=== PATIENT | female | born 1960 | race Caucasian/White ===

== ENCOUNTER 2021-08-18 10:00 | Outpatient (RCR) | payer MEDICARE, MEDICAID, SELFPAY ==
--- NOTE | 2021-06-23 14:48 | HO.TMSDAILY2 ---
TMS Daily Progress Note Daily TMS Progress Note Date of Service: 06/23/21 Week #: 1 Treatment #(10-09): 1 PHQ-9 Pre-Treatment (10-06): 23 PHQ-9 Most Recent (10-06): 23 Reviewed: TMS Mapping/Re-mapping completed Verification: I have reviewed the TMS Maintenance Worker House Trailer Note and agree with the contents. The patient remains a candidate to continue TMS treatment per protocol.
--- NOTE | 2021-06-27 17:50 | P.PNPS_ITS ---
TMS Daily Progress Note Daily TMS Progress Note Date of Service: 06/27/21 Week #: 1 Treatment #(10-09): 2 PHQ-9 Pre-Treatment (10-06): 23 PHQ-9 Most Recent (10-06): 23 Reviewed: TMS Tech Note Reviewed Verification: I have reviewed the TMS Warp Spooler Note and agree with the contents. The patient remains a candidate to continue TMS treatment per pro tocol.
--- NOTE | 2021-06-28 21:28 | P.PNPS_ITS ---
TMS Daily Progress Note Daily TMS Progress Note Date of Service: 06/28/21 Week #: 1 Treatment #(10-09): 3 PHQ-9 Pre-Treatment (10-06): 23 PHQ-9 Most Recent (10-06): 23 Reviewed: TMS Tech Note Reviewed Verification: I have reviewed the TMS Neonatal Pediatric Nurse Note and agree with the contents. The patient remains a candidate to continue TMS treatment per pro tocol. Pt seen post tms sverely depressed hopeless helpless denies active si call placed to pts therapist to coordinate care. Pt willing to engage in tx discussed option of toritofjoshua reviewed dx possible tx
--- NOTE | 2021-06-29 10:46 | P.PNPS_ITS ---
TMS Daily Progress Note Daily TMS Progress Note Date of Service: 06/29/21 Week #: 1 Treatment #(10-09): 4 PHQ-9 Pre-Treatment (10-06): 23 PHQ-9 Most Recent (10-06): 23 Reviewed: TMS Tech Note Reviewed Verification: I have reviewed the TMS Electronic Train Control Technician Note and agree with the contents. The patient remains a candidate to continue TMS treatment per pr otocol. Added right protocol to left-sided treatment for hopeful increase efficacy Patient severely depressed monitor safety patient denies any active SI
--- NOTE | 2021-07-04 22:02 | HO.TMSDAILY2 ---
TMS Daily Progress Note Daily TMS Progress Note Date of Service: 06/30/21 Week #: 1 Treatment #(10-09): 5 PHQ-9 Pre-Treatment (10-06): 23 PHQ-9 Most Recent (10-06): 23 Reviewed: TMS Tech Note Reviewed Verification: I have reviewed the TMS Clinical Resource Nurse Note and agree with the contents. The patient remains a candidate to continue TMS treatment per protocol. Assessment and Plan (1) Depression, major, severe recurrence: Status: Acute tms treatment monitor response
--- NOTE | 2021-07-04 22:09 | P.PNPS_ITS ---
TMS Daily Progress Note Daily TMS Progress Note Date of Service: 07/04/21 Week #: 2 Treatment #(10-09): 7 PHQ-9 Pre-Treatment (10-06): 23 PHQ-9 Most Recent (10-06): 23 Reviewed: TMS Tech Note Reviewed Verification: I have reviewed the TMS Agricultural Equipment Sales Manager Note and agree with the contents. The patient remains a candidate to continue TMS treatment per pr otocol. Assessment and Plan (1) Depression, major, severe recurrence: Status: Acute tms treatment monitor response
--- NOTE | 2021-07-05 22:11 | HO.TMSDAILY2 ---
TMS Daily Progress Note Daily TMS Progress Note Date of Service: 07/05/21 Week #: 2 Treatment #(10-09): 8 PHQ-9 Pre-Treatment (10-06): 23 PHQ-9 Most Recent (10-06): 23 Reviewed: TMS Tech Note Reviewed Verification: I have reviewed the TMS Heat And Frost Insulator Note and agree with the contents. The patient remains a candidate to continue TMS treatment per protocol. Assessment and Plan (1) Depression, major, severe recurrence: Status: Acute tms treatment monitor response
--- NOTE | 2021-07-06 21:04 | P.PNPS_ITS ---
TMS Daily Progress Note Daily TMS Progress Note Date of Service: 07/06/21 Week #: 2 Treatment #(10-09): 9 PHQ-9 Pre-Treatment (10-06): 23 PHQ-9 Most Recent (10-06): 23 Reviewed: TMS Tech Note Reviewed Verification: I have reviewed the TMS Surveillance Supervisor Note and agree with the contents. The patient remains a candidate to continue TMS treatment per pr otocol.
--- NOTE | 2021-07-07 21:05 | HO.TMSDAILY2 ---
TMS Daily Progress Note Daily TMS Progress Note Date of Service: 07/07/21 Week #: 2 Treatment #(10-09): 10 PHQ-9 Pre-Treatment (10-06): 23 PHQ-9 Most Recent (10-06): 23 Reviewed: TMS Tech Note Reviewed Verification: I have reviewed the TMS Serging Machine Operator Automatic Note and agree with the contents. The patient remains a candidate to continue TMS treatment per protocol.
--- NOTE | 2021-07-08 18:50 | HO.TMSDAILY2 ---
TMS Daily Progress Note Daily TMS Progress Note Date of Service: 07/08/21 Week #: 3 Treatment #(10-09): 11 PHQ-9 Pre-Treatment (10-06): 23 PHQ-9 Most Recent (10-06): 23 Reviewed: TMS Tech Note Reviewed Verification: I have reviewed the TMS Maintenance Of Way Superintendent Note and agree with the contents. The patient remains a candidate to continue TMS treatment per protocol. Assessment and Plan (1) Depression, major, severe recurrence: Status: Acute continue tx plan note abilify 2 mg started
--- NOTE | 2021-07-11 21:08 | HO.TMSDAILY2 ---
TMS Daily Progress Note Daily TMS Progress Note Date of Service: 07/11/21 Week #: 3 Treatment #(10-09): 12 PHQ-9 Pre-Treatment (10-06): 23 PHQ-9 Most Recent (10-06): 23 Reviewed: TMS Tech Note Reviewed Verification: I have reviewed the TMS Registered Radiologic Technologist Note and agree with the contents. The patient remains a candidate to continue TMS treatment per protocol. Assessment and Plan (1) Depression, major, severe recurrence: Status: Acute continue tx plan note abilify 2 mg started
--- NOTE | 2021-07-11 21:11 | HO.TMSDAILY2 ---
TMS Daily Progress Note Daily TMS Progress Note Date of Service: 07/11/21 Week #: 3 Treatment #(10-09): 12 PHQ-9 Pre-Treatment (10-06): 23 PHQ-9 Most Recent (10-06): 23 Reviewed: TMS Tech Note Reviewed Verification: I have reviewed the TMS Meteorological Aide Note and agree with the contents. The patient remains a candidate to continue TMS treatment per protocol. Assessment and Plan (1) Depression, major, severe recurrence: Status: Acute continue tx plan monitor depression
--- NOTE | 2021-07-12 21:33 | HO.TMSDAILY2 ---
TMS Daily Progress Note Daily TMS Progress Note Date of Service: 07/12/21 Week #: 3 Treatment #(10-09): 13 PHQ-9 Pre-Treatment (10-06): 23 PHQ-9 Most Recent (10-06): 23 Reviewed: TMS Tech Note Reviewed Verification: I have reviewed the TMS Cranberry Bog Supervisor Note and agree with the contents. The patient remains a candidate to continue TMS treatment per protocol. Assessment and Plan (1) Depression, major, severe recurrence: Status: Acute continue tx plan monitor depression
--- NOTE | 2021-07-13 21:44 | HO.TMSDAILY2 ---
TMS Daily Progress Note Daily TMS Progress Note Date of Service: 07/13/21 Week #: 3 Treatment #(10-09): 14 PHQ-9 Pre-Treatment (10-06): 23 PHQ-9 Most Recent (10-06): 23 Reviewed: TMS Tech Note Reviewed Verification: I have reviewed the TMS Golf Course Equipment Operator Note and agree with the contents. The patient remains a candidate to continue TMS treatment per protocol. Assessment and Plan (1) Depression, major, severe recurrence: Status: Acute continue tx plan monitor depression
--- NOTE | 2021-07-14 22:08 | HO.TMSDAILY2 ---
TMS Daily Progress Note Daily TMS Progress Note Date of Service: 07/14/21 Week #: 3 Treatment #(10-09): 15 PHQ-9 Pre-Treatment (10-06): 23 PHQ-9 Most Recent (10-06): 23 Reviewed: TMS Tech Note Reviewed Verification: I have reviewed the TMS Grove Worker Note and agree with the contents. The patient remains a candidate to continue TMS treatment per protocol. Assessment and Plan (1) Depression, major, severe recurrence: Status: Acute continue tx plan monitor depression abilify 2 mg had been added
--- NOTE | 2021-07-18 16:45 | HO.TMSDAILY2 ---
TMS Daily Progress Note Daily TMS Progress Note Date of Service: 07/18/21 Week #: 4 Treatment #(10-09): 16 PHQ-9 Pre-Treatment (10-06): 23 PHQ-9 Most Recent (10-06): 23 Reviewed: TMS Tech Note Reviewed Verification: I have reviewed the TMS Lead Process Engineer Note and agree with the contents. The patient remains a candidate to continue TMS treatment per protocol. Assessment and Plan (1) Depression, major, severe recurrence: Status: Acute continue tx plan monitor depression abilify 2 mg had been added
--- NOTE | 2021-07-19 20:03 | P.PNPS_ITS ---
TMS Daily Progress Note Daily TMS Progress Note Date of Service: 07/19/21 Week #: 4 Treatment #(10-09): 17 PHQ-9 Pre-Treatment (10-06): 23 PHQ-9 Most Recent (10-06): 23 Reviewed: TMS Tech Note Reviewed Verification: I have reviewed the TMS Sow Farm Technician Note and agree with the contents. The patient remains a candidate to continue TMS treatment per p ree.
--- NOTE | 2021-07-20 21:37 | HO.TMSDAILY2 ---
TMS Daily Progress Note Daily TMS Progress Note Date of Service: 07/20/21 Week #: 3 Treatment #(10-09): 19 PHQ-9 Pre-Treatment (10-06): 23 PHQ-9 Most Recent (10-06): 23 Reviewed: TMS Tech Note Reviewed Verification: I have reviewed the TMS Purchasing Clerk Note and agree with the contents. The patient remains a candidate to continue TMS treatment per protocol. Assessment and Plan (1) Depression, major, severe recurrence: Status: Acute continue tx plan monitor depression monitor for si
--- NOTE | 2021-07-21 23:09 | P.PNPS_ITS ---
TMS Daily Progress Note Daily TMS Progress Note Date of Service: 07/22/21 Week #: 4 Treatment #(10-09): 19 PHQ-9 Pre-Treatment (10-06): 23 PHQ-9 Most Recent (10-06): 23 Reviewed: TMS Tech Note Reviewed Verification: I have reviewed the TMS Aviation Medicine Specialist Note and agree with the contents. The patient remains a candidate to continue TMS treatment per p ree. Assessment and Plan (1) Depression, major, severe recurrence: Status: Acute continue tx plan monitor depression monitor for si
--- NOTE | 2021-07-22 21:37 | P.PNPS_ITS ---
TMS Daily Progress Note Daily TMS Progress Note Date of Service: 07/22/21 Week #: 4 Treatment #(10-09): 20 PHQ-9 Pre-Treatment (10-06): 23 PHQ-9 Most Recent (10-06): 23 Reviewed: TMS Tech Note Reviewed Verification: I have reviewed the TMS Refrigeration Service Inspector Note and agree with the contents. The patient remains a candidate to continue TMS treatment per p ree. Assessment and Plan (1) Depression, major, severe recurrence: Status: Acute continue tx plan monitor depression
--- NOTE | 2021-07-25 22:02 | P.PNPS_ITS ---
TMS Daily Progress Note Daily TMS Progress Note Date of Service: 07/25/21 Week #: 5 Treatment #(10-09): 21 PHQ-9 Pre-Treatment (10-06): 23 PHQ-9 Most Recent (10-06): 23 Reviewed: TMS Tech Note Reviewed Verification: I have reviewed the TMS Property Portfolio Officer Note and agree with the contents. The patient remains a candidate to continue TMS treatment per p ree.
--- NOTE | 2021-07-26 21:56 | HO.TMSDAILY2 ---
TMS Daily Progress Note Daily TMS Progress Note Date of Service: 07/26/21 Week #: 5 Treatment #(10-09): 22 PHQ-9 Pre-Treatment (10-06): 23 PHQ-9 Most Recent (10-06): 23 Reviewed: TMS Tech Note Reviewed Verification: I have reviewed the TMS Department Of Mathematics Chair Note and agree with the contents. The patient remains a candidate to continue TMS treatment per protocol. Assessment and Plan (1) Depression, major, severe recurrence: Status: Acute continue tx plan monitor depression pt seen mood improved much less agitation no longer active si feels wellbutrin 150 abilify 2 mg tms helpful some fatigue post tx medication reviewed no c/o side effecyts continue tms no current need to remap
--- NOTE | 2021-07-27 23:02 | HO.TMSDAILY2 ---
TMS Daily Progress Note Daily TMS Progress Note Date of Service: 07/28/21 Week #: 4 Treatment #(10-09): 23 PHQ-9 Pre-Treatment (10-06): 23 PHQ-9 Most Recent (10-06): 23 Reviewed: TMS Tech Note Reviewed Verification: I have reviewed the TMS Title Curative Specialist Note and agree with the contents. The patient remains a candidate to continue TMS treatment per protocol. Assessment and Plan (1) Depression, major, severe recurrence: Status: Acute continue tx plan monitor depression
--- NOTE | 2021-07-28 22:53 | P.PNPS_ITS ---
TMS Daily Progress Note Daily TMS Progress Note Date of Service: 07/28/21 Week #: 5 Treatment #(10-09): 24 PHQ-9 Pre-Treatment (10-06): 23 PHQ-9 Most Recent (10-06): 23 Reviewed: TMS Tech Note Reviewed Verification: I have reviewed the TMS Lens Molding Equipment Operator Note and agree with the contents. The patient remains a candidate to continue TMS treatment per p ree.
--- NOTE | 2021-07-29 17:21 | HO.TMSDAILY2 ---
TMS Daily Progress Note Daily TMS Progress Note Date of Service: 07/29/21 Week #: 5 Treatment #(10-09): 25 PHQ-9 Pre-Treatment (10-06): 23 PHQ-9 Most Recent (10-06): 23 Reviewed: TMS Tech Note Reviewed Verification: I have reviewed the TMS Slitting And Shipping Supervisor Note and agree with the contents. The patient remains a candidate to continue TMS treatment per protocol.
--- NOTE | 2021-08-01 23:32 | HO.TMSDAILY2 ---
TMS Daily Progress Note Daily TMS Progress Note Date of Service: 08/01/21 Week #: 6 Treatment #(10-09): 26 PHQ-9 Pre-Treatment (10-06): 23 PHQ-9 Most Recent (10-06): 23 Reviewed: TMS Tech Note Reviewed Verification: I have reviewed the TMS Candy Department Manager Note and agree with the contents. The patient remains a candidate to continue TMS treatment per protocol. Assessment and Plan (1) Depression, major, severe recurrence: Status: Acute continue tx plan monitor depression
--- NOTE | 2021-08-02 22:05 | P.PNPS_ITS ---
TMS Daily Progress Note Daily TMS Progress Note Date of Service: 08/02/21 Week #: 6 Treatment #(10-09): 27 PHQ-9 Pre-Treatment (10-06): 23 PHQ-9 Most Recent (10-06): 23 Reviewed: TMS Tech Note Reviewed Verification: I have reviewed the TMS Boring Machine Operator Note and agree with the contents. The patient remains a candidate to continue TMS treatment per p ree. Assessment and Plan (1) Depression, major, severe recurrence: Status: Acute continue tx plan monitor depression improved
--- NOTE | 2021-08-03 16:26 | P.PNPS_ITS ---
TMS Daily Progress Note Daily TMS Progress Note Date of Service: 08/03/21 Week #: 6 Treatment #(10-09): 28 PHQ-9 Pre-Treatment (10-06): 23 PHQ-9 Most Recent (10-06): 23 Reviewed: TMS Tech Note Reviewed Verification: I have reviewed the TMS Pre Parole Counseling Aide Note and agree with the contents. The patient remains a candidate to continue TMS treatment per p ree.
--- NOTE | 2021-08-08 23:06 | HO.TMSDAILY2 ---
TMS Daily Progress Note Daily TMS Progress Note Date of Service: 08/08/21 Week #: 6 Treatment #(10-09): 29 PHQ-9 Pre-Treatment (10-06): 23 PHQ-9 Most Recent (10-06): 23 Reviewed: TMS Tech Note Reviewed Verification: I have reviewed the TMS Refractory Technician Note and agree with the contents. The patient remains a candidate to continue TMS treatment per protocol.
--- NOTE | 2021-08-09 23:19 | HO.TMSDAILY2 ---
TMS Daily Progress Note Daily TMS Progress Note Date of Service: 08/10/21 Week #: 6 Treatment #(10-09): 30 PHQ-9 Pre-Treatment (10-06): 23 PHQ-9 Most Recent (10-06): 23 Reviewed: TMS Tech Note Reviewed Verification: I have reviewed the TMS Liturgical Music Director Note and agree with the contents. The patient remains a candidate to continue TMS treatment per protocol.
--- NOTE | 2021-08-10 22:10 | P.PNPS_ITS ---
TMS Daily Progress Note Daily TMS Progress Note Date of Service: 08/10/21 Week #: 7 Treatment #(10-09): 31 PHQ-9 Pre-Treatment (10-06): 23 PHQ-9 Most Recent (10-06): 23 Reviewed: TMS Tech Note Reviewed Verification: I have reviewed the TMS Rotary Drier Operator Note and agree with the contents. The patient remains a candidate to continue TMS treatment per p ree.
--- NOTE | 2021-08-11 23:31 | HO.TMSDAILY2 ---
TMS Daily Progress Note Daily TMS Progress Note Date of Service: 08/11/21 Week #: 7 Treatment #(10-09): 32 PHQ-9 Pre-Treatment (10-06): 23 PHQ-9 Most Recent (10-06): 23 Reviewed: TMS Tech Note Reviewed Verification: I have reviewed the TMS Senior Advocate Note and agree with the contents. The patient remains a candidate to continue TMS treatment per protocol.
--- NOTE | 2021-08-15 23:39 | HO.TMSDAILY2 ---
TMS Daily Progress Note Daily TMS Progress Note Date of Service: 08/15/21 Week #: 7 Treatment #(10-09): 33 PHQ-9 Pre-Treatment (10-06): 23 PHQ-9 Most Recent (10-06): 23 Reviewed: TMS Tech Note Reviewed Verification: I have reviewed the TMS Branch Lending Officer Note and agree with the contents. The patient remains a candidate to continue TMS treatment per protocol.
--- NOTE | 2021-08-17 23:43 | HO.TMSDAILY2 ---
TMS Daily Progress Note Daily TMS Progress Note Date of Service: 08/17/21 Week #: 8 Treatment #(10-09): 35 PHQ-9 Pre-Treatment (10-06): 23 PHQ-9 Most Recent (10-06): 23 Reviewed: TMS Tech Note Reviewed Verification: I have reviewed the TMS Optometry Assistant Note and agree with the contents. The patient remains a candidate to continue TMS treatment per protocol.
--- NOTE | 2021-08-18 15:54 | P.PNPS_ITS ---
TMS Daily Progress Note Daily TMS Progress Note Date of Service: 08/18/21 Week #: 8 Treatment #(10-09): 36 PHQ-9 Pre-Treatment (10-06): 23 PHQ-9 Most Recent (10-06): 23 Reviewed: TMS Tech Note Reviewed Verification: I have reviewed the TMS Backing In Machine Tender Note and agree with the contents. The patient remains a candidate to continue TMS treatment per p ree. Assessment and Plan (1) Depression, major, severe recurrence: Status: Acute pt with good response to tms
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
== END 2021-08-18 16:02 | disposition home or self-care (01) ==
LOC: HO.PTMS 10:00
PROVIDERS: Visit Provider Psychiatry & Neurology Psychiatry
DX: F33.2 Major depressive disorder, recurrent severe without psychotic features (principal)
CPT/HCPCS: 90867; 90868; 99212

== ENCOUNTER 2021-11-09 10:21 | Outpatient (REF) | payer OTHER, MEDICARE, SELFPAY ==
[2021-11-09 16:47] LABS: H Pylori Breath Test Negative (Negative)
== END 2021-11-09 10:22 | disposition home or self-care (01) ==
LOC: HO.LNP 10:21
PROVIDERS: Visit Provider Physician Assistant Surgical
DX: E66.01 Morbid (severe) obesity due to excess calories (principal)
CPT/HCPCS: 83013; 99202; 99211

== ENCOUNTER → 2021-11-15 14:44 | Outpatient (BNVA) | payer OTHER, SELFPAY | PROVIDERS: PCP Internal Medicine; Visit Provider Counselor Mental Health | DX: F33.2 Major depressive disorder, recurrent severe without psychotic features (principal) | CPT/HCPCS: 90791 ==

== ENCOUNTER 2021-11-16 08:20 | Outpatient (REF) | payer OTHER, SELFPAY ==
[2021-11-16 09:31] LABS: C Reactive Protein 2.39 mg/dL (< or = 0.50); Cholesterol 235 mg/dL; HDL Cholesterol 48 mg/dL; Iron 62 mcg/dL (30-160); LDL Cholesterol Calculated 162 mg/dl; Percent Iron Saturation 19 % (15-50); Total Iron Binding Capacity 318 mcg/dL (228-428); Triglycerides 127 mg/dL; Unsaturated Iron Binding 256 ug/dL
[2021-11-16 09:53] LABS: Ferritin 59 ng/mL (10-250); TSH reflex Free T4 1.36 uIU/mL (0.32-4.0); Vitamin D 25-OH Total 33.8 ng/mL (>30)
[2021-11-16 10:03] LABS: Folate > 20.0 ng/mL (> or = 4.0); Vitamin B12 693 pg/mL (200-900)
[2021-11-18 13:46] LABS: Calcium (PTHI) 9.5 mg/dL (8.6-10.4); PTHI 107 pg/mL (14-64)
[2021-11-19 17:11] LABS: Zinc 73 mcg/dL (60-130)
[2021-11-21 12:41] LABS: Vitamin B1 28 nmol/L (8-30)
[2021-11-22 16:20] LABS: Vitamin A 43 mcg/dL (38-98)
== END 2021-11-16 08:21 | disposition home or self-care (01) ==
LOC: HO.LAB 08:20
PROVIDERS: PCP Internal Medicine; Visit Provider Physician Assistant Surgical
DX: E66.01 Morbid (severe) obesity due to excess calories (principal)
CPT/HCPCS: 36415; 80061; 82306; 82607; 82728; 82746; 83540; 83970; 84425; 84443; 84590; 84630; 86140

== ENCOUNTER → 2021-12-02 09:33 | Outpatient (BNVA) | payer OTHER, SELFPAY | PROVIDERS: PCP Internal Medicine; Visit Provider Physician Assistant Surgical | DX: E66.9 Obesity, unspecified (principal); Z68.39 Body mass index [BMI] 39.0-39.9, adult | CPT/HCPCS: 99212 ==

== ENCOUNTER → 2021-12-16 08:11 | Outpatient (BNVA) | payer OTHER, SELFPAY | PROVIDERS: PCP Internal Medicine; Visit Provider Dietitian, Registered | DX: E66.9 Obesity, unspecified (principal); Z71.3 Dietary counseling and surveillance | CPT/HCPCS: 97802 ==

== ENCOUNTER 2021-12-20 08:46 | Outpatient (REF) | payer OTHER, SELFPAY ==
--- NOTE | ~2021-12-20 | FL_ITS ---
EXAMINATION: XR FLUOROSCOPY UPPER GI WITH AIR CLINICAL INFORMATION: Obesity. History of Erick fundoplication. COMPARISON: None. TECHNIQUE: Upper GI was performed using thin and thick barium and effervescent granules. FINDINGS: Esophageal motility is normal. There are surgical clips at the GE junction compatible with the patient's history of Erick fundoplication. There is question of redundancy of the wrapped stomach at the GE junction versus a small paraesophageal hernia. No gastroesophageal reflux is seen. The stomach and duodenum are otherwise normal. No fold thickening, mass, ulcer, or stricture is seen. FLUOROSCOPY TIME: 1.2 minutes DOSE AREA PRODUCT: 6.5 Gy-cm2. 34 saved fluoroscopic images. FL/FL upper GI w air IMPRESSION: Question redundancy of the stomach at the surgical site post Erick fundoplication versus a small paraesophageal hernia. No gastroesophageal reflux.
--- NOTE | ~2021-12-20 | XR_ITS ---
EXAMINATION: XR CHEST CLINICAL INFORMATION: Obesity COMPARISON: None TECHNIQUE: 2 views of the chest were obtained. FINDINGS: The cardiac and mediastinal contours are normal. The lungs are clear. There is no pleural effusion or pneumothorax. There are degenerative changes of the spine. There are surgical clips under the left hemidiaphragm. XR/XR chest 2V IMPRESSION: No evidence for acute disease in the chest.
--- NOTE | ~2021-12-20 | US_ITS ---
EXAMINATION: US COMPLETE ABDOMEN WITH LIVER ELASTOGRAPHY CLINICAL INFORMATION: Morbid/severe obesity. COMPARISON: None. TECHNIQUE: Real-time imaging of the abdominal viscera. Noninvasive ultrasound liver fibrosis assessment is performed using Jeanne ElastPQ point quantification shear wave elastography (2D-SWE) with a C5-2 MHz transducer. Multiple elastography samples are obtained. FINDINGS: PANCREAS: Normal. The visualized pancreatic head and body are normal in appearance. The remainder of the pancreas is obscured from visualization by the overlying bowel gas. ABDOMINAL AORTA: The proximal, middle, and distal aortic segments are normal in caliber. INFERIOR VENA CAVA: Visualized portions are normal. LIVER: There is anechoic cyst in the left hepatic lobe measuring 1.3 x 1.1 x 1.5 cm. The liver demonstrates normal size, contour and increased echogenicity. No focal lesion or intrahepatic biliary duct dilatation. The right lobe measures 14.9 cm in length. The left lobe measures 9.5 cm in length. Portal flow is hepatopedal. Shear wave liver elastography median stiffness is 1.69 m/s (reference: normal median stiffness is 1.3 m/s or less). IQR/median stiffness to assess sampling precision is 0.21 (reference: good quality data set is IQR/median stiffness of 0.15 or less). GALLBLADDER: Normal. The gallbladder is physiologically distended without evidence of stones, sludge, polyps, wall thickening or pericholecystic fluid. COMMON BILE DUCT: Normal in caliber measuring 0.3 cm in diameter. RIGHT KIDNEY: Normal. No hydronephrosis. No renal calculi or focal parenchymal lesions. The kidney measures 10.2 cm in maximum dimension. LEFT KIDNEY: Normal. No hydronephrosis. No renal calculi or focal parenchymal lesions. The kidney measures 9.9 cm in maximum dimension. SPLEEN: Normal. The spleen measures 11.7 cm in maximum dimension. There are several small echogenic lesions seen, largest measuring 0.9 x 1.1 x 1.1 cm, likely small hemangiomas. FREE FLUID: None. US/US abdomen comp w elastography IMPRESSION: 1. Left hepatic lobe cyst. Mild hepatic steatosis. 2. Multiple small echogenic splenic lesions, likely hemangiomas measuring 1.1 cm. Correlate clinically if deemed necessary. 3. Liver elastography: Median liver stiffness 1.69 m/s. The findings are suggestive of cACLD ruled out. REFERENCE: Society of Radiologists in Ultrasound Liver Stiffness Thresholds (2020): LIVER STIFFNESS THRESHOLDS: *Liver Stiffness equal or less than 1.3 m/s: High probability of being normal. *Liver Stiffness less than 1.7 m/s: In the absence of other known clinical signs, rules out compensated advanced chronic liver disease. *Liver Stiffness 1.7-2.1 m/s: Suggestive of compensated advanced chronic liver disease but need further test for confirmation. *Liver Stiffness over 2.1 m/s: Rules in compensated advanced chronic liver disease. *Liver Stiffness over 2.4 m/s: Suggestive of clinically significant portal hypertension. QUALITY OF DATA SET: *IQR/Median value equal or less than 0.15 implies a quality data set. *IQR/Median value over 0.15 implies a poor quality data set. SIGNIFICANT CHANGE FROM PRIOR EXAM: Significant change if liver stiffness measurement is 10% or greater from prior exam. OTHER CONSIDERATIONS: The stage of liver fibrosis may be overestimated in the setting of acute hepatitis, liver inflammation, elevated liver function tests, hepatic vascular congestion, obstructive cholestasis, non-fasting state, and infiltrative diseases such as amyloidosis and lymphoma. In some patients with NAFLD, the liver stiffness thresholds for compensated advanced chronic liver disease may be lower. In causes other than viral hepatitis and NAFLD, liver stiffness thresholds are not well established.
== END 2021-12-20 08:47 | disposition home or self-care (01) ==
LOC: HO.US 08:46
PROVIDERS: PCP Internal Medicine; Visit Provider Physician Assistant Surgical
DX: E66.01 Morbid (severe) obesity due to excess calories (principal)
CPT/HCPCS: 71046; 74246; 76705; 76981

== ENCOUNTER → 2021-12-30 09:38 | Outpatient (BNVA) | payer OTHER, SELFPAY | PROVIDERS: PCP Internal Medicine; Visit Provider Physician Assistant Surgical | DX: E66.9 Obesity, unspecified (principal); Z68.37 Body mass index [BMI] 37.0-37.9, adult | CPT/HCPCS: 99212 ==

== ENCOUNTER → 2022-01-06 08:13 | Outpatient (BNVA) | payer OTHER, SELFPAY | PROVIDERS: PCP Internal Medicine; Visit Provider Surgery | DX: Z13.89 Encounter for screening for other disorder (principal) | CPT/HCPCS: Q3014 ==

== ENCOUNTER → 2022-01-11 08:17 | Outpatient (BNVA) | payer OTHER, SELFPAY | PROVIDERS: PCP Internal Medicine; Referring Provider Physician Assistant Surgical; Visit Provider Dietitian, Registered | DX: E66.01 Morbid (severe) obesity due to excess calories (principal); Z71.3 Dietary counseling and surveillance | CPT/HCPCS: 97803 ==

== ENCOUNTER → 2022-01-12 09:48 | Outpatient (REF) | payer OTHER, SELFPAY ==
--- NOTE | 2022-01-12 09:55 | ECG_ITS ---
Test Reason : OBESITY Blood Pressure : / mmHG Vent. Rate : 070 BPM Atrial Rate : 070 BPM P-R Int : 144 ms QRS Dur : 086 ms QT Int : 378 ms P-R-T Axes : 052 013 069 degrees QTc Int : 408 ms Normal sinus rhythm Possible Left atrial enlargement Borderline ECG When compared with ECG of 21-JAN-2019 06:56, No significant change was found Referred By: Cedrick Aguiar Electronically Signed By:ROBERTA WELSH MD
== END ==
LOC: HO.CARD 09:48
PROVIDERS: PCP Internal Medicine; Visit Provider Physician Assistant Surgical
DX: E66.01 Morbid (severe) obesity due to excess calories (principal)
CPT/HCPCS: 93005

== ENCOUNTER → 2022-01-26 08:15 | Outpatient (BNVA) | payer OTHER, SELFPAY | PROVIDERS: PCP Internal Medicine; Referring Provider Surgery; Visit Provider Dietitian, Registered | DX: E66.9 Obesity, unspecified (principal) | CPT/HCPCS: 97803 ==

== ENCOUNTER → 2022-02-14 14:45 | Outpatient (BNVA) | payer OTHER, SELFPAY | PROVIDERS: PCP Internal Medicine; Visit Provider Internal Medicine Endocrinology, Diabetes & Metabolism | DX: E21.3 Hyperparathyroidism, unspecified (principal); M81.0 Age-related osteoporosis without current pathological fracture | CPT/HCPCS: 99202 ==

== ENCOUNTER 2022-02-17 13:42 | Outpatient (REF) | payer OTHER, SELFPAY ==
[2022-02-17 14:48] LABS: Vitamin D 25-OH Total 38.2 ng/mL (>30)
[2022-02-20 15:52] LABS: Calcium (PTHI) 9.7 mg/dL (8.6-10.4); PTHI 66 pg/mL (16-77)
== END 2022-02-17 13:43 | disposition home or self-care (01) ==
LOC: HO.LAB 13:42
PROVIDERS: Visit Provider Internal Medicine Endocrinology, Diabetes & Metabolism
DX: E21.3 Hyperparathyroidism, unspecified (principal)
CPT/HCPCS: 36415; 82306; 83970

== ENCOUNTER 2022-02-20 11:34 | Outpatient (REF) | payer OTHER, SELFPAY ==
[2022-02-20 12:17] LABS: Total Volume 24 Hour Urine 2500 mL
[2022-02-20 12:42] LABS: Creatinine, 24Hr Urine 1.3 G/Day (1.0-2.0); Creatinine, mg/dL 51.26
[2022-02-21 17:22] LABS: Calcium, 24 Hr Urine 135 mg/24 h; Calcium/Creatinine Ratio 104 mg/g creat (30-275)
== END 2022-02-20 11:35 | disposition home or self-care (01) ==
LOC: HO.LNP 11:34
PROVIDERS: Visit Provider Internal Medicine Endocrinology, Diabetes & Metabolism
DX: E21.3 Hyperparathyroidism, unspecified (principal)
CPT/HCPCS: 82340; 82570

== ENCOUNTER 2022-02-23 08:18 | Outpatient (REF) | payer OTHER, SELFPAY ==
--- NOTE | ~2022-02-23 | CT_ITS ---
EXAMINATION: CT ABDOMEN AND PELVIS WITHOUT CONTRAST CLINICAL INFORMATION: Obesity COMPARISON: Upper GI December 2011 and ultrasound December 2011 TECHNIQUE: Multidetector volumetric imaging was performed from the superior aspect of the liver through the pubic symphysis. Sagittal and coronal reformatted images were obtained on the technologist's workstation. This CT examination was performed using dose optimization techniques as appropriate, variously including the following: *Automated exposure control *Adjustment of mA and/or kV according to patient size (this includes techniques or standardized protocols for targeted exams where dose is matched to indication/reason for exam; i.e. extremities or head) *Use of iterative reconstruction technique DLP: 713 mGy-cm FINDINGS: LIVER, GALLBLADDER, AND BILIARY TREE: There is a 1.5 cm cyst in the left lobe of the liver. No other focal liver lesion. Normal gallbladder. No biliary duct dilatation. PANCREAS: Unremarkable. SPLEEN: Unremarkable. ADRENAL GLANDS: Unremarkable. KIDNEYS AND URETERS: The kidneys are normal in size, shape, and attenuation. No hydronephrosis, hydroureter, or calculi seen. No perinephric stranding. BLADDER: Unremarkable. GASTROINTESTINAL TRACT: The small and large bowel are unremarkable. The appendix is is not seen and may have been removed. There are surgical clips at the GE junction. There is a small esophageal hernia. ABDOMINAL WALL: No significant hernia is appreciated. LYMPH NODES: Normal. VASCULAR: Unremarkable. PELVIC VISCERA: Unremarkable. OSSEOUS STRUCTURES: There is curvature of the lower lumbar spine to the right degenerative change. CT/CT abdomen pelvis wo con IMPRESSION: Liver cysts. Postsurgical changes at the GE junction. Small esophageal hernia. Fleischner guidelines were followed.
--- NOTE | ~2022-02-23 | CT_ITS ---
EXAMINATION: CT CHEST WITHOUT CONTRAST CLINICAL INFORMATION: Obesity. COMPARISON: Chest x-ray December 2011 TECHNIQUE: Multidetector volumetric CT imaging of the chest was done. Axial MIP volume rendering provided. Sagittal and coronal reformatted images were obtained. This CT examination was performed using dose optimization techniques as appropriate, variously including the following: *Automated exposure control *Adjustment of mA and/or kV according to patient size (this includes techniques or standardized protocols for targeted exams where dose is matched to indication/reason for exam; i.e. extremities or head) *Use of iterative reconstruction technique DLP: 163 mGy-cm FINDINGS: FIRE PATROL: There is slight elevation or eventration of the right anterior hemidiaphragm. LUNGS: The lungs are clear with no evidence of inflammation or nodules. MEDIASTINUM: The right lobe of the thyroid gland is prominent. There is question of a right thyroid nodule measuring approximately 1 cm. The heart is upper normal in size. Very minimal coronary artery calcification. No pericardial effusion. Normal caliber thoracic aorta. Small mediastinal lymph nodes. No enlarged hilar or mediastinal lymph nodes. There are surgical clips at the GE junction. There is question of a small esophageal hernia. PLEURA: There is no pleural effusion. No pleural mass or thickening. AXILLA: No lymphadenopathy. UPPER ABDOMEN: Unremarkable. OSSEOUS STRUCTURES: Degenerative changes of the spine. Question mild T12 vertebral body compression fracture versus a Schmorl's node. Schmorl's node of the superior endplate of the T11 vertebral body. CT/CT chest wo con IMPRESSION: Slight elevation or eventration of the anterior right hemidiaphragm. Postsurgical changes at the GE junction, question small esophageal hernia. Mild T12 vertebral body compression fractures versus Schmorl's nodes. Fleischner guidelines were followed.
[2022-02-23] MEDS: Barium Sulfate Oral (Mocha) 450 ML ORAL.SUSP 900 ML PO (10:35)
== END 2022-02-23 08:19 | disposition home or self-care (01) ==
LOC: HO.CT 08:18
PROVIDERS: Visit Provider Physician Assistant Surgical
DX: Z01.818 Encounter for other preprocedural examination (principal); E66.01 Morbid (severe) obesity due to excess calories
CPT/HCPCS: 71250; 74176

== ENCOUNTER → 2022-02-27 08:10 | Outpatient (BNVA) | payer OTHER, SELFPAY | PROVIDERS: PCP Internal Medicine; Visit Provider Surgery | DX: Z01.818 Encounter for other preprocedural examination (principal); E66.9 Obesity, unspecified; Z68.36 Body mass index [BMI] 36.0-36.9, adult; K44.9 Diaphragmatic hernia without obstruction or gangrene; K21.9 Gastro-esophageal reflux disease without esophagitis; R11.0 Nausea | CPT/HCPCS: Q3014 ==

== ENCOUNTER → 2022-03-08 08:27 | Outpatient (REF) | payer OTHER, SELFPAY ==
--- NOTE | 2022-03-08 08:37 | CA_ITS ---
Transthoracic Echocardiogram Patient (Last, First, Middle): Dina De Santiago, Gender: Female Date of : 1960 Age: 61 Procedure Date: 03/08/2022 Procedure Type: Transthoracic Echocardiogram Location: OP Height: 165.1 cm Weight: 93.9 kg BSA: 2.01 m2 Heart Rate: 64 bpm BP: 138 / 76 mmHg Sales Order Clerk: TREY Referring MD: Romario Cardenas MD [employer] Driver: Raghav Meza MD Symptoms: I51.7 - Cardiomegaly Study Quality: Adequate ECG Rhythm: Sinus Conclusions: - The left ventricular systolic function is normal. The calculated ejection fraction is 60% by biplane method. - No obvious valvular pathology seen on this study. Findings Left Ventricle Normal left ventricular cavity size. There is normal left ventricular wall thickness. The left ventricular systolic function is normal. The calculated ejection fraction is 60% by biplane method. There is no evidence of regional wall motion abnormalities. Diastolic function is normal for age. LV peak GLS -21.1%. Right Ventricle Normal right ventricular cavity size and systolic function. Atria Both atria are normal in size. There is a mobile atrial septum noted. There is no evidence of interatrial shunt by color Doppler. Aortic Valve There is a normal trileaflet aortic valve. There is no aortic valve stenosis. There is no aortic valve regurgitation. Mitral Valve The mitral valve appears normal. There is no mitral valve regurgitation. There is no mitral valve stenosis. Pulmonic Valve The pulmonic valve is likely normal. Tricuspid Valve Normal tricuspid valve structure. There is mild tricuspid valve regurgitation. The pulmonary artery systolic pressure is normal. Great Vessels The asc aorta and aortic arch are normal in size. Venous The inferior vena cava is normal in size and collapses greater than 50% with inspiration. Pericardium/Pleural There is no evidence of pericardial effusion. Prior Study Comparison No prior study available for comparison. Recommendations, Care & Conclusions No obvious valvular pathology seen on this study. Measurements 2D Linear Measurements IVSd: 0.82 0.6-0.9/0.6-1.0 cm LVIDd: 4.83 3.9-5.3/4.2-5.9 cm LVIDd Index: 2.40 2.4-3.2/2.2-3.1 cm/m2 LVIDs: 3.07 2.0-3.6 cm LVPWd: 0.64 0.7-1.1 cm LA Diam: 3.90 2.7-3.8/3.0-4.0 cm LAIDs Index: 1.94 1.5-2.3 cm/m2 LV Mass: 142.12 67-162/88-224 g LV Mass Index: 70.71 43-95/49-115 g/m2 LVOT Diam: 1.80 3.0+(-)1.3 cm 2D Systolic Function EF 4C: 57.70 >55% EF 2C: 61.10 >55% EF BiP: 60.20 >55% Mitral Valve MV Pk E: 0.48 MV PK A: 0.67 MV Decel Time: 219.00 E/A: 0.70 E'Lateral: 6.42 E'Medial: 5.77 E/E' Med: 8.40 E/E' Lat: 7.50 PHT: 64.00 MVA PHT: 3.44 Decel [place]: 2.21 Aortic Valve AoV Pk Favio: 1.40 AoV Mn Favio: 0.98 AoV VTI: 0.29 AoV Pk Grad: 8.00 Aov Mn Grad: 4.00 KIRSTEN Cont.VTI: 1.97 LVOT LVOT Pk Favio: 1.08 LVOT Mn Favio: 0.76 LVOT VTI: 0.22 LVOT Pk Grad: 5.00 LVOT Mn Grad: 3.00 LVOT Diam: 1.80 LVOT Area: 2.54 Diastolic Function MV Pk E: 0.48 MV Pk A: 0.67 E/A: 0.70 E'Medial: 5.77 E/E' Med: 8.40 E' Laterial: 6.42 E/E' Lat: 7.50 Right Ventricle TAPSE (mm): 28.70 TVS' Favio: 18.50 Tricuspid Valve TR Pk Favio: 2.35 TR Pk Grad: 22.00 RA Press: 3.00 RVSP: 25.00 Great Vessels Aorta Sinus of Valsalva: 2.80 2.0-3.5 cm Ao Asc: 3.10 2.1-3.4 cm Ao Arch: 2.50 Ao Desc: 2.00 Updated in Other Vendor System with Status of Final Raghav Meza MD electronically signed on 03/10/2022 11:15:36 AM with status of Final
== END ==
LOC: HO.CARD 08:27
PROVIDERS: PCP Internal Medicine; Visit Provider Surgery
DX: I51.7 Cardiomegaly (principal); E66.9 Obesity, unspecified; K44.9 Diaphragmatic hernia without obstruction or gangrene; Z68.36 Body mass index [BMI] 36.0-36.9, adult
CPT/HCPCS: 93306; 93356

== ENCOUNTER 2022-03-14 06:12 | Inpatient (IN) | payer OTHER, SELFPAY ==
[2022-03-03 10:48] VITALS: BMI 35.8
[2022-03-08 09:29] LABS: MANUAL DIFF FLAG NO
[2022-03-08 10:30] LABS: Basophils Percent Auto 0.4 % (0-2); Eosinophils Absolute Auto 0.1 X10*3/uL (0.0-0.4); Eosinophils Percent Auto 1.3 % (0-4); Hematocrit 42.8 % (37.0-47.0); Hemoglobin 14.3 g/dl (12.0-16.0); Imm Gran Abs Auto 0.03 X10*3/uL (0.00-0.03); Imm Gran Pct Auto 0.4 % (0.0-0.4); Lymphocytes Absolute Auto 1.1 X10*3/uL (1.2-4.9); Lymphocytes Percent Auto 13.3 % (20-40); Mean Corpuscular HGB Conc 33.4 g/dl (31.0-35.0); Mean Corpuscular Hemoglobin 29.4 pg (27.0-33.0); Mean Corpuscular Volume 88.1 fL (80.0-98.0); Mean Platelet Volume 10.5 fL (9.4-12.3); Monocytes Absolute Auto 0.5 X10*3/uL (0.1-1.2); Monocytes Percent Auto 5.6 % (2-11); Neutrophils Absolute Auto 6.6 x10*3/uL (2.0-8.3); Platelet Count 182 X10*3/uL (160-400); Red Blood Count 4.86 X10*6/uL (4.20-5.50); Red Cell Distribution Width 14.1 % (11.0-16.0); White Blood Count 8.3 X10*3/uL (4.8-10.8)
[2022-03-08 10:34] LABS: INTERNATIONAL NORM RATIO 1.1 (0.9-1.1); Prothrombin Time 12.4 SEC (10.0-13.1)
[2022-03-08 10:37] LABS: Partial Thromboplastin Time 47.9 SEC (24.1-38.0)
[2022-03-08 10:42] LABS: Estimated Average Glucose 97 mg/dL
[2022-03-08 11:51] LABS: Alanine Aminotransferase 26 U/L (0-31); Albumin Level 4.3 g/dL (3.5-5.0); Alkaline Phosphatase 66 U/L (39-117); Anion Gap 14 (12-20); Aspartate Amino Transferase 22 U/L (5-31); Bilirubin Total 0.6 mg/dL (0.0-1.0); Blood Urea Nitrogen 23 mg/dL (9-16); Calcium 9.1 mg/dL (8.4-10.2); Carbon Dioxide 26 mmol/L (22-29); Chloride 106 mmol/L (96-108); Cholesterol 197 mg/dL; Estimated Glomerular Filt Rate 60; Glucose Random 79 mg/dL (60-115); HDL Cholesterol 44 mg/dL; LDL Cholesterol Calculated 135 mg/dl; Potassium 4.1 mmol/L (3.3-5.1); Sodium 142 mmol/L (135-145); Total Protein 6.5 g/dL (6.5-8.0); Triglycerides 92 mg/dL
[2022-03-08 12:23] LABS: TSH reflex Free T4 1.14 uIU/mL (0.32-4.0)
[2022-03-08 12:56] LABS: Insulin 7 uU/mL (2-29)
--- NOTE | 2022-03-10 08:25 | HO.ANESPROP2 ---
Documented by User: Genny Brown NP 03/10/22 11:49 HPI - Anesthesia Eval Consult details Narrative: 61yo F for Gastrectomy Sleeve,EGD,possible diaphragmatic hernia,possible ventral hernia,possible open PMFSH Active Problems Active Problems: All Active Problems (Updated 03/03/22 @ 10:55 by Марина Booth RN) Depression, major, severe recurrence (Acute) Morbid obesity (Acute) Hyperparathyroidism (Acute) Obesity (BMI 30-39.9) (Acute) Sleep apnea with use of continuous positive airway pressure (CPAP) (Acute) Osteoporosis (Acute) Migraines (Acute) Left atrial enlargement (Acute) Obesity (Acute) BMI 36.0-36.9,adult (Acute) Diaphragmatic hernia (Acute) Past Medical History Medical History Anxiety and depression Arthritis GERD (gastroesophageal reflux disease) Hiatal hernia History of kidney stones Hx of endometriosis Hx of low back pain Hx of migraines Migraines SHALONDA on CPAP Osteoporosis Slow to wake up after anesthesia Family History Family History Mother Depression Anxiety Asthma Osteoporosis Father Osteoporosis Brother Osteoporosis Asthma Depression Sister Depression Anxiety Obesity Heart disease Sister IBS (irritable bowel syndrome) Anxiety Depression Surgical History Surgical History History of colon resection History of Erick fundoplication History of wisdom tooth extraction, class I edentulism Hx of appendectomy Hx of arthroplasty Hx of arthroscopic knee surgery Hx of bladder endoscopy Hx of colonoscopy Hx of knee surgery Hx of lithotripsy Hx of tonsillectomy Social History Social History Are you a primary nurse behavioral health care to a significant other at home: No Do you presently have visiting nurse or other home services: No Alcohol intake: never Patient Tobacco Use Status: Never used Tobacco Use of substances other than those prescribed or required for medical reasons: No Have you been hit, kicked, punched, or otherwise hurt by someone within the past year? If so, by whom?: No Are you DNR?: No Advance Directives: No Advance Directives Information Provided: Yes Advance Directives on File: No Recently lost weight without trying: No Nutrition Risks: No Nutritional Risk Meds Allergies Allergy/AdvReac Type Severity Reaction Status Date / Time metoclopramide [From REGLAN] Allergy Severe PANIC Verified 03/03/22 11:00 ATTACKS, agitation Penicillins [PENICILLINS] Allergy Severe SOB, Verified 03/03/22 11:00 couldn't breathe sulfamethoxazole Allergy Intermediate HIVES Verified 03/03/22 11:00 [From BACTRIM] trimethoprim [From BACTRIM] Allergy Intermediate HIVES Verified 03/03/22 11:00 surgical skin glue Allergy Severe Hives Uncoded 03/03/22 11:00 Home Medications Medication Instructions Recorded Confirmed Last Taken Type alendronate 70 mg tablet 70 mg PO QWEEK 11/09/21 03/03/22 Unknown History bupropion HCl 150 mg 24 hr tablet, 150 mg PO DAILY 11/09/21 03/03/22 Unknown History extended release cholecalciferol (vitamin D3) 25 25 mcg PO DAILY 11/09/21 02/27/22 Unknown History mcg (1,000 unit) capsule escitalopram oxalate 20 mg tablet 20 mg PO BEDTIME 11/09/21 03/03/22 Unknown History lorazepam 1 mg tablet 1 mg PO BEDTIME PRN Anxiety 11/09/21 03/03/22 Unknown History multivitamin 1 tab PO DAILY 11/09/21 02/27/22 Unknown History naratriptan 2.5 mg tablet 2.5 mg PO DAILY PRN Headache 11/09/21 03/03/22 Unknown History omega 0-pfx-hiq-fish oil 1,200 mg cap PO 11/09/21 02/27/22 Unknown History (144 mg-216 mg) capsule (Fish Oil) simethicone 125 mg capsule (Gas-X 125 mg PO BID-QID PRN 11/09/21 02/27/22 Unknown History Extra Strength) Exam Exam Date and Time: March 10, 2022 0825 Height,Weight and Vital Signs: Height 5 ft 4.5 in Weight 96.162 kg Pertinent Lab Results Pertinent Lab Results: Laboratory Tests 03/08/22 03/08/22 03/08/22 09:15 09:28 09:28 WBC 8.3 RBC 4.86 Hgb 14.3 Hct 42.8 MCV 88.1 MCH 29.4 MCHC 33.4 RDW 14.1 Plt Count 182 MPV 10.5 Immature Gran % (Auto) 0.4 Neut % (Auto) 79.0 H Lymph % (Auto) 13.3 L [place] % (Auto) 5.6 Eos % (Auto) 1.3 Baso % (Auto) 0.4 Lymph # (Auto) 1.1 L [place] # (Auto) 0.5 Eos # (Auto) 0.1 Baso # (Auto) 0.0 Abs Immat Gran (auto) 0.03 Absolute Neuts (auto) 6.6 Absolute Nucleated RBC 0.000 Nucleated RBC % (auto) 0.0 PT 12.4 INR 1.1 APTT 47.9 H Sodium Potassium Chloride Carbon Dioxide Anion Gap BUN Creatinine Estim Creat Clear Calc Estimated GFR Random Glucose Estimat Average Glucose Hemoglobin A1c % Insulin Level Calcium Total Bilirubin AST ALT Alkaline Phosphatase C-Reactive Protein Total Protein Albumin Triglycerides Cholesterol LDL Cholesterol, Calc HDL Cholesterol TSH Blood Type A Positive Antibody Screen NEGATIVE 03/08/22 03/08/22 09:28 09:28 WBC RBC Hgb Hct MCV MCH MCHC RDW Plt Count MPV Immature Gran % (Auto) Neut % (Auto) Lymph % (Auto) Traverse % (Auto) Eos % (Auto) Baso % (Auto) Lymph # (Auto) [place] # (Auto) Eos # (Auto) Baso # (Auto) Abs Immat Gran (auto) Absolute Neuts (auto) Absolute Nucleated RBC Nucleated RBC % (auto) PT INR APTT Sodium 142 Potassium 4.1 Chloride 106 Carbon Dioxide 26 Anion Gap 14 BUN 23 H Creatinine 0.95 Estim Creat Clear Calc 69.0 Estimated GFR 60 Random Glucose 79 Estimat Average Glucose 97 Hemoglobin A1c % 5.0 Insulin Level 7 Calcium 9.1 Total Bilirubin 0.6 AST 22 ALT 26 Alkaline Phosphatase 66 C-Reactive Protein 3.60 H Total Protein 6.5 Albumin 4.3 Triglycerides 92 Cholesterol 197 LDL Cholesterol, Calc 135 HDL Cholesterol 44 TSH 1.14 Blood Type Antibody Screen Narrative Narrative: EKG 01/2022 Vent. Rate : 070 BPM ? ? Atrial Rate : 070 BPM ?? P-R Int : 144 ms? QRS Dur : 086 ms ? ? QT Int : 378 ms ? ? ? P-R-T Axes : 052 013 069 degrees ?? QTc Int : 408 ms ? Normal sinus rhythm Possible Left atrial enlargement Borderline ECG When compared with ECG of 21-JAN-2019 06:56, No significant change was found ECHO 02/2022 Conclusions: - The left ventricular systolic function is normal.? The ? calculated ejection fraction is 60% by biplane method. ? - No obvious valvular pathology seen on this study.? Assessment and Plan Assessment Anesthesia Assessment: Chart Reviewed Documented by User: Ingrid Benito MD 03/14/22 07:38 PMFSH Past Medical History Medical History Anxiety and depression Arthritis GERD (gastroesophageal reflux disease) Hiatal hernia History of kidney stones Hx of endometriosis Hx of low back pain Hx of migraines Migraines SHALONDA on CPAP Osteoporosis Slow to wake up after anesthesia Family History Family History Mother Depression Anxiety Asthma Osteoporosis Father Osteoporosis Brother Osteoporosis Asthma Depression Sister Depression Anxiety Obesity Heart disease Sister IBS (irritable bowel syndrome) Anxiety Depression Family history of problems with anesthesia: No Surgical History Surgical History History of colon resection History of Erick fundoplication History of wisdom tooth extraction, class I edentulism Hx of appendectomy Hx of arthroplasty Hx of arthroscopic knee surgery Hx of bladder endoscopy Hx of colonoscopy Hx of knee surgery Hx of lithotripsy Hx of tonsillectomy History of Problems with Anesthesia: Yes (Slow awakening) Social History Social History Are you a primary nurse behavioral health care to a significant other at home: No Do you presently have visiting nurse or other home services: No Alcohol intake: never Patient Tobacco Use Status: Never used Tobacco Use of substances other than those prescribed or required for medical reasons: No Have you been hit, kicked, punched, or otherwise hurt by someone within the past year? If so, by whom?: No Are you DNR?: No Advance Directives: No Advance Directives Information Provided: Yes Advance Directives on File: No Recently lost weight without trying: No Nutrition Risks: No Nutritional Risk Meds Allergies Allergy/AdvReac Type Severity Reaction Status Date / Time metoclopramide [From REGLAN] Allergy Severe PANIC Verified 03/03/22 11:00 ATTACKS, agitation Penicillins [PENICILLINS] Allergy Severe SOB, Verified 03/03/22 11:00 couldn't breathe sulfamethoxazole Allergy Intermediate HIVES Verified 03/03/22 11:00 [From BACTRIM] trimethoprim [From BACTRIM] Allergy Intermediate HIVES Verified 03/03/22 11:00 surgical skin glue Allergy Severe Hives Uncoded 03/03/22 11:00 Home Medications Medication Instructions Recorded Confirmed Last Taken Type alendronate 70 mg tablet 70 mg PO QWEEK 11/09/21 03/03/22 Unknown History bupropion HCl 150 mg 24 hr tablet, 150 mg PO DAILY 11/09/21 03/03/22 Unknown History extended release cholecalciferol (vitamin D3) 25 25 mcg PO DAILY 11/09/21 02/27/22 Unknown History mcg (1,000 unit) capsule escitalopram oxalate 20 mg tablet 20 mg PO BEDTIME 11/09/21 03/03/22 Unknown History lorazepam 1 mg tablet 1 mg PO BEDTIME PRN Anxiety 11/09/21 03/03/22 Unknown History multivitamin 1 tab PO DAILY 11/09/21 02/27/22 Unknown History naratriptan 2.5 mg tablet 2.5 mg PO DAILY PRN Headache 11/09/21 03/03/22 Unknown History omega 6-gxp-whi-fish oil 1,200 mg cap PO 11/09/21 02/27/22 Unknown History (144 mg-216 mg) capsule (Fish Oil) simethicone 125 mg capsule (Gas-X 125 mg PO BID-QID PRN 11/09/21 02/27/22 Unknown History Extra Strength) Exam Height,Weight and Vital Signs: Height 5 ft 4.5 in Weight 96.162 kg Vital Signs Temp Pulse Resp BP Pulse Ox O2 Del Method 03/14/22 06:31 97.7 F 65 18 123/68 95 Room Air Pertinent Lab Results Pertinent Lab Results: Laboratory Tests 03/08/22 03/08/22 03/08/22 09:15 09:28 09:28 WBC 8.3 RBC 4.86 Hgb 14.3 Hct 42.8 MCV 88.1 MCH 29.4 MCHC 33.4 RDW 14.1 Plt Count 182 MPV 10.5 Immature Gran % (Auto) 0.4 Neut % (Auto) 79.0 H Lymph % (Auto) 13.3 L [place] % (Auto) 5.6 Eos % (Auto) 1.3 Baso % (Auto) 0.4 Lymph # (Auto) 1.1 L [place] # (Auto) 0.5 Eos # (Auto) 0.1 Baso # (Auto) 0.0 Abs Immat Gran (auto) 0.03 Absolute Neuts (auto) 6.6 Absolute Nucleated RBC 0.000 Nucleated RBC % (auto) 0.0 PT 12.4 INR 1.1 APTT 47.9 H Sodium Potassium Chloride Carbon Dioxide Anion Gap BUN Creatinine Estim Creat Clear Calc Estimated GFR Random Glucose Estimat Average Glucose Hemoglobin A1c % Insulin Level Calcium Total Bilirubin AST ALT Alkaline Phosphatase C-Reactive Protein Total Protein Albumin Triglycerides Cholesterol LDL Cholesterol, Calc HDL Cholesterol TSH Blood Type A Positive Antibody Screen NEGATIVE 03/08/22 03/08/22 09:28 09:28 WBC RBC Hgb Hct MCV MCH MCHC RDW Plt Count MPV Immature Gran % (Auto) Neut % (Auto) Lymph % (Auto) [place] % (Auto) Eos % (Auto) Baso % (Auto) Lymph # (Auto) [place] # (Auto) Eos # (Auto) Baso # (Auto) Abs Immat Gran (auto) Absolute Neuts (auto) Absolute Nucleated RBC Nucleated RBC % (auto) PT INR APTT Sodium 142 Potassium 4.1 Chloride 106 Carbon Dioxide 26 Anion Gap 14 BUN 23 H Creatinine 0.95 Estim Creat Clear Calc 69.0 Estimated GFR 60 Random Glucose 79 Estimat Average Glucose 97 Hemoglobin A1c % 5.0 Insulin Level 7 Calcium 9.1 Total Bilirubin 0.6 AST 22 ALT 26 Alkaline Phosphatase 66 C-Reactive Protein 3.60 H Total Protein 6.5 Albumin 4.3 Triglycerides 92 Cholesterol 197 LDL Cholesterol, Calc 135 HDL Cholesterol 44 TSH 1.14 Blood Type Antibody Screen Laboratory Results - last 24 hr 03/14/22 06:10 COVID-19 (JESSIKA) Negative COVID-19 Clin Com See Note Airway Mallampati Class: II TM Dist: >3cm Neck ROM: Full Loose/Missing/Broken Teeth: No Heart: RRR Lungs: Diminished. Clear Assessment and Plan Assessment Anesthesia Assessment: Anesthesia Plan Discussed Final Anesthetic Review Family History of Problems with Anesthesia: No History of Problems with Anesthesia: Yes (Slow awakening) NPO: Yes ASA Class: III Final Preanesthetic Review: No Changes in Pt Med Stat, Meds/Allgs Chart Reviewed, Consent Obtained/Reviewed and Anes Risks/Benef Reviewed Patient Risk: Intermediate Procedure Risk: Intermediate Assessment/Block/Sedation in SS: Assess/Block/Sedation-SS Anesthetic Plan Anesthetic Plan: GA Disposition: Standard PACU and Inp. Admit - Standard Bed
--- NOTE | 2022-03-11 22:16 | MHC.SHP ---
Pre-Procedural Eval Section A Date of Service: 03/11/22 The patient is an INPATIENT: Yes The History & Physical has been completed within 30 days and I have reviewed it.: Yes Section B Chief Complaint: obesity Relevant Social History: None Present Medications: None Medical History: No relevant PMH History of Previous Operations: Relevant previous surgery/procedure and date(s) (Erick fundoplication) Allergies: Allergies Allergy/AdvReac Type Severity Reaction Status Date / Time metoclopramide [From REGLAN] Allergy Severe PANIC Verified 03/03/22 11:00 ATTACKS, agitation Penicillins [PENICILLINS] Allergy Severe SOB, Verified 03/03/22 11:00 couldn't breathe sulfamethoxazole Allergy Intermediate HIVES Verified 03/03/22 11:00 [From BACTRIM] trimethoprim [From BACTRIM] Allergy Intermediate HIVES Verified 03/03/22 11:00 surgical skin glue Allergy Severe Hives Uncoded 03/03/22 11:00 Review of Systems Sugical H&P ROS: Negative: Constitution, Cardiovascular, Respiratory, Neurological, Psychiatric, Hem-Onc, Allergic/Immunologic, Gastrointestinal, Genitourinary, Musculoskeletal, Integumentary, Endocrine and Eyes/Ears/Nose/Throat Exam Surgical H&P Exam: Normal: HEENT, Normal: Heart, Normal: Lungs, Normal: Extremities, Normal: Abdomen, Normal: Skin and Normal: Neurological Plan Diagnosis/Plan: Unchanged I have reviewed the history and physical and performed a pertinent physical examination on my patient. No changes have occurred unless specified.
[2022-03-14] VITALS (14 sets, daily range): BP systolic 122–134; BP diastolic 57–73; PULSE 65–101; RESP 13–18; TEMP 36.3–37.2; O2SAT 95–99
[2022-03-14 06:38] LABS: COVID-19 Test Negative (Negative); IDNOW Serial# 55D5AD1C
[2022-03-14] MEDS: Lactated Ringers 1,000 ML 999 ML IV (06:52)
[2022-03-14] MEDS: Lactated Ringers 1,000 ML 100 ML IVCONT ×3 (06:52→19:49)
--- NOTE | 2022-03-14 07:43 | P.BOP_ITS ---
Brief Operative Note Date of Service: 03/14/22 Pre-op diagnosis: Severe obesity with comorbidities (see below) Post-op diagnosis: same Procedure: Procedure: INITIAL PATIENT BMI ON PRESENTATION AT OUR OFFICE: 41.1 kg/m2 LAST BMI BEFORE SURGERY: 35.8 kg/m2 COMORBIDITIES: Recurrent diaphragmatic hernia, hypertension, liver steatosis, depression, anxiety, osteoporosis, migraines, nephrolithiasis The patient participated in an intensive weekly lifestyle? intervention and exercise program during which the patient? has lost between the initial office visit and the last preoperative visit 32.4lbs, or 13.5% of initial actual body weight. The patient met the BMI-criteria for bariatric surgery based on the BMI on initial presentation. The patient should not be penalized for achieving such weight loss because? it is not sustainable long-term without surgical intervention and it was achieved in preparation for bariatric surgery? under my direction and based on my published research ([email or web address]).[email or web address] and [email or web address])? that a 10% preoperative weight loss improves long-term weight loss after surgery and reduces perioperative complications.? Insurance carriers such as [facility] have endorsed my recommendations? and have included in their policies criteria to include a 10% preoperative weight loss requirement. PROCEDURE: Esophago-gastroscopy, laparoscopic repair of recurrent incarcerated diaphragmatic hernia, extensive laparoscopic lysis of adhesions and Erick fundoplication takedown, laparoscopic sleeve gastrectomy and laparoscopic gastropexy INDICATIONS: This is a 61 year-old female who was electively scheduled for laparoscopic, possibly open sleeve gastrectomy. The patient had a previous Erick fundoplication with diaphragmatic hernia repair with pledgets. Preoperative UGI suggests that it has failed as the patient had GERD and a recurrent diaphragmatic hernia. The risks and complications of the procedure were discussed with the patient in advance, particularly the possibility of ; pulmonary embolism; staple line leak; bleeding; GERD; cardiac, pulmonary, or renal complications; as well as long-term problems such as insufficient weight loss, vitamin deficiency, strictures, or ulcers. The patient understood all the risks, and was in agreement to proceed with surgery. DESCRIPTION OF PROCEDURE: After informed consent was obtained from the patient, the patient was given preoperative antibiotics, and was transferred to the operating room. After successful induction of general anesthesia, a Solis catheter and pneumatic com pressive devices were placed on both lower extremities. An upper endoscopy was performed next. The oropharynx and esophagus appeared to be within normal limits. There was a diaphragmatic hernia present of moderate size consistent with the findings of the preoperative upper GI. The stomach was entered. Then after all fluid and air were suctioned and the stomach was fully decompressed, the scope was withdrawn and secured in the mid esophagus. The patient was then prepped and draped in the usual sterile manner, and abdominal access was established at the right upper quadrant with the Alok mohamud hnique. A 12 mm blunt port was inserted, and the abdomen was insufflated with CO2 to a pressure of 15 mmHg. Under direct visualization, additional ports were placed, specifically two 5 mm Versi-step ports to the left upper quadrant, and a 5 mm Versi-Step port to the right upper quadrant. 1% lidocaine plan was used to infiltrate all port sites as well as all fascia defects. There were adhesions in the abdomen from previous Erick fundoplication and umbilical hernia repair involving the omentum and the anterior abdominal wall. Those were lysed completely with the ultrasonic device (Thunderbeat, Olympus). Following that, the patient was placed in a steep reverse Trendelenburg position. An additional 5 mm port was placed to the right flank for the Mediflex retractor that was used to retract the left lobe of the liver. There were extensive adhesions between the caudate lobe as well as the undersurface of the left lobe of the liver with the stomach. Those were lysed and the liver retractor was re-positioned. The right winston was visualized and initially I worked outside the winston the liver from the winston and the stomach towards the hiatus. Once this was done, I now had a good exposure to the hiatus. Then I dissected medically to the right winston. Two posterior sutures were noted with pledgets. The very posterior one was preserved. The second most superior suture and pledget was divided. I was able to get into a good plane between the right winston and the outside of the gastric wrap (fundoplication). I mobilized with the Thunderbeat the right winston from the wrap all the way superior to the anterior surface of the esophagus. I also dissected posterior to the esophagus around the wrap and the confluence to the left winston was identified and well dissected. Then I identified the gastro-gastric sutures that kept the wrap together. Those were divided freeing the tip of the gastric fundus that was wrapped arround the stomach to create the fundoplication. There was no Erick fundoplication. It rather resembled an anterior fundoplication. Then I worked in a plane between the esophagus and the inside surface of the wrapped stomach. I was able slowly to mobilize the wrapped stomach from the esophagus almost circumferentially. No injuries were occured during this extensive dissection that took over 90 minutes to complete. The gastro-esophageal fat pad was opened with the ultrasonic device (Thunderbeat, Olympus) and the anterior esophagus and hiatus were exposed. The angle of His was opened with the ultrasonic device the fundus of the stomach from any diaphragmatic and splenic attachments. I then opened the gastrocolic ligament between the transverse colon and the greater curvature of the stomach with the ultrasonic device to enter the lesser sac and facilitate the ligation of the short gastric vessels. I started at a mid-point along the greater curvature and using the Thunderbeat, all short gastric vessels were divided all the way to the angle of His until the left winston was completely dissected at its entirety. I then divided the gastro-colic ligament distally to a distance of about 3-4 cm proximal to the esophagus. Then I dissected the left winston from the esophagus and the remaining attachments to the wrapped stomach. Eventually the wrapped stomach was completely undone and was placed back at its original position. ? ? There were also extensive congenital adhesions between the pancreas and posterior gastric wall. Those were lysed completely with the ultrasonic device. There was an obvious significant-sized hiatal hernia remaining after the dissection of the wrap was completed. I continued dissecting along the hiatus toward the left winston and the angle of His. I then continued by dissecting even further into the posterior retro-esophageal space all the way to the angle of His. I continued to mobilize the esophagus into the mediastinum circumferentially. Both vagal nerves were seen and preserved. At that point, I was able to have at least 3 to 5 cm of esophagus into the abdomen.? After I completely mobilized the esophagus from both the left and right winston and I had a good mobilization of the esophagus circumferentially, I closed the hernia defect with three interrupted #0 Surgidac sutures using the Endo Stitch device, all of which were placed posterior to the esophagus. As mentioned previously an additional, very posterior suture with pledget placed at the original operation was kept.? The stomach was then divided transversely with one Endo TERE-45 purple, one TERE- 45 orange and four TERE-60 articulating orange loads using the AEON stapler and loads. Every effort was made that the gastric sleeve had a tubular shape and an even caliber throughout. Once the sleeve resection was completed, the staple line of the gastric sleeve was reinforced with Hemoclips. The resected stomach was retrieved without difficulty from the Alok port. A gastropexy was then performed in order to prevent postoperative GERD and part ial gastric volvulus. Several interrupted 2.0 Surgidac sutures were placed between the sleeve's staple line and the previously divided greater omentum and gastro-colic ligament using the Endo-Stitch device. ?An upper endoscopy was performed. There was no narrowing at the GE junction. The scope was easily advanced all the way to the pylorus which was clearly visualized. There was no narrowing anywhere and the sleeve's caliber was even throughout. The sleeve's staple line was inspected and there was no evidence of ischemia, bleeding or dehiscence. At that point the gastroscope was withdrawn from the patient?s mouth while we were decompressing the bowel and the stomach from any remaining air. I looked into the lesser sac to see how the sleeve was situating and it was situating well. There was no bleeding from the staple line, spleen, or short gastric vessels. The Mediflex retractor was removed, and the undersurface of the liver was inspected and there was no bleeding. The patient was placed in supine position. I closed the fascial defect of the 12 mm port site with a figure of eight #1 Polysorb suture. Then 40ml Rupivacaine plain with 10 mg of Dexamethasone were used to infiltrate the fascial closure as well as all skin incisions. A total of 7ml of Zynrelef was placed in the Alok wound. At this point, the abdomen was deflated, all ports were removed under direct vision, and no bleeding was noted from any of the port sites. The skin incisions were irrigated with saline and were closed with 4-0 absorbable monofilament sutures. Steri-Strips and OpSites were used to cover all incisions. The patient was extubated and was transferred in stable condition to the recovery room for further care. I was present and performed all lucero parts of the procedure. 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 There were no residents to assist with this case. Prashanth Cardenas MD, PhD, FACS Surgeon: Romario Cardenas MD Anesthesia: GETA, local and other (TAP block) Was an Associate Professor Of Criminal Justice used for this Procedure?: No Associate Professor Of Criminal Justice: Astrid Dolan Estimated blood loss (mL): 10 IV fluids (mL): 3,000 Urine output (mL): 60 Pathology: other (Stomach) Condition: stable Disposition: PACU
[2022-03-14] MEDS: levoFLOXacin/D5W 500 MG/100 ML PIGGYBACK 100 MG IV (07:53)
--- NOTE | 2022-03-14 11:16 | PM.PNGS ---
Subjective Subjective Date of Service: 03/15/22 Interval history: Feels well. Mild incisional pain. She is tolerating phase 1 bariatric diet Physical Exam Vital Signs: Vital Signs: Last Vital Signs Temp 97.7 F 03/14/22 06:31 Pulse 65 03/14/22 06:31 Resp 18 03/14/22 06:31 BP 123/68 03/14/22 06:31 Pulse Ox 95 03/14/22 06:31 O2 Del Method 03/14/22 06:31 BMI result Body Mass Index 35.8 GI: Inspection: Yes normal to inspection, Yes incision (clean, dry and intact) and Yes obesity Extrem: Right lower extremity: normal to inspection (no calf tenderness) Left lower extremity: normal to inspection (no calf tenderness) Objective Data Active Medications Bupropion HCl (Bupropion Hcl Xl 150 Mg Tab.Er.24h) 150 mg PO DAILY [facility] Escitalopram Oxalate (Escitalopram Oxalate 20 Mg Tablet) 20 mg PO BEDTIME [facility] Fentanyl (Fentanyl Citrate/Pf 100 Mcg/2 Ml Vial) 25 mcg IVPUSH Q5M PRN; Protocol PRN Reason: Pain, Moderate (Pain Scale 4-6 Hydromorphone HCl (Hydromorphone Hcl 0.5 Mg/0.5 Ml Syringe) 0.25 mg IVPUSH Q5M PRN; Protocol PRN Reason: Pain, Severe (Pain Scale 7-10) Lactated Ringer's (Lr) 1,000 mls @ 100 mls/hr IVCONT .Q10H [facility] Last Admin: 03/14/22 06:52 Dose: 100 mls/hr Documented By: ANNETTE Promethazine HCl 6.25 mg/ (Sodium Chloride) 50.25 mls @ 201 mls/hr IV ONCE PRN PRN Reason: Nausea and Vomiting Lorazepam (Lorazepam 1 Mg Tablet) 1 mg PO BEDTIME PRN PRN Reason: Anxiety Non-Formulary Medication (Naratriptan) 2.5 mg PO DAILY PRN PRN Reason: Headache Ondansetron HCl (Ondansetron Hcl 4 Mg/2 Ml Vial) 4 mg IVPUSH ONCE PRN PRN Reason: Nausea and Vomiting Labs CBC & Chem 7: 03/15/22 05:54 03/15/22 05:54 Labs: Laboratory Results - last 24 hr 03/14/22 06:10 COVID-19 (JESSIKA) Negative COVID-19 Clin Com See Note Procedures Date of Service Date of Service: 03/15/22 Progress Note: A&P Assessment and plan (1) Obesity: Status: Acute Assessment and Plan: s/p laparoscopic Erick take-down, sleeve gastrectomy, lysis of adhesions, diaphragmatic hernia repair and gastropexy Doing well Will check am labs and if OK the patient will be discharged home (2) BMI 35.0-35.9,adult: Status: Acute (3) Status post repair of paraesophageal diaphragmatic hernia: Status: Acute (4) S/P laparoscopic sleeve gastrectomy: Status: Acute (5) Diaphragmatic hernia: Status: Acute (6) Sleep apnea with use of continuous positive airway pressure (CPAP): Status: Acute (7) Osteoporosis: Status: Acute (8) Depression, major, severe recurrence: Status: Acute (9) Hypertension: Status: Acute (10) Arthritis: Status: Acute (11) Hx of migraines: Status: Acute (12) Steatosis, liver: Status: Acute Time Spent With Patient Time: Total time spent is greater than 50% in coordination of care (as documented) at patient's floor/unit and/or counseling patient: Quality Stroke Does the patient have a stroke diagnosis?: No VTE Prior VTE?: No VTE Risk Level:: Surgical - moderate VTE Device Contraindication: N/A - Device Ordered VTE Drug Contraindication: Treatment Not Indicated
--- NOTE | 2022-03-14 11:17 | P.DS_ITS ---
DS: Providers Provider Date of Service: 03/15/22 Date of admission: 03/14/22 06:12 Primary care physician: Elizabeth Mensah MD DS: Summary Hospital Course Hospital Course: ADMITTING DIAGNOSIS: morbid obesity, SHALONDA, hiatal hernia, anxiety/depression,migraines DISCHARGE DIAGNOSIS: same, s/p laparoscopic sleeve gastrectomy and repair diaphragmatic hernia, take down of previuos Erick fundoplication PAST SURGICAL HISTORY: Erick fundolpication, orthopedic bladder surgeries PROCEDURE: upper endoscopy, laparoscopic sleeve gastrectomy and repair of diaphragmatic hernia hernia DISCHARGE SUMMARY: History of Present Illness: The patient is a 61 year-old woman with a BMI of 41.1 kg/m2 and associated co- morbidities as described above. The patient had extensive work-up,lost 26.8 lbs preoperatively and was electively scheduled for laparoscopic, possible open sleeve gastrectomy and gastropexy. Risks and complications of the surgery were discussed with the patient in advance, particularly the possibility of , pulmonary embolism, anastomotic leak, bleeding, bowel injury, GERD, cardiac, renal or pulmonary complications. The patient understood all the risks and was in agreement with the surgical plan. Hospital Course: The patient underwent an uneventful laparoscopic sleeve gastrectomy with gastropexy and repair of diaphragmatic hernia on the day of admission. Postoperatively, the patient was transferred to the surgical floor. The patient received IV Acetaminophen and IV dilaudid for pain control. Patient was started on bariatric phase 1 diet POD #0. On postoperative day one, the patient was feeling well without nausea, vomiting, fevers, or tachycardia. The patient had some mild incisional pain and the abdomen was soft. On the morning of postoperative day one, the patient was continued on 1 ounce of water or ice every half hour. During the day, the patient did fairly well, having some incisional pain, but able to ambulate adequately and to tolerate liquids well. Since the patient is doing well, we decided that the patient was ready to be discharged. The patient was given instructions to follow-up with me next week and to call my office for any fever over 101, persistent abdominal pain, nausea, vomiting, GERD, symptoms of DVT such as calf tenderness, or leg swelling, or pulmonary embolism such as chest pain or shortness of breath. The patient was also instructed to drink 40-60 ounces of liquids per day using the 1-ounce cups. The patient had been given prescriptions for Tylenol for pain, Zofran prn for nausea, and pantoprazole and carafate previously. The patient was encouraged to ambulate and use the incentive spirometer. The patient was allowed to shower, but no baths, and encouraged to stay active at home. All of these instructions were given to the patient personally. All questions were answered and the patient understood all instructions, the instructions were also given to the patient in print. Time Spent with Patient Time attestation: Total time spent providing and/or coordinating discharge services: Discharge coordination time: Less than 30 minutes Quality: Safe Use of Opioids Does Pt have an Active Cancer Diagnosis on the Problem List?: No Quality: Stroke Does the patient have a stroke diagnosis?: No Physical Exam Vital Signs: Vital Signs: Last Vital Signs Temp 97.7 F 03/14/22 06:31 Pulse 65 03/14/22 06:31 Resp 18 03/14/22 06:31 BP 123/68 03/14/22 06:31 Pulse Ox 95 03/14/22 06:31 O2 Del Method 03/14/22 06:31 BMI result Body Mass Index 35.8 DS: Data Data Completed and Pending Pending studies at discharge: Pending at discharge 03/14/22 10:17 Surgical [PTH] Routine Labs on day of discharge: Laboratory Results - last 24 hr 03/14/22 06:10 COVID-19 (JESSIKA) Negative COVID-19 Clin Com See Note Discharge Plan Discharge Anticipated Discharge Date/Time: 03/15/22 10:12 Patient Disposition: Home, Self-Care Discharge Diagnosis: s/p sleeve gastrectomy and hiatal hernia repair Referrals: Elizabeth Mensah MD [Primary Care Provider] - 1 Week Discharge Medications: Continued lorazepam 1 mg tablet 1 mg PO BEDTIME PRN (Reason: Anxiety) bupropion HCl 150 mg tablet extended release 24 hr 150 mg PO DAILY escitalopram oxalate 20 mg tablet 20 mg PO BEDTIME naratriptan 2.5 mg tablet 2.5 mg PO DAILY PRN (Reason: Headache) ondansetron HCl 4 mg tablet 4 mg PO Q12H Qty: 20 0RF Discontinued ibuprofen 200 mg Tablet 200 mg PO DAILY PRN (Reason: pain) Radha-Sully Plus Sinus 20-325 mg Tablet, Effervescent 1 ea PO DAILY cholecalciferol (vitamin D3) 25 mcg (1,000 unit) capsule 25 mcg PO DAILY omega 9-xba-msp-fish oil [Fish Oil] 1,200 (144-216) mg capsule 1 cap PO DAILY multivitamin Tablet 1 tab PO DAILY simethicone [Gas-X Extra Strength] 125 mg capsule 125 mg PO BID-QID PRN (Reason: gas) polyethylene glycol 3350 [Miralax] 17 gram powder in packet 17 g PO DAILY Qty: 14 0RF Rx Instructions: Mix each packet with 8oz of water and do 7 packets on 03/12/22 and another 7 packets on Discharge Orders: Discharge Order (Routine); Ordered 03/15/22 Ordered By: Romario Cardenas Activity on Discharge: No heavy lifting Stand Alone Forms: Patient Portal Discharge page Care Plan Goals: weight loss Health Concerns: obesity Plan of Treatment: No tub baths, sex or returning to work until discussed at first post op appointment. No exercise, alcohol, tobacco or illegal drug use. Continue to use incentive spirometer hourly while awake. Walk in home for 5- 10 minutes every 2 hours during the first week. Continue phase 1 diet today and start phase 2 diet tomorrow morning. Follow all instructions in the bariatric handbook and call with any questions. 1. Please call your doctor or come back to the emergency room should any new symptoms arise. 2. You will receive a courtesy call from [facility] 24-48 hours after discharge. 3. Activity: abstain from alcohol, practice limited stair climbing, no bending, no driving, no exercise, no illicit substances, no lifting, no sex, no tub bath, no work. 4. Diet: continue as discussed with Dr. Cardenas. 5. Dressing Change/Wound Care: Do not change or remove surgical dressings unless they are wet or soiled. 6. Call your doctor if: - Your temperature exceeds 101.5 F - You experience excessive pain or swelling - You have an unexpected reaction to medication - You have excessive bleeding - You experience continued vomiting/nausea - Your incision begins to separate - Your incision shows signs of infection such as increased redness, swelling, excessive pain, heat, or drainage (light blood or clear fluid is normal) 7. General instructions: No lifting greater than 5 lbs for the next 4 weeks[address] driving within 24 hours of taking narcotic pain medications. If you do not move your bowels in the next 2 days, please take milk of magnesia over the counter. Please follow the post op diet and do not advance your diet until you are seen in the office in about 2 weeks. Please walk around your home every hour or two to prevent blood clots from forming in your legs. You do not need to wake from sleeping to walk. Please sleep in a bed or couch to prevent kinking at the hips and knees. Please take your incentive spirometer (your lung sanding machine tender automatic) home with you and use it for the next few days to prevent pneumonias. You may shower, no hot tubs, baths or swimming pools. Please call the office with any questions or concerns such as increasing abdominal pain, fever, chills, shortness of breath, chest pain, leg pain or swelling, or redness or drainage from your incisions. Do not hesitate to contact the office with any questions at . The patient's medical history has been reviewed and they are considered low risk for post op DVT and therefore DVT prophylaxis is not considered necessary. Travel after surgery was reviewed. The patient has not disclosed any travel plans during the first 30 days after surgery and they have been advised that within the first 30 days after surgery any bus, plane, train or car travel over 2 hours in duration is contraindicated due to the possibility of developing blood clots from immobility. Any travel, needs to include periods of ambulation of 10 minutes in duration every 2 hours. The patient was instructed to discuss any plans for travel during this period with their bariatric surgeon. Assessment: stable, s\post op sleeve gastrectomy and hiatal hernia repair
[2022-03-14] MEDS: Famotidine/PF 20 MG/2 ML VIAL IVPUSH ×2 (11:33→19:50)
[2022-03-14 11:56] LABS: Hematocrit 44.3 % (37.0-47.0); Hemoglobin 14.4 g/dl (12.0-16.0)
[2022-03-14 12:16] LABS: Anion Gap 14 (12-20); Blood Urea Nitrogen 13 mg/dL (9-16); Calcium 8.5 mg/dL (8.4-10.2); Carbon Dioxide 24 mmol/L (22-29); Chloride 106 mmol/L (96-108); Creatinine Clr Calc Pharmacy 77.2; Estimated Glomerular Filt Rate > 60; Glucose Random 114 mg/dL (60-115); Potassium 4.1 mmol/L (3.3-5.1); Sodium 140 mmol/L (135-145)
[2022-03-14] MEDS: ondansetron HCL 4 MG/2 ML VIAL IVPUSH (15:52)
--- NOTE | 2022-03-14 18:17 | PHA.MEDREC ---
Pharmacy Consult ? Medication Reconciliation Pharmacy has completed the medication reconciliation. Spoke to patient. She says she has discontinue alendronate as she does not like to take the pill with a lot of water, shes looking to talk to her PCP about injectables. Claim history shows pantoprazole, zofran, and sucralfate but patient did not recognize these meds and claimed she does not take them. Naratriptan she said she takes very very rarely I chose to leave in the home medications as it is something that is only as needed. Added OTC items, Ibuprofen and sarika seltzer.
[2022-03-14] MEDS: Escitalopram Oxalate 20 MG TABLET PO (19:49)
[2022-03-14] MEDS: LORazepam 1 MG TABLET PO (20:05)
--- NOTE | 2022-03-14 20:31 | PC.RT ---
Placed pt on Own CPAP 8-20Auto CPAP
[2022-03-15] VITALS: BP 116/64; PULSE 62; RESP 19; TEMP 36.3; O2SAT 95
[2022-03-15] MEDS: ondansetron HCL 4 MG/2 ML VIAL IVPUSH ×2 (00:16→07:10)
[2022-03-15] MEDS: 0.9 % Sodium Chloride Flush 3 ML SYRINGE IVFLUSH (00:16)
[2022-03-15 03:33] VITALS: BP 105/58; PULSE 53; RESP 18; TEMP 36.9; O2SAT 93
[2022-03-15] MEDS: Lactated Ringers 1,000 ML 100 ML IVCONT (05:09)
[2022-03-15 06:35] LABS: MANUAL DIFF FLAG NO
[2022-03-15 06:50] LABS: Basophils Percent Auto 0.1 % (0-2); Hematocrit 37.6 % (37.0-47.0); Hemoglobin 12.2 g/dl (12.0-16.0); Imm Gran Abs Auto 0.04 X10*3/uL (0.00-0.03); Imm Gran Pct Auto 0.4 % (0.0-0.4); Lymphocytes Absolute Auto 0.8 X10*3/uL (1.2-4.9); Lymphocytes Percent Auto 7.1 % (20-40); Mean Corpuscular HGB Conc 32.4 g/dl (31.0-35.0); Mean Corpuscular Volume 89.3 fL (80.0-98.0); Monocytes Absolute Auto 0.5 X10*3/uL (0.1-1.2); Monocytes Percent Auto 4.8 % (2-11); Neutrophils Absolute Auto 9.2 x10*3/uL (2.0-8.3); Neutrophils Percent Auto 87.6 % (45-73); Platelet Count 169 X10*3/uL (160-400); Red Blood Count 4.21 X10*6/uL (4.20-5.50); Red Cell Distribution Width 13.9 % (11.0-16.0); White Blood Count 10.5 X10*3/uL (4.8-10.8)
[2022-03-15 07:09] LABS: Anion Gap 13 (12-20); Blood Urea Nitrogen 12 mg/dL (9-16); Calcium 8.1 mg/dL (8.4-10.2); Carbon Dioxide 24 mmol/L (22-29); Chloride 107 mmol/L (96-108); Creatinine Clr Calc Pharmacy 85.2; Estimated Glomerular Filt Rate > 60; Glucose Random 98 mg/dL (60-115); Potassium 4.6 mmol/L (3.3-5.1); Sodium 139 mmol/L (135-145)
[2022-03-15] MEDS: buPROPion HCl XL 150 MG TAB.ER.24H PO (07:10)
[2022-03-15] MEDS: Famotidine/PF 20 MG/2 ML VIAL IVPUSH (07:10)
[2022-03-15 07:35] VITALS: BP 109/58; PULSE 50; RESP 17; TEMP 37.4; O2SAT 95
--- NOTE | 2022-03-15 08:39 | MHC.CM.PN ---
IMM 03/15/22, EMR REVIEWED, CM MET W/PT WHO REPORTS SHE LIVES W/A ROOMMATE, IS INDEP W/CARE, USES A CPAP ONLY DME, NO HOME SERVICES, PCP VERIFIED BAUDILIO NGUYEN, NIK X4, PT DENIES HAVING HCP, PT PROVIDED W/EDUCATION AND CURRENTLY DECLINES. D/C PLAN: HOME TODAY AT APPROX 10AM, BROTHER IN LAW FOR TRANSPORT
--- NOTE | 2022-03-15 11:17 | HO.POSTANES ---
Post Anesthesia Evaluation Post Anesthesia Evaluation Vital Signs: Vital Signs Temp Pulse Resp BP Pulse Ox O2 Del Method 03/15/22 07:35 99.3 F 50 17 109/58 L 95 Room Air 03/15/22 07:33 Room Air 03/15/22 03:33 98.4 F 53 18 105/58 L 93 Room Air 03/15/22 00:00 97.3 F 62 19 116/64 95 BiPAP Anesthesia: General Endotracheal-GETA Mental Status: Awake Pain Control: Satisfactory Nausea/Vomiting: None Hydration: Adequate Anesthesia-Related Issues: No Anes. Related Issues
== END 2022-03-15 11:29 | disposition home or self-care (01) | DRG 620 ==
LOC: HO.SSSA 11:16 → HO.S3 15:12
PROVIDERS: Physician Assistant; Admitting Provider Surgery; PCP Internal Medicine; Visit Provider Surgery
PROC: 0DB64Z3 Excision of Stomach, Percutaneous Endoscopic Approach, Vertical (ICD-10-PCS; CPT 43845; principal; 2022-03-14 07:30)
DX: E66.01 Morbid (severe) obesity due to excess calories (principal); K44.0 Diaphragmatic hernia with obstruction, without gangrene; F41.9 Anxiety disorder, unspecified; F32.A Depression, unspecified; Z20.822 Contact with and (suspected) exposure to COVID-19; I10 Essential (primary) hypertension; K76.0 Fatty (change of) liver, not elsewhere classified; K66.0 Peritoneal adhesions (postprocedural) (postinfection); M81.0 Age-related osteoporosis without current pathological fracture; G43.909 Migraine, unspecified, not intractable, without status migrainosus; G47.33 Obstructive sleep apnea (adult) (pediatric); Z68.35 Body mass index [BMI] 35.0-35.9, adult; Z87.442 Personal history of urinary calculi; Z88.0 Allergy status to penicillin; Z88.2 Allergy status to sulfonamides; Z88.8 Allergy status to other drugs, medicaments and biological substances; Z79.899 Other long term (current) drug therapy
CPT/HCPCS: 36415; 80048; 80053; 80061; 83036; 83525; 84443; 85014; 85018; 85025; 85610; 85730; 86140; 86850; 86900; 86901; 87635; 88307; 88342; A4649; C9088; J0131; J1100; J1170; J1956; J2250; J2370; J2405; J2795; J3010

== ENCOUNTER → 2022-05-03 13:10 | Outpatient (BNVA) | payer OTHER, SELFPAY | PROVIDERS: PCP Internal Medicine; Referring Provider Surgery; Visit Provider Dietitian, Registered | DX: E66.9 Obesity, unspecified (principal); Z68.31 Body mass index [BMI] 31.0-31.9, adult; Z98.84 Bariatric surgery status; Z71.3 Dietary counseling and surveillance | CPT/HCPCS: 97803 ==

== ENCOUNTER → 2022-05-16 14:46 | Outpatient (BNVA) | payer OTHER, SELFPAY | PROVIDERS: PCP Internal Medicine; Visit Provider Internal Medicine Endocrinology, Diabetes & Metabolism | DX: E21.0 Primary hyperparathyroidism (principal); Z79.899 Other long term (current) drug therapy | CPT/HCPCS: 99212 ==

== ENCOUNTER → 2022-05-19 16:14 | Outpatient (BNVA) | payer OTHER, SELFPAY | PROVIDERS: PCP Internal Medicine; Referring Provider Physician Assistant Surgical; Visit Provider Dietitian, Registered | DX: E66.9 Obesity, unspecified (principal); Z68.30 Body mass index [BMI] 30.0-30.9, adult; Z98.84 Bariatric surgery status; Z71.3 Dietary counseling and surveillance | CPT/HCPCS: 97803 ==

== ENCOUNTER → 2022-06-01 15:54 | Outpatient (BNVA) | payer OTHER, SELFPAY | PROVIDERS: PCP Internal Medicine; Referring Provider Physician Assistant Surgical; Visit Provider Dietitian, Registered | DX: E66.9 Obesity, unspecified (principal); Z68.30 Body mass index [BMI] 30.0-30.9, adult; Z98.84 Bariatric surgery status; Z71.3 Dietary counseling and surveillance | CPT/HCPCS: 97803 ==

== ENCOUNTER → 2022-06-14 15:03 | Outpatient (BNVA) | payer OTHER, SELFPAY | PROVIDERS: PCP Internal Medicine; Visit Provider Dietitian, Registered | DX: E66.9 Obesity, unspecified (principal); Z68.29 Body mass index [BMI] 29.0-29.9, adult | CPT/HCPCS: 97803 ==

== ENCOUNTER → 2022-07-13 14:49 | Outpatient (BNVA) | payer OTHER, SELFPAY | PROVIDERS: PCP Internal Medicine; Visit Provider Dietitian, Registered | DX: E66.9 Obesity, unspecified (principal); Z68.29 Body mass index [BMI] 29.0-29.9, adult | CPT/HCPCS: 97803 ==

== ENCOUNTER → 2022-07-19 13:49 | Outpatient (BNVA) | payer OTHER, SELFPAY | PROVIDERS: PCP Internal Medicine; Visit Provider Psychiatry & Neurology Psychiatry | DX: F33.9 Major depressive disorder, recurrent, unspecified (principal); F41.1 Generalized anxiety disorder; G47.30 Sleep apnea, unspecified | CPT/HCPCS: 99212 ==

== ENCOUNTER → 2022-07-28 13:35 | Outpatient (BNVA) | payer OTHER, SELFPAY | PROVIDERS: PCP Internal Medicine; Visit Provider Physician Assistant Surgical | DX: E66.3 Overweight (principal); Z98.84 Bariatric surgery status; Z98.890 Other specified postprocedural states; Z87.19 Personal history of other diseases of the digestive system; Z68.28 Body mass index [BMI] 28.0-28.9, adult | CPT/HCPCS: 99212 ==

== ENCOUNTER → 2022-08-15 15:01 | Outpatient (BNVA) | payer OTHER, SELFPAY | PROVIDERS: PCP Internal Medicine; Visit Provider Dietitian, Registered | DX: E66.3 Overweight (principal); Z71.3 Dietary counseling and surveillance | CPT/HCPCS: 97803 ==

== ENCOUNTER 2022-09-18 09:17 | Outpatient (REF) | payer OTHER, SELFPAY ==
[2022-09-18 09:49] LABS: MANUAL DIFF FLAG NO
[2022-09-18 10:08] LABS: Basophils Percent Auto 0.4 % (0-2); Eosinophils Absolute Auto 0.2 X10*3/uL (0.0-0.4); Eosinophils Percent Auto 2.6 % (0-4); Hemoglobin 14.1 g/dl (12.0-16.0); Imm Gran Abs Auto 0.02 X10*3/uL (0.00-0.03); Imm Gran Pct Auto 0.3 % (0.0-0.4); Lymphocytes Absolute Auto 1.6 X10*3/uL (1.2-4.9); Lymphocytes Percent Auto 23.1 % (20-40); Mean Corpuscular HGB Conc 32.8 g/dl (31.0-35.0); Mean Corpuscular Volume 91.5 fL (80.0-98.0); Mean Platelet Volume 10.6 fL (9.4-12.3); Monocytes Absolute Auto 0.4 X10*3/uL (0.1-1.2); Monocytes Percent Auto 5.3 % (2-11); Neutrophils Absolute Auto 4.7 x10*3/uL (2.0-8.3); Neutrophils Percent Auto 68.3 % (45-73); Platelet Count 167 X10*3/uL (160-400); Red Cell Distribution Width 12.8 % (11.0-16.0); White Blood Count 6.8 X10*3/uL (4.8-10.8)
[2022-09-18 11:24] LABS: Estimated Average Glucose 97 mg/dL
[2022-09-18 11:39] LABS: Ferritin 115 ng/mL (10-250); Insulin 4 uU/mL (2-29); TSH reflex Free T4 0.94 uIU/mL (0.32-4.0); Vitamin D 25-OH Total 50.7 ng/mL (>30)
[2022-09-18 11:40] LABS: Alanine Aminotransferase 12 U/L (0-31); Albumin Level 4.2 g/dL (3.5-5.0); Alkaline Phosphatase 56 U/L (39-117); Anion Gap 11 (12-20); Aspartate Amino Transferase 16 U/L (5-31); Bilirubin Total 0.6 mg/dL (0.0-1.0); Blood Urea Nitrogen 21 mg/dL (9-16); C Reactive Protein 0.68 mg/dL (< or = 0.50); Calcium 9.2 mg/dL (8.4-10.2); Carbon Dioxide 27 mmol/L (22-29); Chloride 106 mmol/L (96-108); Cholesterol 232 mg/dL; Estimated Glomerular Filt Rate > 60; Glucose Random 83 mg/dL (60-115); HDL Cholesterol 48 mg/dL; Iron 104 mcg/dL (30-160); LDL Cholesterol Calculated 166 mg/dl; Percent Iron Saturation 46 % (15-50); Potassium 4.1 mmol/L (3.3-5.1); Sodium 140 mmol/L (135-145); Total Iron Binding Capacity 226 mcg/dL (228-428); Total Protein 6.1 g/dL (6.5-8.0); Triglycerides 92 mg/dL; Unsaturated Iron Binding 122 ug/dL
[2022-09-18 12:23] LABS: Folate 16.2 ng/mL (> or = 4.0); Vitamin B12 539 pg/mL (200-900)
[2022-09-19 12:58] LABS: Calcium (PTHI) 9.1 mg/dL (8.6-10.4); PTHI 85 pg/mL (16-77)
[2022-09-22 17:47] LABS: Zinc 77 mcg/dL (60-130)
[2022-09-23 13:09] LABS: Vitamin B1 19 nmol/L (8-30)
[2022-09-24 16:42] LABS: Vitamin A 41 mcg/dL (38-98)
== END 2022-09-18 09:18 | disposition home or self-care (01) ==
LOC: HO.LAB 09:17
PROVIDERS: Internal Medicine Endocrinology, Diabetes & Metabolism; Visit Provider Physician Assistant Surgical
DX: Z98.84 Bariatric surgery status (principal)
CPT/HCPCS: 36415; 80053; 80061; 82306; 82607; 82728; 82746; 83036; 83525; 83540; 83970; 84425; 84443; 84590; 84630; 85025; 86140

== ENCOUNTER → 2022-10-09 14:19 | Outpatient (BNVA) | payer OTHER, SELFPAY | PROVIDERS: PCP Internal Medicine; Visit Provider Physician Assistant Surgical | DX: E66.3 Overweight (principal); Z98.84 Bariatric surgery status; Z68.27 Body mass index [BMI] 27.0-27.9, adult | CPT/HCPCS: 99212 ==

== ENCOUNTER → 2022-10-31 12:32 | Outpatient (BNVA) | payer OTHER, SELFPAY | PROVIDERS: PCP Internal Medicine; Visit Provider Psychiatry & Neurology Psychiatry | DX: F33.9 Major depressive disorder, recurrent, unspecified (principal); F41.1 Generalized anxiety disorder; G47.30 Sleep apnea, unspecified; Z90.3 Acquired absence of stomach [part of]; Z99.89 Dependence on other enabling machines and devices | CPT/HCPCS: 90833; 99212 ==

== ENCOUNTER → 2022-11-20 09:22 | Outpatient (BNVA) | payer OTHER, SELFPAY | PROVIDERS: PCP Internal Medicine; Visit Provider Dietitian, Registered | DX: E66.3 Overweight (principal); Z68.27 Body mass index [BMI] 27.0-27.9, adult | CPT/HCPCS: 97803 ==

== ENCOUNTER → 2022-11-24 14:32 | Outpatient (BNVA) | payer OTHER, SELFPAY | PROVIDERS: PCP Internal Medicine; Visit Provider Psychiatry & Neurology Psychiatry | DX: F33.9 Major depressive disorder, recurrent, unspecified (principal); F41.1 Generalized anxiety disorder; F43.11 Post-traumatic stress disorder, acute | CPT/HCPCS: 90833; 99212 ==

== ENCOUNTER → 2023-01-08 12:05 | Outpatient (BNVA) | payer OTHER, SELFPAY | PROVIDERS: PCP Internal Medicine; Visit Provider Psychiatry & Neurology Psychiatry ==

== ENCOUNTER 2023-01-10 08:45 | Outpatient (RCR) | payer OTHER, SELFPAY ==
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
--- NOTE | 2022-12-26 13:40 | PC.ADMIT ---
Dina is a 62 year old female who self referred to [facility] d/t increased depression, anxiety and anger sxs. Patient reports stressors include her sister who is having medical issues and reports of decreasing support system. Patient also reports having gastric bypass surgery and struggling with changes associated with that. In addition, patient reports she is struggling with bouts of vertigo and is in the process of looking into rehab at [place] however has held off d/t some insurance issues that she is waiting to get worked out. Patient is alert and oriented x4. Calm and cooperative. Presented with depressed mood and anxious affect. Denied SI at present however stated, Just Sunday night, as a reaction to a phone call with Serena. It popped in my head. Denied plan or intent to kill herself. Medications reconciled with patient and patient's pharmacy. Patient reports taking medications as prescribed.
[2022-12-26 13:42] VITALS: BP 100/62; PULSE 68; TEMP 37.3; BMI 28.8
--- NOTE | 2023-01-03 12:07 | P.PNPSP_ITS ---
Subjective Subjective Date of Service: 01/03/23 Reason For Visit: MDD,anxiety Medical Problems Affecting Mental Status: No Interim History: Dysphoric, anxious mood and affect. No irritability noted. Has appointment with outpatient psychiatrist on Sunday. Satisfied with current medications, does not feel need to have any medication changes at this time. No SI, feels safe. [place] triggered by behavior of a patient in program that was discharged yesterday. Brought up memories of experiences with her sister, found it difficult having patient in groups. Reports that the patient was splitting other patients, pitting people against 1 another, found this extremely difficult. Would like to process this. Medication Compliance: Yes Side effects from medications: No Attending Groups: Yes Review of Systems Acute medical concerns: No Medical Review of Systems: unchanged Review of Systems Review of Systems Yes all other systems are reviewed and are negative Constitutional: Reports no additional constitutional complaints Mental Status Exam Mental Status Exam Narrative: NAD. No abnormal movements. Normal ambulation. No cogwheeling or rigidity noted. Patient Appearance: Appropriate Patient Orientation: Person, Place, Time and Situation Level of Consciousness: Awake and Appropriate Patient Behavior: Appropriate, Cooperative and Good Eye Contact Mood Description: Depressed and Anxious Affect Description: Depressed and Anxious Patient Cognition Impaired: No Ability to Follow Directions: Excellent Speech Pattern: Clear Memory Description: Intact Hallucinations: None Delusions: Not Present Thought Process: Intact Thought Content: positive for Intact Depressive Symptoms: Increased Anxiety, Difficulty Sleeping, Loss of Int. in Activity, Isolating-Friends/Family, Increased Fatigue and Loss of Energy Judgement: Fair Diagnostics Vital Signs (24Hr): BMI result Body Mass Index 28.8 Assessment & Plan Assessment & Plan (1) Major depressive disorder, recurrent severe without psychotic features: Status: Acute Code(s): F33.2 - Major depressive disorder, recurrent severe without psychotic features Assessment and Plan: Continues with some depression and anxiety symptoms, beginning to improve. No mood lability, irritable behavior noted during encounter. No SI, safety concerns. Did have some concerns about a patient that was disruptive during groups, patient was discharged yesterday. Found this extremely triggering, as related to her own experiences with a sibling. Overall finding program helpful otherwise. No concerns regarding current medications. Patient has appointment with outpatient psychiatrist on Sunday. (2) Generalized anxiety disorder: Status: Acute Code(s): F41.1 - Generalized anxiety disorder Plan 1. Continue with current [facility] plan of care. 2. Continue with medications as currently prescribed by outpatient psychiatrist. 3. Follow-up as per protocol. Patient educated on: diagnosis, medication risk/benefits and therapeutic stra tegies Informed Consent: understands Reason for contiued partial hosp. stay Substantial Risk for: inability to function and rapid decompensation Certification I certify that partial hospital treatment is medically necessary due to the symptoms and problems resulting from the patient's mental illness and the failure to treat the patient at the partial hospital level of care would likely result in the patient requiring inpatient psychiatric care which could not be prevented at a less intensive level of care. Total time managing care of this patient today _20___ minutes. Discharge Plan Discharge Attending provider: Phani Balderas Medications: No Action escitalopram oxalate 10 mg tablet 10 mg PO DAILY 30 Days Qty: 30 2RF quetiapine [Seroquel] 25 mg tablet See Rx Instructions PO BID PRN (Reason: agitation) Qty: 60 1RF Rx Instructions: orally 2 times a day PRN; 1/2-1 up to 2 x sday as needed Prolia 60 mg/mL syringe subcut bupropion HCl 150 mg tablet extended release 24 hr 150 mg PO DAILY Qty: 90 0RF lorazepam 1 mg tablet 1 mg PO BEDTIME PRN (Reason: Anxiety) Qty: 30 2RF naratriptan 2.5 mg tablet 2.5 mg PO DAILY PRN (Reason: Headache)
--- NOTE | 2023-01-03 17:01 | HO.PHP ---
Dina met with [facility] staff member during group 4 to discuss her feelings regarding another client leaving the program. Dina talked about how that clients behaviors reminded her of how her sisters behaviors are. Dina voiced that she will never understand those behaviors but noted that she observed what helps when talking with individuals who present in that manner. Dina also noted that other group members were conversing about this individual and it had upset her and she made a comment to them. Dina felt unheard since the conversation continued. Dina talked about the dynamic of the group and feeling as though she cannot say what she would like because the younger generation has a difficult time hearing constructive criticism and she does not want to feel attacked if she does. Dina processed her feelings around feeling unheard by group members, yesterday in group 4. Dina talked about the social supports and how the group continued to encourage the senior center after she just informed them that she dislikes the environment. [facility] staff helped Dina to problem solve around ways she can engage in social interactions with people that don't require going to the senior center. [facility] staff provided suggestions around her hobbies such as theater or a book club. Dina declined those suggestions and talked about her upbringing. [facility] provided support and allowed a place for Dina to process those thoughts and feelings.
--- NOTE | 2023-01-08 12:13 | HO.PHPPROGNO ---
Subjective Subjective Date of Service: 01/08/23 Reason For Visit: MDD,anxiety, vertigo Medical Problems Affecting Mental Status: No Interim History: pt has been in php dealing with sister who has pulm fibrosis not compliant with medical tx has been dealing with vertigo cannot watch tv pt has felt that php has been helpful wellbutrin 150 xl escitalopram 10 mg lucio 1 mg has not been taking seroquel had appt with [facility] nurse will be allowed accupuncture has had to cut contact off with her sister who has had self destructive behavoir Medication Compliance: Yes Side effects from medications: No Attending Groups: Yes Review of Systems Acute medical concerns: Yes ongoing vertigo Medical Review of Systems: unchanged Mental Status Exam Mental Status Exam Narrative: NAD. No abnormal movements. Normal ambulation. No cogwheeling or rigidity noted. Patient Appearance: Appropriate Patient Orientation: Person, Place, Time and Situation Level of Consciousness: Awake and Appropriate Patient Behavior: Appropriate, Cooperative and Good Eye Contact Mood Description: Constricted, Anxious and Apprehensive Affect Description: Constricted, Depressed, Anxious, Labile and Apprehensive Patient Cognition Impaired: No Ability to Follow Directions: Excellent Speech Pattern: Clear Memory Description: Intact Hallucinations: None Delusions: Not Present Thought Process: Intact and Rumination Thought Content: positive for Intact, negative for Suicidal Ideation or negative for Homicidal Ideation Depressive Symptoms: Increased Anxiety, Difficulty Sleeping, Loss of Int. in Activity, Isolating-Friends/Family and Loss of Energy Judgement: Fair Diagnostics Vital Signs (24Hr): BMI result Body Mass Index 28.8 Assessment & Plan Assessment & Plan (1) Major depression, recurrent, chronic: Status: Acute Code(s): F33.9 - Major depressive disorder, recurrent, unspecified (2) Generalized anxiety disorder: Status: Acute Code(s): F41.1 - Generalized anxiety disorder (3) Vertigo: Status: Acute Code(s): R42 - Dizziness and giddiness Plan has tried meclicine was not helpful for vertigo dealing with her sister who has a long history of borderline personality disorder PTSD and has threatened suicide intermittently over the years and has not been compliant with treatment for pulmonary fibrosis and it has been too triggering to have contact with her sister and [id number] at this point. Patient has been experience very significant vertigo and much more anxiety and reactivity and irritability. We discussed lowering Wellbutrin to 100 SR discontinuing the 150 XL and adding a 5 mg escitalopram for total of 15 mg to see escitalopram does targeting reactivity and irritability patient denies active self-harm will follow-up with this appeals writer in 4 weeks Patient educated on: diagnosis, medication risk/benefits and medical condition Informed Consent: understands Reason for contiued partial hosp. stay Substantial Risk for: rapid decompensation and med/psych decompensation Certification I certify that partial hospital treatment is medically necessary due to the symptoms and problems resulting from the patient's mental illness and the failure to treat the patient at the partial hospital level of care would likely result in the patient requiring inpatient psychiatric care which could not be prevented at a less intensive level of care. Discussed the role how her gastric sleeve may be impacting her sense of safety in the world perhaps also interacting with her ability to tolerate some of her medication she is going to be getting tilt table training for her vertigo Total time managing care of this patient today50 ____ minutes. Discharge Plan Discharge Attending provider: Phani Balderas Medications: No Action escitalopram oxalate 10 mg tablet 10 mg PO DAILY 30 Days Qty: 30 2RF quetiapine [Seroquel] 25 mg tablet See Rx Instructions PO BID PRN (Reason: agitation) Qty: 60 1RF Rx Instructions: orally 2 times a day PRN; 1/2-1 up to 2 x sday as needed bupropion HCl [Wellbutrin SR] 100 mg tablet sustained-release 12 hr 100 mg PO DAILY Qty: 30 1RF escitalopram oxalate 5 mg tablet 5 mg PO DAILY Qty: 30 2RF Prolia 60 mg/mL syringe subcut lorazepam 1 mg tablet 1 mg PO BEDTIME PRN (Reason: Anxiety) Qty: 30 2RF naratriptan 2.5 mg tablet 2.5 mg PO DAILY PRN (Reason: Headache)
--- NOTE | 2023-01-09 12:25 | P.PNPSP_ITS ---
Subjective Subjective Date of Service: 01/09/23 Reason For Visit: MDD,anxiety, vertigo Medical Problems Affecting Mental Status: No Interim History: Overall less depressed. No safety concerns. Had med changes yesterday, has not started them yet, plans to go to pharmacy today after program. Struggles with in her year/this to be learner issues, roommate concerns. Feels program has been helpful, has helped her be able to detach from her relationship with sister, although it has been painful. After program completion plans to actively work to build structure and purpose in her day. Medication Compliance: Yes Side effects from medications: No Attending Groups: Yes Review of Systems Acute medical concerns: No Medical Review of Systems: unchanged Review of Systems Review of Systems Yes all other systems are reviewed and are negative Constitutional: Reports no additional constitutional complaints Mental Status Exam Mental Status Exam Narrative: NAD. Patient Appearance: Well Grooomed and Appropriate Patient Orientation: Person, Place, Time and Situation Level of Consciousness: Awake and Appropriate Patient Behavior: Appropriate, Cooperative and Good Eye Contact Mood Description: Appropriate and Anxious (less) Affect Description: Depressed (imroving) and Anxious (improving) Patient Cognition Impaired: No Ability to Follow Directions: Excellent Speech Pattern: Clear Memory Description: Intact Hallucinations: None Delusions: Not Present Thought Process: Intact Thought Content: positive for Intact, negative for Suicidal Ideation or negative for Homicidal Ideation Depressive Symptoms: Increased Anxiety, Isolating-Friends/Family and Loss of Energy Judgement: Good Diagnostics Vital Signs (24Hr): BMI result Body Mass Index 28.8 Assessment & Plan Assessment & Plan (1) Major depression, recurrent, chronic: Status: Acute Code(s): F33.9 - Major depressive disorder, recurrent, unspecified Assessment and Plan: Patient's last day in partial is scheduled for tomorrow. Less depressed, less anxious. Overall feels ready for discharge. No SI, feels safe. Had medication changes yesterday by her psychiatrist, will start taking them after picking them up from pharmacy later today. Has found partial helpful, has been working on detachment from her sister, who has an unhealthy relationship pattern with her. She still expresses concern over her sister's health issues, but is trying to let go, not allow the relationship to affect her own mental well being. (2) Generalized anxiety disorder: Status: Acute Code(s): F41.1 - Generalized anxiety disorder Plan 1. Patient appears stable for discharge from [facility] tomorrow as planned. 2. Reviewed and signed discharge paperwork with this card writer hand. 3. Patient to follow-up with outpatient providers going forward. Patient educated on: diagnosis, medication risk/benefits and therapeutic strategies Informed Consent: understands Reason for contiued partial hosp. stay Substantial Risk for: stable for discharge Certification I certify that partial hospital treatment is medically necessary due to the symptoms and problems resulting from the patient's mental illness and the failure to treat the patient at the partial hospital level of care would likely result in the patient requiring inpatient psychiatric care which could not be prevented at a less intensive level of care. Total time managing care of this patient today ___15_ minutes. Discharge Plan Discharge Attending provider: Phani Balderas Medications: No Action escitalopram oxalate 10 mg tablet 10 mg PO DAILY 30 Days Qty: 30 2RF quetiapine [Seroquel] 25 mg tablet See Rx Instructions PO BID PRN (Reason: agitation) Qty: 60 1RF Rx Instructions: orally 2 times a day PRN; 1/2-1 up to 2 x sday as needed bupropion HCl [Wellbutrin SR] 100 mg tablet sustained-release 12 hr 100 mg PO DAILY Qty: 30 1RF escitalopram oxalate 5 mg tablet 5 mg PO DAILY Qty: 30 2RF Prolia 60 mg/mL syringe subcut lorazepam 1 mg tablet 1 mg PO BEDTIME PRN (Reason: Anxiety) Qty: 30 2RF naratriptan 2.5 mg tablet 2.5 mg PO DAILY PRN (Reason: Headache) Stand Alone Forms: Patient Portal Discharge page Patient Education: Depression (DC)
== END 2023-01-10 23:59 | disposition home or self-care (01) ==
LOC: HO.PHPA 08:45
PROVIDERS: Visit Provider Psychiatry & Neurology Psychiatry
DX: F33.2 Major depressive disorder, recurrent severe without psychotic features (principal); F41.1 Generalized anxiety disorder; R42 Dizziness and giddiness; Z79.899 Other long term (current) drug therapy
CPT/HCPCS: 90791; 90853

== ENCOUNTER 2023-01-29 10:46 | Outpatient (REF) | payer OTHER, SELFPAY ==
[2023-01-29 12:34] LABS: MANUAL DIFF FLAG NO
[2023-01-29 13:08] LABS: Basophils Percent Auto 0.4 % (0-2); Eosinophils Absolute Auto 0.2 X10*3/uL (0.0-0.4); Eosinophils Percent Auto 2.4 % (0-4); Hematocrit 41.8 % (37.0-47.0); Hemoglobin 13.9 g/dl (12.0-16.0); Imm Gran Abs Auto 0.01 X10*3/uL (0.00-0.03); Imm Gran Pct Auto 0.1 % (0.0-0.4); Lymphocytes Absolute Auto 2.1 X10*3/uL (1.2-4.9); Lymphocytes Percent Auto 26.3 % (20-40); Mean Corpuscular HGB Conc 33.3 g/dl (31.0-35.0); Mean Corpuscular Hemoglobin 30.2 pg (27.0-33.0); Mean Corpuscular Volume 90.9 fL (80.0-98.0); Mean Platelet Volume 10.5 fL (9.4-12.3); Monocytes Absolute Auto 0.3 X10*3/uL (0.1-1.2); Monocytes Percent Auto 4.3 % (2-11); Neutrophils Absolute Auto 5.2 x10*3/uL (2.0-8.3); Neutrophils Percent Auto 66.5 % (45-73); Platelet Count 181 X10*3/uL (160-400); Red Cell Distribution Width 13.1 % (11.0-16.0); White Blood Count 7.9 X10*3/uL (4.8-10.8)
[2023-01-29 13:49] LABS: Alanine Aminotransferase 17 U/L (0-31); Albumin Level 4.2 g/dL (3.5-5.0); Alkaline Phosphatase 50 U/L (39-117); Anion Gap 12 (12-20); Aspartate Amino Transferase 15 U/L (5-31); Bilirubin Total 0.5 mg/dL (0.0-1.0); Blood Urea Nitrogen 25 mg/dL (9-16); Calcium 9.3 mg/dL (8.4-10.2); Carbon Dioxide 28 mmol/L (22-29); Chloride 106 mmol/L (96-108); Estimated Glomerular Filt Rate > 60; Glucose Random 81 mg/dL (60-115); Potassium 4.8 mmol/L (3.3-5.1); Sodium 141 mmol/L (135-145); Total Protein 6.2 g/dL (6.5-8.0)
[2023-01-29 14:20] LABS: Folate 9.8 ng/mL (> or = 4.0); Vitamin B12 557 pg/mL (200-900); Vitamin D 25-OH Total 43.4 ng/mL (>30)
[2023-01-30 11:59] LABS: Adenovirus F 40/41 Not Detected (Not Detect.); Astrovirus Not Detected (Not Detect.); Campylobacter Not Detected (Not Detect.); Cryptosporidium Not Detected (Not Detect.); Cyclospora cayetanensis Not Detected (Not Detect.); E. coli EAEC Not Detected (Not Detect.); E. coli EPEC Not Detected (Not Detect.); E. coli ETEC Not Detected (Not Detect.); E. coli STEC Not Detected (Not Detect.); Entamoeba histolytica Not Detected (Not Detect.); Giardia lamblia Not Detected (Not Detect.); Norovirus GI/GII Not Detected (Not Detect.); Plesiomonas shigelloides Not Detected (Not Detect.); Rotavirus A Not Detected (Not Detect.); Salmonella Not Detected (Not Detect.); Sapovirus Not Detected (Not Detect.); Shigella sp./EIEC Not Detected (Not Detect.); Vibrio Not Detected (Not Detect.); Vibrio Cholerae Not Detected (Not Detect.); Yersinia enterocolitica Not Detected (Not Detect.)
[2023-01-30 13:47] LABS: CDiff Gene PCR NEGATIVE (Negative)
[2023-01-30 18:54] LABS: Calcium (PTHI) 8.2 mg/dL (8.6-10.4); PTHI 78 pg/mL (16-77)
[2023-02-02 13:33] LABS: Vitamin B1 43 nmol/L (8-30)
[2023-02-02 14:14] LABS: Zinc 70 mcg/dL (60-130)
[2023-02-03 19:03] LABS: Vitamin A 53 mcg/dL (38-98)
== END 2023-01-29 10:47 | disposition home or self-care (01) ==
LOC: HO.LAB 10:46
PROVIDERS: PCP Internal Medicine; Visit Provider Physician Assistant Surgical
DX: R19.7 Diarrhea, unspecified (principal); E66.3 Overweight; Z98.84 Bariatric surgery status
CPT/HCPCS: 36415; 80053; 82306; 82607; 82746; 83970; 84425; 84590; 84630; 85025; 87493; 87507; 99212

== ENCOUNTER → 2023-01-30 10:49 | Outpatient (BNVA) | payer OTHER, SELFPAY | PROVIDERS: PCP Internal Medicine; Visit Provider Psychiatry & Neurology Psychiatry | DX: F33.9 Major depressive disorder, recurrent, unspecified (principal); F41.1 Generalized anxiety disorder; G47.30 Sleep apnea, unspecified; Z98.84 Bariatric surgery status | CPT/HCPCS: 90833; 99212 ==

== ENCOUNTER → 2023-02-21 10:49 | Outpatient (BNVA) | payer OTHER, SELFPAY | PROVIDERS: PCP Internal Medicine; Visit Provider Psychiatry & Neurology Psychiatry | DX: F33.9 Major depressive disorder, recurrent, unspecified (principal); F41.1 Generalized anxiety disorder; G47.30 Sleep apnea, unspecified | CPT/HCPCS: 99212 ==

== ENCOUNTER → 2023-02-26 09:40 | Outpatient (BNVA) | payer OTHER, SELFPAY | PROVIDERS: PCP Internal Medicine; Visit Provider Dietitian, Registered | DX: E66.3 Overweight (principal) | CPT/HCPCS: 97803 ==

== ENCOUNTER 2023-03-28 10:30 | Outpatient (AMB) | payer OTHER, SELFPAY ==
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
== END 2023-03-28 11:17 | disposition home or self-care (01) ==
LOC: HO.HOP 10:30
PROVIDERS: PCP Internal Medicine; Visit Provider Psychiatry & Neurology Psychiatry
DX: G47.30 Sleep apnea, unspecified (principal); F33.9 Major depressive disorder, recurrent, unspecified; F43.12 Post-traumatic stress disorder, chronic
CPT/HCPCS: 90833; 99213

== ENCOUNTER → 2023-03-28 10:30 | Outpatient (BNVA) | payer OTHER, SELFPAY | PROVIDERS: PCP Internal Medicine; Visit Provider Psychiatry & Neurology Psychiatry | DX: G47.30 Sleep apnea, unspecified (principal); F33.9 Major depressive disorder, recurrent, unspecified; F43.12 Post-traumatic stress disorder, chronic | CPT/HCPCS: 90833; 99212 ==

== ENCOUNTER 2023-04-11 09:38 | Outpatient (AMB) | payer OTHER, SELFPAY ==
--- NOTE | 2023-04-11 09:56 | A.OFFVIS_ITS ---
Intake Vital Signs 04/11/23 09:59 Height 5 ft 4 in Weight 170 lb BMI 29.2 BP 109/55 L Blood Pressure Location Lt brachial Position Sitting Pulse 77 Intake Visit Reasons: Diarrhea Intake Note: Patient new consult for diarrhea. Patient cc: several diarrhea with BM accident, abdominal cramping and a lot of noises from her stomach, and denies any other GI issues. Tannery Worker Required: No Accompanied by: Self / Same As Patient Allergies metoclopramide [From REGLAN] Allergy (Severe, Verified 04/11/23 09:51) PANIC ATTACKS, agitation Penicillins [PENICILLINS] Allergy (Severe, Verified 04/11/23 09:51) SOB, couldn't breathe sulfamethoxazole [From BACTRIM] Allergy (Intermediate, Verified 04/11/23 09:51) HIVES trimethoprim [From BACTRIM] Allergy (Intermediate, Verified 04/11/23 09:51) HIVES surgical skin glue Allergy (Severe, Uncoded 10/09/22 14:27) Hives Medication List - Last Reconciled 04/11/23 by Zoë Cerrato PA-C bisacodyl (Dulcolax (bisacodyl)) 20 mg (4 x 5 mg) PO ONCE 1 day bupropion HCl 150 mg PO QAM denosumab (Prolia) mg subcut escitalopram oxalate 10 mg PO DAILY 30 days escitalopram oxalate 5 mg PO DAILY loperamide (Imodium A-D) 2 mg PO Q6H PRN lorazepam 1 mg PO BEDTIME PRN naratriptan 2.5 mg PO DAILY PRN polyethylene glycol 3350 (Miralax) 238 grams PO ONCE PRN 1 day HPI HPI Comments History of Present Illness Details A 62-year-old female referred s/p gastric sleeve with diarrhea-follow back with bariatric surgery however is confused with her plan- She reports that she had always had morbid constipated pattern, and then she had alternating pattern. She knows it sugars alcohol sucrose worsens her symptoms she has discontinued- She reports diarrhea going on for about 2 months- up to 5 bowel movements a da y. Stool is non bloody, not green, no distinctive odor. Occasional cramping, no N/V, no fevers, no sick contacts with similar issue. She is not currently taking Miralax which she intermittently does take for constipation. Does not want to take Imodium, but is taking QOD reluctanltly- she does have good response- has 1 stool- She is very stressed out due to having to travel due to family member illness and Colonoscopy 2016- somewhere in [place]- she had an issue- that resulted in bowel resection- then had norovirus. Hx [id number]. Fialo- Erick- 2017- had c.diff recurrent- was not happy about this, She says when she had EGD - Dr. Ching-09/2021- she had not in fact had a Erick- she has not had any further reflux She has made multiple dietary changes- d/c shakes- she feels they were culprit- She follows with bariatrics- [facility] Medical History (Updated 04/11/23 @ 10:51 by Zoë Cerrato PA-C) Anxiety and depression Arthritis BMI 35.0-35.9,adult BMI 36.0-36.9,adult Chronic post-traumatic stress disorder (PTSD) Depression, major, severe recurrence Essential tremor Generalized anxiety disorder GERD (gastroesophageal reflux disease) Hiatal hernia History of kidney stones Hx of endometriosis Hx of low back pain Hx of migraines Hyperparathyroid bone disease Hyperparathyroidism Left atrial enlargement Migraines Obesity SHALONDA on CPAP Osteoporosis Pre-diabetes Slow to wake up after anesthesia Vertigo Surgical History History of colon resection History of Erick fundoplication History of wisdom tooth extraction, class I edentulism Hx of appendectomy Hx of arthroplasty Hx of arthroscopic knee surgery Hx of bladder endoscopy Hx of colonoscopy Hx of knee surgery Hx of lithotripsy Hx of tonsillectomy S/P laparoscopic sleeve gastrectomy Status post repair of paraesophageal diaphragmatic hernia Family History Mother Depression Anxiety Asthma Osteoporosis Father Osteoporosis Brother Osteoporosis Asthma Depression Sister Depression Anxiety Obesity Heart disease Sister IBS (irritable bowel syndrome) Anxiety Depression Social History Household Members: Other Household Members Other:: Roommate Are you a primary infant childcare provider to a significant other at home: No Do you presently have visiting nurse or other home services: No Alcohol intake: never Patient Tobacco Use Status: Never used Tobacco service: No Current occupational status: disabled Review of Systems Const All systems reviewed & are unremarkable except as noted in HPI and below Card Denies chest pain and Denies dyspnea Resp Denies dyspnea GI Denies abdominal pain, Denies hematochezia, Denies heartburn, Reports diarrhea, Reports loose stools, Denies nausea and Denies vomiting Psych Reports anxiety Physical Exam Vital Signs: Last Vital Signs Pulse 77 04/11/23 09:59 BP 109/55 L 04/11/23 09:59 BMI result Body Mass Index 29.2 Const General: healthy appearing, comfortable and anxious Orientation/consciousness: patient oriented x3 Limitations: no limitations Resp Effort & Inspection: normal respiratory effort and able to speak in complete sentences Auscultation: clear to auscultation bilaterally, no rales, no rhonchi and no wheezes Cardio Rate: regular rate Rhythm: regular rhythm Heart sounds: S1 normal heart sound present and S2 normal heart sound present GI Palpation (GI): Soft to palpation and nontender Auscultation: normal bowel sounds Neuro General: patient oriented x3 Extrem General: Yes full ROM Psych Speech and movement: Pressured speech present Affect: Anxious affect present Attitude: cooperative Results Reviewed Results Reviewed: Stool GI panel negative C diff negative No anemia Reviewed bariatric no from January Assessment & Plan Assessment & Plan (1) Diarrhea: Comment: very anxious- May have functional component Needs further eval Schedule diagnostic colonoscopy-r/o infectious or chronic disease Labs Code(s): R19.7 - Diarrhea, unspecified Plan: Continue imodium QOD labs She will continue to follow up with bariatric Plan MUÑIZ- colonoscopy- MG prep Orders: Orders Colonoscopy - GI Use Only Today R19.7 - Diarrhea, unspecified Erythrocyte Sedimentation Rate Today R19.7 - Diarrhea, unspecified Transglutaminase IgA Today R19.7 - Diarrhea, unspecified Endomysial IgA rflx Titer Today R19.7 - Diarrhea, unspecified C Reactive Protein Today R19.7 - Diarrhea, unspecified Medications: New bisacodyl (Dulcolax (bisacodyl)) Take 4 tablets by mouth at 12:00pm the day before your procedure. 20 mg (4 x 5 mg) PO ONCE 1 day 4 tabs 0RF colonoscopy prep Z12.11 - Encounter for screening for malignant neoplasm of colon polyethylene glycol 3350 (Miralax) Take as directed by mouth the day before your procedure. 238 grams PO ONCE 1 day PRN 238 grams 0RF laxative effect Patient Instructions: Pleasant, anxious 62-year-old female s/p gastric sleeve presents with chronic diarrhea Will schedule Colonoscopy- MG prep- Continue imodium- labs Call with concerns Coding Level of Care Code New Pt Level 4 (57663) Diagnoses Diarrhea R19.7 Time Spent (min) 35
[2023-04-11 09:59] VITALS: BP 109/55; PULSE 77; BMI 29.2
== END 2023-04-11 10:40 | disposition home or self-care (01) ==
PROVIDERS: PCP Internal Medicine; Visit Provider Physician Assistant
DX: R19.7 Diarrhea, unspecified (principal)
CPT/HCPCS: 99204

== ENCOUNTER → 2023-04-11 09:38 | Outpatient (BNVA) | payer OTHER, SELFPAY | PROVIDERS: PCP Internal Medicine; Visit Provider Physician Assistant | DX: R19.7 Diarrhea, unspecified (principal); Z90.3 Acquired absence of stomach [part of] | CPT/HCPCS: 99202 ==

== ENCOUNTER 2023-05-16 10:17 | Outpatient (AMB) | payer OTHER, SELFPAY ==
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
== END 2023-05-16 11:21 | disposition home or self-care (01) ==
LOC: HO.HOP 10:17
PROVIDERS: PCP Internal Medicine; Visit Provider Psychiatry & Neurology Psychiatry
DX: F33.2 Major depressive disorder, recurrent severe without psychotic features (principal); F43.12 Post-traumatic stress disorder, chronic; G47.30 Sleep apnea, unspecified; F41.1 Generalized anxiety disorder
CPT/HCPCS: 90833; 99213

== ENCOUNTER → 2023-05-16 10:17 | Outpatient (BNVA) | payer OTHER, SELFPAY | PROVIDERS: PCP Internal Medicine; Visit Provider Psychiatry & Neurology Psychiatry | DX: F33.2 Major depressive disorder, recurrent severe without psychotic features (principal); F43.12 Post-traumatic stress disorder, chronic; G47.30 Sleep apnea, unspecified; F41.1 Generalized anxiety disorder | CPT/HCPCS: 90833; 99212 ==

== ENCOUNTER → 2023-05-29 09:39 | Outpatient (BNVA) | payer OTHER, SELFPAY | PROVIDERS: PCP Internal Medicine; Visit Provider Dietitian, Registered | DX: E66.9 Obesity, unspecified (principal) | CPT/HCPCS: 97803 ==

== ENCOUNTER → 2023-06-21 14:06 | Outpatient (BNV) | payer OTHER, SELFPAY | PROVIDERS: PCP Internal Medicine; Visit Provider Psychiatry & Neurology Psychiatry | DX: F41.1 Generalized anxiety disorder (principal); F33.9 Major depressive disorder, recurrent, unspecified; F33.2 Major depressive disorder, recurrent severe without psychotic features | CPT/HCPCS: 90867; 90868 ==

== ENCOUNTER 2023-07-30 09:39 | Outpatient (AMB) | payer OTHER, SELFPAY ==
--- NOTE | 2023-07-30 09:43 | MHC.OFFVIS ---
Intake Vital Signs 07/30/23 09:54 Height 5 ft 3 in Weight 180 lb 6 oz BMI 31.9 BP 120/80 Blood Pressure Location Lt brachial Position Sitting Pulse 77 Pulse Source Pulse Oximeter Pulse Oximetry (%) 98 Oxygen Delivery Method Room Air Intake Visit Reasons: I-SERVICE TECH/WELDER: Dizziness & giddiness / Es. tremor - Conf Intake Note: SERVICE TECH/WELDER for Dizziness and tremors Storage Battery Inspector And Tester Required: No Allergies metoclopramide [From REGLAN] Allergy (Severe, Verified 07/30/23 09:44) PANIC ATTACKS, agitation Penicillins [PENICILLINS] Allergy (Severe, Verified 07/30/23 09:44) SOB, couldn't breathe sulfamethoxazole [From BACTRIM] Allergy (Intermediate, Verified 07/30/23 09:44) HIVES trimethoprim [From BACTRIM] Allergy (Intermediate, Verified 07/30/23 09:44) HIVES surgical skin glue Allergy (Severe, Uncoded 07/30/23 09:44) Hives HPI HPI Comments History of Present Illness Details 63 y/o female patient with hx of bilateral essential tremor presents for evaluation of worsening tremor. Has hx of osteoporosis. Pt reports that her left hand tremor has worsened after start TMS for depression treatment. Her left hand tremor was intermittent before TMS, but now almost every day, constant, and more prominent. She is left handed, dropping a lot. She can't cut vegetables or use regular tooth brush. She uses electronic tooth brush. She is on TMS 36 treatment, every week day, now at 22 treatment. However, she reports less right hand tremor, it happens when she carrying or holding something. Pt's jaw tremor has been worsened with voice tremor, she can bite her cheeks, but denies difficulty swallowing. Pt usually does not drive, but she noticed her right foot tremor when she drive this summer. She also noticed that her right leg drag, not lift enough. Pt not sure she had a brain MRI done or not. Pt tried Topamax, it caused SI. Propranolol caused hypotension. [facility] Medical History (Updated 08/16/23 @ 07:58 by Donita Mayberry CNP) Chronic post-traumatic stress disorder (PTSD) Pre-diabetes Vertigo Essential tremor Generalized anxiety disorder Hyperparathyroid bone disease BMI 35.0-35.9,adult Slow to wake up after anesthesia Arthritis Hx of low back pain Hiatal hernia GERD (gastroesophageal reflux disease) Hx of migraines Anxiety and depression SHALONDA on CPAP BMI 36.0-36.9,adult Obesity Left atrial enlargement Migraines Osteoporosis Hyperparathyroidism History of kidney stones Hx of endometriosis Depression, major, severe recurrence Surgical History Status post repair of paraesophageal diaphragmatic hernia S/P laparoscopic sleeve gastrectomy Hx of lithotripsy Hx of arthroscopic knee surgery History of colon resection History of Erick fundoplication History of wisdom tooth extraction, class I edentulism Hx of bladder endoscopy Hx of colonoscopy Hx of arthroplasty Hx of knee surgery Hx of tonsillectomy Hx of appendectomy Family History (Updated 07/30/23 @ 09:52 by Leeanne Julio CMA) Mother Depression Anxiety Asthma Osteoporosis Father Osteoporosis Brother Osteoporosis Asthma Depression Sister Depression Anxiety Obesity Heart disease Sister IBS (irritable bowel syndrome) Anxiety Depression Social History (Updated 07/30/23 @ 09:53 by Leeanne Julio CMA) Household Members: Other Household Members Other:: Roommate Are you a primary health care / medical job titles to a significant other at home: No Do you presently have visiting nurse or other home services: No Alcohol intake: never Patient Tobacco Use Status: Never used Tobacco service: No Current occupational status: disabled Review of Systems Const All systems reviewed & are unremarkable except as noted in HPI and below ENT Reports Normal hearing present Neuro Reports Normal hearing present Physical Exam Vital Signs: Last Vital Signs Pulse 77 07/30/23 09:54 BP 120/80 07/30/23 09:54 Pulse Ox 98 07/30/23 09:54 Oxygen Delivery Method Room Air 07/30/23 09:54 BMI result Body Mass Index 31.9 Const General: cooperative Nutritional Appearance: obese Orientation/consciousness: patient oriented x3 Neck Neck: Yes full ROM and Yes supple Resp Effort & Inspection: normal respiratory effort and able to speak in complete sentences Neuro Other: left hand tremor, posturing, resting and action tremor. Right hand minimal posturing tremor. Jaw tremor, and tongue tremor. General: patient oriented x3 Cranial nerves: Yes Bilaterally intact EOM present, Yes Normal facial strength present, Yes Midline tongue present, Yes Symmetric palate elevation present, Yes Normal hearing present, Yes Ability to bilaterally rotate head present and Yes Ability to bilaterally elevate shoulders present Cognition (Neuro): normal cognition Motor exam (neuro): 5/5 motor strength present throughout and Pronator motor function not present Deep tendon reflexes (DTR's): Right brachioradialis reflex intensity grade: 2+ and Left brachioradialis reflex intensity grade: 1+ Coordination: [id number] test normal Psych Appearance: grossly normal Mental Status: mental status grossly normal Affect: Anxious affect present Attitude: cooperative Assessment & Plan Assessment & Plan (1) Essential tremor: Comment: Worsening after TMS Code(s): G25.0 - Essential tremor Plan Advised patient to try primidone 50 mg qHS for tremor. Continue TMS to manage anxiety and depression. Pt is not interested in OT at this time. Medications: New primidone 50 mg PO BEDTIME 30 tabs 0RF 30 days Coding Level of Care Code New Pt Level 3 (45557) Diagnoses Essential tremor G25.0
[2023-07-30 09:54] VITALS: BP 120/80; PULSE 77; O2SAT 98; BMI 31.9
== END 2023-07-30 10:51 | disposition home or self-care (01) ==
PROVIDERS: PCP Internal Medicine; Visit Provider Nurse Practitioner Family
DX: G25.0 Essential tremor (principal)
CPT/HCPCS: 99203

== ENCOUNTER → 2023-07-30 09:39 | Outpatient (BNVA) | payer OTHER, SELFPAY | PROVIDERS: PCP Internal Medicine; Visit Provider Nurse Practitioner Family | DX: R42 Dizziness and giddiness (principal); G25.0 Essential tremor; M81.0 Age-related osteoporosis without current pathological fracture | CPT/HCPCS: 99202 ==

== ENCOUNTER → 2023-08-08 10:27 | Outpatient (BNVA) | payer OTHER, SELFPAY | PROVIDERS: PCP Internal Medicine; Visit Provider Psychiatry & Neurology Psychiatry ==

== ENCOUNTER 2023-08-22 09:30 | Outpatient (RCR) | payer OTHER, SELFPAY ==
--- NOTE | 2023-06-21 22:12 | P.PNPS_ITS ---
TMS Daily Progress Note Daily TMS Progress Note Date of Service: 06/21/23 Week #: 1 Treatment #(10-09): 1 PHQ-9 Pre-Treatment (10-06): 18 PHQ-9 Most Recent (10-06): 18 Reviewed: TMS Tech Note Reviewed Verification: I have reviewed the TMS Sole Molding Machine Operator Note and agree with the contents. The patient remains a candidate to continue TMS treatment per protocol. Assessment and Plan (1) Chronic post-traumatic stress disorder (PTSD): Status: Chronic (2) Major depressive disorder, recurrent severe without psychotic features: Status: Acute Plan initial mapping completed mt 1.5 but tolerated Time Spent With Patient Time: Total time managing care of this patient today ____ minutes.
--- NOTE | 2023-06-22 23:54 | P.PNPS_ITS ---
TMS Daily Progress Note Daily TMS Progress Note Date of Service: 06/22/23 Week #: 1 Treatment #(10-09): 2 PHQ-9 Pre-Treatment (10-06): 18 PHQ-9 Most Recent (10-06): 18 Reviewed: TMS Tech Note Reviewed Verification: I have reviewed the TMS Nuclear Plant Operator Note and agree with the contents. The patient remains a candidate to continue TMS treatment per protocol. Assessment and Plan (1) Chronic post-traumatic stress disorder (PTSD): Status: Chronic (2) Major depressive disorder, recurrent severe without psychotic features: Status: Acute Plan Patient tolerated treatment 2. 85% of threshold Time Spent With Patient Time: Total time managing care of this patient today ____ minutes.
--- NOTE | 2023-06-25 21:43 | P.PNPS_ITS ---
TMS Daily Progress Note Daily TMS Progress Note Date of Service: 06/25/23 Week #: 1 Treatment #(10-09): 3 PHQ-9 Pre-Treatment (10-06): 18 PHQ-9 Most Recent (10-06): 18 Reviewed: TMS Tech Note Reviewed Verification: I have reviewed the TMS 3Rd Grade Reading Teacher Note and agree with the contents. The patient remains a candidate to continue TMS treatment per protocol. Assessment and Plan (1) Chronic post-traumatic stress disorder (PTSD): Status: Chronic (2) Major depressive disorder, recurrent severe without psychotic features: Status: Acute Plan pt with tremor during tx and ? after tx Time Spent With Patient Time: Total time managing care of this patient today ____ minutes.
--- NOTE | 2023-06-28 10:02 | HO.TMSDAILY2 ---
TMS Daily Progress Note Daily TMS Progress Note Date of Service: 06/28/23 Week #: 1 Treatment #(10-09): 4 PHQ-9 Pre-Treatment (10-06): 18 PHQ-9 Most Recent (10-06): 18 Reviewed: TMS Tech Note Reviewed Verification: I have reviewed the TMS Dairy Nutrition Consultant Note and agree with the contents. The patient remains a candidate to continue TMS treatment per protocol. Assessment and Plan (1) Chronic post-traumatic stress disorder (PTSD): Status: Chronic (2) Major depressive disorder, recurrent severe without psychotic features: Status: Acute Plan PT WITH L SIDED TREMOR DURING L SIDE TX BAR MOVED FOWARD WILL MONITOR LITERATURE REVIEWED DISCUSSED WITH PT Time Spent With Patient Time: Total time managing care of this patient today ____ minutes.
--- NOTE | 2023-06-28 10:23 | P.PNPS_ITS ---
TMS Daily Progress Note Daily TMS Progress Note Date of Service: 06/28/23 Week #: 1 Treatment #(10-09): 5 PHQ-9 Pre-Treatment (10-06): 18 PHQ-9 Most Recent (10-06): 18 Reviewed: TMS Tech Note Reviewed Verification: I have reviewed the TMS Product Development Actuary Note and agree with the contents. The patient remains a candidate to continue TMS treatment per protocol. Assessment and Plan (1) Chronic post-traumatic stress disorder (PTSD): Status: Chronic (2) Major depressive disorder, recurrent severe without psychotic features: Status: Acute Plan tx improved with changes Time Spent With Patient Time: Total time managing care of this patient today ____ minutes.
--- NOTE | 2023-07-09 16:33 | HO.TMSDAILY2 ---
TMS Daily Progress Note Daily TMS Progress Note Date of Service: 06/29/23 Week #: 2 Treatment #(10-09): 6 PHQ-9 Pre-Treatment (10-06): 18 PHQ-9 Most Recent (10-06): 18 Reviewed: TMS Tech Note Reviewed Verification: I have reviewed the TMS Interior Systems Carpenter Note and agree with the contents. The patient remains a candidate to continue TMS treatment per protocol. Assessment and Plan (1) Chronic post-traumatic stress disorder (PTSD): Status: Chronic (2) Major depressive disorder, recurrent severe without psychotic features: Status: Acute Plan NO TREMOR INC WITH TX Time Spent With Patient Time: Total time managing care of this patient today ____ minutes.
--- NOTE | 2023-07-09 20:19 | HO.TMSDAILY2 ---
TMS Daily Progress Note Daily TMS Progress Note Date of Service: 07/02/23 Week #: 2 Treatment #(10-09): 7 PHQ-9 Pre-Treatment (10-06): 18 PHQ-9 Most Recent (10-06): 18 Reviewed: TMS Tech Note Reviewed Verification: I have reviewed the TMS Patient Insurance Clerk Note and agree with the contents. The patient remains a candidate to continue TMS treatment per protocol. Assessment and Plan (1) Chronic post-traumatic stress disorder (PTSD): Status: Chronic (2) Major depressive disorder, recurrent severe without psychotic features: Status: Acute Plan cont plan of care Time Spent With Patient Time: Total time managing care of this patient today ____ minutes.
--- NOTE | 2023-07-09 20:30 | HO.TMSDAILY2 ---
TMS Daily Progress Note Daily TMS Progress Note Date of Service: 07/03/23 Week #: 2 Treatment #(10-09): 8 PHQ-9 Pre-Treatment (10-06): 18 PHQ-9 Most Recent (10-06): 18 Reviewed: TMS Tech Note Reviewed Verification: I have reviewed the TMS Pipe Smoking Machine Operator Note and agree with the contents. The patient remains a candidate to continue TMS treatment per protocol. Assessment and Plan (1) Chronic post-traumatic stress disorder (PTSD): Status: Chronic (2) Major depressive disorder, recurrent severe without psychotic features: Status: Acute Plan cont plan of care Time Spent With Patient Time: Total time managing care of this patient today ____ minutes.
--- NOTE | 2023-07-09 20:35 | P.PNPS_ITS ---
TMS Daily Progress Note Daily TMS Progress Note Date of Service: 07/04/23 Week #: 2 Treatment #(10-09): 9 PHQ-9 Pre-Treatment (10-06): 18 PHQ-9 Most Recent (10-06): 18 Reviewed: TMS Tech Note Reviewed Verification: I have reviewed the TMS Drivers License Examiner Note and agree with the contents. The patient remains a candidate to continue TMS treatment per protocol. Assessment and Plan (1) Chronic post-traumatic stress disorder (PTSD): Status: Chronic (2) Major depressive disorder, recurrent severe without psychotic features: Status: Acute Plan cont plan of care Time Spent With Patient Time: Total time managing care of this patient today ____ minutes.
--- NOTE | 2023-07-09 20:38 | P.PNPS_ITS ---
TMS Daily Progress Note Daily TMS Progress Note Date of Service: 07/06/23 Week #: 2 Treatment #(10-09): 10 PHQ-9 Pre-Treatment (10-06): 18 PHQ-9 Most Recent (10-06): 18 Reviewed: TMS Tech Note Reviewed Verification: I have reviewed the TMS Teacher Citizenship Note and agree with the contents. The patient remains a candidate to continue TMS treatment per protocol. Assessment and Plan (1) Chronic post-traumatic stress disorder (PTSD): Status: Chronic (2) Major depressive disorder, recurrent severe without psychotic features: Status: Acute Plan cont plan of care pt under medical stress Time Spent With Patient Time: Total time managing care of this patient today ____ minutes.
--- NOTE | 2023-07-09 21:11 | P.PNPS_ITS ---
TMS Daily Progress Note Daily TMS Progress Note Date of Service: 07/10/23 Week #: 3 Treatment #(10-09): 12 PHQ-9 Pre-Treatment (10-06): 18 PHQ-9 Most Recent (10-06): 18 Reviewed: TMS Tech Note Reviewed Verification: I have reviewed the TMS Wedding Planning Internship Note and agree with the contents. The patient remains a candidate to continue TMS treatment per protocol. Assessment and Plan (1) Major depressive disorder, recurrent severe without psychotic features: Status: Acute Time Spent With Patient Time: Total time managing care of this patient today ____ minutes.
--- NOTE | 2023-07-10 21:56 | P.PNPS_ITS ---
TMS Daily Progress Note Daily TMS Progress Note Date of Service: 07/10/23 Week #: 3 Treatment #(10-09): 13 PHQ-9 Pre-Treatment (10-06): 18 PHQ-9 Most Recent (10-06): 16 Reviewed: TMS Tech Note Reviewed Verification: I have reviewed the TMS Forest Ranger Technician Note and agree with the contents. The patient remains a candidate to continue TMS treatment per protocol. Assessment and Plan (1) Generalized anxiety disorder: Status: Acute (2) Major depression, recurrent, chronic: Status: Acute Plan continue plan of care no improvement to this point Time Spent With Patient Time: Total time managing care of this patient today ____ minutes.
--- NOTE | 2023-09-25 19:25 | HO.TMSDAILY2 ---
TMS Daily Progress Note Daily TMS Progress Note Date of Service: 08/20/23 Week #: 8 Treatment #(-30): 35 PHQ-9 Pre-Treatment (1-): 18 PHQ-9 Most Recent (10-06): 7 SHALOM-7 Pre-Treatment (0-21): 3 SHALOM-7 Most Recent (0-21): 3 Reviewed: TMS Tech Note Reviewed Verification: I have reviewed the TMS Dat Instructor Note and agree with the contents. The patient remains a candidate to continue TMS treatment per protocol.
--- NOTE | 2023-09-25 19:28 | P.PNPS_ITS ---
TMS Daily Progress Note Daily TMS Progress Note Date of Service: 08/22/23 Week #: 8 Treatment #(-30): 36 PHQ-9 Pre-Treatment (-): 18 PHQ-9 Most Recent (10-06): 7 SHALOM-7 Pre-Treatment (0-21): 3 SHALOM-7 Most Recent (0-21): 3 Reviewed: TMS Tech Note Reviewed Verification: I have reviewed the TMS Electronic Warfare Technical Note and agree with the contents. The patient remains a candidate to continue TMS treatment per protocol. Assessment and Plan (1) Major depression, recurrent, chronic: Status: Acute Plan final treatment, successful course
--- NOTE | 2023-09-25 19:40 | P.PNPS_ITS ---
TMS Daily Progress Note Daily TMS Progress Note Date of Service: 07/06/23 Week #: 2 Treatment #(-30): 10 PHQ-9 Pre-Treatment (-): 18 PHQ-9 Most Recent (10-06): 16 SHALOM-7 Pre-Treatment (0-): 3 SHALOM-7 Most Recent (0-21): 7 Reviewed: TMS Tech Note Reviewed Verification: I have reviewed the TMS Custom Motorcycle Painter Note and agree with the contents. The patient remains a candidate to continue TMS treatment per protocol.
--- NOTE | 2023-09-25 19:54 | HO.TMSDAILY2 ---
TMS Daily Progress Note Daily TMS Progress Note Date of Service: 07/09/23 Week #: 3 Treatment #(-): 12 PHQ-9 Pre-Treatment (-): 18 PHQ-9 Most Recent (10-06): 16 SHALOM-7 Pre-Treatment (0-21): 3 SHALOM-7 Most Recent (0-21): 10 Reviewed: TMS Tech Note Reviewed Verification: I have reviewed the TMS Diesel Pile Driver Operator Note and agree with the contents. The patient remains a candidate to continue TMS treatment per protocol.
--- NOTE | 2023-10-15 15:59 | P.PNPS_ITS ---
TMS Daily Progress Note Daily TMS Progress Note Date of Service: 07/11/23 Week #: 3 Treatment #(-30): 14 PHQ-9 Pre-Treatment (-): 18 PHQ-9 Most Recent (10-06): 16 SHALOM-7 Pre-Treatment (0-21): 3 SHALOM-7 Most Recent (0-21): 10 Reviewed: TMS Tech Note Reviewed Verification: I have reviewed the TMS Protection Agent Note and agree with the contents. The patient remains a candidate to continue TMS treatment per protocol.
--- NOTE | 2023-10-15 16:00 | HO.TMSDAILY2 ---
TMS Daily Progress Note Daily TMS Progress Note Date of Service: 07/18/23 Week #: 4 Treatment #(10-09): 18 PHQ-9 Pre-Treatment (-): 18 PHQ-9 Most Recent (10-06): 17 SHALOM-7 Pre-Treatment (0-21): 3 SHALOM-7 Most Recent (0-21): 10 Reviewed: TMS Tech Note Reviewed Verification: I have reviewed the TMS Historian Dramatic Arts Note and agree with the contents. The patient remains a candidate to continue TMS treatment per protocol. Assessment and Plan (1) Major depressive disorder, recurrent severe without psychotic features: Status: Acute Plan consider remap no change
--- NOTE | 2023-10-15 16:01 | P.PNPS_ITS ---
TMS Daily Progress Note Daily TMS Progress Note Date of Service: 07/19/23 Week #: 4 Treatment #(-30): 19 PHQ-9 Pre-Treatment (-): 18 PHQ-9 Most Recent (10-06): 16 SHALOM-7 Pre-Treatment (0-21): 3 SHALOM-7 Most Recent (0-21): 10 Reviewed: TMS Tech Note Reviewed Verification: I have reviewed the TMS Rental Salesperson Note and agree with the contents. The patient remains a candidate to continue TMS treatment per protocol. Assessment and Plan (1) Major depressive disorder, recurrent severe without psychotic features: Status: Acute Plan cont plan of care ? remap
--- NOTE | 2023-10-15 16:01 | P.PNPS_ITS ---
TMS Daily Progress Note Daily TMS Progress Note Date of Service: 07/20/23 Week #: 4 Treatment #(-30): 20 PHQ-9 Pre-Treatment (-): 18 PHQ-9 Most Recent (10-06): 16 SHALOM-7 Pre-Treatment (0-21): 3 SHALOM-7 Most Recent (0-21): 10 Reviewed: TMS Tech Note Reviewed Verification: I have reviewed the TMS Material Handler Loader Note and agree with the contents. The patient remains a candidate to continue TMS treatment per protocol. Assessment and Plan (1) Major depressive disorder, recurrent severe without psychotic features: Status: Acute Plan cont plan of care amitriptyline 10 mg added
--- NOTE | 2023-10-15 16:02 | P.PNPS_ITS ---
TMS Daily Progress Note Daily TMS Progress Note Date of Service: 07/23/23 Week #: 5 Treatment #(-30): 21 PHQ-9 Pre-Treatment (1-): 18 PHQ-9 Most Recent (10-06): 16 SHALOM-7 Pre-Treatment (0-21): 3 SHALOM-7 Most Recent (0-21): 10 Reviewed: TMS Tech Note Reviewed Verification: I have reviewed the TMS Sludge Filtration Operator Note and agree with the contents. The patient remains a candidate to continue TMS treatment per protocol. Assessment and Plan (1) Major depression, recurrent, chronic: Status: Acute Plan no c/oside effects cont plan of care
--- NOTE | 2023-10-16 22:34 | P.PNPS_ITS ---
TMS Daily Progress Note Daily TMS Progress Note Date of Service: 07/24/23 Week #: 5 Treatment #(-30): 22 PHQ-9 Pre-Treatment (-): 18 PHQ-9 Most Recent (10-06): 12 SHALOM-7 Pre-Treatment (0-21): 3 SHALOM-7 Most Recent (0-21): 10 Reviewed: TMS Tech Note Reviewed Verification: I have reviewed the TMS Associate Dean Of Students Note and agree with the contents. The patient remains a candidate to continue TMS treatment per protocol. Assessment and Plan (1) Major depressive disorder, recurrent severe without psychotic features: Status: Acute Plan improved mood
--- NOTE | 2023-10-16 22:36 | P.PNPS_ITS ---
TMS Daily Progress Note Daily TMS Progress Note Date of Service: 07/25/23 Week #: 5 Treatment #(-30): 23 PHQ-9 Pre-Treatment (1-): 18 PHQ-9 Most Recent (10-06): 12 SHALOM-7 Pre-Treatment (0-21): 3 SHALOM-7 Most Recent (0-21): 10 Reviewed: TMS Tech Note Reviewed Verification: I have reviewed the TMS Senior Agricultural Assistant Note and agree with the contents. The patient remains a candidate to continue TMS treatment per protocol. Assessment and Plan (1) Major depressive disorder, recurrent severe without psychotic features: Status: Acute Plan improved mood cont plan of care
--- NOTE | 2023-10-16 22:38 | HO.TMSDAILY2 ---
TMS Daily Progress Note Daily TMS Progress Note Date of Service: 07/26/23 Week #: 5 Treatment #(-30): 24 PHQ-9 Pre-Treatment (1-): 18 PHQ-9 Most Recent (10-06): 12 SAHLOM-7 Pre-Treatment (0-21): 3 SHALOM-7 Most Recent (0-21): 10 Reviewed: TMS Tech Note Reviewed Verification: I have reviewed the TMS Distance Learning Technician Note and agree with the contents. The patient remains a candidate to continue TMS treatment per protocol.
--- NOTE | 2023-10-16 22:39 | P.PNPS_ITS ---
TMS Daily Progress Note Daily TMS Progress Note Date of Service: 07/27/23 Week #: 5 Treatment #(-30): 25 PHQ-9 Pre-Treatment (1-): 18 PHQ-9 Most Recent (-): 12 SHALOM-7 Pre-Treatment (0-21): 3 SHALOM-7 Most Recent (0-21): 10 Reviewed: TMS Tech Note Reviewed Verification: I have reviewed the TMS Property Management Coordinator Note and agree with the contents. The patient remains a candidate to continue TMS treatment per protocol. Assessment and Plan (1) Major depression, recurrent, chronic: Status: Acute Plan doing well cont plan of care has intention tremor
--- NOTE | 2023-10-16 22:41 | P.PNPS_ITS ---
TMS Daily Progress Note Daily TMS Progress Note Date of Service: 07/30/23 Week #: 6 Treatment #(-30): 26 PHQ-9 Pre-Treatment (-): 18 PHQ-9 Most Recent (10-06): 12 SHALOM-7 Pre-Treatment (0-21): 3 SHALOM-7 Most Recent (0-21): 10 Reviewed: TMS Tech Note Reviewed Verification: I have reviewed the TMS Abstract Manager Note and agree with the contents. The patient remains a candidate to continue TMS treatment per protocol. Assessment and Plan (1) Major depression, recurrent, chronic: Status: Acute Plan some inc tremor mood generally better
--- NOTE | 2023-10-16 22:45 | P.PNPS_ITS ---
TMS Daily Progress Note Daily TMS Progress Note Date of Service: 07/31/23 Week #: 6 Treatment #(-30): 27 PHQ-9 Pre-Treatment (-): 18 PHQ-9 Most Recent (10-06): 12 SHALOM-7 Pre-Treatment (0-21): 3 SHALOM-7 Most Recent (0-21): 10 Reviewed: TMS Tech Note Reviewed Verification: I have reviewed the TMS Senior Software Qa Engineer Note and agree with the contents. The patient remains a candidate to continue TMS treatment per protocol. Assessment and Plan (1) Major depression, recurrent, chronic: Status: Acute Plan cont plan of care
--- NOTE | 2023-10-16 22:46 | P.PNPS_ITS ---
TMS Daily Progress Note Daily TMS Progress Note Date of Service: 08/06/23 Week #: 6 Treatment #(-30): 28 PHQ-9 Pre-Treatment (-): 18 PHQ-9 Most Recent (10-06): 12 SHALOM-7 Pre-Treatment (0-21): 3 SHALOM-7 Most Recent (0-21): 10 Reviewed: TMS Tech Note Reviewed Verification: I have reviewed the TMS Geography Department Chair Note and agree with the contents. The patient remains a candidate to continue TMS treatment per protocol.
--- NOTE | 2023-10-16 22:48 | P.PNPS_ITS ---
TMS Daily Progress Note Daily TMS Progress Note Date of Service: 08/07/23 Week #: 6 Treatment #(-30): 29 PHQ-9 Pre-Treatment (-): 18 PHQ-9 Most Recent (10-06): 12 SHALOM-7 Pre-Treatment (0-21): 3 SHALOM-7 Most Recent (0-21): 10 Reviewed: TMS Tech Note Reviewed Verification: I have reviewed the TMS Strategy Lead Note and agree with the contents. The patient remains a candidate to continue TMS treatment per protocol. Assessment and Plan (1) Major depression, recurrent, chronic: Status: Acute Plan cont plan of care
--- NOTE | 2023-10-16 22:50 | P.PNPS_ITS ---
TMS Daily Progress Note Daily TMS Progress Note Date of Service: 08/08/23 Week #: 6 Treatment #(-30): 30 PHQ-9 Pre-Treatment (-): 18 PHQ-9 Most Recent (10-06): 12 SHALOM-7 Pre-Treatment (0-21): 3 SHALOM-7 Most Recent (0-21): 10 Reviewed: TMS Tech Note Reviewed Verification: I have reviewed the TMS Personal Lines Account Executive Note and agree with the contents. The patient remains a candidate to continue TMS treatment per protocol. Assessment and Plan (1) Major depression, recurrent, chronic: Status: Acute Plan did not do well with primidone
--- NOTE | 2023-10-16 22:51 | P.PNPS_ITS ---
TMS Daily Progress Note Daily TMS Progress Note Date of Service: 08/09/23 Week #: 7 Treatment #(-): 31 PHQ-9 Pre-Treatment (-): 18 PHQ-9 Most Recent (10-06): 12 SHALOM-7 Pre-Treatment (0-21): 3 SHALOM-7 Most Recent (0-21): 10 Reviewed: TMS Tech Note Reviewed Verification: I have reviewed the TMS Icu Clerk Note and agree with the contents. The patient remains a candidate to continue TMS treatment per protocol. Assessment and Plan (1) Major depression, recurrent, chronic: Status: Acute Plan poor rx to primidone cont plan of care
--- NOTE | 2023-10-16 22:53 | HO.TMSDAILY2 ---
TMS Daily Progress Note Daily TMS Progress Note Date of Service: 08/13/23 Week #: 7 Treatment #(-30): 32 PHQ-9 Pre-Treatment (-): 18 PHQ-9 Most Recent (10-06): 10 SHALOM-7 Pre-Treatment (0-21): 3 SHALOM-7 Most Recent (0-21): 10 Reviewed: TMS Tech Note Reviewed Verification: I have reviewed the TMS Chemical Plant Manager Note and agree with the contents. The patient remains a candidate to continue TMS treatment per protocol. Assessment and Plan (1) Major depression, recurrent, chronic: Status: Acute Plan cont plan of care
--- NOTE | 2023-10-16 22:56 | HO.TMSDAILY2 ---
TMS Daily Progress Note Daily TMS Progress Note Date of Service: 08/15/23 Week #: 7 Treatment #(-30): 33 PHQ-9 Pre-Treatment (-): 18 PHQ-9 Most Recent (10-06): 10 SHALOM-7 Pre-Treatment (0-21): 3 SHALOM-7 Most Recent (0-21): 10 Reviewed: TMS Tech Note Reviewed Verification: I have reviewed the TMS Linux Developer Note and agree with the contents. The patient remains a candidate to continue TMS treatment per protocol.
--- NOTE | 2023-10-16 22:57 | HO.TMSDAILY2 ---
TMS Daily Progress Note Daily TMS Progress Note Date of Service: 08/17/23 Week #: 8 Treatment #(-30): 34 PHQ-9 Pre-Treatment (1-): 18 PHQ-9 Most Recent (10-06): 10 SHALOM-7 Pre-Treatment (0-21): 3 SHALOM-7 Most Recent (0-21): 10 Reviewed: TMS Tech Note Reviewed Verification: I have reviewed the TMS Patient Clerical Assistant Note and agree with the contents. The patient remains a candidate to continue TMS treatment per protocol. Assessment and Plan (1) Major depression, recurrent, chronic: Status: Acute Plan cont plan of care
--- NOTE | 2023-10-16 22:58 | P.PNPS_ITS ---
TMS Daily Progress Note Daily TMS Progress Note Date of Service: 08/20/23 Week #: 8 Treatment #(-): 35 PHQ-9 Pre-Treatment (-): 18 PHQ-9 Most Recent (10-06): 7 SHALOM-7 Pre-Treatment (0-21): 3 SHALOM-7 Most Recent (0-21): 10 Reviewed: TMS Tech Note Reviewed Verification: I have reviewed the TMS Mid Wife Note and agree with the contents. The patient remains a candidate to continue TMS treatment per protocol. Assessment and Plan (1) Major depression, recurrent, chronic: Status: Acute Plan cont plan of care mood improved
--- NOTE | 2023-10-16 23:00 | P.PNPS_ITS ---
TMS Daily Progress Note Daily TMS Progress Note Date of Service: 08/22/23 Week #: 8 Treatment #(-30): 36 PHQ-9 Pre-Treatment (1-): 18 PHQ-9 Most Recent (10-06): 7 SHALOM-7 Pre-Treatment (0-21): 3 SHALOM-7 Most Recent (0-21): 10 Reviewed: TMS Tech Note Reviewed Verification: I have reviewed the TMS Plant Operations Coordinator Note and agree with the contents. The patient remains a candidate to continue TMS treatment per protocol. Assessment and Plan (1) Major depression, recurrent, chronic: Status: Acute Plan cont plan of care mood improved tms completed good response
== END 2023-08-23 11:40 | disposition home or self-care (01) ==
LOC: HO.PTMS 09:30
PROVIDERS: PCP Internal Medicine; Visit Provider Psychiatry & Neurology Psychiatry
DX: F33.2 Major depressive disorder, recurrent severe without psychotic features (principal); F43.12 Post-traumatic stress disorder, chronic
CPT/HCPCS: 90867; 90868

== ENCOUNTER → 2023-08-22 09:30 | Outpatient (BNV) | payer OTHER, SELFPAY | PROVIDERS: PCP Internal Medicine; Visit Provider Psychiatry & Neurology Psychiatry | DX: F33.2 Major depressive disorder, recurrent severe without psychotic features (principal) | CPT/HCPCS: 90868 ==

== ENCOUNTER 2023-09-04 06:54 | Day surgery (SDC) | payer OTHER, SELFPAY ==
[2023-08-30 10:21] VITALS: BMI 31.0
[2023-09-04 07:10] VITALS: BMI 72.6
[2023-09-04 07:19] VITALS: BMI 32.9
[2023-09-04 07:20] VITALS: BP 133/83; PULSE 94; RESP 18; TEMP 36.8; O2SAT 98
[2023-09-04] MEDS: Lactated Ringers 1,000 ML 50 ML IVCONT (07:32)
--- NOTE | 2023-09-04 07:58 | MHC.SHP ---
Pre-Procedural Eval Section A Date of Service: 09/04/23 Section B Chief Complaint: Diarrhea, unspecified Relevant Family History (Specify if Yes): No Relevant Social History: None Present Medications: see Short Stay Collaborative assessment Medical History: Significant History (Anxiety and depression Arthritis GERD (gastroesophageal reflux disease) Hiatal hernia History of kidney stones Hx of endometriosis Hx of low back pain Hx of migraines Migraines SHALONDA on CPAP Osteoporosis Slow to wake up after anesthesia) History of Previous Operations: Relevant previous surgery/procedure and date(s) (History of colon resection History of Erick fundoplication History of wisdom tooth extraction, class I edentulism Hx of appendectomy Hx of arthroplasty Hx of arthroscopic knee surgery Hx of bladder endoscopy Hx of colonoscopy Hx of knee surgery Hx of lithotripsy Hx of tonsillectomy) Allergies: Allergies Allergy/AdvReac Type Severity Reaction Status Date / Time metoclopramide [From REGLAN] Allergy Severe PANIC Verified 08/30/23 10:18 ATTACKS, agitation Penicillins [PENICILLINS] Allergy Severe SOB, Verified 08/30/23 10:18 couldn't breathe sulfamethoxazole Allergy Intermediate HIVES Verified 08/30/23 10:18 [From BACTRIM] trimethoprim [From BACTRIM] Allergy Intermediate HIVES Verified 08/30/23 10:18 surgical skin glue Allergy Severe Hives Uncoded 08/30/23 10:18 Review of Systems Sugical H&P ROS: Negative: Constitution, Cardiovascular, Respiratory, Neurological, Psychiatric, Hem-Onc, Allergic/Immunologic, Gastrointestinal, Genitourinary, Musculoskeletal, Integumentary, Endocrine and Eyes/Ears/Nose/Throat Exam Surgical H&P Exam: Normal: HEENT, Normal: Heart, Normal: Lungs, Normal: Extremities, Normal: Abdomen, Normal: Skin and Normal: Neurological Plan Diagnosis/Plan: Unchanged I have reviewed the history and physical and performed a pertinent physical examination on my patient. No changes have occurred unless specified. \ Time Spent With Patient Time: Total time managing care of this patient today ____ minutes.
--- NOTE | 2023-09-04 08:20 | W.PM.OPN ---
Operative Note Operative Note Date of Service: 09/04/23 Narrative: Operative Information Procedure Description: Colonoscopy Indication: diarrhea Anesthesia: MAC COLONOSCOPY Instrument: Olympus variable stiffness pediatric scope 190L Colonoscopy Monitoring: Vital signs and clinical assessment, continuous EKG monitoring, Pulse oximetry, Carbon Dioxide monitoring and blood pressure monitoring were done throughout the procedure. Colon withdrawal time was 10 minutes. Procedure: The patient was placed in the left lateral decubitis position and pre-procedure medications were administered. After a digital rectal examination of the ano-rectum, the video colonoscope was inserted into the rectum and advanced through the colon to the cecum/TI. The colonoscope was slowly withdrawn in a retrograde panoramic fashion and the colon mucosa was carefully examined including a retroflexed view of the rectum. Findings and interventions are described below. Procedure Difficulty: moderate Findings: ileo colonic anastomosis noted, bx taken from dmitry terminal ileum Transverse Colon - 6-8 mm sessile polyp removed with cold snare random colon bx taken Descending Colon:normal Sigmoid Colon: normal Rectum: Retroflexion with small internal hemorrhoids, grade I Anorectum - normal Colon preparation: [place] Bowel Preparation Scale Right colon; n/a Transverse colon: 1-2 Left colon; 1-2 (0 = Unprepared colon segment with mucosa not seen due to solid stool that cannot be cleared. 1 = Portion of mucosa of the colon segment seen, but other areas of the colon segment not well seen due to staining, residual stool and/or opaque liquid. 2 = Minor amount of residual staining, small fragments of stool and/or opaque liquid, but mucosa of colon segment seen well. 3 = Entire mucosa of colon segment seen well with no residual staining, small fragments of stool or opaque liquid) Impression and Post Procedure Diagnosis: fair prep polyp internal hemorrhoid Plan: High fiber diet leaflet Avoid straining at stool, epsom salts and sitz bath, anusol supps or cream Repeat Colonoscopy in 2-3 years due to fair prep or earlier if clinically indicated--if ongoing diarrhea consider EGD--stool samples also resent today Above findings were reviewed with the patient and relevant handouts were provided if indicated.
[2023-09-04 08:28] VITALS: BP 107/62; PULSE 82; RESP 16; TEMP 36.1; O2SAT 98
--- NOTE | 2023-09-04 08:35 | HO.ANESPROP2 ---
HPI - Anesthesia Eval Consult details Narrative: 63-year-old female here for colonoscopy PMF Active Problems Active Problems: All Active Problems (Updated 08/30/23 @ 10:25 by Марина Booth RN) Diarrhea (Acute) Major depression, recurrent, chronic (Acute) Overweight (Acute) Major depressive disorder, recurrent severe without psychotic features (Acute) Rash (Acute) Steatosis, liver (Acute) Hypertension (Acute) Diaphragmatic hernia (Acute) Sleep apnea with use of continuous positive airway pressure (CPAP) (Acute) Obesity (BMI 30-39.9) (Acute) Morbid obesity (Acute) Essential tremor (Acute) Chronic post-traumatic stress disorder (PTSD) (Chronic) Vertigo (Acute) Generalized anxiety disorder (Acute) Hyperparathyroid bone disease (Acute) Status post repair of paraesophageal diaphragmatic hernia (Acute) S/P laparoscopic sleeve gastrectomy (Acute) Hx of migraines (Acute) Arthritis (Acute) Osteoporosis (Acute) Migraines (Acute) Past Medical History Medical History Tremor Chronic post-traumatic stress disorder (PTSD) Pre-diabetes Vertigo Essential tremor Generalized anxiety disorder Hyperparathyroid bone disease BMI 35.0-35.9,adult Slow to wake up after anesthesia Arthritis Hx of low back pain Hiatal hernia GERD (gastroesophageal reflux disease) Hx of migraines Anxiety and depression SHALONDA on CPAP BMI 36.0-36.9,adult Obesity Left atrial enlargement Migraines Osteoporosis Hyperparathyroidism History of kidney stones Hx of endometriosis Depression, major, severe recurrence Family History Family History Mother Depression Anxiety Asthma Osteoporosis Father Osteoporosis Brother Osteoporosis Asthma Depression Sister Depression Anxiety Obesity Heart disease Sister IBS (irritable bowel syndrome) Anxiety Depression Family history of problems with anesthesia: No Surgical History Surgical History Status post repair of paraesophageal diaphragmatic hernia S/P laparoscopic sleeve gastrectomy Hx of lithotripsy Hx of arthroscopic knee surgery History of colon resection History of Erick fundoplication History of wisdom tooth extraction, class I edentulism Hx of bladder endoscopy Hx of colonoscopy Hx of arthroplasty Hx of knee surgery Hx of tonsillectomy Hx of appendectomy History of Problems with Anesthesia: Yes Social History Social History Household Members: None Are you a primary progressive care manager to a significant other at home: No Do you presently have visiting nurse or other home services: No Alcohol intake: never Patient Tobacco Use Status: Never used Tobacco Use of substances other than those prescribed or required for medical reasons: No Have you been hit, kicked, punched, or otherwise hurt by someone within the past year? If so, by whom?: No Are you DNR?: No Advance Directives: No Advance Directives Information Provided: Yes Advance Directives on File: No Recently lost weight without trying: No service: No Current occupational status: disabled Meds Allergies Allergy/AdvReac Type Severity Reaction Status Date / Time metoclopramide [From REGLAN] Allergy Severe PANIC Verified 08/30/23 10:18 ATTACKS, agitation Penicillins [PENICILLINS] Allergy Severe SOB, Verified 08/30/23 10:18 couldn't breathe sulfamethoxazole Allergy Intermediate HIVES Verified 08/30/23 10:18 [From BACTRIM] trimethoprim [From BACTRIM] Allergy Intermediate HIVES Verified 08/30/23 10:18 surgical skin glue Allergy Severe Hives Uncoded 08/30/23 10:18 Active Medications: Current Medications Lactated Ringer's (Lr) 1,000 mls @ 50 mls/hr IVCONT .Q20H JOSE Last Admin: 09/04/23 07:32 Dose: 50 mls/hr Home Medications Medication Instructions Recorded Confirmed Last Taken Type denosumab 60 mg/mL subcutaneous mg subcut [id number] 07/19/22 05/16/23 Unknown History syringe (Prolia) naratriptan 2.5 mg tablet 2.5 mg PO DAILY PRN Headache 10/31/22 08/30/23 Unknown History loperamide 2 mg tablet (Imodium 2 mg PO Q6H PRN Diarrhea 04/11/23 08/30/23 Unknown History A-D) Exam Height,Weight and Vital Signs: Height 5 ft 3 in Weight 185 lb 12.8 oz Last Vital Signs Temp 97.0 F 09/04/23 08:28 Pulse 82 09/04/23 08:28 Resp 16 12/26/23 08:28 BP 107/62 09/04/23 08:28 Pulse Ox 98 09/04/23 08:28 O2 Del Method Room Air 09/04/23 08:28 Airway Mallampati Class: I TM Dist: >3cm Neck ROM: Full Loose/Missing/Broken Teeth: No Assessment and Plan Assessment Anesthesia Assessment: Anesthesia Plan Discussed and Chart Reviewed Final Anesthetic Review Family History of Problems with Anesthesia: No History of Problems with Anesthesia: Yes NPO: Yes ASA Class: III Final Preanesthetic Review: No Changes in Pt Med Stat, Meds/Allgs Chart Reviewed, Consent Obtained/Reviewed and Anes Risks/Benef Reviewed Patient Risk: Intermediate Procedure Risk: Low Anesthetic Plan Anesthetic Plan: MAC: Disposition: Standard PACU
[2023-09-04 08:43] VITALS: BP 127/70; PULSE 77; RESP 18; TEMP 36.1; O2SAT 100
[2023-09-04 09:51] LABS: CDiff Gene PCR NEGATIVE (Negative)
[2023-09-04 11:15] LABS: Adenovirus F 40/41 Not Detected (Not Detect.); Astrovirus Not Detected (Not Detect.); Campylobacter Not Detected (Not Detect.); Cryptosporidium Not Detected (Not Detect.); Cyclospora cayetanensis Not Detected (Not Detect.); E. coli EAEC Not Detected (Not Detect.); E. coli EPEC Not Detected (Not Detect.); E. coli ETEC Not Detected (Not Detect.); E. coli STEC Not Detected (Not Detect.); Entamoeba histolytica Not Detected (Not Detect.); Giardia lamblia Not Detected (Not Detect.); Norovirus GI/GII Not Detected (Not Detect.); Plesiomonas shigelloides Not Detected (Not Detect.); Rotavirus A Not Detected (Not Detect.); Salmonella Not Detected (Not Detect.); Sapovirus Not Detected (Not Detect.); Shigella sp./EIEC Not Detected (Not Detect.); Vibrio Not Detected (Not Detect.); Vibrio Cholerae Not Detected (Not Detect.); Yersinia enterocolitica Not Detected (Not Detect.)
[2023-09-07 23:34] LABS: Lactoferrin, Fecal, Quant. <6.25 mcg/mL (<7.25)
== END 2023-09-04 08:58 | disposition home or self-care (01) ==
PROVIDERS: PCP Internal Medicine; Visit Provider Internal Medicine Gastroenterology
PROC: 0DJD8ZZ Inspection of Lower Intestinal Tract, Via Natural or Artificial Opening Endoscopic (ICD-10-PCS; CPT 45378; principal; 2023-09-04 08:20)
DX: R19.7 Diarrhea, unspecified (principal); K63.5 Polyp of colon; K64.0 First degree hemorrhoids; Z98.0 Intestinal bypass and anastomosis status; Z90.49 Acquired absence of other specified parts of digestive tract; K21.9 Gastro-esophageal reflux disease without esophagitis; G47.33 Obstructive sleep apnea (adult) (pediatric); M81.0 Age-related osteoporosis without current pathological fracture; F41.8 Other specified anxiety disorders; Z79.899 Other long term (current) drug therapy; Z99.89 Dependence on other enabling machines and devices; Z98.890 Other specified postprocedural states; Z88.0 Allergy status to penicillin; Z88.2 Allergy status to sulfonamides; L23.1 Allergic contact dermatitis due to adhesives; Z98.84 Bariatric surgery status
CPT/HCPCS: 45385; 45380; 83631; 87493; 87507; 88305; J2704

== ENCOUNTER → 2023-09-04 06:54 | Outpatient (BNV) | payer OTHER, SELFPAY | PROVIDERS: PCP Internal Medicine; Visit Provider Internal Medicine Gastroenterology | DX: R19.7 Diarrhea, unspecified (principal); K63.5 Polyp of colon | CPT/HCPCS: 45380; 45385 ==

== ENCOUNTER 2023-09-18 08:57 | Outpatient (AMB) | payer OTHER, SELFPAY ==
[2023-09-18 09:03] VITALS: BP 112/55; PULSE 87; BMI 32.8
--- NOTE | 2023-09-18 09:03 | A.OFFVIS_ITS ---
Intake Vital Signs 09/18/23 09:03 Height 5 ft 3 in Weight 185 lb BMI 32.8 BP 112/55 L Blood Pressure Location Lt brachial Position Sitting Pulse 87 Intake Visit Reasons: S/p colon Intake Note: Patient follow up fro Colonoscopy results. Patient cc: some constipation and denies any other GI issues. Lead Data Entry Operator Required: No Accompanied by: Self / Same As Patient Allergies metoclopramide [From REGLAN] Allergy (Severe, Verified 09/18/23 09:02) PANIC ATTACKS, agitation Penicillins [PENICILLINS] Allergy (Severe, Verified 09/18/23 09:02) SOB, couldn't breathe sulfamethoxazole [From BACTRIM] Allergy (Intermediate, Verified 09/18/23 09:02) HIVES trimethoprim [From BACTRIM] Allergy (Intermediate, Verified 09/18/23 09:02) HIVES surgical skin glue Allergy (Severe, Uncoded 08/30/23 10:18) Hives Medication List - Last Reconciled 09/18/23 by Zoë Cerrato PA-C amitriptyline 10 - 20 mg (1 - 2 x 10 mg) PO BEDTIME bupropion HCl 150 mg PO QAM denosumab (Prolia) mg subcut [id number] escitalopram oxalate 10 mg PO DAILY 30 days loperamide (Imodium A-D) 2 mg PO Q6H PRN lorazepam 0.5 - 1 mg (0.5 - 1 x 1 mg) PO BEDTIME PRN naratriptan 2.5 mg PO DAILY PRN HPI HPI Comments History of Present Illness Details A 63 y/o female f/u after colonoscopy-for abdominal pain and diarrhea=she was taking imodium- none since July- She has cramping- seems to be difficult to relate to anything specific She had bariatric surgery 03/2022- she eats high protein- difficult getting in enough fiber Reviewed colonoscopy procedure report as well as pathology and recommendation Appetite is fairly good No nausea, vomiting, hematemesis, hematochezia fever chills PFSH Medical History (Updated 09/18/23 @ 10:40 by Zoë Cerrato PA-C) Tremor Chronic post-traumatic stress disorder (PTSD) Pre-diabetes Vertigo Essential tremor Generalized anxiety disorder Hyperparathyroid bone disease BMI 35.0-35.9,adult Slow to wake up after anesthesia Arthritis Hx of low back pain Hiatal hernia GERD (gastroesophageal reflux disease) Hx of migraines Anxiety and depression SHALONDA on CPAP BMI 36.0-36.9,adult Obesity Left atrial enlargement Migraines Osteoporosis Hyperparathyroidism History of kidney stones Hx of endometriosis Depression, major, severe recurrence Surgical History Status post repair of paraesophageal diaphragmatic hernia S/P laparoscopic sleeve gastrectomy Hx of lithotripsy Hx of arthroscopic knee surgery History of colon resection History of Erick fundoplication History of wisdom tooth extraction, class I edentulism Hx of bladder endoscopy Hx of colonoscopy Hx of arthroplasty Hx of knee surgery Hx of tonsillectomy Hx of appendectomy Family History Mother Depression Anxiety Asthma Osteoporosis Father Osteoporosis Brother Osteoporosis Asthma Depression Sister Depression Anxiety Obesity Heart disease Sister IBS (irritable bowel syndrome) Anxiety Depression Social History Household Members: None Are you a primary care manager cna to a significant other at home: No Do you presently have visiting nurse or other home services: No Alcohol intake: never Patient Tobacco Use Status: Never used Tobacco service: No Current occupational status: disabled Review of Systems Const All systems reviewed & are unremarkable except as noted in HPI and below Card Denies chest pain and Denies dyspnea Resp Denies dyspnea GI Denies hematochezia, Reports GI cramping, Denies heartburn, Denies nausea and Denies vomiting Psych Reports anxiety Physical Exam Vital Signs: Last Vital Signs Pulse 87 09/18/23 09:03 BP 112/55 L 09/18/23 09:03 BMI result Body Mass Index 32.8 Const General: cooperative, healthy appearing, comfortable and no acute distress Orientation/consciousness: patient oriented x3 Limitations: no limitations Eyes Sclerae: sclerae normal Resp Effort & Inspection: normal respiratory effort and able to speak in complete sentences Neuro General: patient oriented x3 Extrem General: Yes full ROM Psych Mental Status: mental status grossly normal Speech and movement: Normal speech and movement present and Clear speech present Affect: Anxious affect present Thought content: Normal thought content present Results Reviewed Results Reviewed: mpression and Post Procedure Diagnosis: fair prep polyp internal hemorrhoid Plan: High fiber diet leaflet Avoid straining at stool, epsom salts and sitz bath, anusol supps or cream Repeat Colonoscopy in 2-3 years due to fair prep or earlier if clinically indicated--if ongoing diarrhea consider EGD--stool samples also resent today cheryl: Dina De Santiago Age/Sex: 63/F Attending: Teri Santillan MD : 1960 Submitted by: Teri Santillan MD Copies to: BAUDILIO NGUYEN MD MR #: [id number] Status: [facility] [place] Collected: 09/04/23 Location: .[facility] Received: 09/04/23 Diagnosis A. Colon, transverse, polyp: Fragmented tissue consistent with hyperplastic polyp (see comment). B. Small bowel, biopsy: Small bowel mucosa with preserved villi and no specific change. C. Colon, random, biopsy: Colonic mucosa with lymphoid aggregates and focal minor crypt distortion, otherwise no specific change; no evidence of microscopic colitis. Comment: (A): A sessile serrated lesion cannot be excluded in any residual lesion and clinical follow-up is warranted. Clinical History Pre-Op Dx: Diarrhea, unspecified Post-Op Dx: Internal hemorrhoids, polyp Microscopic Description Microscopic sections reviewed. Material Received A. Transverse colon polyp B. Small bowel bx's C. Random colon bx's Gross Description Received in 3 parts. Part A: Received in formalin labeled ?transverse colon polyp? multiple pieces of morrison/yellow, hemorrhagic tissue received measuring 1.5 x 1.0 x 0.3 cm, in aggregate, all submitted in cassette labeled A. Part B: Received in formalin labeled ?small bowel biopsies (sic)? 1 piece morrison/pink tissue received measuring 0.3 cm, all submitted in cassette labeled B. Part C: Received in formalin labeled ?random colon biopsies? 6 pieces of morrison tissue measuring from 0.1- 0.3 cm, all submitted in cassette labeled C. FM Patient: Dina De Santiago Age/Sex: 63/F MR#: [id number] Page 1 of 2 Assessment & Plan Assessment & Plan (1) Generalized anxiety disorder: Comment: Very anxious Code(s): F41.1 - Generalized anxiety disorder (2) Abdominal cramping: Comment: Somewhat improves after BM however does not completely resolved Stool consistency improved Code(s): R10.9 - Unspecified abdominal pain Plan: Apriso Plan apriso QD Medications: New mesalamine ER (Apriso) 1.5 grams (4 x 0.375 gram) PO DAILY 30 days 120 caps 2RF Patient Instructions: Reviewed procedure report, pathology recommendation Agreeable to give trial of Apriso Encouraged to call with questions or concerns Will see her back 6 8 weeks for progress Coding Level of Care Code Est Pt Level 3 (51811) Diagnoses Generalized anxiety disorder F41.1 Abdominal cramping R10.9 Time Spent (min) 30
== END 2023-09-18 10:12 | disposition home or self-care (01) ==
PROVIDERS: PCP Internal Medicine; Visit Provider Physician Assistant
DX: F41.1 Generalized anxiety disorder (principal); R10.9 Unspecified abdominal pain
CPT/HCPCS: 99213

== ENCOUNTER → 2023-09-18 08:57 | Outpatient (BNVA) | payer OTHER, SELFPAY | PROVIDERS: PCP Internal Medicine; Visit Provider Physician Assistant | DX: F41.1 Generalized anxiety disorder (principal); R10.9 Unspecified abdominal pain | CPT/HCPCS: 99212 ==

== ENCOUNTER 2023-09-28 10:12 | Outpatient (AMB) | payer OTHER, SELFPAY ==
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
== END 2023-09-28 11:31 | disposition home or self-care (01) ==
LOC: HO.HOP 10:12
PROVIDERS: PCP Internal Medicine; Visit Provider Psychiatry & Neurology Psychiatry
DX: F33.2 Major depressive disorder, recurrent severe without psychotic features (principal); F41.1 Generalized anxiety disorder
CPT/HCPCS: 90833; 99213

== ENCOUNTER → 2023-09-28 10:12 | Outpatient (BNVA) | payer OTHER, SELFPAY | PROVIDERS: PCP Internal Medicine; Visit Provider Psychiatry & Neurology Psychiatry | DX: F33.2 Major depressive disorder, recurrent severe without psychotic features (principal); F41.1 Generalized anxiety disorder | CPT/HCPCS: 99212 ==

== ENCOUNTER 2023-10-30 12:57 | Outpatient (AMB) | payer OTHER, SELFPAY ==
--- NOTE | 2023-10-30 13:07 | MHC.OFFVIS ---
Intake Vital Signs 10/30/23 13:11 Height 5 ft 3 in Weight 183 lb BMI 32.4 BP 114/62 Blood Pressure Location Lt brachial Position Sitting Respiration 18 Pulse 101 H Intake Visit Reasons: 6 week follow up Intake Note: Patient follow up for Patient cc: diarrhea on and off and last week the abdominal cramp was so strong that she can not tolerate and between constipation and diarrhea,too and some problems swallowing capsules. Flat Lock Operator Required: No Accompanied by: Self / Same As Patient Allergies metoclopramide [From REGLAN] Allergy (Severe, Verified 10/30/23 13:07) PANIC ATTACKS, agitation Penicillins [PENICILLINS] Allergy (Severe, Verified 10/30/23 13:07) SOB, couldn't breathe sulfamethoxazole [From BACTRIM] Allergy (Intermediate, Verified 10/30/23 13:07) HIVES trimethoprim [From BACTRIM] Allergy (Intermediate, Verified 10/30/23 13:07) HIVES surgical skin glue Allergy (Severe, Uncoded 08/30/23 10:18) Hives Medication List - Last Reconciled 10/30/23 by Zoë Cerrato PA-C amitriptyline 10 - 20 mg (1 - 2 x 10 mg) PO BEDTIME bupropion HCl 150 mg PO QAM denosumab (Prolia) mg subcut [id number] escitalopram oxalate 10 mg PO DAILY 30 days loperamide (Imodium A-D) 2 mg PO Q6H PRN lorazepam 0.5 - 1 mg (0.5 - 1 x 1 mg) PO BEDTIME PRN mesalamine ER (Apriso) 1.5 grams (4 x 0.375 gram) PO DAILY 30 days naratriptan 2.5 mg PO DAILY PRN HPI HPI Comments History of Present Illness Details A 63 y/o female f/u after multiple GI complaints- diarrhea- Colonoscopy- mesalamine 4 tabs daily- began 09/21- only taking 2 tabs- due to water intake-take probiotics instead- Episode of dry heaves- last week-now resolved Appetite- not hungry until a few hours after awakening- she does drink 20-30 oz of h2o- she does not want to get dehydrated-that has been an issue since bariatric surgery in 2021-no fevers- Cramping - low abdominal- intermittent- BM daily Seeing PCP- soon- labs- Bariatrics in early November [facility] Medical History (Updated 10/30/23 @ 14:09 by Zoë Cerrato PA-C) Tremor Chronic post-traumatic stress disorder (PTSD) Pre-diabetes Vertigo Essential tremor Generalized anxiety disorder Hyperparathyroid bone disease BMI 35.0-35.9,adult Slow to wake up after anesthesia Arthritis Hx of low back pain Hiatal hernia GERD (gastroesophageal reflux disease) Hx of migraines Anxiety and depression SHALONDA on CPAP BMI 36.0-36.9,adult Obesity Left atrial enlargement Migraines Osteoporosis Hyperparathyroidism History of kidney stones Hx of endometriosis Depression, major, severe recurrence Surgical History Status post repair of paraesophageal diaphragmatic hernia S/P laparoscopic sleeve gastrectomy Hx of lithotripsy Hx of arthroscopic knee surgery History of colon resection History of Erick fundoplication History of wisdom tooth extraction, class I edentulism Hx of bladder endoscopy Hx of colonoscopy Hx of arthroplasty Hx of knee surgery Hx of tonsillectomy Hx of appendectomy Family History Mother Depression Anxiety Asthma Osteoporosis Father Osteoporosis Brother Osteoporosis Asthma Depression Sister Depression Anxiety Obesity Heart disease Sister IBS (irritable bowel syndrome) Anxiety Depression Social History Household Members: None Are you a primary healthcare associate to a significant other at home: No Do you presently have visiting nurse or other home services: No Alcohol intake: never Patient Tobacco Use Status: Never used Tobacco service: No Current occupational status: disabled Review of Systems Const All systems reviewed & are unremarkable except as noted in HPI and below GI Denies abdominal pain, Reports nausea and Reports vomiting (12 episode wretching) Physical Exam Vital Signs: Last Vital Signs Pulse 101 H 10/30/23 13:11 Resp 18 10/30/23 13:11 BP 114/62 10/30/23 13:11 BMI result Body Mass Index 32.4 Const General: cooperative, comfortable, no acute distress and anxious Orientation/consciousness: patient oriented x3 Limitations: no limitations Eyes Sclerae: sclerae normal Resp Effort & Inspection: normal respiratory effort and able to speak in complete sentences Auscultation: clear to auscultation bilaterally, no rales, no rhonchi and no wheezes Cardio Rate: regular rate (A KS 96) Rhythm: regular rhythm Heart sounds: S1 normal heart sound present and S2 normal heart sound present GI Palpation (GI): Soft to palpation, nontender and no guarding Auscultation: normal bowel sounds Skin General skin exam: erythema (face/ forehead) Neuro Other: tremors General: patient oriented x3 Extrem General: Yes full ROM Psych Speech and movement: Clear speech present Affect: Anxious affect present Thought process: Normal thought process present Thought content: Normal thought content present Insight: Good insight present (Psych) Results Reviewed Results Reviewed: mpression and Post Procedure Diagnosis: fair prep polyp internal hemorrhoid Plan: High fiber diet leaflet Avoid straining at stool, epsom salts and sitz bath, anusol supps or cream Repeat Colonoscopy in 2-3 years due to fair prep or earlier if clinically indicated--if ongoing diarrhea consider EGD--stool samples also resent today Assessment & Plan Assessment & Plan (1) Abdominal cramping: Comment: Somewhat improves after BM however does not completely resolved Stool consistency improved Code(s): R10.9 - Unspecified abdominal pain Plan: Review symptoms, mesalamine-indications Increase to full dose 4 tabs daily (2) Diarrhea: Comment: very anxious-as prescribed mesalamine taking half dose May have functional component Code(s): R19.7 - Diarrhea, unspecified Plan: Mesalamine 4 tabs daily Plan Increase mesalamine to full-dose Monitor symptoms Get CBC CMP Will follow-up with PCP as well as bariatrics as scheduled Orders: Orders Complete Blood Count Auto Diff Today K52.9 - Noninfective gastroenteritis and colitis, unspecified Comprehensive Met. Panel Today K58.9 - Irritable bowel syndrome without diarrhea Patient Instructions: Increase mesalamine to full-dose Get CBC CMP Will follow-up with PCP as well as bariatrics as scheduled Continue to monitor symptoms, encouraged to call with any questions or concerns Follow back to be seen a day Dr. Santillan available in office for consult Coding Level of Care Code Est Pt Level 4 (94052) Diagnoses Abdominal cramping R10.9 Diarrhea R19.7 Time Spent (min) 35
[2023-10-30 13:11] VITALS: BP 114/62; PULSE 101; RESP 18; BMI 32.4
== END 2023-10-30 13:43 | disposition home or self-care (01) ==
PROVIDERS: PCP Internal Medicine; Visit Provider Physician Assistant
DX: R10.9 Unspecified abdominal pain (principal); R19.7 Diarrhea, unspecified
CPT/HCPCS: 99214

== ENCOUNTER → 2023-10-30 12:57 | Outpatient (BNVA) | payer OTHER, SELFPAY | PROVIDERS: PCP Internal Medicine; Visit Provider Physician Assistant | DX: R10.9 Unspecified abdominal pain (principal); R19.7 Diarrhea, unspecified | CPT/HCPCS: 99212 ==

== ENCOUNTER 2023-11-27 11:01 | Outpatient (AMB) | payer OTHER, SELFPAY ==
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
== END 2023-11-27 11:56 | disposition home or self-care (01) ==
LOC: HO.HOP 11:01
PROVIDERS: PCP Internal Medicine; Visit Provider Psychiatry & Neurology Psychiatry
DX: F33.9 Major depressive disorder, recurrent, unspecified (principal); G47.30 Sleep apnea, unspecified; G25.0 Essential tremor
CPT/HCPCS: 90833; 99213

== ENCOUNTER → 2023-11-27 11:01 | Outpatient (BNVA) | payer OTHER, SELFPAY | PROVIDERS: PCP Internal Medicine; Visit Provider Psychiatry & Neurology Psychiatry | DX: F33.9 Major depressive disorder, recurrent, unspecified (principal); G47.30 Sleep apnea, unspecified; G25.0 Essential tremor | CPT/HCPCS: 99212 ==

== ENCOUNTER 2023-11-29 11:26 | Outpatient (AMB) | payer OTHER, SELFPAY ==
--- NOTE | 2023-11-29 11:15 | MHC.OFFVISWM ---
Intake Intake Visit Reasons: TV PO LSG 03/14/22 Allergies metoclopramide [From REGLAN] Allergy (Severe, Verified 10/30/23 13:07) PANIC ATTACKS, agitation Penicillins [PENICILLINS] Allergy (Severe, Verified 10/30/23 13:07) SOB, couldn't breathe sulfamethoxazole [From BACTRIM] Allergy (Intermediate, Verified 10/30/23 13:07) HIVES trimethoprim [From BACTRIM] Allergy (Intermediate, Verified 10/30/23 13:07) HIVES surgical skin glue Allergy (Severe, Uncoded 08/30/23 10:18) Hives Medication List - Last Reconciled 11/29/23 by KRISTI Handley amitriptyline 10 - 20 mg (1 - 2 x 10 mg) PO BEDTIME denosumab (Prolia) mg subcut [id number] escitalopram oxalate 10 mg PO DAILY 30 days loperamide (Imodium A-D) 2 mg PO Q6H PRN lorazepam 0.5 - 1 mg (0.5 - 1 x 1 mg) PO BEDTIME PRN mesalamine ER (Apriso) 1.5 grams (4 x 0.375 gram) PO DAILY 30 days naratriptan 2.5 mg PO DAILY PRN HPI HPI Comments History of Present Illness Details This?is a?63?yo female who is s/p LSG on?03/14/2022. Presents for 1 year 8 month post op visit. Pt has been following with GI, had a colonoscopy, a few weeks ago reports abdominal cramping and dry heaving 3-4 hours. Hadn't eaten much that day, took her meds which are large capsules, did have a donut and a glass of milk. Now continues to have diarrhea alternating with constipation. Present meal plan includes: Full [place] whey protein powder (100kcal, 18g protein per scoop) - feels tired of these Eats chicken, fish, salad drinks water and Fairlife milk avoids lactose PFSH Medical History Tremor Chronic post-traumatic stress disorder (PTSD) Pre-diabetes Vertigo Essential tremor Generalized anxiety disorder Hyperparathyroid bone disease BMI 35.0-35.9,adult Slow to wake up after anesthesia Arthritis Hx of low back pain Hiatal hernia GERD (gastroesophageal reflux disease) Hx of migraines Anxiety and depression SHALONDA on CPAP BMI 36.0-36.9,adult Obesity Left atrial enlargement Migraines Osteoporosis Hyperparathyroidism History of kidney stones Hx of endometriosis Depression, major, severe recurrence Surgical History Status post repair of paraesophageal diaphragmatic hernia S/P laparoscopic sleeve gastrectomy Hx of lithotripsy Hx of arthroscopic knee surgery History of colon resection History of Erick fundoplication History of wisdom tooth extraction, class I edentulism Hx of bladder endoscopy Hx of colonoscopy Hx of arthroplasty Hx of knee surgery Hx of tonsillectomy Hx of appendectomy Family History Mother Depression Anxiety Asthma Osteoporosis Father Osteoporosis Brother Osteoporosis Asthma Depression Sister Depression Anxiety Obesity Heart disease Sister IBS (irritable bowel syndrome) Anxiety Depression Social History Household Members: None Are you a primary out of school hours care worker to a significant other at home: No Do you presently have visiting nurse or other home services: No Alcohol intake: never Patient Tobacco Use Status: Never used Tobacco service: No Current occupational status: disabled Assessment & Plan Assessment & Plan (1) Obesity (BMI 30-39.9): Code(s): E66.9 - Obesity, unspecified (2) S/P laparoscopic sleeve gastrectomy: Comment: 03/14/2022 Code(s): Z98.84 - Bariatric surgery status Plan Pt plans to ask GI about testing for JASWINDER. Will continue to try to increase protein intake- pt recognizes she is low typically. Pt tries to avoid lactose, sucralose, sugar alcohols and wants protein isolate. Suggested Isopure unflavored as this seems to fit pt's preferences. RTC in March for annual. Can repeat labs at that time. Patient is obese and is not considered stable at this time. I spent a total of 30 minutes reviewing/updating records, examining the patient and counseling the patient on weight management as detailed above. Telehealth Telehealth Location of provider rendering services: practice address Location of patient: address on file Patient Identification confirmed using: Name, : Yes Telehealth method: voice only Patient verbally consented to treatment: Yes Patient verbally consented to billing insurance company: Yes Patient informed of any privacy concerns related to visit: Yes Minutes spent on Phone/Video with Pt.: 20 Coding Level of Care Code Tele Est Pt Level 4 (05194) Diagnoses Obesity (BMI 30-39.9) E66.9 S/P laparoscopic sleeve gastrectomy Z98.84
== END 2023-11-29 11:41 | disposition home or self-care (01) ==
LOC: HO.HBS 11:26
PROVIDERS: PCP Internal Medicine; Visit Provider Physician Assistant Surgical
DX: E66.9 Obesity, unspecified (principal); Z68.32 Body mass index [BMI] 32.0-32.9, adult; Z90.3 Acquired absence of stomach [part of]; Z98.84 Bariatric surgery status
CPT/HCPCS: 99442

== ENCOUNTER → 2023-11-29 11:26 | Outpatient (BNVA) | payer OTHER, SELFPAY | PROVIDERS: PCP Internal Medicine; Visit Provider Physician Assistant Surgical ==

== ENCOUNTER 2023-12-10 09:32 | Outpatient (REF) | payer OTHER, SELFPAY ==
[2023-12-10 11:55] LABS: C Reactive Protein 0.37 mg/dL (< or = 0.50); Phosphorus 3.7 mg/dL (2.7-4.5)
[2023-12-10 12:06] LABS: Parathyroid Hormone Intact 80.2 pg/mL (8.7-77.1)
[2023-12-10 12:21] LABS: Erythrocyte Sedimentation Rate 26 MM/HR (0-20)
[2023-12-11 20:02] LABS: Transglutaminase Ab IgG <1.0 U/mL; Transglutaminase IgA <1.0 U/mL
[2023-12-12 15:18] LABS: Calcium, Ionized 5.2 mg/dL (4.7-5.5)
[2023-12-13 15:13] LABS: Immunoglobulin G Subclass 1 305 mg/dL (382-929); Immunoglobulin G Subclass 2 111 mg/dL (241-700); Immunoglobulin G Subclass 3 27 mg/dL (22-178); Immunoglobulin G Subclass 4 6.7 mg/dL (4-86); Immunoglobulin G Total 414 mg/dL (600-1540)
[2023-12-20 17:44] LABS: Parathyroid Hormone Related Pr 9 pg/mL (11-20)
[2023-12-20 19:29] LABS: Immunoglobulin E <2 kU/L (<OR=114)
== END 2023-12-10 09:33 | disposition home or self-care (01) ==
LOC: HO.LAB 09:32
PROVIDERS: Internal Medicine Gastroenterology; PCP Internal Medicine; Visit Provider Physician Assistant
DX: R19.7 Diarrhea, unspecified (principal); R21 Rash and other nonspecific skin eruption; R10.33 Periumbilical pain; G89.29 Other chronic pain; Z91.018 Allergy to other foods
CPT/HCPCS: 36415; 82330; 82784; 82785; 83519; 83970; 84100; 85652; 86003; 86140; 86364; 99212

== ENCOUNTER 2023-12-10 09:32 | Outpatient (AMB) | payer OTHER, SELFPAY ==
--- NOTE | 2023-12-10 09:46 | MHC.OFFVIS ---
Intake Vital Signs 12/10/23 09:52 Height 5 ft 3 in Weight 185 lb BMI 32.8 BP 119/79 Blood Pressure Location Lt brachial Position Sitting Pulse 86 Intake Visit Reasons: 6 week follow up Intake Note: Patient follow up for abdominal cramping. Patient cc: between constipation and loose stool, Patient did not did the lab that was order last visit. 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: No Accompanied by: Self / Same As Patient Allergies metoclopramide [From REGLAN] Allergy (Severe, Verified 12/10/23 09:46) PANIC ATTACKS, agitation Penicillins [PENICILLINS] Allergy (Severe, Verified 12/10/23 09:46) SOB, couldn't breathe sulfamethoxazole [From BACTRIM] Allergy (Intermediate, Verified 12/10/23 09:46) HIVES trimethoprim [From BACTRIM] Allergy (Intermediate, Verified 12/10/23 09:46) HIVES surgical skin glue Allergy (Severe, Uncoded 08/30/23 10:18) Hives HPI HPI Comments History of Present Illness Details 63 y/o female up today- Last seen October summary-multiple GI complaints She was to daily she is taking dose-she follows her regimen you taking the mesalamine 4 tabs-as well taking imodium- She says she has alot of diarrhea- takes an imodium- then gets constipated for 2-3 days- she then starts with diarrhea again-abdominal cramping She says this all started after bariatric surgery in 03/2022- she saw them back and are not concerned- referred back to GI Appetite is fairly good She is very frustrated certainly understandable [facility] Medical History Tremor Chronic post-traumatic stress disorder (PTSD) Pre-diabetes Vertigo Essential tremor Generalized anxiety disorder Hyperparathyroid bone disease BMI 35.0-35.9,adult Slow to wake up after anesthesia Arthritis Hx of low back pain Hiatal hernia GERD (gastroesophageal reflux disease) Hx of migraines Anxiety and depression SHALONDA on CPAP BMI 36.0-36.9,adult Obesity Left atrial enlargement Migraines Osteoporosis Hyperparathyroidism History of kidney stones Hx of endometriosis Depression, major, severe recurrence Surgical History Status post repair of paraesophageal diaphragmatic hernia S/P laparoscopic sleeve gastrectomy Hx of lithotripsy Hx of arthroscopic knee surgery History of colon resection History of Erick fundoplication History of wisdom tooth extraction, class I edentulism Hx of bladder endoscopy Hx of colonoscopy Hx of arthroplasty Hx of knee surgery Hx of tonsillectomy Hx of appendectomy Family History Mother Depression Anxiety Asthma Osteoporosis Father Osteoporosis Brother Osteoporosis Asthma Depression Sister Depression Anxiety Obesity Heart disease Sister IBS (irritable bowel syndrome) Anxiety Depression Social History Household Members: None Are you a primary laboratory animal caretaker to a significant other at home: No Do you presently have visiting nurse or other home services: No Alcohol intake: never Patient Tobacco Use Status: Never used Tobacco service: No Current occupational status: disabled Physical Exam Vital Signs: Last Vital Signs Pulse 86 12/10/23 09:52 BP 119/79 12/10/23 09:52 BMI result Body Mass Index 32.8 Results Reviewed Results Reviewed: esults Reviewed: mpression and Post Procedure Diagnosis: fair prep polyp internal hemorrhoid Plan: High fiber diet leaflet Avoid straining at stool, epsom salts and sitz bath, anusol supps or cream Repeat Colonoscopy in 2-3 years due to fair prep or earlier if clinically indicated--if ongoing diarrhea consider EGD--stool samples also resent today Assessment & Plan Assessment & Plan (1) Diarrhea: Comment: very anxious-complex history, needs further eval-will involve MD for decision making Reviewed colonoscopy May need capsule May be malabsorption will test further Code(s): R19.7 - Diarrhea, unspecified Plan: No improvement with mesalamine, discussed with MD (2) Rash: Comment: Intermittent rash-rule out autoimmune Code(s): R21 - Rash and other nonspecific skin eruption Plan: Review and discuss with MD Into re-evaluate patient with MD Plan Consult with MD for further plan of care-step up Orders: Orders C Reactive Protein 12/10/23 R19.7 - Diarrhea, unspecified, R21 - Rash and other nonspecific skin eruption Lactoferrin, Fecal, Quant. 12/10/23 K51.50 - Left sided colitis without complications, R19.7 - Diarrhea, unspecified, R21 - Rash and other nonspecific skin eruption Calcium, Ionized 12/10/23 R19.7 - Diarrhea, unspecified, R21 - Rash and other nonspecific skin eruption Fecal Fat Qualitative 12/10/23 R19.7 - Diarrhea, unspecified, R21 - Rash and other nonspecific skin eruption Transglutaminase Ab IgG 12/10/23 G89.29 - Other chronic pain, R10.33 - Periumbilical pain, R19.7 - Diarrhea, unspecified, R21 - Rash and other nonspecific skin eruption Transglutaminase IgA 12/10/23 R19.7 - Diarrhea, unspecified, R21 - Rash and other nonspecific skin eruption Rast Allergen 12/10/23 R19.7 - Diarrhea, unspecified, R21 - Rash and other nonspecific skin eruption, Z91.018 - Allergy to other foods Immunoglobulin G Subclasses 12/10/23 R19.7 - Diarrhea, unspecified, R21 - Rash and other nonspecific skin eruption Immunoglobulin E 12/10/23 R19.7 - Diarrhea, unspecified, R21 - Rash and other nonspecific skin eruption Erythrocyte Sedimentation Rate 12/10/23 R19.7 - Diarrhea, unspecified, R21 - Rash and other nonspecific skin eruption Parathyroid Hormone Intact 12/10/23 R19.7 - Diarrhea, unspecified, R21 - Rash and other nonspecific skin eruption Parathyroid Hormone Related Pr 12/10/23 R19.7 - Diarrhea, unspecified, R21 - Rash and other nonspecific skin eruption Phosphorus 12/10/23 R19.7 - Diarrhea, unspecified, R21 - Rash and other nonspecific skin eruption Pancreatic Elastase-1 12/10/23 R19.7 - Diarrhea, unspecified, R21 - Rash and other nonspecific skin eruption Patient Instructions: Labs, CUE r/o-malabsorption Further labs to do After lengthy discussion with MD-plan of care dependent on above Follow back when Dr. Santillan available for consult Coding Level of Care Code Est Pt Level 4 (75988) Diagnoses Diarrhea R19.7 Rash R21 Time Spent (min) 45
[2023-12-10 09:52] VITALS: BP 119/79; PULSE 86; BMI 32.8
== END 2023-12-10 11:17 | disposition home or self-care (01) ==
PROVIDERS: PCP Internal Medicine; Visit Provider Physician Assistant
DX: R19.7 Diarrhea, unspecified (principal); R21 Rash and other nonspecific skin eruption
CPT/HCPCS: 99214

== ENCOUNTER 2023-12-21 08:00 | Outpatient (AMB) | payer OTHER, SELFPAY ==
--- NOTE | 2023-12-21 08:06 | MHC.OFFVIS ---
Intake Vital Signs 12/21/23 08:07 Height 5 ft 3 in Weight 185 lb BMI 32.8 BP 112/70 Blood Pressure Location Rt brachial Position Sitting Respiration 16 Pulse 80 Pulse Source Pulse Oximeter Pulse Oximetry (%) 96 Oxygen Delivery Method Room Air Intake Visit Reasons: Tremors Intake Note: Pt presents for 1 month follow up for tremors- more on the left hand than the right. She also reports a tremor of the lower jaw. Cheese Wrapper Required: No Allergies metoclopramide [From REGLAN] Allergy (Severe, Verified 12/21/23 08:06) PANIC ATTACKS, agitation Penicillins [PENICILLINS] Allergy (Severe, Verified 12/21/23 08:06) SOB, couldn't breathe sulfamethoxazole [From BACTRIM] Allergy (Intermediate, Verified 12/21/23 08:06) HIVES trimethoprim [From BACTRIM] Allergy (Intermediate, Verified 12/21/23 08:06) HIVES surgical skin glue Allergy (Severe, Uncoded 12/21/23 08:06) Hives HPI HPI Comments History of Present Illness Details 63 y/o left handed female patient with hx of bilateral essential tremor presents for follow up of tremors she has BPV and did vestibular theray which helped .s he still has mild episodes which she is able to manage. she started noticing tremors in isidra hand sin 2012 and has progressively worsened.she has voice tremors and also lower jaw tremors.The tremors are action an dposture on her right , her left hand tremors are worse. she was seen by Dr. Ming Mary in the past . she was tried on primidone- after 3 days she felt very dizzy sos stopped. she thinks it caused tinnitus and it still persists.she says she is upset that she was prescribed primidone over the lorazepam and also with h/o osteoporosis. she was tried on gabapentin in the pats but was very foggy. She could not take propranolol because of mood and hypotension. she drops things a lot, cannot cut vegetable. she is concerned because of her jaw tremors and her voice tremors. Pt reports that her left hand tremor has worsened after start TMS for depression treatment. she has completed her TMS treatment for now. Her mood imporved. Her left hand tremor was intermittent before TMS, but now almost every day, constant, and more prominent. She is left handed, dropping a lot. She can't cut vegetables or use regular tooth brush. She uses electronic tooth brush. However, she reports less right hand tremor, it happens when she carrying or holding something. Pt's jaw tremor has been worsened with voice tremor, she can bite her cheeks, but denies difficulty swallowing. Pt usually does not drive, but she noticed her right foot tremor when she drive this summer. [facility] Medical History Tremor Chronic post-traumatic stress disorder (PTSD) Pre-diabetes Vertigo Essential tremor Generalized anxiety disorder Hyperparathyroid bone disease BMI 35.0-35.9,adult Slow to wake up after anesthesia Arthritis Hx of low back pain Hiatal hernia GERD (gastroesophageal reflux disease) Hx of migraines Anxiety and depression SHALONDA on CPAP BMI 36.0-36.9,adult Obesity Left atrial enlargement Migraines Osteoporosis Hyperparathyroidism History of kidney stones Hx of endometriosis Depression, major, severe recurrence Surgical History Status post repair of paraesophageal diaphragmatic hernia S/P laparoscopic sleeve gastrectomy Hx of lithotripsy Hx of arthroscopic knee surgery History of colon resection History of Erick fundoplication History of wisdom tooth extraction, class I edentulism Hx of bladder endoscopy Hx of colonoscopy Hx of arthroplasty Hx of knee surgery Hx of tonsillectomy Hx of appendectomy Family History Mother Depression Anxiety Asthma Osteoporosis Father Osteoporosis Brother Osteoporosis Asthma Depression Sister Depression Anxiety Obesity Heart disease Sister IBS (irritable bowel syndrome) Anxiety Depression Social History Household Members: None Are you a primary pediatric acute care unit nurse to a significant other at home: No Do you presently have visiting nurse or other home services: No Alcohol intake: never Patient Tobacco Use Status: Never used Tobacco service: No Current occupational status: disabled Review of Systems ENT Reports Normal hearing present Neuro Reports Normal hearing present Physical Exam Vital Signs: Last Vital Signs Pulse 80 12/21/23 08:07 Resp 16 12/21/23 08:07 BP 112/70 12/21/23 08:07 Pulse Ox 96 12/21/23 08:07 Oxygen Delivery Method Room Air 12/21/23 08:07 BMI result Body Mass Index 32.8 Const General: cooperative Orientation/consciousness: patient oriented x3 Neck Neck: Yes full ROM Resp Effort & Inspection: normal respiratory effort and able to speak in complete sentences Neuro Other: Left hand tremor, posture, resting and action tremor. Right hand postural tremors. Jaw tremor, and tongue tremor. Voice tremors see [employer] spiral and handwriting sample scanned General: patient oriented x3 Cranial nerves: Yes Bilaterally intact EOM present, Yes Normal facial strength present, Yes Midline tongue present, Yes Symmetric palate elevation present, Yes Normal hearing present, Yes Ability to bilaterally rotate head present and Yes Ability to bilaterally elevate shoulders present Cognition (Neuro): normal cognition Motor exam (neuro): 5/5 motor strength present throughout and Pronator motor function not present Coordination: [id number] test normal Psych Appearance: grossly normal Mental Status: mental status grossly normal Affect: Anxious affect present Attitude: cooperative Assessment & Plan Assessment & Plan (1) Essential tremor: Comment: Worsening after TMS Code(s): G25.0 - Essential tremor Plan will trial patient on zonisamide 25mg qhs WIll initiate prior auth for [facility] OT for hand function Orders: Orders OT Evaluation and Treatment Today G25.0 - Essential tremor Medications: New zonisamide 25 mg PO DAILY 30 caps 6RF Coding Level of Care Code Est Pt Level 4 (45310) Diagnoses Essential tremor G25.0
[2023-12-21 08:07] VITALS: BP 112/70; PULSE 80; RESP 16; O2SAT 96; BMI 32.8
== END 2023-12-21 08:41 | disposition home or self-care (01) ==
PROVIDERS: PCP Internal Medicine; Visit Provider Psychiatry & Neurology Neurology
DX: G25.0 Essential tremor (principal)
CPT/HCPCS: 99214

== ENCOUNTER → 2023-12-21 08:00 | Outpatient (BNVA) | payer OTHER, SELFPAY | PROVIDERS: PCP Internal Medicine; Visit Provider Psychiatry & Neurology Neurology | DX: G25.0 Essential tremor (principal) | CPT/HCPCS: 99212 ==

== ENCOUNTER → 2023-12-25 08:11 | Outpatient (BNVA) | payer OTHER, SELFPAY | PROVIDERS: PCP Internal Medicine; Visit Provider Internal Medicine Gastroenterology ==

== ENCOUNTER 2024-01-18 14:59 | Outpatient (REF) | payer OTHER, SELFPAY ==
[2024-01-26 15:59] LABS: Lactoferrin, Fecal, Quant. <6.25 mcg/mL (<7.25)
[2024-01-28 18:22] LABS: Pancreatic Elastase-1 >500 mcg/g
[2024-01-29 06:33] LABS: Fecal Fat Qualitative ABNORMAL (NORMAL)
== END 2024-01-18 15:00 | disposition home or self-care (01) ==
LOC: HO.LNP 14:59
PROVIDERS: Visit Provider Internal Medicine Gastroenterology
DX: R19.7 Diarrhea, unspecified (principal); R21 Rash and other nonspecific skin eruption; K51.50 Left sided colitis without complications
CPT/HCPCS: 82656; 82705; 83631

== ENCOUNTER 2024-02-12 11:40 | Outpatient (AMB) | payer OTHER, SELFPAY ==
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
--- OUTSIDE RECORDS SUMMARY | 2024-02-15 09:47 | XMS_ITS | Continuity of Care Document ---
Author Organization [facility] Address Unknown Care Team Providers Care Social Sciences Chair Name Role Phone Elizabeth Mensah MD Primary Care Physician Encounter [facility] Date(s): 01/24/22 - 02/23/22 [facility] Attending Physician: Veronika Ingram Admitting Physician: Veronika Ingram Referring Physician: AdmtrVeronika Allergies, Adverse Reactions, Alerts Substance Reaction Severity Status penicillin Shortness of breath Active Bactrim Rash Active Reglan Panic attack Active Adhesive Bandage Active Other Environmental Allergy 1 Active 1dermabond - had rash for > 3 months last time it was used Immunizations Given and Recorded Vaccine Date Status Refusal Reason SARS-CoV-2 (COVID-19) mRNA BNT-162b2 vac 08/01/21 Recorded SARS-CoV-2 (COVID-19) mRNA BNT-162b2 vac 1 01/01/21 Recorded SARS-CoV-2 (COVID-19) mRNA BNT-162b2 vac 12/11/20 Recorded influenza virus vaccine, inactivated 07/07/21 Jerry rded influenza virus vaccine, inactivated 2 06/30/19 Gi man influenza virus vaccine, inactivated 07/26/10 Give n FluLaval (oldterm) 06/01/09 Given Influenza Virus Vaccine (oldterm) 3 10/27/08 Given tetanus-diphtheria toxoids (Td) 09/18/03 Given 1Result Comment: second dose 2Result Comment: [facility]#[id number] 3Admin Note: done here per pt Medications buPROPion 150 mg/24 hours (XL) oral tablet, extended release 1 tablet = 150 mg, By Mouth, Daily, # 30 tablet, 0 Refills, Maintenance, 10/28/21 21:12:00 EST, ER Tablet, Partial fill upon patient request if the prescription is for a schedule II opioid drug. Start Date: 10/28/21 Status: Ordered escitalopram 10 mg oral tablet 1 tablet = 10 mg, By Mouth, Daily at bedtime, # 90 tablet, 0 Refills, Maintenance, 10/28/21 21:12:00 EST, Tablet, Partial fill upon patient request if the prescription is for a schedule II opioid drug. Start Date: 10/28/21 Status: Ordered escitalopram 20 mg oral tablet 1 tablet = 20 mg, By Mouth, Daily, 0 Refills, Maintenance, 01/24/22 16:22:00 EDT, Partial fill uponpatient request if the prescription is for a schedule II opioid drug. Start Date: 01/24/22 Status: Ordered Fish Oil By Mouth, 0 Refills, Maintenance, 01/24/22 16:23:00 EDT, Partial fill upon patient request if the prescription is for a schedule II opioid drug. Start Date: 01/24/22 Status: Ordered Fosamax 70 mg oral tablet 1 tablet = 70 mg, By Mouth, Every week, # 4 tablet, 11 Refills, Maintenance, 01/24/22 16:56:00 EDT,Tablet, [facility]/pharmacy #[id number], Partial fill upon patient request if the prescription is for a scheduleII opioid drug., 161, cm, 01/24/22 16:17:00 EDT, He... Start Date: 01/24/22 Status: Ordered LORazepam 1 mg oral tablet 1 tablet = 1 mg, By Mouth, 2 times a day, PRN as needed for anxiety, 0 Refills, Maintenance, 10/28/21 21:12:00 EST, Tablet, Partial fill upon patient request if the prescription is for a schedule II opioid drug. Start Date: 10/28/21 Status: Ordered Multivitamin Daily, 0 Refills, Maintenance, 01/24/22 16:23:00 EDT, Partial fill upon patient request if the prescription is for a schedule II opioid drug. Start Date: 01/24/22 Status: Ordered naratriptan 2.5 mg oral tablet 1 tablet = 2.5 mg, By Mouth, Daily, 0 Refills, Maintenance, 01/24/22 16:23:00 EDT, Partial fill upon patient request if the prescription is for a schedule II opioid drug. Start Date: 01/24/22 Status: Ordered Vitamin D3 Vitamin D3, Refills 0, Maintenance, 01/24/22 16:23:00 EDT, Supply Start Date: 01/24/22 Status: Ordered Problem List Condition Effective Dates Status Health Status Inform ant Acne rosacea(Confirmed) Active Anxiety(Confirmed) Active Appendectomy(Confirmed) Active Common migraine(Confirmed) Active Depression(Confirmed) Active Essential tremor(Confirmed) Active FH: Osteoporosis mother(Confirmed) Active Myofascial muscle pain(Confirmed) Active H/O: obesity(Confirmed) Active Hypothyroid(Confirmed) Active Insomnia(Confirmed) Active Major depression(Confirmed) Active Meniscectomy of knee left(Confirmed) Active Cervicalgia(Confirmed) Active Nephrolithiasis oxalate stones(Confirmed) Active Obese class II(Confirmed) Active SHALONDA on CPAP(Confirmed) Active Osteopenia -1.3 (T score) -2 .0 (Z score)(Confirmed) 12/05/09 Active Osteoporosis(Confirmed) Active Pre-diabetes(Confirmed) Active Chronic sacroiliac pain(Confirmed) Active Snoring(Confirmed) 06/19/12 Active Social History Social History Type Response Smoking Status Never smoker entered on: 02/23/17 Sex
--- OUTSIDE RECORDS SUMMARY | 2024-02-15 09:47 | XMS_ITS | Continuity of Care Document ---
Author Organization [facility] Address [address] [place] [address]- Care Team Providers Care Upholstery Parts Sorter Name Role Phone Elizabeth Mensah MD Primary Care Physician Encounter [facility] Date(s): 09/19/23 - 10/19/23 [facility] [address] [place] [address]- Allergies, Adverse Reactions, Alerts Substance Reaction Severity Status penicillin Shortness of breath Active Bactrim Rash Active Reglan Panic attack Active Adhesive Bandage Active Other Environmental Allergy 1 Active 1dermabond - had rash for > 3 months last time it was used Immunizations Given and Recorded Vaccine Date Status Refusal Reason influenza virus vaccine, inactivated 05/31/22 Jerry rded influenza virus vaccine, inactivated 07/07/21 Jerry rded influenza virus vaccine, inactivated 07/05/20 Jerry rded influenza virus vaccine, inactivated 1 06/30/19 Gi man influenza virus vaccine, inactivated 07/26/10 Give n [id number] 12y+ bivalent booster vax 05/31/22 Recorded SARS-CoV-2 mRNA (kioiruh-bobr-asomb) vax 01/17/22 Recorded SARS-CoV-2 (COVID-19) mRNA BNT-162b2 vac 08/01/21 Recorded SARS-CoV-2 (COVID-19) mRNA BNT-162b2 vac 2 01/01/21 Recorded SARS-CoV-2 (COVID-19) mRNA BNT-162b2 vac 12/11/20 Recorded zoster vaccine, inactivated 09/09/19 Recorded zoster vaccine, inactivated 07/02/19 Recorded tetanus-diphtheria toxoids (Td) 10/09/13 Recorded tetanus-diphtheria toxoids (Td) 09/18/03 Given FluLaval (oldterm) 06/01/09 Given Influenza Virus Vaccine (oldterm) 3 10/27/08 Given 1Result Comment: [facility]#[id number] 2Result Comment: second dose 3Admin Note: done here per pt Medications [...] opioid drug. Start Date: 01/24/22 Status: Ordered LORazepam 1 [...] opioid drug. Start Date: 01/24/22 Status: Ordered naproxen 500 mg oral tablet 1 tablet = 500 mg, By Mouth, 2 times a day, with food;, # 14 tablet, 0 Refills, Maintenance, 06/15/23 11:07:00 EDT, Tablet, [facility]/pharmacy #[id number], Partial fill upon patient request if the prescription is for a schedule II opioid drug., 160.6, cm, ... Start Date: 06/15/23 Stop Date: 06/22/23 Status: Ordered naratriptan 2.5 mg oral tablet See Instructions, TAKE 1 TABLET BY MOUTH ONCE DIALY IF NEEDED FOR MIGRAINE. MAY REPEAT 1 DOSE IN 4 HOURS, # 9 tablet, 0 Refills, Maintenance, 01/10/23 16:59:00 EDT, [facility] STORE [id number], 161, cm, 12/12/2310:27:00 EDT, Height, 110.5, kg, 10/28/21 18:14:00... Start Date: 01/10/23 Status: Ordered Prolia 60 mg/mL subcutaneous solution 1 mL = 60 mg, Subcutaneous Injection, Every 6 months, # 1 mL, 1 Refills, Maintenance, 06/05/22 11:27:00 EDT, Solution, [facility], Partial fill upon patient request if the prescription is for a schedule II opioid drug., 161, cm, 01/24... Start Date: 06/05/22 Status: Ordered Prolia 60 mg/mL subcutaneous solution 1 mL = 60 mg, Subcutaneous Injection, Every 6 months, to be given in office, # 1 mL, 0 Refills, Maintenance, 04/03/22 13:44:00 EDT, Solution, Partial fill upon patient request if the prescription is for a schedule II opioid drug. Start Date: 04/03/22 Status: Ordered Vitamin D3 Vitamin D3, Refills 0, Maintenance, 01/24/22 16:23:00 EDT, Supply Start Date: 01/24/22 Status: Ordered Problem List Condition Confirmation Course Effective Dates Status H ealth Status Informant Acne rosacea Confirmed Active Anxiety Confirmed Active Appendectomy Confirmed Active Common migraine Confirmed Active Depression Confirmed Active Essential tremor Confirmed Active FH: Osteoporosis mother Confirmed Active Myofascial muscle pain Confirmed Active H/O: obesity Confirmed Active Hypothyroid Confirmed Active Insomnia Confirmed Active Major depression Confirmed Active Meniscectomy of knee left Confirmed Active Cervicalgia Confirmed Active Nephrolithiasis oxalate stones Confirmed Active Obese class I Confirmed Active SHALONDA on CPAP Confirmed Active Osteopenia -1.3 (T score) -2.0 (Z score) Confirmed 12/05/09 Active Osteoporosis Confirmed Active Pre-diabetes Confirmed Active Chronic sacroiliac pain Confirmed Active Snoring Confirmed 06/19/12 Active Social History Social History Type Response Smoking Status Never smoker entered on: 02/23/17 Sex Patient Care team information Care Team Personnel Name: Elizabeth Mensah MD Position: [facility] Physician - Primary Care Member Role: PCP Address: Address: [address] [place] [address] Adult [place] [address]- Name: Neelam Romero RN Position: [facility] SN RN Member Role: Primary Care Nurse Care Team Related Persons Name: MASOUD THAPA Address: [address] [address] Name: MASOUD PAYNE Address: [address] [address]
--- OUTSIDE RECORDS SUMMARY | 2024-02-15 09:47 | XMS_ITS | Continuity of Care Document ---
Author Organization [facility] Address [address] [place] [address]- Care Team Providers Care Utilities Ground Worker Name Role Phone Elizabeth Mensah MD Primary Care Physician [phone] Encounter [facility] Date(s): 11/07/21 - 04/10/[address] [address]- Discharge Disposition: A-D/C Home Attending Physician: Elizabeth Mensah MD Admitting Physician: Elizabeth Mensah MD Referring Physician: Elizabeth Mensah MD Allergies, Adverse Reactions, Alerts Substance Reaction Severity Status penicillin Shortness of breath Active Reglan Panic attack Active Adhesive Bandage Active Other Environmental Allergy 1 Active Bactrim Rash Active 1dermabond - had rash for > [...] Given 1Result Comment: second dose 2Result Comment: [facility]#[id number] 3Admin Note: done here per pt Medications [...] tablet, 11 Refills, Maintenance, 01/24/22 16:56:00 EDT,Tablet, [facility]/pharmacy #[id number], Partial fill upon patient [...] opioid drug. Start Date: 01/24/22 Status: Ordered Prolia 60 mg/mL subcutaneous solution [...]
--- OUTSIDE RECORDS SUMMARY | 2024-02-15 09:47 | XMS_ITS | Continuity of Care Document ---
Author Organization [facility] Address [address] [place] [address]- Care Team Providers Care Heel Molder Name Role Phone Elizabeth Mensah MD Primary Care Physician Encounter [facility] Date(s): 03/01/21 - 03/31/21 [facility] [address] [place] [address]- Allergies, Adverse Reactions, Alerts Substance Reaction Severity Status penicillin Shortness of breath Active Bactrim Rash Active Reglan Panic attack Active Other Environmental Allergy 1 Active 1dermabond - had rash for > 3 months last time it was used Immunizations Given and Recorded Vaccine Date Status Refusal Reason SARS-CoV-2 (COVID-19) mRNA BNT-162b2 vac 1 01/01/21 Recorded SARS-CoV-2 (COVID-19) mRNA BNT-162b2 vac 12/11/20 Recorded influenza virus vaccine, inactivated 2 06/30/19 Gi man influenza virus vaccine, inactivated 07/26/10 Give n FluLaval (oldterm) 06/01/09 Given Influenza Virus Vaccine (oldterm) 3 10/27/08 Given tetanus-diphtheria toxoids (Td) 09/18/03 Given 1Result Comment: second dose 2Result Comment: [facility]#[id number] 3Admin Note: done here per pt Medications buPROPion 300 mg/24 hours (XL) oral tablet, extended release 0.5 s0ienje, By Mouth, Daily, Maintenance, 11/03/19 18:54:00 EST, ER Tablet Start Date: 11/03/19 Status: Ordered doxepin 6 mg oral tablet 1 tablet = 6 mg, By Mouth, Daily at bedtime, take within 30 minutes of bedtime and not within 3 hours of a meal, # 30 tablet, 0 Refills, Maintenance, 11/19/20 14:18:00 EST, Tablet, Partial fill upon patient request if the prescription is for a schedul... Start Date: 11/19/20 Status: Ordered escitalopram 10 mg oral tablet TAKE 1 & 1/2 TABLETS BY MOUTH EVERY DAY Start Date: 04/20/20 Status: Ordered Fish Oil 1 capsule, By Mouth, Daily, 0 Refills, Maintenance, 02/13/19 9:42:39 EDT Start Date: 02/13/19 Status: Ordered Fosamax 70 mg oral tablet 1 tablet = 70 mg, By Mouth, Every week, # 4 tablet, 11 Refills, Maintenance, 03/16/21 17:48:00 EDT,Tablet, [facility]/pharmacy #[id number], Partial fill upon patient request if the prescription is for a scheduleII opioid drug., 164, cm, 03/15/21 16:32:00 EDT, He... Start Date: 03/16/21 Status: Ordered ketoconazole 2% topical shampoo 1 application, Topically, Once, Three times weekly, # 120 mL, 1 Refills, Soft Stop, 11/19/20 14:15:00 EST, Shampoo, [facility]pharmacy #[id number], Don't fill until pt calls for script., 1 application Topically Once,Instr:Three times weekly, 164, cm, 11/10/19 9:3... Start Date: 11/19/20 Status: Ordered LORazepam 1 mg oral tablet 1 tablet = 1 mg, By Mouth, Daily at bedtime Start Date: 11/03/19 Status: Ordered metroNIDAZOLE 1% topical gel 1 application, Topically, Daily, # 60 Gm, 0 Refills, Maintenance, 08/31/20 8:50:00 EST, Gel, [facility]pharmacy [facility][id number], Partial fill upon patient request if the prescription is for a schedule II opioid drug., 1 application Topically Daily,x14 days, 164, cm,... Start Date: 08/31/20 Stop Date: 09/14/20 Status: Ordered propranolol 10 mg oral tablet 10 mg, 1, tablet, By Mouth, 2 times a day, Refills 0, Maintenance, 02/13/19 9:42:33 EDT Start Date: 02/13/19 Status: Ordered Shingrix intramuscular injection = 0.5 mL, Intramuscular, Once, repeat dose in 2 to 6 months, # 2 each, 0 Refills, Soft Stop, 06/30/19 9:35:35 EDT, Powder, 0.5 mL Intramuscular Once,Instr:repeat dose in 2 to 6 months Start Date: 06/30/19 Status: Ordered Vitamin B Complex with C and Calcium oral tablet 3 tablet, By Mouth, Daily, 0 Refills, Maintenance, 02/13/19 9:43:13 EDT Start Date: 02/13/19 Status: Ordered Vitamin D3 2000 intl units oral tablet 1 tablet = 2,000 International_Units, By Mouth, Daily, 0 Refills, Maintenance, 02/20/17 8:23:16 Start Date: 02/20/17 Status: Ordered Problem List Condition Effective Dates Status Health Status Inform ant Acne rosacea(Confirmed) Active Anxiety(Confirmed) Active Appendectomy(Confirmed) Active Common migraine(Confirmed) Active Depression(Confirmed) Active Essential tremor(Confirmed) Active FH: Osteoporosis mother(Confirmed) Active Myofascial muscle pain(Confirmed) Active H/O: obesity(Confirmed) Active Hypothyroid(Confirmed) Active Major depression(Confirmed) Active Meniscectomy of knee left(Confirmed) Active Cervicalgia(Confirmed) Active Nephrolithiasis oxalate stones(Confirmed) Active Osteopenia -1.3 (T score) -2 .0 (Z score)(Confirmed) 12/05/09 Active Osteoporosis(Confirmed) Active Pre-diabetes(Confirmed) Active Chronic sacroiliac pain(Confirmed) Active Snoring(Confirmed) 06/19/12 Active Social History Social History Type Response Smoking Status Never smoker entered on: 02/23/17 Sex
--- OUTSIDE RECORDS SUMMARY | 2024-02-15 09:47 | XMS_ITS | Continuity of Care Document ---
Author Organization [facility] Address [address] [place] [address]- Care Team Providers Care Roll Over Loader Name Role Phone Elizabeth Mensah MD Primary Care Physician Encounter [facility] Date(s): 12/07/22 - 01/06/23 [facility] [address] [place] [address]- Allergies, Adverse Reactions, Alerts Substance Reaction Severity [...] influenza virus vaccine, inactivated 07/26/10 Give n [id number] 12y+ bivalent booster vax 05/31/22 Recorded SARS-CoV-2 mRNA (amiesew-ppkz-bplym) vax 01/17/22 Recorded SARS-CoV-2 (COVID-19) mRNA BNT-162b2 vac 08/01/21 Recorded SARS-CoV-2 (COVID-19) mRNA BNT-162b2 vac 2 01/01/21 Recorded SARS-CoV-2 (COVID-19) mRNA BNT-162b2 vac 12/11/20 Recorded zoster vaccine, inactivated 09/09/19 Recorded zoster vaccine, inactivated 07/02/19 Recorded tetanus-diphtheria toxoids (Td) 10/09/13 Recorded tetanus-diphtheria toxoids (Td) 09/18/03 Given FluLaval (oldterm) 06/01/09 Given Influenza Virus Vaccine (oldterm) 3 10/27/08 Given 1Result Comment: [facility]#[id number] 2Result Comment: second dose 3Admin Note: done [...] 1 Refills, Maintenance, 06/05/22 11:27:00 EDT, Solution, [facility], Partial fill upon patient [...] Confirmed Active Nephrolithiasis oxalate stones Confirmed Active SHALONDA on CPAP Confirmed Active Osteopenia -1.3 (T score) -2.0 (Z score) Confirmed 12/05/09 Active Osteoporosis Confirmed Active Pre-diabetes Confirmed Active Chronic sacroiliac pain Confirmed Active Snoring Confirmed 06/19/12 Active Social History Social History Type Response Smoking Status Never smoker entered on: 02/23/17 Sex Patient Care team information Care Team Personnel Name: Elizabeth Mensah MD Position: [facility] Primary Care Physician Member Role: PCP Address: Address: [address] [place] [address] Adult & [place] [address]- Name: Neelam Romero RN Position: [facility] RN Member Role: Primary Care Nurse Care Team Related Persons Name: MASOUD THAPA Address: [address] [address] Name: MASOUD PAYNE Address: home [address] [place] [address]
--- OUTSIDE RECORDS SUMMARY | 2024-02-15 09:47 | XMS_ITS | Continuity of Care Document ---
Author Organization [facility] Address [address] [place] [address]- Care Team Providers Care Audio/Video Technician Name Role Phone Elizabeth Mensah MD Primary Care Physician Encounter [facility] [place] Date(s): 10/28/21 - 11/27/21 [facility] [address] [place], [place] [address] Allergies, Adverse Reactions, Alerts Substance Reaction Severity [...] Given 1Result Comment: second dose 2Result Comment: [facility]#[id number] 3Admin Note: done here per pt Medications [...] opioid drug. Start Date: 10/28/21 Status: Ordered Fosamax 70 mg oral tablet 1 tablet = 70 mg, By Mouth, Every week, # 4 tablet, 11 Refills, Maintenance, 03/16/21 17:48:00 EDT,Tablet, [facility]/pharmacy #[id number], Partial fill upon patient request if the prescription is for a scheduleII opioid drug., 164, cm, 03/15/21 16:32:00 EDT, He... Start Date: 03/16/21 Status: Ordered LORazepam 1 mg oral tablet 1 tablet = 1 mg, By Mouth, 2 times a day, PRN as needed for anxiety, 0 Refills, Maintenance, 10/28/21 21:12:00 EST, Tablet, Partial fill upon patient request if the prescription is for a schedule II opioid drug. Start Date: 10/28/21 Status: Ordered Problem List Condition Effective Dates [...] Active Pre-diabetes(Confirmed) Active Chronic sacroiliac pain(Confirmed) Active Severe obesity(Confirmed) Active Snoring(Confirmed) 06/19/12 Active Social History Social History Type Response Smoking Status Never smoker entered on: 02/23/17 Sex
--- OUTSIDE RECORDS SUMMARY | 2024-02-15 09:47 | XMS_ITS | Continuity of Care Document ---
Author Organization [facility] Address [address] [place] [address]- Care Team Providers Care Can Sealer Name Role Phone Rodrick MOY, Rufina Primary Care Physician [phone] Encounter [facility] Date(s): 10/31/21 - 11/30/21 [facility] [address] [place], [place] [address] Allergies, Adverse Reactions, Alerts Substance Reaction Severity Status penicillin Shortness of breath Active Other Environmental Allergy 1 Active Adhesive Bandage Active Bactrim Rash Active Reglan Panic attack Active 1dermabond - had rash for > [...] Given 1Result Comment: second dose 2Result Comment: [facility]#[id number] 3Admin Note: done here per pt Medications [...]
--- OUTSIDE RECORDS SUMMARY | 2024-02-15 09:47 | XMS_ITS | Continuity of Care Document ---
Author Organization [facility] Address [address] [place] [address]- Care Team Providers Care Fruit Or Nut Farm Worker Name Role Phone Salinas Kauffman MD Primary Care Physician [place] [facility] [place] Date(s): 12/17/20 - 01/16/21 [facility] [address] [place] [address]- Allergies, Adverse Reactions, Alerts Substance Reaction Severity [...] Given 1Result Comment: second dose 2Result Comment: [facility]#[id number] 3Admin Note: done here per pt Medications buPROPion 300 mg/24 hours (XL) oral tablet, extended release 0.5 u0wmbfs, By Mouth, Daily, Maintenance, 11/03/19 18:54:00 EST, [...] 9:42:39 EDT Start Date: 02/13/19 Status: Ordered ketoconazole 2% topical shampoo 1 application, Topically, Once, Three times weekly, # 120 mL, 1 Refills, Soft Stop, 11/19/20 14:15:00 EST, Shampoo, [facility]/pharmacy #[id number], Don't fill until pt calls for script., 1 application Topically Once,Instr:Three times weekly, 164, cm, 11/10/19 9:3... Start Date: 11/19/20 Status: Ordered LORazepam 1 mg oral tablet 1 tablet = 1 mg, By Mouth, Daily at bedtime Start Date: 11/03/19 Status: Ordered metroNIDAZOLE 1% topical gel 1 application, Topically, Daily, # 60 Gm, 0 Refills, Maintenance, 08/31/20 8:50:00 EST, Gel, [facility]/pharmacy #[id number], Partial fill upon patient request [...] Health Status Inform ant Acne rosacea(Confirmed) Active Appendectomy(Confirmed) Active Common migraine(Confirmed) Active Depression(Confirmed) Active Essential tremor(Confirmed) Active FH: Osteoporosis mother(Confirmed) Active Myofascial muscle pain(Confirmed) Active H/O: obesity(Confirmed) Active Hypothyroid(Confirmed) Active Meniscectomy of knee left(Confirmed) Active Cervicalgia(Confirmed) Active Nephrolithiasis oxalate stones(Confirmed) Active Osteopenia -1.3 (T score) -2 .0 (Z score)(Confirmed) 12/05/09 Active Osteoporosis(Confirmed) Active Pre-diabetes(Confirmed) Active Chronic sacroiliac pain(Confirmed) Active Snoring(Confirmed) 06/19/12 Active Social History Social History Type Response Smoking Status Never smoker entered on: 02/23/17 Sex
--- OUTSIDE RECORDS SUMMARY | 2024-02-15 09:47 | XMS_ITS | Continuity of Care Document ---
Author Organization [facility] Address [address] [place] [address]- Care Team Providers Care Observer Gravity Prospecting Name Role Phone Elizabeth Mensah MD Primary Care Physician [phone] Encounter [facility] [place] Date(s): 03/17/22 - 04/16/22 [facility] [address] [place] [address]- [place] Allergies, Adverse Reactions, Alerts Substance Reaction Severity [...] Given 1Result Comment: second dose 2Result Comment: [facility]#[id number] 3Admin Note: done here per pt Medications [...] tablet, 11 Refills, Maintenance, 01/24/22 16:56:00 EDT,Tablet, [facility]/pharmacy #[id number], Partial fill upon patient request [...]
--- OUTSIDE RECORDS SUMMARY | 2024-02-15 09:47 | XMS_ITS | Continuity of Care Document ---
Author Organization [facility] Address [address] [place] [address]- Care Team Providers Care Rehabilitation Attendant Name Role Phone Elizabeth Mensah MD Primary Care Physician [place] [facility] [place](s[place] 03/15/21 - 04/14/21 [facility] [address] [place] [address]- Allergies, Adverse Reactions, Alerts Substance Reaction Severity [...] Given 1Result Comment: second dose 2Result Comment: [facility]#[id number] 3Admin Note: done here per pt Medications buPROPion 300 mg/24 hours (XL) oral tablet, extended release 0.5 [id number], By Mouth, Daily, Maintenance, 11/03/19 18:54:00 EST, [...]
--- OUTSIDE RECORDS SUMMARY | 2024-02-15 09:47 | XMS_ITS | Continuity of Care Document ---
Author Organization [facility] Address Unknown Care Team Providers Care Banquet Director Name Role Phone Elizabeth Mensah MD Primary Care Physician [phone] Encounter [facility] [place] Date(s): 10/25/21 - 11/01/21 [facility] Attending Physician: Dustin Mariee MD Referring Physician: Elizabeth Mensah MD Allergies, [...] Given 1Result Comment: second dose 2Result Comment: [facility]#[id number] 3Admin Note: done here per pt Medications [...] Active Severe obesity(Confirmed) Active Snoring(Confirmed) 06/19/12 Active Vital Signs Most recent to oldest [Reference Range]: 1 Height 164 cm (10/25/21 2:34 PM) Weight 109.6 kg (10/25/21 2:34 PM) Oxygen Saturation [94-100 %] 95 % (10/25/21 2:34 PM) Pulse Rate [55-90 bpm] 88 bpm (10/25/21 2:34 PM) Body Mass Index [18.5-24.99] 40.75 *>HHI* (10/25/21 2:34 PM) Blood Pressure [90-138/55-84 mm Hg] 138/ 80mm Hg (10/25/21 2:34 PM) Temperature [96.8-100.4 DegF] 97.7 DegF (10/25/21 2:34 PM) Mode of Delivery (Oxygen) Room air (10/25/21 2:34 PM) Blood pressure sites Arm, left (10/25/21 2:34 PM) Temperature Route Temporal (10/25/21 2:34 PM) Dry Weight 109.6 kg (10/25/21 2:34 PM) Social History Social History Type Response Smoking Status Never smoker entered on: 02/23/17 Sex
--- OUTSIDE RECORDS SUMMARY | 2024-02-15 09:47 | XMS_ITS | Continuity of Care Document ---
Author Organization [facility] Address [address] [place] [address]- Care Team Providers Care Juice Scaleman Name Role Phone Elizabeth Mensah MD Primary Care Physician Encounter [facility] [place] Date(s): 11/22/21 - 12/28/[address] [address] Attending Physician: Elizabeth Mensah MD Admitting Physician: Elizabeth Mensah MD Allergies, Adverse Reactions, [...] Given 1Result Comment: second dose 2Result Comment: [facility]#[id number] 3Admin Note: done here per pt Medications [...] tablet, 11 Refills, Maintenance, 03/16/21 17:48:00 EDT,Tablet, [facility]/pharmacy #[id number], Partial fill [...]
--- OUTSIDE RECORDS SUMMARY | 2024-02-15 09:47 | XMS_ITS | Continuity of Care Document ---
Author Organization [facility] Address [address] [place] [address]- Care Team Providers Care Intelligence Agent Name Role Phone Salinas Kauffman MD Primary Care Physician Encounter [facility] [place] Date(s): 12/09/20 - 01/08/21 [facility] [address] [place] [address] Attending Physician: Veronika Ingram Admitting Physician: AdmVeronika dee Referring Physician: Admtr, Ar8 Allergies, Adverse Reactions, Alerts Substance Reaction Severity Status penicillin Shortness of breath Active Bactrim Rash Active Reglan Panic attack Active Other Environmental Allergy 1 Active 1dermabond - had rash for > 3 months last time it was used Immunizations Given and Recorded Vaccine Date Status Refusal Reason influenza virus vaccine, inactivated 1 06/30/19 Gi man influenza virus vaccine, inactivated 07/26/10 Give n FluLaval (oldterm) 06/01/09 Given Influenza Virus Vaccine (oldterm) 2 10/27/08 Given tetanus-diphtheria toxoids (Td) 09/18/03 Given 1Result Comment: [facility]#[id number] 2Admin Note: done here per pt Medications buPROPion 300 mg/24 hours (XL) oral tablet, extended release 0.5 [id number], By Mouth, Daily, Maintenance, 11/03/19 18:54:00 EST, [...] Refills, Soft Stop, 11/19/20 14:15:00 EST, Shampoo, [facility]/pharmacy #[id number], Don't fill until pt calls for script., 1 application Topically Once,Instr:Three times weekly, 164, cm, 11/10/19 9:3... Start Date: 11/19/20 Status: Ordered LORazepam 1 mg oral tablet 1 tablet = 1 mg, By Mouth, Daily at bedtime Start Date: 11/03/19 Status: Ordered metroNIDAZOLE 1% topical gel 1 application, Topically, Daily, # 60 Gm, 0 Refills, Maintenance, 08/31/20 8:50:00 EST, Gel, [facility]/pharmacy #[id number], Partial fill upon patient request if [...]
--- OUTSIDE RECORDS SUMMARY | 2024-02-15 09:47 | XMS_ITS | Continuity of Care Document ---
Author Organization [facility] Address [address] [place] [address]- Care Team Providers Care Algebra Tutor Name Role Phone Elizabeth Mensah MD Primary Care Physician Encounter [facility] [place] Date(s): 01/04/22 - 02/03/[address] [address] Attending Physician: Veronika Ingram Admitting Physician: Admtr, Ar8 Referring Physician: Admtr, Ar8 Allergies, Adverse Reactions, Alerts Substance Reaction Severity Status penicillin Shortness of breath Active Reglan Panic attack Active Other Environmental Allergy 1 Active Bactrim Rash Active Adhesive Bandage Active 1dermabond - had rash for > [...] 2Result Comment: [facility]#[id number] 3Admin Note: done here per pt Medications [...] tablet, 11 Refills, Maintenance, 01/24/22 16:56:00 EDT,Tablet, [facility]/pharmacy #[id number], Partial fill upon patient request if [...] oxalate stones(Confirmed) Active Obese class II(Confirmed) Active Osteopenia -1.3 (T score) -2 .0 (Z score)(Confirmed) 12/05/09 Active Osteoporosis(Confirmed) Active Pre-diabetes(Confirmed) Active Chronic sacroiliac pain(Confirmed) Active Snoring(Confirmed) 06/19/12 Active Social History Social History Type Response Smoking Status Never smoker entered on: 02/23/17 Sex
--- OUTSIDE RECORDS SUMMARY | 2024-02-15 09:47 | XMS_ITS | Continuity of Care Document ---
Author Organization [facility] Address [address] [place] [address] [place] [address]- Care Team Providers Care Software Writer Name Role Phone Elizabeth Mensah MD Primary Care Physician [place] [facility] [place] 04/26/21 - 05/26/21 [facility] [address] [place] [address]- Allergies, Adverse Reactions, Alerts Substance Reaction Severity [...] Given 1Result Comment: second dose 2Result Comment: [facility]#[id number] 3Admin Note: done here per pt Medications buPROPion 300 mg/24 hours (XL) oral tablet, extended release 0.5 [id number], By Mouth, Daily, Maintenance, 11/03/19 18:54:00 EST, [...] tablet, 11 Refills, Maintenance, 03/16/21 17:48:00 EDT,Tablet, [facility]/pharmacy #1972, Partial [...]
--- OUTSIDE RECORDS SUMMARY | 2024-02-15 09:47 | XMS_ITS | Continuity of Care Document ---
Author Organization [facility] Address [address] [place] [address]- Care Team Providers Care Slide Fastener Chain Assembler Name Role Phone Elizabeth Mensah MD Primary Care Physician En[place] [facility] [place] Date(s): 05/23/23 - 06/22/23 [facility] [address] [place] [address]- Allergies, Adverse Reactions, Alerts Substance Reaction Severity [...] influenza virus vaccine, inactivated 07/26/10 Give n [id number] 12y+ bivalent booster vax 05/31/22 Recorded SARS-CoV-2 mRNA ([id number]) vax 01/17/22 Recorded SARS-CoV-2 (COVID-19) mRNA BNT-162b2 vac 08/01/21 Recorded SARS-CoV-2 (COVID-19) mRNA BNT-162b2 vac 2 01/01/21 Recorded SARS-CoV-2 (COVID-19) mRNA BNT-162b2 vac 12/11/20 Recorded zoster vaccine, inactivated 09/09/19 Recorded zoster vaccine, inactivated 07/02/19 Recorded tetanus-diphtheria toxoids (Td) 10/09/13 Recorded tetanus-diphtheria toxoids (Td) 09/18/03 Given FluLaval (oldterm) 06/01/09 Given Influenza Virus Vaccine (oldterm) 3 10/27/08 Given 1Result Comment: [facility]#[id number] 2Result Comment: second dose 3Admin Note: done [...] 0 Refills, Maintenance, 06/15/23 11:07:00 EDT, Tablet, [facility]/pharmacy #[id number], Partial fill upon patient request if the prescription is for a schedule II opioid drug., 160.6, cm, ... Start Date: 06/15/23 Stop Date: 06/22/23 Status: Ordered naratriptan 2.5 mg oral tablet See Instructions, TAKE 1 TABLET BY MOUTH ONCE DIALY IF NEEDED FOR MIGRAINE. MAY REPEAT 1 DOSE IN 4 HOURS, # 9 tablet, 0 Refills, Maintenance, 01/10/23 16:59:00 EDT, [id number], 161, cm, 12/12/2310:27:00 EDT, Height, 110.5, kg, 10/28/21 18:14:00... Start Date: 01/10/23 Status: Ordered Prolia 60 mg/mL subcutaneous solution 1 mL = 60 mg, Subcutaneous Injection, Every 6 months, # 1 mL, 1 Refills, Maintenance, 06/05/22 11:27:00 EDT, Solution, [facility], Partial fill upon patient request [...] Team Personnel Name: Elizabeth Mensah MD Position: [facility] Physician - Primary Care Member Role: PCP Address: Address: [address] [place] [address] Adult & [place] [address]- Name: Neelam Romero RN Position: [facility] SN RN Member Role: Primary Care Nurse Care Team Related Persons Name: MASOUD THAPA Address: [address] [address] Name: MASOUD PAYNE Address: [address] [address]
--- OUTSIDE RECORDS SUMMARY | 2024-02-15 09:47 | XMS_ITS | Continuity of Care Document ---
Author Organization [facility] Address [address] [place] [address]- Care Team Providers Care General Claims Agent Name Role Phone Elizabeth Mensah MD Primary Care Physician Encounter [facility] [place] Date(s): 02/09/21 - 03/11/21 [facility] [address] [place] [address]- Attending Physician: AdmVeronika dee Admitting Physician: AdmtrVeronika Referring Physician: Admtr, Ar8 Allergies, Adverse Reactions, [...] Given 1Result Comment: second dose 2Result Comment: [facility]#[id number] 3Admin Note: done here per pt Medications buPROPion 300 mg/24 hours (XL) oral tablet, extended release 0.5 [id number], By Mouth, Daily, Maintenance, 11/03/19 18:54:00 EST, [...] Refills, Soft Stop, 11/19/20 14:15:00 EST, Shampoo, [facility]/pharmacy #1972, Don't fill until pt calls for script., 1 application Topically Once,Instr:Three times weekly, 164, cm, 11/10/19 9:3... Start Date: 11/19/20 Status: Ordered LORazepam 1 mg oral tablet 1 tablet = 1 mg, By Mouth, Daily at bedtime Start Date: 11/03/19 Status: Ordered metroNIDAZOLE 1% topical gel 1 application, Topically, Daily, # 60 Gm, 0 Refills, Maintenance, 08/31/20 8:50:00 EST, Gel, [facility]/pharmacy #1972, Partial fill upon patient request [...]
--- OUTSIDE RECORDS SUMMARY | 2024-02-15 09:47 | XMS_ITS | Continuity of Care Document ---
Author Organization [facility] Address [address] [place] [address]- Care Team Providers Care Airline Hostess Name Role Phone Elizabeth Mensah MD Primary Care Physician [place] [facility] [place] 05/09[place]22 - 06/08/22 [facility] [address] [place] [address]- Allergies, Adverse Reactions, Alerts Substance Reaction Severity [...] Given 1Result Comment: second dose 2Result Comment: [facility]#[id number] 3Admin Note: done here per pt Medications [...] 1 Refills, Maintenance, 06/05/22 11:27:00 EDT, Solution, [facility], Partial fill upon patient request [...] Nephrolithiasis oxalate stones Confirmed Active Obese class II Confirmed Active SHALONDA on CPAP Confirmed Active Osteopenia -1.3 (T score) -2.0 (Z score) Confirmed 12/05/09 Active Osteoporosis Confirmed Active Pre-diabetes Confirmed Active Chronic sacroiliac pain Confirmed Active Snoring Confirmed 06/19/12 Active Social History Social History Type Response Smoking Status Never smoker entered on: 02/23/17 Sex Patient Care team information Personnel Name: Elizabeth Mensah MD Address: Address: [address] [place] [address] Adult & Pediatric Medicine [place], [place] [address]
--- OUTSIDE RECORDS SUMMARY | 2024-02-15 09:47 | XMS_ITS | Continuity of Care Document ---
Author Organization [facility] Address [address] [place] [address]- Care Team Providers Care Line Service Supervisor Name Role Phone Rodrick MOY, Rufina Primary Care Physician [phone] Encounter [facility] [place] Date(s): 11/16/21 - 12/16/21 [facility] [address] [place], [place] [address] Attending Physician: Admtr, Ar8 Allergies, Adverse Reactions, Alerts Substance Reaction Severity Status penicillin Shortness of breath Active Other Environmental Allergy 1 Active Bactrim Rash Active Reglan Panic attack Active Adhesive Bandage Active 1dermabond - had [...] Given 1Result Comment: second dose 2Result Comment: [facility]#[id number] 3Admin Note: done here per pt Medications [...]
--- OUTSIDE RECORDS SUMMARY | 2024-02-15 09:47 | XMS_ITS | Continuity of Care Document ---
Author Organization [facility] Address [address] [place] [address]- Care Team Providers Care Sheet Rocker Name Role Phone Salinas Kauffman MD Primary Care Physician [phone] Encounter [facility] [place] Date(s): 11/19/20 - 11/26/20 [facility] [address] [place], [place] [address] Encounter Diagnosis Acne rosacea(Discharge Diagnosis) - 11/19/20 Depression(Discharge Diagnosis) - 11/22/20 Hypothyroid(Discharge Diagnosis) - 11/22/20 Osteoporosis(Discharge Diagnosis) - 11/22/20 Pre-diabetes(Discharge Diagnosis) - 11/22/20 Snoring(Discharge Diagnosis) - 11/22/20 Attending Physician: Salinas Kauffman MD Allergies, Adverse Reactions, Alerts Substance Reaction Severity Status penicillin Shortness of breath Active Other Environmental Allergy 1 Active Reglan Panic attack Active Bactrim Rash Active 1dermabond - had rash for > 3 months last time it was used Immunizations Given and Recorded Vaccine Date Status Refusal Reason influenza virus vaccine, inactivated 1 06/30/19 Gi man influenza virus vaccine, inactivated 07/26/10 Give n FluLaval (oldterm) 06/01/09 Given Influenza Virus Vaccine (oldterm) 2 10/27/08 Given tetanus-diphtheria toxoids (Td) 09/18/03 Given 1Result Comment: [facility]#[id number] 2Admin Note: done here per pt Medications buPROPion 300 mg/24 hours (XL) oral tablet, extended release 0.5 [id number], By Mouth, Daily, Maintenance, 11/03/19 18:54:00 EST, [...] a schedul... Start Date: 11/19/20 Status: Ordered doxycycline hyclate 100 mg oral capsule 1 capsule = 100 mg, By Mouth, 2 times a day, for 30 days, # 60 capsule, 0 Refills, Acute 12/19/20 14:13:00 EDT, 11/19/20 14:13:00 EST, Capsule, [id number], Partial fill upon patient request if the prescription is for a schedule II opioid drug.... Start Date: 11/19/20 Stop Date: 12/19/20 Status: Ordered escitalopram 10 mg oral tablet [...] Chronic sacroiliac pain(Confirmed) Active Snoring(Confirmed) 06/19/12 Active Diagnosis Diagnosis Type Effective Dates Health Status Cl inical Service Informant Acne rosacea Discharge Diagnosis 11/19/20 Depression Discharge Diagnosis 11/22/20 Osteoporosis Discharge Diagnosis 11/22/20 Pre-diabetes Discharge Diagnosis 11/22/20 Snoring Discharge Diagnosis 11/22/20 Hypothyroid Discharge Diagnosis 11/22/20 Vital Signs Most recent to oldest [Reference Range]: 1 Height 164 cm (11/22/20 4:50 PM) Weight 103 kg (11/22/20 4:50 PM) Social History Social History Type Response Smoking Status Never smoker entered on: 02/23/17 Sex
--- OUTSIDE RECORDS SUMMARY | 2024-02-15 09:47 | XMS_ITS | Continuity of Care Document ---
Author Organization [facility] Address [address] [place] [address]- Care Team Providers Care Line Welder Name Role Phone Salinas Kauffman MD Primary Care Physician [place] [facility] [place]/10/19 - 11/17/19 [facility] [address] [place] [address]- [facility] Attending Physician: Salinas Kauffman MD Allergies, Adverse [...] tetanus-diphtheria toxoids (Td) 09/18/03 Given 1Result Comment: [facility]#[id number] 2Admin Note: done here per pt Medications buPROPion 300 mg/24 hours (XL) oral tablet, extended release 1 tablet = 300 mg, By Mouth, Daily, Maintenance, 11/03/19 18:54:00 EST, ER Tablet Start Date: 11/03/19 Status: Ordered escitalopram 10 mg oral tablet 1 tablet = 10 mg, By Mouth, Daily Start Date: 06/30/19 Status: Ordered Fish Oil 1 capsule, By Mouth, Daily, 0 Refills, Maintenance, 02/13/19 9:42:39 EDT Start Date: 02/13/19 Status: Ordered Gas-X = 80 mg, 3 times a day after meals and bedtime, 0 Refills, Maintenance, 12/05/18 9:23:59 EDT Start Date: 12/05/18 Status: Ordered ketoconazole 2% topical cream 1 application, Topically, 2 times a day, for 28 days, Apply two times daily, # 30 Gm, 0 Refills, Acute 12/08/19 10:10:00 EDT, 11/10/19 10:10:00 EST, [facility]/pharmacy #1972, 1 application Topically 2 times a day,x28 days,Instr:Apply two times daily, 164, c... Start Date: 11/10/19 Stop Date: 12/08/19 Status: Ordered LORazepam 1 mg oral tablet 1 tablet = 1 mg, By Mouth, Daily at bedtime Start Date: 11/03/19 Status: Ordered naratriptan 2.5 mg oral tablet 1 tablet = 2.5 mg, By Mouth, Daily, PRN for migraine headache, may repeat dose once in 4 hours, # 9tablet, 0 Refills, Acute 06/30/20 9:30:00 EDT, 06/30/19 9:30:28 EDT, Tablet Start Date: 06/30/19 Stop Date: 06/30/20 Status: Ordered naratriptan 2.5 mg oral tablet 1 tablet = 2.5 mg, By Mouth, Daily, PRN for migraine headache, may repeat dose once in 4 hours, # 9tablet, 0 Refills, Acute 11/09/20 9:59:00 EST, 06/30/20 9:30:00 EDT, Tablet, [facility]/pharmacy #1972, 164, cm, 11/10/19 9:36:00 EST, Height, 100.7, kg, 2... Start Date: 06/30/20 Stop Date: 11/09/20 Status: Ordered propranolol 10 mg oral tablet 10 mg, 1, tablet, By Mouth, 2 times a day, Refills 0, Maintenance, 02/13/19 9:42:33 EDT Start Date: 02/13/19 Status: Ordered QUEtiapine 25 mg oral tablet Take 1/2 to 1 tablet by mouth every braydon as needed Start Date: 11/03/19 Status: Ordered Shingrix intramuscular injection = 0.5 [...] Chronic sacroiliac pain(Confirmed) Active Snoring(Confirmed) 06/19/12 Active Vital Signs Most recent to oldest [Reference Range]: 1 Height 164 cm (11/10/19 9:36 AM) Weight 103 kg (11/10/19 9:36 AM) Oxygen Saturation [94-100 %] 98 % (11/10/19 9:36 AM) Pulse Rate [55-90 bpm] 88 bpm (11/10/19 9:36 AM) Body Mass Index [18.5-24.99] 38.3 *>HHI* (11/10/19 9:36 AM) Blood Pressure [90-138/55-84 mm Hg] 111/ 86mm Hg (11/10/19 9:36 AM) Social History Social History Type Response Smoking Status Never smoker entered on: 02/23/17 Sex
--- OUTSIDE RECORDS SUMMARY | 2024-02-15 09:48 | XMS_ITS | Continuity of Care Document ---
Author Organization [facility] Address [address] [place] [address]- Care Team Providers Care Heat Treater Helper Name Role Phone Salinas Kauffman MD Primary Care Physician Encounter [facility] [place] Date(s): 08/31/20 - 09/07/20 [facility] [address] [place], [place] [address] Encounter Diagnosis Seborrheic dermatitis(Discharge Diagnosis) - 08/31/20 Rosacea(Discharge Diagnosis) - 08/31/20 Attending Physician: Elizabeth Mensah MD Allergies, Adverse Reactions, [...] tetanus-diphtheria toxoids (Td) 09/18/03 Given 1Result Comment: [facility]#[id number] 2Admin Note: done here per pt Medications [...] Date: 12/05/18 Status: Ordered ketoconazole 2% topical shampoo 1 application, Topically, Once, Three times weekly, # 120 mL, 0 Refills, Soft Stop, 08/31/20 8:51:00 EST, Shampoo, [facility]/pharmacy #1972, Partial fill upon patient request if the prescription is for a schedule II opioid drug., 1 application Topically Onc... Start Date: 08/31/20 Status: Ordered LORazepam 1 mg oral tablet 1 tablet = 1 mg, By Mouth, Daily at bedtime Start Date: 11/03/19 Status: Ordered metroNIDAZOLE 1% topical gel 1 application, Topically, Daily, # 60 Gm, 0 Refills, Maintenance, 08/31/20 8:50:00 EST, Gel, [facility]/pharmacy #1972, Partial fill upon patient request if the prescription is for a schedule II opioid drug., 1 application Topically Daily,x14 days, 164, cm,... Start Date: 08/31/20 Stop Date: 09/14/20 Status: Ordered naratriptan 2.5 mg oral tablet 1 tablet = 2.5 mg, By Mouth, Daily, PRN for migraine headache, may repeat dose once in 4 hours, # 9tablet, 0 Refills, Acute 11/09/20 9:59:00 EST, 06/30/20 9:30:00 EDT, Tablet, [facility]/pharmacy #1972, 164, cm, 11/10/19 9:36:00 EST, Height, [...] Diagnosis Diagnosis Type Effective Dates Health Status Clinical Service Informant Seborrheic dermatitis Discharge Diagnosis 08/31/20 Rosacea Discharge Diagnosis 08/31/20 Social History Social History Type Response Smoking Status Never smoker entered on: 02/23/17 Sex
--- OUTSIDE RECORDS SUMMARY | 2024-02-15 09:48 | XMS_ITS | Continuity of Care Document ---
Author Organization [facility] Address [address] [place] [address]- Care Team Providers Care Helpdesk Administrator Name Role Phone Salinas Kauffman MD Primary Care Physician Encounter [facility] Date(s): 05/20/20 - 06/19/20 [facility] [address] [place] [address]- [facility] Attending Physician: Admtr, Veronika Allergies, Adverse Reactions, Alerts Substance Reaction Severity [...] tetanus-diphtheria toxoids (Td) 09/18/03 Given 1Result Comment: [facility]#[id number] 2Admin Note: done here per pt Medications [...] Refills, Maintenance, 12/05/18 9:23:59 EDT Start Date: 3/28/19 Status: Ordered LORazepam 1 mg oral tablet [...] 11/09/20 9:59:00 EST, 06/30/20 9:30:00 EDT, Tablet, [facility]/pharmacy #1972, 164, cm, 11/10/19 9:36:00 EST, Height, 100.7, kg, 10/12... Start Date: 06/30/20 Stop Date: 11/09/20 Status: [...]
--- OUTSIDE RECORDS SUMMARY | 2024-02-15 09:48 | XMS_ITS | Continuity of Care Document ---
Author Organization [facility] Address [address] [place] [address]- Care Team Providers Care Coater Hand Name Role Phone Elizabeth Mensah MD Primary Care Physician [phone] [place] [facility] [place] 12/13/22 - 01/12/23 [facility] [address] [place], [place] [address] Attending Physician: Admtr, Ar8 Allergies, Adverse Reactions, [...] influenza virus vaccine, inactivated 07/26/10 Give n [id number] 12y+ bivalent booster vax 05/31/22 Recorded SARS-CoV-2 mRNA (mzudugz-sedk-waqkz) vax 01/17/22 Recorded SARS-CoV-2 (COVID-19) mRNA BNT-162b2 vac 08/01/21 Recorded SARS-CoV-2 (COVID-19) mRNA BNT-162b2 vac 2 01/01/21 Recorded SARS-CoV-2 (COVID-19) mRNA BNT-162b2 vac 12/11/20 Recorded zoster vaccine, inactivated 09/09/19 Recorded zoster vaccine, inactivated 07/02/19 Recorded tetanus-diphtheria toxoids (Td) 10/09/13 Recorded tetanus-diphtheria toxoids (Td) 09/18/03 Given FluLaval (oldterm) 06/01/09 Given Influenza Virus Vaccine (oldterm) 3 10/27/08 Given 1Result Comment: [facility]#[id number] 2Result Comment: second dose 3Admin Note: done [...] Refills, Maintenance, 01/10/23 16:59:00 EDT, [facility], 161, cm, 12/12/2310:27:00 EDT, Height, 110.5, kg, 10/28/21 18:14:00... Start Date: 01/10/23 Status: Ordered Prolia 60 mg/mL subcutaneous solution 1 mL = 60 mg, Subcutaneous Injection, Every 6 months, # 1 mL, 1 Refills, Maintenance, 06/05/22 11:27:00 EDT, Solution, [facility], Partial fill upon patient request [...] Status Never smoker entered on: 02/23/17 Sex Cardiology * Taylor Almaguer: PERFORM Event Display: Cardiovascular Results Scanned Authored Date: [id number] Laboratory * Event Display: Non BH Lab Results Authored Date: CT Skeletal system Multisection for bone density * Event Display: Bone Density Authored Date: MG Breast Views * Event Display: MM Mammogram Authored Date: * Event Display: MM Mammogram Authored Date: Radiology * Grecia Kamara: PERFORM Event Display: Radiology Results Scanned Authored Date: * Colon , Lhea: PERFORM Event Display: Radiology Results Scanned Authored Date: [id number] * Almaguer Taylor Schultz: PERFORM Event Display: Radiology Results Scanned Authored Date: Note * Event Display: Discharge/Transfer Note Hospital Authored Date: Patient Care team information Care Team Personnel Name: Elizabeth Mensah MD Position: [facility] Primary Care Physician Member Role: PCP Address: Address: [address] [place] [address] Adult [place] [address]- Name: Neelam Romero RN Position: [facility] SN RN Member Role: Primary Care Nurse Care Team Related Persons Name: MASOUD THAPA Address: [address] [address] Name: MASOUD PAYNE Address: [address] [address]
--- OUTSIDE RECORDS SUMMARY | 2024-02-15 09:48 | XMS_ITS | Continuity of Care Document ---
Author Organization [facility] Address [address] [place] [address]- Care Team Providers Care Associate Name Role Phone Amanda Hansen MD, V Primary Care Physician [place] [facility] [place] - 01/23/[address] [address]- Encounter Diagnosis Patellofemoral disorders, right knee(Final) - Discharge Disposition: A-D/C Home Attending Physician: Juliette Hong Admitting Physician: Juliette Hong Referring Physician: Juliette Hong Allergies, Adverse Reactions, Alerts Substance Reaction Severity Status penicillin Shortness of breath Active Other Environmental Allergy 1 Active Bactrim Rash Active Reglan Panic attack Active Adhesive Bandage Active 1dermabond - had rash for > 3 months last time it was used Immunizations Given and Recorded Vaccine Date Status Refusal Reason tetanus/diphtheria/pertussis, acel(Tdap) 1 11/08/23 Given influenza virus vaccine, inactivated 06/26/23 Jerry rded influenza virus vaccine, inactivated 05/31/22 Jerry rded influenza virus vaccine, inactivated 07/07/21 Jerry rded influenza virus vaccine, inactivated 07/05/20 Jerry rded influenza virus vaccine, inactivated 2 06/30/19 Gi man influenza virus vaccine, inactivated 07/26/10 Give n SARS-CoV-2(COVID-19)mRNA-LNP vac([id number]) 06/26/23 Recorded [id number] 12y+ bivalent booster vax 05/31/22 Recorded SARS-CoV-2 mRNA (rbqkobb-hzdd-trnqg) vax 01/17/22 Recorded SARS-CoV-2 (COVID-19) mRNA BNT-162b2 vac 08/01/21 Recorded SARS-CoV-2 (COVID-19) mRNA BNT-162b2 vac 3 01/01/21 Recorded SARS-CoV-2 (COVID-19) mRNA BNT-162b2 vac 12/11/20 Recorded zoster vaccine, inactivated 09/09/19 Recorded zoster vaccine, inactivated 07/02/19 Recorded tetanus-diphtheria toxoids (Td) 10/09/13 Recorded tetanus-diphtheria toxoids (Td) 09/18/03 Given FluLaval (oldterm) 06/01/09 Given Influenza Virus Vaccine (oldterm) 4 10/27/08 Given 1Result Comment: [facility]: [id number] 2Result Comment: [facility]#[id number] 3Result Comment: second dose 4Admin Note: done here per pt Medications amitriptyline 10 mg oral tablet 60 each, 0 Refill(s), TAKE 1 TO 2 TABLETS BY MOUTH AT BEDTIME, Refills 0, 11/08/23 10:55:00 EST, Partial fill upon patient request if the prescription is for a schedule II opioid drug. Start Date: 11/08/23 Status: Ordered buPROPion 150 mg/24 hours (XL) oral tablet, [...] opioid drug. Start Date: 10/28/21 Status: Ordered LORazepam 1 mg oral tablet 1 tablet = 1 mg, By Mouth, 2 times a day, PRN as needed for anxiety, 0 Refills, Maintenance, 10/28/21 21:12:00 EST, Tablet, Partial fill upon patient request if the prescription is for a schedule II opioid drug. Start Date: 10/28/21 Status: Ordered mesalamine 0.375 g oral capsule, extended release 360 each, 0 Refill(s), TAKE 4 CAPSULES ORALLY DAILY FOR 30 DAYS, 0 Refills, 11/08/23 10:55:00 EST, Partial fill upon patient request if the prescription is for a schedule II opioid drug. Start Date: 11/08/23 Status: Ordered naproxen 500 mg oral tablet 1 tablet = 500 mg, By Mouth, 2 times a day, with food;, # 14 tablet, 0 Refills, Maintenance, 06/15/23 11:07:00 EDT, Tablet, [facility]/pharmacy #[id number], Partial fill upon patient request if the prescription is for a schedule II opioid drug., 160.6, cm, ... Start Date: 06/15/23 Stop Date: 06/22/23 Status: Ordered naratriptan 2.5 mg oral tablet See Instructions, TAKE 1 TABLET BY MOUTH ONCE DIALY IF NEEDED FOR MIGRAINE. MAY REPEAT 1 DOSE IN 4 HOURS, # 9 tablet, 3 Refills, Maintenance, 11/08/23 10:56:00 EST, [id number], 160.6, cm, 11/08/23 10:54:00 EST, Height Start Date: 11/08/23 Status: Ordered Prolia 60 mg/mL subcutaneous solution 1 mL = 60 mg, Subcutaneous Injection, Every 6 months, # 1 mL, 1 Refills, Maintenance, 06/05/22 11:27:00 EDT, Solution, [facility], Partial fill upon patient request if the prescription is for a schedule II opioid drug., 161, cm, 01/24... Start Date: 06/05/22 Status: Ordered Problem List Condition Confirmation Course Effective Dates Status H ealth Status Informant Common migraine Confirmed Active Essential tremor Confirmed Active Anxiety Confirmed Active History of bariatric surgery 1 Confirmed Active History of nephrolithiasis Confirmed Active Hypothyroid Confirmed Active Insomnia Confirmed Active Mixed hyperlipidemia Confirmed Active Obese class I Confirmed Active SHALONDA on CPAP Confirmed Active Osteoporosis Confirmed Active Medicare annual wellness visit, subsequent Confirmed Active Depression Confirmed Active Acne rosacea Confirmed Active Chronic sacroiliac pain Confirmed Active 1S/p sleeve gastrectomy in 2019. Social History Social History Type Response Smoking Status Never smoker entered on: 02/23/17 Sex Patient Care team information Care Team Personnel Name: Tyrone MOY, Amanda Shaw Position: [facility] Physician - Primary Care Member Role: PCP Address: Address: [address] [place] [address] Name: Heather SHETTY, Neelam Position: [facility] RN Member Role: Primary Care Nurse Care Team Related Persons Name: MASOUD THAPA Address: [address] [address] Name: MASOUD PAYNE Address: [address] [address]
--- OUTSIDE RECORDS SUMMARY | 2024-02-15 09:48 | XMS_ITS | Continuity of Care Document ---
Author Organization [facility] Address [address] [place] [address]- Care Team Providers Care Concrete Stone Finisher Name Role Phone Elizabeth Mensah MD Primary Care Physician En[place] [facility] [place] Date(s): 05/19/22 - 06/18/22 [facility] [address] [place] [address]- Allergies, Adverse Reactions, Alerts Substance Reaction Severity [...] second dose 2Result Comment: [facility]#[id number] 3Admin Note: done here per pt Medications [...] 1 Refills, Maintenance, 06/05/22 11:27:00 EDT, Solution, [facility], Partial fill upon patient [...] Personnel Name: Elizabeth Mensah MD Address: Address: [address] [place] [address] Adult & Pediatric Medicine [address]
--- OUTSIDE RECORDS SUMMARY | 2024-02-15 09:48 | XMS_ITS | Continuity of Care Document ---
Author Organization [facility] Address [address] [place] [address]- Care Team Providers Care Cargo And Ramp Services Manager Name Role Phone Elizabeth Mensah MD Primary Care Physician Encounter [facility] Date(s): 01/26/23 - 02/25/23 [facility] [address] [place] [address]- Allergies, Adverse Reactions, Alerts Substance Reaction Severity [...] influenza virus vaccine, inactivated 07/26/10 Give n [id number] 12y+ bivalent booster vax 05/31/22 Recorded SARS-CoV-2 mRNA (ipwmtrn-jdaa-gjfyh) vax 01/17/22 Recorded SARS-CoV-2 (COVID-19) mRNA BNT-162b2 vac 08/01/21 Recorded SARS-CoV-2 (COVID-19) mRNA BNT-162b2 vac 2 01/01/21 Recorded SARS-CoV-2 (COVID-19) mRNA BNT-162b2 vac 12/11/20 Recorded zoster vaccine, inactivated 09/09/19 Recorded zoster vaccine, inactivated 07/02/19 Recorded tetanus-diphtheria toxoids (Td) 10/09/13 Recorded tetanus-diphtheria toxoids (Td) 09/18/03 Given FluLaval (oldterm) 06/01/09 Given Influenza Virus Vaccine (oldterm) 3 10/27/08 Given 1Result Comment: [facility]#[id number] 2Result Comment: second dose 3Admin Note: done [...] tablet, 0 Refills, Maintenance, 01/10/23 16:59:00 EDT, [facility], 161, cm, 12/12/2310:27:00 EDT, Height, 110.5, kg, 10/28/21 18:14:00... Start Date: 01/10/23 Status: Ordered Prolia 60 mg/mL subcutaneous solution 1 mL = 60 mg, Subcutaneous Injection, Every 6 months, # 1 mL, 1 Refills, Maintenance, 06/05/22 11:27:00 EDT, Solution, [facility], Partial fill upon patient [...] Team Personnel Name: Elizabeth Mensah MD Position: [facility] Physician - Primary Care Member Role: PCP Address: Address: [address] [place] [address] Adult [place] [address]- [place] Name: Neelam Romero RN Position: [facility] SN RN Member Role: Primary Care Nurse Care Team Related Persons Name: MASOUD THAPA Address: [address] [place] [address] Name: MASOUD PAYNE Address: [address] [address]
--- OUTSIDE RECORDS SUMMARY | 2024-02-15 09:48 | XMS_ITS | Continuity of Care Document ---
Author Organization [facility] Address [address] [place] [address]- Care Team Providers Care Mash Filter Press Operator Name Role Phone Elizabeth Mensah MD Primary Care Physician [place] [facility] [place] 03/09/22 [facility] [address] [place] [address]- Attending Physician: Admleila, Veronika Admitting Physician: AdmtrVeronika Referring Physician: Admtr, Ar8 [...] Given 1Result Comment: second dose 2Result Comment: [facility]#[id number] 3Admin Note: done here per pt Medications [...] tablet, 11 Refills, Maintenance, 01/24/22 16:56:00 EDT,Tablet, [facility]/pharmacy #[id number], Partial fill upon patient request [...]
--- OUTSIDE RECORDS SUMMARY | 2024-02-15 09:48 | XMS_ITS | Continuity of Care Document ---
Author Organization [facility] Address [address] [place] [address]- Care Team Providers Care Foreign Broadcast Specialist Name Role Phone Elizabeth Mensah MD Primary Care Physician [phone] En[place] [facility] [place] 10/28/21 - 11/04/21 [facility] [address] [place] [address]- Encounter Diagnosis Substernal chest pain(Discharge Diagnosis) - 10/28/21 Attending Physician: Elizabeth Mensah MD Allergies, Adverse [...] 1Result Comment: second dose 2Result Comment: [facility]#[id number] 3Admin Note: done here per pt Medications [...] tablet, 11 Refills, Maintenance, 03/16/21 17:48:00 EDT,Tablet, [facility]/pharmacy #[id number], Partial fill upon patient request if [...] Active Severe obesity(Confirmed) Active Snoring(Confirmed) 06/19/12 Active Diagnosis Diagnosis Type Effective Dates Health Status Clinical Service Informant Substernal chest pain Discharge Diagnosis 10/28/21 Vital Signs Most recent to oldest [Reference Range]: 1 Height 164 cm (10/28/21 3:21 PM) Weight 110.4 kg (10/28/21 3:21 PM) Oxygen Saturation [94-100 %] 96 % (2/18/22 3:21 PM) Pulse Rate [55-90 bpm] 105 bpm *H* (10/28/21 3:21 PM) Body Mass Index [18.5-24.99] 41.05 *>HHI* (10/28/21 3:21 PM) Blood Pressure [90-138/55-84 mm Hg] 128/ 78mm Hg (10/28/21 3:21 PM) Temperature [96.8-100.4 DegF] 97.4 DegF (10/28/21 3:21 PM) Mode of Delivery (Oxygen) Room air (10/28/21 3:21 PM) Blood pressure sites Arm, left (10/28/21 3:21 PM) Temperature Route Temporal (10/28/21 3:21 PM) Social History Social History Type Response Smoking Status Never smoker entered on: 02/23/17 Sex
--- OUTSIDE RECORDS SUMMARY | 2024-02-15 09:48 | XMS_ITS | Continuity of Care Document ---
Author Organization [facility] Address [address] [place] [address]- Care Team Providers Care Buttonholer Name Role Phone Salinas Kauffman MD Primary Care Physician [phone] [facility] [place] Date(s): 04/16/20 - 04/23/20 [facility] [address] [place] [address]- [facility] Encounter Diagnosis Excessive sweating(Discharge Diagnosis) - 04/16/20 Attending Physician: Salinas Kauffman MD Allergies, Adverse [...] tetanus-diphtheria toxoids (Td) 09/18/03 Given 1Result Comment: [facility]#[id number] 2Admin Note: done here per pt Medications [...] 9:23:59 EDT Start Date: 12/05/18 Status: Ordered LORazepam 1 mg oral tablet [...] 11/09/20 9:59:00 EST, 06/30/20 9:30:00 EDT, Tablet, [facility], 164, cm, 11/10/19 9:36:00 EST, Height, [...] Dates Health Status Cl inical Service Informant Excessive sweating Discharge Diagnosis 04/16/20 Social History Social History Type Response Smoking Status Never smoker entered on: 02/23/17 Sex
--- OUTSIDE RECORDS SUMMARY | 2024-02-15 09:48 | XMS_ITS | Continuity of Care Document ---
Author Organization [facility] Address [address] [place] [address]- Care Team Providers Care Serologist Name Role Phone Elizabeth Mensah MD Primary Care Physician Encounter [facility] [place] Date(s): 12/11/22 - 01/12/23 [facility] [address] [place], [place] [address] Attending Physician: Katie IRRIGATIONIST DESIGNER, Neisha Allergies, Adverse Reactions, Alerts Substance Reaction Severity [...] influenza virus vaccine, inactivated 07/26/10 Give n [id number] 12y+ bivalent booster vax 05/31/22 Recorded SARS-CoV-2 mRNA (tpifpsn-itkw-eyydb) vax 01/17/22 Recorded SARS-CoV-2 (COVID-19) mRNA BNT-162b2 vac 08/01/21 Recorded SARS-CoV-2 (COVID-19) mRNA BNT-162b2 vac 2 01/01/21 Recorded SARS-CoV-2 (COVID-19) mRNA BNT-162b2 vac 12/11/20 Recorded zoster vaccine, inactivated 09/09/19 Recorded zoster vaccine, inactivated 07/02/19 Recorded tetanus-diphtheria toxoids (Td) 10/09/13 Recorded tetanus-diphtheria toxoids (Td) 09/18/03 Given FluLaval (oldterm) 06/01/09 Given Influenza Virus Vaccine (oldterm) 3 10/27/08 Given 1Result Comment: [facility]#[id number] 2Result Comment: second dose 3Admin Note: done [...] tablet, 0 Refills, Maintenance, 01/10/23 16:59:00 EDT, [facility], 161, cm, 12/12/2310:27:00 EDT, Height, 110.5, kg, 10/28/21 18:14:00... Start Date: 01/10/23 Status: Ordered Prolia 60 mg/mL subcutaneous solution 1 mL = 60 mg, Subcutaneous Injection, Every 6 months, # 1 mL, 1 Refills, Maintenance, 06/05/22 11:27:00 EDT, Solution, [facility], Partial fill upon patient [...] Team Personnel Name: Elizabeth Mensah MD Position: [facility] Primary Care Physician Member Role: PCP Address: Address: [address] [place] [address] Adult & Pediatric Medicine [address] Name: Neelam Romero RN Position: [facility] RN Member Role: Primary Care Nurse Care Team Related Persons Name: MASOUD THAPA Address: [address] [address] Name: MASOUD PAYNE Address: [address] [address]
--- OUTSIDE RECORDS SUMMARY | 2024-02-15 09:48 | XMS_ITS | Continuity of Care Document ---
Author Organization [facility] Address [address] [place] [address]- Care Team Providers Care Patternmaker Bench Name Role Phone Elizabeth Mensah MD Primary Care Physician [place] [facility] [place] 06/15/23 - 06/22/23 [facility] [address] [place] [address]- Encounter Diagnosis Osteoporosis(Discharge Diagnosis) - 06/15/23 Left foot pain(Discharge Diagnosis) - 06/15/23 Attending Physician: Darby Reynolds MD Allergies, Adverse Reactions, Alerts Substance Reaction [...] influenza virus vaccine, inactivated 07/26/10 Give n [id number] 12y+ bivalent booster vax 05/31/22 Recorded SARS-CoV-2 mRNA (jrrotkm-phau-dniha) vax 01/17/22 Recorded SARS-CoV-2 (COVID-19) mRNA BNT-162b2 vac 08/01/21 Recorded SARS-CoV-2 (COVID-19) mRNA BNT-162b2 vac 2 01/01/21 Recorded SARS-CoV-2 (COVID-19) mRNA BNT-162b2 vac 12/11/20 Recorded zoster vaccine, inactivated 09/09/19 Recorded zoster vaccine, inactivated 07/02/19 Recorded tetanus-diphtheria toxoids (Td) 1/30/14 Recorded tetanus-diphtheria toxoids (Td) 09/18/03 Given FluLaval (oldterm) 06/01/09 Given Influenza Virus Vaccine (oldterm) 3 10/27/08 Given 1Result Comment: [facility]#[id number] 2Result Comment: second dose 3Admin Note: done [...] 0 Refills, Maintenance, 06/15/23 11:07:00 EDT, Tablet, [facility]/pharmacy #[id number], Partial fill upon patient request if the prescription is for a schedule II opioid drug., 160.6, cm, ... Start Date: 06/15/23 Stop Date: 06/22/23 Status: Ordered naratriptan 2.5 mg oral tablet See Instructions, TAKE 1 TABLET BY MOUTH ONCE DIALY IF NEEDED FOR MIGRAINE. MAY REPEAT 1 DOSE IN 4 HOURS, # 9 tablet, 0 Refills, Maintenance, 01/10/23 16:59:00 EDT, [facility], 161, cm, 12/12/2310:27:00 EDT, Height, 110.5, kg, 10/28/21 18:14:00... Start Date: 01/10/23 Status: Ordered Prolia 60 mg/mL subcutaneous solution 1 mL = 60 mg, Subcutaneous Injection, Every 6 months, # 1 mL, 1 Refills, Maintenance, 06/05/22 11:27:00 EDT, Solution, [facility], Partial fill upon patient request [...] pain Confirmed Active Snoring Confirmed 06/19/12 Active Diagnosis Diagnosis Type Effective Dates Health Status inical Service Informant Osteoporosis Discharge Diagnosis 06/15/23 Left foot pain Discharge Diagnosis 06/15/23 Vital Signs Most recent to oldest [Reference Range]: 1 Height 160.6 cm (06/15/23 10:32 AM) Weight 80.1 kg (06/15/23 10:32 AM) Oxygen Saturation [94-100 %] 97 % (06/15/23 10:32 AM) Pulse Rate [55-90 bpm] 117 bpm *H* (06/15/23 10:32 AM) Body Mass Index [18.5-24.99 kg/m2] 31.06 kg/m2 *>HHI* (06/15/23 10:32 AM) Blood Pressure [90-138/55-84 mm Hg] 132/ 76mm Hg (06/15/23 10:32 AM) Blood pressure sites Arm, left (06/15/23 10:32 AM) Weight Obtained Via Standing scale (06/15/23 10:32 AM) Social History Social History Type Response Smoking Status Never smoker entered on: 02/23/17 Sex Note * Geeta Foss: PERFORM, SIGN, VERIFY Event Display: Patient Education/Instruction Authored Date: [id number] [facility] Adult [facility] Clinical Summary Name MARINO ALVAREZ Age 62 Years 1960 PCP Elizabeth Mensah MD PCP Visit Date 06/15/2023 10:15:00 Patient Instructions get xray foot if no fracture- start naproxen twice a day for 7 days Additional Instructions: Scheduled Appointments?? Future Appointments ?No Future Appointments Scheduled Follow-Up Instructions ?? Diagnosis Pain in left foot; Age-related osteoporosis without current pathological fracture Medications: Please continue your medications until treatment is completed or stopped by your provider. Discuss any questions related to medications with your provider. New Medications [facility]/pharmacy #[id number], [address], [place] [id number], [phone] Naproxen (naproxen 500 mg oral tablet) 1 tab(s) Oral twice a day for 7 Days. with food;. Refills: 0. Next Dose: Medications to Continue with No Changes These medications were not printed or sent to your pharmacy BuPROpion (buPROPion 150 mg/24 hours (XL) oral tablet, extended release) 1 tab(s) Oral Daily. Next Dose: denosumab (Prolia 60 mg/mL subcutaneous solution) 1 Milliliter Subcutaneous Injection Every 6 months. to be given in office. Next Dose: denosumab (Prolia 60 mg/mL subcutaneous solution) 1 Milliliter Subcutaneous Injection Every 6 months. Refills: 1. Next Dose: Escitalopram (escitalopram 10 mg oral tablet) 1 tab(s) Oral Daily at Bedtime. Next Dose: Escitalopram (escitalopram 20 mg oral tablet) 1 tab(s) Oral Daily. Next Dose: Lorazepam (LORazepam 1 mg oral tablet) 1 tab(s) Oral twice a day as needed as needed for anxiety. Next Dose: Miscellaneous Rx (Vitamin D3) Next Dose: Multivitamin Daily. Next Dose: Naratriptan (naratriptan 2.5 mg oral tablet) TAKE 1 TABLET BY MOUTH ONCE DIALY IF NEEDED FOR MIGRAINE. MAY REPEAT 1 DOSE IN 4 HOURS. Refills: 0. Next Dose: [place]-3 Polyunsaturated Fatty Acids (Fish Oil) Oral. Next Dose: Allergy Info:?? Other Environmental Allergy; Adhesive Bandage; Reglan; Bactrim; penicillin Medications Given This Visit Future Orders ?Foot Min 3 Views Left? Order Date:06/15/23?- Complete on or after?06/15/23 Vital Signs Height 160.6 cm Weight 80.1 kg BMI 31.06 kg/m2 Blood Pressure 132 mm Hg/76 mm Hg Temperature Pulse Rate 117 bpm Respiratory Rate 02 Sat Mode of Delivery 97 %/ You can now view a summary of your hospital visit from the comfort of your home through a free online portal called [employer]. [employer] is a website that allows you to securely view your medical information including discharge summary, medications and follow-up visits. ??You can alsosend a secure electronic message to your doctor???s office to request appointments, renew medications or just ask a question. You can enroll at [email or web address] or register during your next office visit. Disclaimer:?? The information provided is of a general nature and is intended to be used in conjunction with the recommendations and advice of your health care practitioner. ??Every effort has been made to ensure that the information provided is accurate and complete at the time it is provided to you however, as your needs change, or, as new ??information becomes available, different or additional instructions may be required. If you have questions, please consult with your primary care provider or pharmacist, as appropriate. ??This information is not intended to serve as substitution for assessment and evaluation by a qualified health care provider. If you do not have a primary care provider, you may find a [facility] provider by calling [facility] Link at [phone]. [facility], in keeping with [facility] guidance, no longer requires face masks for staff, patientsor visitors in most situations. Similar to time spent indoors at other locations, there is the chance that you were exposed to respiratory viruses during your time with us (such as flu or COVID-19).? If you develop symptoms concerning for a viral respiratory infection, please seek testing (and treatment if indicated) from your medical provider or home test kit. For information about the plan of care including goals and instructions for your diagnosis, please see the patient education orders section of this document. Patient Education Materials?? The content of this educational material or handout may have been modified, supplemented, or adapted from its original content and format to support your individualized medical care. Patient Care team information Care Team Personnel Name: Elizabeth Mensah MD Position: [facility] Physician - Primary Care Member Role: PCP Address: Address: [address] [place] [address] Adult & Pediatric Medicine [place], [place] [address] Name: Neelam Romero RN Position: [facility] RN Member Role: Primary Care Nurse Care Team Related Persons Name: MASOUD THAPA Address: [address] [address] Name: MASOUD PAYNE Address: [address] [address]
--- OUTSIDE RECORDS SUMMARY | 2024-02-15 09:48 | XMS_ITS | Continuity of Care Document ---
Author Organization [facility] Address [address] [place] [address]- Care Team Providers Care Questioned Documents Examiner Name Role Phone Rodrick MOY, Rufina Primary Care Physician Encounter [facility] Date(s): 06/16/23 - 07/16/23 [facility] [address] [place], [place] [address] Allergies, Adverse Reactions, Alerts Substance Reaction [...] influenza virus vaccine, inactivated 07/26/10 Give n [id number] 12y+ bivalent booster vax 05/31/22 Recorded SARS-CoV-2 mRNA (sfghfgf-wape-uytjx) vax 01/17/22 Recorded SARS-CoV-2 (COVID-19) mRNA BNT-162b2 vac 08/01/21 Recorded SARS-CoV-2 (COVID-19) mRNA BNT-162b2 vac 2 01/01/21 Recorded SARS-CoV-2 (COVID-19) mRNA BNT-162b2 vac 12/11/20 Recorded zoster vaccine, inactivated 09/09/19 Recorded zoster vaccine, inactivated 07/02/19 Recorded tetanus-diphtheria toxoids (Td) 10/09/13 Recorded tetanus-diphtheria toxoids (Td) 1/9/04 Given FluLaval (oldterm) 06/01/09 Given Influenza Virus Vaccine (oldterm) 3 10/27/08 Given 1Result Comment: [facility]#[id number] 2Result Comment: second dose 3Admin Note: done [...] 0 Refills, Maintenance, 06/15/23 11:07:00 EDT, Tablet, [facility]/pharmacy #[id number], Partial fill upon [...] tablet, 0 Refills, Maintenance, 01/10/23 16:59:00 EDT, [facility] STORE 887[facility], 161, cm, 12/12/2310:27:00 EDT, Height, 110.5, kg, 10/28/21 18:14:00... Start Date: 01/10/23 Status: Ordered Prolia 60 mg/mL subcutaneous solution 1 mL = 60 mg, Subcutaneous Injection, Every 6 months, # 1 mL, 1 Refills, Maintenance, 06/05/22 11:27:00 EDT, Solution, [facility], Partial fill upon patient [...] Team Personnel Name: Elizabeth Mensah MD Position: [facility] Physician - Primary Care Member Role: PCP Address: Address: [address] [place] [address] Adult & Pediatric Medicine [place], [place] [address] Name: Neelam Romero RN Position: [facility] SN RN Member Role: Primary Care Nurse Care Team Related Persons Name: MASOUD THAPA Address: [address] [address] Name: MASOUD PAYNE Address: [address] [address]
--- OUTSIDE RECORDS SUMMARY | 2024-02-15 09:48 | XMS_ITS | Continuity of Care Document ---
Author Organization [facility] Address [address] [place] [address]- Care Team Providers Care Reinforcing Steel Worker Name Role Phone Elizabeth Mensah MD Primary Care Physician [phone] [place] [facility]28[place]21 [place] 04/27/22 [facility] [address] [place] [address]- Attending Physician: Cedrick Mclain MD Referring Physician: Jassi JENKINS, Anjelica Stafford Allergies, Adverse Reactions, Alerts Substance Reaction Severity Status penicillin Shortness of breath Active Adhesive Bandage Active Other Environmental Allergy [...] Given 1Result Comment: second dose 2Result Comment: [facility]#[id number] 3Admin Note: done here per pt Medications [...] tablet, 11 Refills, Maintenance, 01/24/22 16:56:00 EDT,Tablet, [facility]/pharmacy #[id number], Partial fill upon patient [...]
--- OUTSIDE RECORDS SUMMARY | 2024-02-15 09:48 | XMS_ITS | Continuity of Care Document ---
Author Organization [facility] Address [address] [place] [address]- Care Team Providers Care Hogshead Press Operator Name Role Phone Elizabeth Mensah MD Primary Care Physician [place] [facility] [place] 11/30/21 - 03/16/[address] [address]- Discharge Disposition: A-D/C Home Attending Physician: Elizabeth [...] Given 1Result Comment: second dose 2Result Comment: [facility]#[id number] 3Admin Note: done here per pt Medications [...] tablet, 11 Refills, Maintenance, 01/24/22 16:56:00 EDT,Tablet, [facility]/pharmacy #[id number], Partial fill upon patient request [...]
--- OUTSIDE RECORDS SUMMARY | 2024-02-15 09:48 | XMS_ITS | Continuity of Care Document ---
Author Organization [facility] Address [address] [place] [address]- Care Team Providers Care Technical Sales Director Name Role Phone Elizabeth Mensah MD Primary Care Physician [phone] [place] [facility] [place]s): 01/17/23 - 02/16/23 [facility] [address] [place] [address]- Allergies, Adverse Reactions, Alerts Substance Reaction Severity [...] influenza virus vaccine, inactivated 07/26/10 Give n [id number] 12y+ bivalent booster vax 05/31/22 Recorded SARS-CoV-2 mRNA (icicbac-zqxc-vojur) vax 01/17/22 Recorded SARS-CoV-2 (COVID-19) mRNA BNT-162b2 vac 08/01/21 Recorded SARS-CoV-2 (COVID-19) mRNA BNT-162b2 vac 2 01/01/21 Recorded SARS-CoV-2 (COVID-19) mRNA BNT-162b2 vac 12/11/20 Recorded zoster vaccine, inactivated 09/09/19 Recorded zoster vaccine, inactivated 07/02/19 Recorded tetanus-diphtheria toxoids (Td) 10/09/13 Recorded tetanus-diphtheria toxoids (Td) 09/18/03 Given FluLaval (oldterm) 06/01/09 Given Influenza Virus Vaccine (oldterm) 3 10/27/08 Given 1Result Comment: [facility]#[id number] 2Result Comment: second dose 3Admin Note: done [...] tablet, 0 Refills, Maintenance, 01/10/23 16:59:00 EDT, [facility] 140[facility], 161, cm, 12/12/2310:27:00 EDT, Height, 110.5, kg, 10/28/21 18:14:00... Start Date: 01/10/23 Status: Ordered Prolia 60 mg/mL subcutaneous solution 1 mL = 60 mg, Subcutaneous Injection, Every 6 months, # 1 mL, 1 Refills, Maintenance, 06/05/22 11:27:00 EDT, Solution, [facility], Partial fill upon patient [...] Team Personnel Name: Elizabeth Mensah MD Position: [facility] Physician - Primary Care Member Role: PCP Address: Address: [address] [place] [address] Adult [place] [address]- [place] Name: Neelam Romero RN Position: [facility] SN RN Member Role: Primary Care Nurse Care Team Related Persons Name: MASOUD THAPA Address: [address] [place] [address] Name: MASOUD PAYNE Address: [address] [address]
--- OUTSIDE RECORDS SUMMARY | 2024-02-15 09:48 | XMS_ITS | Continuity of Care Document ---
Author Organization [facility] Address [address] [place] [address]- Care Team Providers Care Quality Assurance Nurse Name Role Phone Salinas Kauffman MD Primary Care Physician Encounter [facility] [place] Date(s): 01/11/21 - 02/10/21 [facility] [address] [place] [address]- Allergies, Adverse Reactions, Alerts Substance Reaction Severity [...] Given 1Result Comment: second dose 2Result Comment: [facility]#[id number] 3Admin Note: done here per pt Medications buPROPion 300 mg/24 hours (XL) oral tablet, extended release 0.5 [id number], By Mouth, Daily, Maintenance, 11/03/19 18:54:00 EST, [...] Refills, Soft Stop, 11/19/20 14:15:00 EST, Shampoo, [facility]/pharmacy #[id number], Don't fill until pt calls for script., 1 application Topically Once,Instr:Three times weekly, 164, cm, 11/10/19 9:3... Start Date: 11/19/20 Status: Ordered LORazepam 1 mg oral tablet 1 tablet = 1 mg, By Mouth, Daily at bedtime Start Date: 11/03/19 Status: Ordered metroNIDAZOLE 1% topical gel 1 application, Topically, Daily, # 60 Gm, 0 Refills, Maintenance, 08/31/20 8:50:00 EST, Gel, [facility]/pharmacy #[id number], Partial fill upon patient request if [...]
--- OUTSIDE RECORDS SUMMARY | 2024-02-15 09:48 | XMS_ITS | Continuity of Care Document ---
Author Organization [facility] Address [address] [place] [address]- Care Team Providers Care Secret Service Agent Name Role Phone Elizabeth Mensah MD Primary Care Physician Encounter [facility] Date(s): 01/23/23 - 02/22/23 [facility] [address] [place] [address]- Allergies, Adverse Reactions, Alerts Substance Reaction Severity [...] influenza virus vaccine, inactivated 07/26/10 Give n [id number] 12y+ bivalent booster vax 05/31/22 Recorded SARS-CoV-2 mRNA (kyfxmfu-ifrb-dnknb) vax 01/17/22 Recorded SARS-CoV-2 (COVID-19) mRNA BNT-162b2 vac 08/01/21 Recorded SARS-CoV-2 (COVID-19) mRNA BNT-162b2 vac 2 01/01/21 Recorded SARS-CoV-2 (COVID-19) mRNA BNT-162b2 vac 12/11/20 Recorded zoster vaccine, inactivated 09/09/19 Recorded zoster vaccine, inactivated 07/02/19 Recorded tetanus-diphtheria toxoids (Td) 10/09/13 Recorded tetanus-diphtheria toxoids (Td) 09/18/03 Given FluLaval (oldterm) 06/01/09 Given Influenza Virus Vaccine (oldterm) 3 10/27/08 Given 1Result Comment: [facility]#[id number] 2Result Comment: second dose 3Admin Note: done [...] tablet, 0 Refills, Maintenance, 01/10/23 16:59:00 EDT, [facility], 161, cm, 12/12/2310:27:00 EDT, Height, 110.5, kg, 10/28/21 18:14:00... Start Date: 01/10/23 Status: Ordered Prolia 60 mg/mL subcutaneous solution 1 mL = 60 mg, Subcutaneous Injection, Every 6 months, # 1 mL, 1 Refills, Maintenance, 06/05/22 11:27:00 EDT, Solution, [facility], Partial fill upon patient request [...] Team Personnel Name: Elizabeth Mensah MD Position: [facility] Physician - Primary Care Member Role: PCP Address: Address: [address] [place] [address] Adult [place] [address]- [place] Name: Neelam Romero RN Position: [facility] SN RN Member Role: Primary Care Nurse Care Team Related Persons Name: MASOUD THAPA Address: [address] [place] [address] Name: MASOUD PAYNE Address: [address] [address]
--- OUTSIDE RECORDS SUMMARY | 2024-02-15 09:48 | XMS_ITS | Continuity of Care Document ---
Author Organization [facility] Address [address] [place] [address]- Care Team Providers Care Him Clerk Name Role Phone Tyrone MOY, Amanda Shaw Primary Care Physician [place] [facility] [place](s): 11/08/23 - 11/15/23 [facility] [address] [place] [address]- Encounter Diagnosis Osteoporosis(Discharge Diagnosis) - 11/08/23 Major depressive disorder, recurrent, moderate(Discharge Diagnosis) - 11/08/23 Common migraine(Discharge Diagnosis) - 11/08/23 SHALONDA on CPAP(Discharge Diagnosis) - 11/08/23 Other rosacea(Discharge Diagnosis) - 11/08/23 History of bariatric surgery(Discharge Diagnosis) - 11/08/23 Mixed hyperlipidemia(Discharge Diagnosis) - 11/08/23 Generalized anxiety disorder(Discharge Diagnosis) - 11/08/23 Medicare annual wellness visit, subsequent(Discharge Diagnosis) - 11/08/23 Other specified hypothyroidism(Discharge Diagnosis) - 11/08/23 Other insomnia(Discharge Diagnosis) - 11/08/23 Attending Physician: Amanda Hansen MD, V Referring Physician: Elizabeth Mensah MD Allergies, Adverse [...] virus vaccine, inactivated 07/26/10 Give n SARS-CoV-2(COVID-19)mRNA-LNP vac([id number]) 06/26/23 Recorded [id number] 12y+ bivalent booster vax 05/31/22 Recorded SARS-CoV-2 mRNA (pzextxp-hodj-orjaw) vax 01/17/22 Recorded SARS-CoV-2 (COVID-19) mRNA BNT-162b2 vac 08/01/21 Recorded SARS-CoV-2 (COVID-19) mRNA BNT-162b2 vac 3 01/01/21 Recorded SARS-CoV-2 (COVID-19) mRNA BNT-162b2 vac 12/11/20 Recorded zoster vaccine, inactivated 09/09/19 Recorded zoster vaccine, inactivated 07/02/19 Recorded tetanus-diphtheria toxoids (Td) 10/09/13 Recorded tetanus-diphtheria toxoids (Td) 09/18/03 Given FluLaval (oldterm) 06/01/09 Given Influenza Virus Vaccine (oldterm) 4 10/27/08 Given 1Result Comment: [facility]: [id number] 2Result Comment: [facility]#[id number] 3Result Comment: second dose 4Admin Note: done [...] Refills, Maintenance, 06/15/23 11:07:00 EDT, Tablet, [facility]/pharmacy #[id number], Partial fill upon patient [...] 1 Refills, Maintenance, 06/05/22 11:27:00 EDT, Solution, [facility], Partial fill upon [...] Confirmed Active 1S/p sleeve gastrectomy in 2019. Diagnosis Diagnosis Type Effective Dates Health Status Clinical Service Informant Medicare annual wellness visit, subsequent Discharge Diagnosis 11/08/23 Generalized anxiety disorder Discharge Diagnosis 11/08/23 Other specified hypothyroidism Discharge Diagnosis 11/08/23 Other insomnia Discharge Diagnosis 11/08/23 Major depressive disorder, recurrent, moderate Discharge Diagnosis 11/08/23 Osteoporosis Discharge Diagnosis 11/08/23 Common migraine Discharge Diagnosis 11/08/23 SHALONDA on CPAP Discharge Diagnosis 11/08/23 Other rosacea Discharge Diagnosis 11/08/23 History of bariatric surgery Discharge Diagnosis 11/08/23 Mixed hyperlipidemia Discharge Diagnosis 11/08/23 Vital Signs Most recent to oldest [Reference Range]: 1 2 Height 160.6 cm (11/08/23 10:54 AM) 160.6 cm (11/08/23 10:29 AM) Weight 85.0 kg (11/08/23 10:29 AM) Oxygen Saturation [94-100 %] 100 % (11/08/23 10:29 AM) Pulse Rate [55-90 bpm] 81 bpm (11/08/23 10:29 AM) Body Mass Index [18.5-24.99 kg/m2] 32.96 kg/m2 *>HHI* (11/08/23 10:29 AM) Blood Pressure [90-138/55-84 mm Hg] 149/ 71mm Hg *H* (11/08/23 10:54 AM) 156/68mm Hg *H* (11/08/23 10:29 AM) Respiratory Rate [16-30 br/min] 18 br/mi n (11/08/23 10:29 AM) Temperature [96.8-100.4 DegF] 97.7 DegF (11/08/23 10:29 AM) Mode of Delivery (Oxygen) Room air (11/08/23 10:29 AM) Blood pressure sites Arm, left (11/08/23 10:54 AM) Arm, left (11/08/23 10:29 AM) Temperature Route Temporal (11/08/23 10:29 AM) Weight Obtained Via Standing scale (11/08/23 10:29 AM) Social History Social History Type Response Smoking Status Never smoker entered on: 02/23/17 Sex Note * Cinthia Trevizo: PERFORM, SIGN, VERIFY Event Display: Patient Education/Instruction Authored Date: [id number] [facility] Clinical Summary Name MARINO ALVAREZ Age 63 Years 1960 PCP Tyrone MOY, Amanda Shaw PCP Visit Date 11/08/2023 10:22:00 Patient Instructions Blood work today.?? Tetanus shot today. Additional Instructions: Scheduled Appointments?? Future Appointments ?*[facility] ?Phone:??--?Fax:??-- ?Appt. Date:??12/14/2023?11:00 AM ?Scheduled Provider:??[facility] Nurse Follow-Up Instructions ?? Diagnosis Anxiety disorder, unspecified; Bariatric surgery status; Hypothyroidism, unspecified; Insomnia, unspecified; Major depressive disorder, single episode, unspecified; Rosacea, unspecified; Mixed hyperlipidemia; Age-related osteoporosis without current pathological fracture; Encounter for general adult medical examination without abnormal findings; Prediabetes; Migraine without aura, not intractable, without status migrainosus; Obstructive sleep apnea (adult) (pediatric) Medications: Please continue your medications until treatment is completed or stopped by your provider. Discuss any questions related to medications with your provider. New Medications [id number], [address] [place] [address], [place] [id number], [phone] Naratriptan (naratriptan 2.5 mg oral tablet) TAKE 1 TABLET BY MOUTH ONCE DIALY IF NEEDED FOR MIGRAINE. MAY REPEAT 1 DOSE IN 4 HOURS. Refills: 3. Next Dose: These medications were not printed or sent to your pharmacy amiTRIPTYLINE (amitriptyline 10 mg oral tablet) 60 each, 0 Refill(s), TAKE 1 TO 2 TABLETS BY MOUTH AT BEDTIME. Next Dose: Mesalamine (mesalamine 0.375 g oral capsule, extended release) 360 each, 0 Refill(s), TAKE 4 CAPSULES ORALLY DAILY FOR 30 DAYS. Next Dose: Medications to Continue Taking That Have Changed These medications were not printed or sent to your pharmacy - denosumab (Prolia 60 mg/mL subcutaneous solution) 1 Milliliter Subcutaneous Injection Every 6 months. Refills: 1. Next Dose: - Escitalopram (escitalopram 10 mg oral tablet) 1 tab(s) Oral Daily at Bedtime. Next Dose: Medications to Continue with No Changes These medications were not printed or sent to your pharmacy BuPROpion (buPROPion 150 mg/24 hours (XL) oral tablet, extended release) 1 tab(s) Oral Daily. Next Dose: Lorazepam (LORazepam 1 mg oral tablet) 1 tab(s) Oral twice a day as needed as needed for anxiety. Next Dose: Naproxen (naproxen 500 mg oral tablet) 1 tab(s) Oral twice a day for 7 Days. with food;. Refills: 0. Next Dose: No Longer Take the Following Medications Miscellaneous Rx (Vitamin D3) Multivitamin Daily. [place]-3 Polyunsaturated Fatty Acids (Fish Oil) Oral. Allergy Info:?? Other Environmental Allergy; Adhesive Bandage; Reglan; Bactrim; penicillin Medications Given This Visit Future Orders ?Lipid Panel? Order Date:11/08/23?- Complete by?11/08/23 Vital Signs Height 160.6 cm Weight 85.0 kg BMI 32.96 kg/m2 Blood Pressure 149 mm Hg/71 mm Hg Temperature 97.7 DegF Pulse Rate 81 bpm Respiratory Rate 18 br/min 02 Sat Mode of Delivery 100 %/Room air You can now view a summary of your hospital visit from the comfort of your home through a free online portal called [facility]. [facility] is a website that allows you to securely view your medical information including discharge summary, medications and follow-up visits. ??You can alsosend a secure electronic message to your doctor???s office to request appointments, renew medications or just ask a question. You can enroll at [email or web address] or register during your next office visit. [...] primary care provider, you may find a [facility] provider by calling [facility] at [phone]. Critical [facility] Hospital, in keeping with [facility] guidance, no longer requires face masks for [...] Personnel Name: Tyrone MOY, Amanda Shaw Position: S Physician - Primary Care Member Role: PCP Address: Address: [address] [place] [address] Name: Neelam Romero RN Position: S SN RN Member Role: Primary Care Nurse Care Team Related Persons Name: MASOUD THAPA Address: [address] [address] Name: MASOUD PAYNE Address: [address] [address]
--- OUTSIDE RECORDS SUMMARY | 2024-02-15 09:48 | XMS_ITS | Continuity of Care Document ---
Author Organization [facility] Address [address] [place] [address]- Care Team Providers Care Pumper Gager Name Role Phone Elizabeth Mensah MD Primary Care Physician [phone] [place] [facility] [place]06[place]22 - 01/05/23 [facility] [address] [place] [address]- Allergies, Adverse Reactions, Alerts Substance Reaction Severity [...] influenza virus vaccine, inactivated 07/26/10 Give n [id number]-[id number]-4kCWK 12y+ bivalent booster vax 05/31/22 Recorded SARS-CoV-2 mRNA (owpnphc-noxp-lhifj) vax 01/17/22 Recorded SARS-CoV-2 (COVID-19) mRNA BNT-162b2 vac 08/01/21 Recorded SARS-CoV-2 (COVID-19) mRNA BNT-162b2 vac 2 01/01/21 Recorded SARS-CoV-2 (COVID-19) mRNA BNT-162b2 vac 12/11/20 Recorded zoster vaccine, inactivated 09/09/19 Recorded zoster vaccine, inactivated 07/02/19 Recorded tetanus-diphtheria toxoids (Td) 10/09/13 Recorded tetanus-diphtheria toxoids (Td) 09/18/03 Given FluLaval (oldterm) 06/01/09 Given Influenza Virus Vaccine (oldterm) 3 10/27/08 Given 1Result Comment: [facility]#[id number] 2Result Comment: second dose 3Admin Note: done [...] 1 Refills, Maintenance, 06/05/22 11:27:00 EDT, Solution, [facility], Partial fill upon patient request [...] Care Physician Member Role: PCP Address: Address: [address] [place] [address] Adult & [place] [address]- Name: Neelam Romero RN Position: [facility] RN Member Role: Primary Care Nurse Care Team Related Persons Name: MASOUD THAPA Address: [address] [address] Name: MASOUD PAYNE Address: home [address] [place] [address]
--- OUTSIDE RECORDS SUMMARY | 2024-02-15 09:48 | XMS_ITS | Continuity of Care Document ---
Author Organization [facility] Address [address] [place] [address]- Care Team Providers Care Member Of The Legislative Assembly Name Role Phone Rodrick MOY, Elizabeth Primary Care Physician Encounter [facility] [place] Date(s): 05/01/23 - 05/31/23 [facility] [address] [place] [address]- Allergies, Adverse Reactions, Alerts Substance Reaction Severity [...] influenza virus vaccine, inactivated 07/26/10 Give n [id number] 12y+ bivalent booster vax 05/31/22 Recorded SARS-CoV-2 mRNA (mqcajml-plzr-vltaw) vax 01/17/22 Recorded SARS-CoV-2 (COVID-19) mRNA BNT-162b2 vac 08/01/21 Recorded SARS-CoV-2 (COVID-19) mRNA BNT-162b2 vac 2 01/01/21 Recorded SARS-CoV-2 (COVID-19) mRNA BNT-162b2 vac 12/11/20 Recorded zoster vaccine, inactivated 09/09/19 Recorded zoster vaccine, inactivated 07/02/19 Recorded tetanus-diphtheria toxoids (Td) 10/09/13 Recorded tetanus-diphtheria toxoids (Td) 09/18/03 Given FluLaval (oldterm) 9/22/09 Given Influenza Virus Vaccine (oldterm) 3 10/27/08 Given 1Result Comment: [facility]#[id number] 2Result Comment: second dose 3Admin Note: done [...] tablet, 0 Refills, Maintenance, 01/10/23 16:59:00 EDT, [facility], 161, cm, 12/12/2310:27:00 EDT, Height, 110.5, kg, [...] Team Personnel Name: Elizabeth Mensah MD Position: [facility] Physician - Primary Care Member Role: PCP Address: Address: [address] [place] [address] Adult & [place] [address]- [place] Name: Neelam Romero RN Position: [facility] SN RN Member Role: Primary Care Nurse Care Team Related Persons Name: MASOUD THAPA Address: [address] [place] [address] Name: MASOUD PAYNE Address: [address] [address]
--- OUTSIDE RECORDS SUMMARY | 2024-02-15 09:48 | XMS_ITS | Continuity of Care Document ---
Author Organization [facility] Address Unknown Care Team Providers Care Brush Sander Name Role Phone Elizabeth Mensah MD Primary Care Physician [place] [facility] [place] - 08/07/21 [facility] Attending Physician: Veronika Ingram Admitting Physician: AdmVeronika dee Referring Physician: AdmtrVeronika Allergies, Adverse Reactions, Alerts [...] Given 1Result Comment: second dose 2Result Comment: [facility]#[id number] 3Admin Note: done here per pt Medications buPROPion 300 mg/24 hours (XL) oral tablet, extended release 0.5 [id number], By Mouth, Daily, Maintenance, 11/03/19 18:54:00 EST, [...]
--- OUTSIDE RECORDS SUMMARY | 2024-02-15 09:48 | XMS_ITS | Continuity of Care Document ---
Author Organization [facility] Address [address] [place] [address]- Care Team Providers Care Sergeant At Arms Name Role Phone Tyrone MOY, Amanda Shaw Primary Care Physician [place] [facility] [place] 11/12/23 - 12/12/23 [facility] [address] [place] [address]- Allergies, Adverse Reactions, Alerts Substance Reaction Severity [...] virus vaccine, inactivated 07/26/10 Give n SARS-CoV-2(COVID-19)mRNA-LNP vac([id number]) 06/26/23 Recorded [id number]-[id number]-2lJZA 12y+ bivalent booster vax 05/31/22 Recorded SARS-CoV-2 mRNA (afwgyvl-gtye-cvhbn) vax 01/17/22 Recorded SARS-CoV-2 (COVID-19) mRNA BNT-162b2 vac 08/01/21 Recorded SARS-CoV-2 (COVID-19) mRNA BNT-162b2 vac 3 01/01/21 Recorded SARS-CoV-2 (COVID-19) mRNA BNT-162b2 vac 12/11/20 Recorded zoster vaccine, inactivated 09/09/19 Recorded zoster vaccine, inactivated 07/02/19 Recorded tetanus-diphtheria toxoids (Td) 10/09/13 Recorded tetanus-diphtheria toxoids (Td) 09/18/03 Given FluLaval (oldterm) 06/01/09 Given Influenza Virus Vaccine (oldterm) 4 10/27/08 Given 1Result Comment: [facility]: [id number] 2Result Comment: [facility]#[id number] 3Result Comment: second dose 4Admin Note: done [...] Refills, Maintenance, 06/15/23 11:07:00 EDT, Tablet, [facility]/pharmacy #[id number], Partial fill upon patient request if the prescription is for a schedule II opioid drug., 160.6, cm, ... Start Date: 06/15/23 Stop Date: 06/22/23 Status: Ordered naratriptan 2.5 mg oral tablet See Instructions, TAKE 1 TABLET BY MOUTH ONCE DIALY IF NEEDED FOR MIGRAINE. MAY REPEAT 1 DOSE IN 4 HOURS, # 9 tablet, 3 Refills, Maintenance, 11/08/23 10:56:00 EST, [facility]/pharmacy #1972, 160.6, cm, 11/08/23 10:54:00 EST, Height Start Date: 11/08/23 Status: Ordered Prolia 60 mg/mL subcutaneous solution 1 mL = 60 mg, Subcutaneous Injection, Every 6 months, # 1 mL, 1 Refills, Maintenance, 06/05/22 11:27:00 EDT, Solution, [facility], Partial fill upon patient [...] Care team information Care Team Personnel Name: Amanda Hansen MD, V Position: [facility] Physician - Primary Care Member Role: PCP Address: Address: [address] [place] [address]- Name: Neelam Romero RN Position: [facility] RN Member Role: Primary Care Nurse Care Team Related Persons Name: MASOUD THAPA Address: [address] [address] Name: MASOUD PAYNE Address: home [address] [place] [address]
--- OUTSIDE RECORDS SUMMARY | 2024-02-15 09:48 | XMS_ITS | Continuity of Care Document ---
Author Organization [facility] Address [address] [place] [address]- Care Team Providers Care Records Assistant Name Role Phone Elizabeth Mensah MD Primary Care Physician Encounter [facility] [place] Date(s): 04/27/21 - 05/27/21 [facility] [address] [place] [address]- Allergies, Adverse Reactions, Alerts Substance Reaction Severity [...] 1Result Comment: second dose 2Result Comment: [facility]#[id number] 3Admin Note: done here per pt Medications buPROPion 300 mg/24 hours (XL) oral tablet, extended release 0.5 [id number], By Mouth, Daily, Maintenance, 11/03/19 18:54:00 EST, ER Tablet Start Date: 11/03/19 Status: Ordered doxepin 6 mg oral tablet 1 tablet = 6 mg, By Mouth, Daily at bedtime, take within 30 minutes of bedtime and not within 3 hours of a meal, # 30 tablet, 0 Refills, Maintenance, 03/12/21 14:18:00 EST, Tablet, Partial fill upon patient [...] tablet, 11 Refills, Maintenance, 03/16/21 17:48:00 EDT,Tablet, [facility]/pharmacy #[id number], Partial fill upon patient [...]
--- OUTSIDE RECORDS SUMMARY | 2024-02-15 09:48 | XMS_ITS | Continuity of Care Document ---
Author Organization [facility] Address [address] [place] [address]- Care Team Providers Care Wetlands Technician Name Role Phone Salinas Kauffman MD Primary Care Physician [place] [facility] [place](s): 01/11/21 - 02/10/21 [facility] [address] [place] [address]- Allergies, Adverse Reactions, Alerts Substance Reaction Severity [...] Given 1Result Comment: second dose 2Result Comment: [facility]#[id number] 3Admin Note: done here per pt Medications buPROPion 300 mg/24 hours (XL) oral tablet, extended release 0.5 [id number], By Mouth, Daily, Maintenance, 11/03/19 18:54:00 EST, [...] Refills, Soft Stop, 11/19/20 14:15:00 EST, Shampoo, [facility]/pharmacy #[id number], Don't fill until pt calls for script., 1 application Topically Once,Instr:Three times weekly, 164, cm, 11/10/19 9:3... Start Date: 11/19/20 Status: Ordered LORazepam 1 mg oral tablet 1 tablet = 1 mg, By Mouth, Daily at bedtime Start Date: 11/03/19 Status: Ordered metroNIDAZOLE 1% topical gel 1 application, Topically, Daily, # 60 Gm, 0 Refills, Maintenance, 08/31/20 8:50:00 EST, Gel, [facility]/pharmacy #[id number], Partial fill upon patient request [...]
--- OUTSIDE RECORDS SUMMARY | 2024-02-15 09:49 | XMS_ITS | Continuity of Care Document ---
Author Organization [facility] Address [address] [place] [address]- Care Team Providers Care Metal Alloy Scientist Name Role Phone Amanda Hansen MD, V Primary Care Physician [place] [facility] [place](s): 11/23/23 - 12/23/23 [facility] [address] [place] [address]- Allergies, Adverse Reactions, Alerts Substance Reaction Severity [...] virus vaccine, inactivated 07/26/10 Give n SARS-CoV-2(COVID-19)mRNA-LNP vac(qfm433) 06/26/23 Recorded [id number]-LkF-5hQXO 12y+ bivalent booster vax 05/31/22 Recorded SARS-CoV-2 mRNA (rmukqnj-ygyw-huhap) vax 01/17/22 Recorded SARS-CoV-2 (COVID-19) mRNA BNT-162b2 vac 08/01/21 Recorded SARS-CoV-2 (COVID-19) mRNA BNT-162b2 vac 3 01/01/21 Recorded SARS-CoV-2 (COVID-19) mRNA BNT-162b2 vac 12/11/20 Recorded zoster vaccine, inactivated 09/09/19 Recorded zoster vaccine, inactivated 07/02/19 Recorded tetanus-diphtheria toxoids (Td) 10/09/13 Recorded tetanus-diphtheria toxoids (Td) 09/18/03 Given FluLaval (oldterm) 06/01/09 Given Influenza Virus Vaccine (oldterm) 4 10/27/08 Given 1Result Comment: [facility]: [id number] 2Result Comment: [facility]#[id number] 3Result Comment: second dose 4Admin Note: done [...] 0 Refills, Maintenance, 06/15/23 11:07:00 EDT, Tablet, [facility]/pharmacy #[id number], Partial fill upon patient request if [...] 1 Refills, Maintenance, 06/05/22 11:27:00 EDT, Solution, [facility], Partial fill upon patient [...] Personnel Name: Amanda Hansen MD, V Position: [facility] Physician - Primary Care Member Role: PCP Address: Address: [address] [place] [address]- Name: Neelam Romero RN Position: [facility] RN Member Role: Primary Care Nurse Care Team Related Persons Name: MASOUD THAPA Address: [address] [address] Name: MASOUD PAYNE Address: [address] [address]
--- OUTSIDE RECORDS SUMMARY | 2024-02-15 09:49 | XMS_ITS | Continuity of Care Document ---
Author Organization [facility] Address [address] [place] [address]- Care Team Providers Care Talent Coordinator Name Role Phone Elizabeth Mensah MD Primary Care Physician [place] [facility] [place] 06/08/22 [facility] [address] [place] [address]- Allergies, Adverse Reactions, Alerts Substance Reaction Severity [...] 2Result Comment: [facility]#[id number] 3Admin Note: done here per pt Medications [...] 1 Refills, Maintenance, 06/05/22 11:27:00 EDT, Solution, [facility], Partial fill upon [...] Personnel Name: Elizabeth Mensah MD Address: Address: [address] [place] [address] Adult & Pediatric Medicine [place], [place] [address]
--- OUTSIDE RECORDS SUMMARY | 2024-02-15 09:49 | XMS_ITS | Continuity of Care Document ---
Author Organization [facility] Adult Address [address] [place] [address]- Care Team Providers Care Binder Folder Operator Name Role Phone Elizabeth Mensah MD Primary Care Physician [phone] Encounter [facility] [place] Date(s): 03/28/22 - 04/27/22 [facility] [address] [place] [address]- Attending Physician: Admleila, Veronika Admitting Physician: Admtr, Ar8 Referring Physician: Admtr, [...] Given 1Result Comment: second dose 2Result Comment: [facility]#[id number] 3Admin Note: done here per pt Medications [...] tablet, 11 Refills, Maintenance, 01/24/22 16:56:00 EDT,Tablet, [facility]/pharmacy #[id number], Partial fill upon patient request [...]
--- OUTSIDE RECORDS SUMMARY | 2024-02-15 09:49 | XMS_ITS | Continuity of Care Document ---
Author Organization [facility] Address [address] [place] [address]- Care Team Providers Care Automotive Tire Worker Name Role Phone Elizabeth Mensah MD Primary Care Physician Encounter [facility] [place] Date(s): 11/16/21 - 11/23/21 [facility] [address] [place] [address]- Encounter Diagnosis Atypical chest pain(Discharge Diagnosis) - 11/17/21 Chest pain, musculoskeletal(Discharge Diagnosis) - 11/17/21 Anxiety(Discharge Diagnosis) - 11/17/21 Chronic sacroiliac pain(Discharge Diagnosis) - 11/17/21 Attending Physician: Elizabeth Mensah MD Allergies, Adverse [...] 1Result Comment: second dose 2Result Comment: [facility]#[id number] 3Admin Note: done here per pt Medications [...] Effective Dates Health Status Clinical Service Informant Atypical chest pain Discharge Diagnosis 11/17/21 Chest pain, musculoskeletal Discharge Diagnosis 11/17/21 Anxiety Discharge Diagnosis 11/17/21 Chronic sacroiliac pain Discharge Diagnosis 11/17/21 Vital Signs Most recent to oldest [Reference Range]: 1 Height 161 cm (11/16/21 1:21 PM) Weight 107.7 kg (11/16/21 1:21 PM) Oxygen Saturation [94-100 %] 96 % (11/16/21 1:21 PM) Pulse Rate [55-90 bpm] 101 bpm *H* (11/16/21 1:21 PM) Body Mass Index [18.5-24.99] 41.55 *>HHI* (11/16/21 1:21 PM) Blood Pressure [90-138/55-84 mm Hg] 136/ 68mm Hg (11/16/21 1:21 PM) Mode of Delivery (Oxygen) Room air (11/16/21 1:21 PM) Blood pressure sites Arm, left (11/16/21 1:21 PM) Social History Social History Type Response Smoking Status Never smoker entered on: 02/23/17 Sex
--- OUTSIDE RECORDS SUMMARY | 2024-02-15 09:49 | XMS_ITS | Continuity of Care Document ---
Author Organization [facility] Address [address] [place] [address]- Care Team Providers Care Batt Machine Operator Name Role Phone Rodrick MOY, Rufina Primary Care Physician [phone] Encounter [facility] Date(s): 08/22/21 - 09/21/21 [facility] [address] [place] [address]- Allergies, Adverse Reactions, Alerts Substance Reaction Severity [...] dose 2Result Comment: [facility]#[id number] 3Admin Note: done here per pt Medications buPROPion 300 mg/24 hours (XL) oral tablet, extended release 0.5 [id number], By Mouth, Daily, Maintenance, 11/03/19 18:54:00 EST, [...] tablet, 11 Refills, Maintenance, 03/16/21 17:48:00 EDT,Tablet, [facility]/pharmacy #[id number], Partial fill upon patient [...]
--- OUTSIDE RECORDS SUMMARY | 2024-02-15 09:49 | XMS_ITS | Continuity of Care Document ---
Author Organization [facility] Address Unknown Care Team Providers Care Agricultural Research Technologist Name Role Phone Rodrick MOY, Elizabeth Primary Care Physician Encounter [facility] [place] Date(s): 10/26/21 - 02/23/22 [facility] Attending Physician: Dustin Mariee MD Allergies, Adverse Reactions, Alerts Substance Reaction [...] second dose 2Result Comment: [facility]#[id number] 3Admin Note: done here per pt Medications [...] tablet, 11 Refills, Maintenance, 01/24/22 16:56:00 EDT,Tablet, [facility]/pharmacy #[id number], Partial fill upon patient request if [...]
--- OUTSIDE RECORDS SUMMARY | 2024-02-15 09:49 | XMS_ITS | Continuity of Care Document ---
Author Organization [facility] Address [address] [place] [address]- Care Team Providers Care Poultry Husbandman Name Role Phone Salinas Kauffman MD Primary Care Physician [place] [facility] [place] Date(s): 08/31/20 - 09/30/20 [facility] [address] [place], [place] [address] Attending Physician: Admtr, Ar8 Allergies, Adverse Reactions, Alerts Substance Reaction Severity Status penicillin Shortness of breath Active Bactrim Rash Active Other Environmental Allergy 1 Active Reglan Panic attack Active 1dermabond - had rash for > 3 months last time it was used Immunizations Given and Recorded Vaccine Date Status Refusal Reason influenza virus vaccine, inactivated 1 06/30/19 Gi man influenza virus vaccine, inactivated 07/26/10 Give n FluLaval (oldterm) 06/01/09 Given Influenza Virus Vaccine (oldterm) 2 10/27/08 Given tetanus-diphtheria toxoids (Td) 09/18/03 Given 1Result Comment: [facility]#[id number] 2Admin Note: done here per pt Medications [...] Refills, Soft Stop, 08/31/20 8:51:00 EST, Shampoo, [facility]/pharmacy #1972, Partial fill upon patient [...] 0 Refills, Maintenance, 08/31/20 8:50:00 EST, Gel, [facility]/pharmacy #1972, Partial fill upon patient [...] 11/09/20 9:59:00 EST, 06/30/20 9:30:00 EDT, Tablet, [facility]/pharmacy #1972, 164, cm, 11/10/19 9:36:00 EST, [...]
--- OUTSIDE RECORDS SUMMARY | 2024-02-15 09:49 | XMS_ITS | Continuity of Care Document ---
Author Organization [facility] [place] [facility] Address [address] [place] [address]- Care Team Providers Care Assistant Designer Name Role Phone Rodrick MOY, Rufina Primary Care Physician [phone] Encounter [facility] [place] Date(s): 09/05/21 - 10/05/[address] [facility] [place] [place] [facility] [address] [place], [place] [address] Allergies, Adverse Reactions, Alerts Substance Reaction Severity [...] 1Result Comment: second dose 2Result Comment: [facility]#[id number] 3Admin Note: done here per pt Medications buPROPion 300 mg/24 hours (XL) oral tablet, extended release 0.5 [id number], By Mouth, Daily, Maintenance, 11/03/19 18:54:00 EST, [...] tablet, 11 Refills, Maintenance, 03/16/21 17:48:00 EDT,Tablet, [facility]/pharmacy #[id number], Partial fill upon patient request if [...]
--- OUTSIDE RECORDS SUMMARY | 2024-02-15 09:49 | XMS_ITS | Continuity of Care Document ---
Author Organization [facility] Address [address] [place] [address]- Care Team Providers Care Prison Librarian Name Role Phone Elizabeth Mensah MD Primary Care Physician [place] [facility] [place] Date(s[place] 03/15/21 - 04/14/21 [facility] [address] [place] [address]- Attending Physician: Admleila, Veronika Admitting Physician: AdmtrVeronika [...] Comment: second dose 2Result Comment: [facility]#[id number] 3Admin Note: done here per pt Medications buPROPion 300 mg/24 hours (XL) oral tablet, extended release 0.5 [id number], By Mouth, Daily, Maintenance, 11/03/19 18:54:00 EST, [...]
--- OUTSIDE RECORDS SUMMARY | 2024-02-15 09:49 | XMS_ITS | Continuity of Care Document ---
Author Organization [facility] Address Unknown Care Team Providers Care Licensed Appraiser Name Role Phone Elizabeth Mensah MD Primary Care Physician [place] [facility] [place] Date(s): 05/20/21 - 08/07/21 [facility] Attending Physician: [...] Given 1Result Comment: second dose 2Result Comment: [facility]#[id number] 3Admin Note: done here per pt Medications buPROPion 300 mg/24 hours (XL) oral tablet, extended release 0.5 [id number], By Mouth, Daily, Maintenance, 11/03/19 18:54:00 EST, [...]
--- OUTSIDE RECORDS SUMMARY | 2024-02-15 09:49 | XMS_ITS | Continuity of Care Document ---
Author Organization [facility] ter Address [address] [place] [address]- Care Team Providers Care Financial Sales Associate Name Role Phone Salinas Kauffman MD Primary Care Physician [place] [facility] [place]03/19 - 11/06/[address] [address]- [facility] Encounter Diagnosis CHF(Final) - 11/03/19 Discharge Disposition: A-D/C Home Attending Physician: Kendrick Jain MD Admitting Physician: Matthew Moreno DO Referring Physician: Not on Staff, Referring MD Allergies, Adverse Reactions, Alerts Substance Reaction [...] tetanus-diphtheria toxoids (Td) 09/18/03 Given 1Result Comment: [facility]#[id number] 2Admin Note: done here per pt Medications buPROPion 300 mg/24 hours (XL) oral tablet, extended release 1 tablet = 300 mg, By Mouth, Daily, Maintenance, 11/03/19 18:54:00 EST, ER Tablet Start Date: 11/03/19 Status: Ordered carbidopa-levodopa 25 mg-100 mg oral tablet 1 tablet, By Mouth, 2 times a day, 0 Refills, Maintenance, 11/03/19 14:56:00 EST, Tablet Start Date: 11/03/19 Status: Ordered escitalopram [...] 9:23:59 EDT Start Date: 12/05/18 Status: Ordered ibuprofen 800 mg oral tablet 800 mg, 1, tablet, By Mouth, Every 8 hours, PRN, for 7 days, # 21 tablet, Refills 0, Tot. Refills 0, Acute 11/12/19 13:29:00 EST, Pain , Moderate, 11/05/19 13:29:00 EST, Route to Pharmacy Electronically, [facility], 164, cm, 11/05/19 2:2... Start Date: 11/05/19 Stop Date: 11/12/19 Status: Ordered LORazepam 1 mg oral tablet [...] Date: 06/30/19 Stop Date: 06/30/20 Status: Ordered propranolol 10 mg oral tablet [...] 6 months Start Date: 06/30/19 Status: Ordered Tylenol 325 mg oral tablet 650 mg, 2, tablet, By Mouth, Every 6 hours, PRN, for 7 days, # 28 tablet, Refills 0, Tot. Refills 0, Acute 11/12/19 13:39:00 EST, Pain , Mild, 11/05/19 13:39:00 EST, Route to Pharmacy Electronically,[facility], 164, cm, 11/05/19 2:22:00... Start Date: 11/05/19 Stop Date: 11/12/19 Status: Ordered Vitamin B Complex with C [...] Chronic sacroiliac pain(Confirmed) Active Snoring(Confirmed) 06/19/12 Active Results Radiology Reports * Exam Date Time Procedure Performing Provider Status 11/03/19 9:10 AM Chest 2 Views Frontal and Lat Neelam Epps; Stella (Verified) Notes: (Chest 2 Views Frontal and Lat) Reason For Exam: Pleuritic Pain RESULT: Chest 2 Views Frontal and Lat Chest 2 Views Frontal and Lat Refer to EMR; Reason: Pleuritic Pain; Clinical Question(s): Pneumonia; Hx of Present Illness: Pt states woke up around 0600 this morning with stabbing pain in R anterior lung. denies any shortness ofbreath, denies cough and fever COMPARISON: 11/25/2013. FINDINGS: LINES AND TUBES: None. LUNGS AND PLEURA: Lung volumes are low. There is interstitial prominence in the lungs bilaterally, greatest in the perihilar regions bilaterally. Pulmonary vasculature is indistinct.. Dependent atelectasis is present bilaterally. No consolidative opacity. No definite pleural effusion. No pneumothorax. HEART, MEDIASTINUM AND MARTY: Heart is normal in size. Normal mediastinal and hilar contour. BONES AND SOFT TISSUES: No acute abnormality. Surgical clips are noted in the left upper quadrant. IMPRESSION: 1. Interstitial prominence in the lungs bilaterally, greatest in the perihilar regions. Mild interstitial pulmonary edema suspected. 2. No pneumothorax. WSN: [id number] Dictated By: Génesis Alvarez MD Dictated Date/Time: 11/03/19 9:49 am Reviewed By: Génesis Alvarez MD Signed By: Génesis Alvarez MD Signed Date/Time: 11/03/19 9:49 am Transcribed By: PIETER Transcribed Date/Time: 11/03/19 9:43 am Vital Signs Most recent to oldest [Reference Range]: 1 2 3 Height 164 cm (11/06/19 2:31 AM) 164 cm (11/05/19 7:58 PM) 164 cm (11/05/19 2:22 AM) Weight 100.6 kg (11/06/19 6:55 AM) 99.8 kg (11/05/19 8:29 AM) 99.8 kg (11/05/19 6:22 AM) Oxygen Saturation [94-100 %] 90 % *L* (11/06/19 8:00 AM) 93 % *L* (11/06/19 2:31 AM) 94 % (11/05/19 7:58 PM) Pulse Rate [55-90 bpm] 69 bpm (11/06/19 8:00 AM) 69 bpm (11/06/19 2:31 AM) 78 bpm (11/05/19 7:58 PM) Body Mass Index [18.5-24.99] 37.44 *>HHI* (11/03/19 8:21 PM) Blood Pressure [90-138/55-84 mm Hg] 117/61mm Hg (11/06/19 8:00 AM) 112/61mm Hg (11/06/19 2:31 AM) 110/58mm Hg (11/05/19 7:58 PM) Respiratory Rate [16-30 br/min] 20 br/min (11/06/19 8:00 AM) 20 br/min (11/06/19 2:31 AM) 20 br/min (11/05/19 7:58 PM) Temperature [96.8-100.4 DegF] 97.9 DegF (11/06/19 8:00 AM) 97.6 DegF (11/06/19 2:31 AM) 97.7 DegF (11/05/19 7:58 PM) Liters per Minute 0 L/min (11/03/19 8:25 AM) Mode of Delivery (Oxygen) Room air (11/06/19 8:00 AM) Room air (11/06/19 2:31 AM) Room air (11/05/19 7:58 PM) Blood pressure sites Arm, left (11/06/19 8:00 AM) Arm, left (11/06/19 2:31 AM) Arm, left (11/05/19 7:58 PM) Temperature Route Oral (11/06/19 8:00 AM) Temporal (11/06/19 2:31 AM) Temporal (11/05/19 7:58 PM) Dry Weight 100.7 kg (11/03/19 8:21 PM) Weight Obtained Via Standing scale (11/06/19 6:55 AM) Dry Weight Obtained Via Patient/family s tated (11/03/19 8:21 PM) Sensory deficits None (11/03/19 8:21 PM) Mobility assistance Independent (11/03/19 8:21 PM) Social History Social History Type Response Smoking Status Never smoker entered on: 02/23/17 Sex
--- OUTSIDE RECORDS SUMMARY | 2024-02-15 09:49 | XMS_ITS | Continuity of Care Document ---
Author Organization [facility] Address [address] [place] [address]- Care Team Providers Care Jalousie Installer Name Role Phone Elizabeth Mensah MD Primary Care Physician Encounter [facility] [place] Date(s): 05/19/21 - 05/26/21 [facility] [address] [place] [address]- Encounter Diagnosis Gait abnormality(Discharge Diagnosis) - 05/19/21 Seborrheic keratosis(Discharge Diagnosis) - 05/19/21 Attending Physician: Elizabeth Mensah MD Allergies, Adverse [...] Comment: second dose 2Result Comment: [facility]#[id number] 3Admin Note: done here per pt Medications buPROPion 300 mg/24 hours (XL) oral tablet, extended release 0.5 [id number], By Mouth, Daily, Maintenance, 11/03/19 18:54:00 EST, [...] Effective Dates Health Status Clinical Service Informant Gait abnormality Discharge Diagnosis 05/19/21 Seborrheic keratosis Discharge Diagnosis 05/19/21 Vital Signs Most recent to oldest [Reference Range]: 1 Height 164 cm (05/19/21 9:34 AM) Weight 106.3 kg (05/19/21 9:34 AM) Oxygen Saturation [94-100 %] 96 % (05/19/21 9:34 AM) Pulse Rate [55-90 bpm] 90 bpm (05/19/21 9:34 AM) Body Mass Index [18.5-24.99] 39.52 *>HHI* (05/19/21 9:34 AM) Blood Pressure [90-138/55-84 mm Hg] 100/ 68mm Hg (05/19/21 9:34 AM) Temperature [96.8-100.4 DegF] 97.8 DegF (05/19/21 9:34 AM) Mode of Delivery (Oxygen) Room air (05/19/21 9:34 AM) Blood pressure sites Arm, right (05/19/21 9:34 AM) Temperature Route Temporal (05/19/21 9:34 AM) Social History Social History Type Response Smoking Status Never smoker entered on: 02/23/17 Sex
--- OUTSIDE RECORDS SUMMARY | 2024-02-15 09:49 | XMS_ITS | Continuity of Care Document ---
Author Organization [facility] Address [address] [place] [address]- Care Team Providers Care Crook Operator Name Role Phone Amanda Hansen MD, V Primary Care Physician En[place] [facility] [place] Date(s): 11/26/23 - 12/26/23 [facility] [address] [place] [address]- Allergies, Adverse Reactions, Alerts Substance Reaction Severity [...] virus vaccine, inactivated 07/26/10 Give n SARS-CoV-2(COVID-19)mRNA-LNP vac(wef201) 06/26/23 Recorded [id number] 12y+ bivalent booster vax 05/31/22 Recorded SARS-CoV-2 mRNA ([id number]) vax 01/17/22 Recorded SARS-CoV-2 (COVID-19) mRNA BNT-162b2 vac 08/01/21 Recorded SARS-CoV-2 (COVID-19) mRNA BNT-162b2 vac 3 01/01/21 Recorded SARS-CoV-2 (COVID-19) mRNA BNT-162b2 vac 12/11/20 Recorded zoster vaccine, inactivated 09/09/19 Recorded zoster vaccine, inactivated 07/02/19 Recorded tetanus-diphtheria toxoids (Td) 10/09/13 Recorded tetanus-diphtheria toxoids (Td) 09/18/03 Given FluLaval (oldterm) 06/01/09 Given Influenza Virus Vaccine (oldterm) 4 10/27/08 Given 1Result Comment: [facility]: [id number] 2Result Comment: [facility]#[id number] 3Result Comment: second dose 4Admin Note: done [...] 0 Refills, Maintenance, 06/15/23 11:07:00 EDT, Tablet, [facility]/pharmacy #[id number], Partial fill upon patient [...] 1 Refills, Maintenance, 06/05/22 11:27:00 EDT, Solution, [facility], Partial fill upon patient [...] Personnel Name: Amanda Hansen MD, V Position: [facility] Physician - Primary Care Member Role: PCP Address: Address: [address] [place] [address]- Name: Neelam Romero RN Position: [facility] RN Member Role: Primary Care Nurse Care Team Related Persons Name: MASOUD THAPA Address: [address] [address] Name: MASOUD PAYNE Address: [address] [address]
--- OUTSIDE RECORDS SUMMARY | 2024-02-15 09:49 | XMS_ITS | Continuity of Care Document ---
Author Organization [facility] Address [address] [place] [address]- Care Team Providers Care Torpedo Specialist Name Role Phone Salinas Kauffman MD Primary Care Physician [phone] Encounter [facility] [place] Date(s): 01/13/21 - 02/12/21 [facility] [address] [place] [address]- Allergies, Adverse Reactions, Alerts Substance Reaction Severity [...] Comment: second dose 2Result Comment: [facility]#[id number] 3Admin Note: done here per pt Medications buPROPion 300 mg/24 hours (XL) oral tablet, extended release 0.5 [id number], By Mouth, Daily, Maintenance, 11/03/19 18:54:00 EST, [...] Refills, Soft Stop, 11/19/20 14:15:00 EST, Shampoo, [facility]/pharmacy #1972, Don't fill until pt calls for script., 1 application Topically Once,Instr:Three times weekly, 164, cm, 11/10/19 9:3... Start Date: 11/19/20 Status: Ordered LORazepam 1 mg oral tablet 1 tablet = 1 mg, By Mouth, Daily at bedtime Start Date: 11/03/19 Status: Ordered metroNIDAZOLE 1% topical gel 1 application, Topically, Daily, # 60 Gm, 0 Refills, Maintenance, 08/31/20 8:50:00 EST, Gel, [facility]/pharmacy #1972, Partial fill upon patient request [...]
--- OUTSIDE RECORDS SUMMARY | 2024-02-15 09:49 | XMS_ITS | Continuity of Care Document ---
Author Organization [facility] Address [address] [place] [address]- Care Team Providers Care Oil Separator Name Role Phone Salinas Kauffman MD Primary Care Physician En[place] [facility] [place] Date(s): 05/20/20 - 05/27/20 [facility] [address] [place] [address]- [facility] Encounter Diagnosis Hyperhidrosis(Discharge Diagnosis) - 05/20/20 HLD (hyperlipidemia)(Discharge Diagnosis) - 05/20/20 Elevated creatine kinase(Discharge Diagnosis) - 05/20/20 Attending Physician: Salinas Kauffman MD Allergies, Adverse [...] tetanus-diphtheria toxoids (Td) 09/18/03 Given 1Result Comment: [facility]#[id number] 2Admin Note: done here per pt Medications [...] 11/09/20 9:59:00 EST, 06/30/20 9:30:00 EDT, Tablet, [facility]/pharmacy #1972, 164, cm, 11/10/19 9:36:00 EST, [...] Effective Dates Health Status Clinical Service Informant Hyperhidrosis Discharge Diagnosis 05/20/20 HLD (hyperlipidemia) Discharge Diagnosis 05/20/20 Elevated creatine kinase Discharge Diagnosis 05/20/20 Social History Social History Type Response Smoking Status Never smoker entered on: 02/23/17 Sex
--- OUTSIDE RECORDS SUMMARY | 2024-02-15 09:49 | XMS_ITS | Continuity of Care Document ---
Author Organization [facility] Address [address] [place] [address]- Care Team Providers Care Distribution Sales Manager Name Role Phone Elizabeth Mensah MD Primary Care Physician [phone] [place] [facility] [place]/22 [facility] [address] [place] [address]- Attending Physician: Veronika Ingram Admitting Physician: AdmtrVeronika Referring Physician: Admtr, Ar8 [...] Given 1Result Comment: second dose 2Result Comment: [facility]#[id number] 3Admin Note: done here per pt Medications [...] 11 Refills, Maintenance, 01/24/22 16:56:00 EDT,Tablet, [facility]/pharmacy #1972, Partial fill upon patient [...]
--- OUTSIDE RECORDS SUMMARY | 2024-02-15 09:49 | XMS_ITS | Continuity of Care Document ---
Author Organization [facility] ter Address [address] [place] [address]- Care Team Providers Care Drilling Supervisor Name Role Phone Elizabeth Mensah MD Primary Care Physician En[place] [facility] [place] Date(s): 10/28/21 - 10/29/[address] [address]- Discharge Disposition: A-D/C Home Attending Physician: Gwen Gipson DO Admitting Physician: Terrence Jorge MD Referring Physician: Not on Staff, Referring MD [...] Comment: [facility]#[id number] 3Admin Note: done here per pt Medications Acetaminophen Tablet 650 mg, Tablet, By Mouth, Every 4 hours, PRN for Pain , Mild, Temperature Greater than 100.5, Routine, 10/28/21 20:53:00 EST Start Date: 10/28/21 Stop Date: 10/30/21 Status: Discontinued buPROPion 150 mg/24 hours (XL) oral tablet, [...] sacroiliac pain(Confirmed) Active Severe obesity(Confirmed) Active Snoring(Confirmed) 10/10/12 Active Results Radiology Reports * Exam Date Time Procedure Performing Provider Status 10/28/21 5:34 PM Chest Portable Cedrick Schaeffer; Auth (Verified) Notes: (Chest Portable) Reason For Exam: Shortness of Breath RESULT: Chest Portable Chest Portable Hx of Present Illness: Patient reports having increased mid sternal chest pressure starting a few weeks DERMATOLOGIST AND DERMATOPATHOLOGIST. Patient seen by her PCP today and sent for further evaluation, Patient reports 6 10 chest pressure at this time. Patient also reports feeling mildly lightheaded and; Reason: Shortness of Breath; Clinical Question(s): CHF COMPARISON: 11/03/2019 FINDINGS: LINES AND TUBES: None. LUNGS AND PLEURA: Low lung volumes with mild basilar atelectasis. Lungs are otherwise clear with no consolidation. Previously seen vascular congestion is improved. No pleural effusion. No pneumothorax. HEART, MEDIASTINUM AND MARTY: Moderate prominence of the cardiac silhouette, unchanged. Normal upper mediastinal and hilar contour. BONES AND SOFT TISSUES: No acute abnormality. IMPRESSION: Previously seen pulmonary edema has resolved. Cardiac enlargement and mild congestion without overtCHF. WSN: [id number] Ordering Physician: Tucker Hardy V Dictated By: Garett Patterson MD Dictated Date/Time: 10/28/21 6:00 pm Reviewed By: Garett Patterson MD Signed By: Garett Patterson MD Signed Date/Time: 10/28/21 6:00 pm Transcribed By: PIETER Transcribed Date/Time: 10/28/21 5:59 pm Vital Signs Most recent to oldest [Reference Range]: 1 2 3 Height 161 cm (10/29/21 11:35 AM) 161 cm (10/29/21 7:26 AM) 161 cm (10/29/21 4:18 AM) Weight 110.5 kg (10/28/21 6:14 PM) 110.5 kg (10/28/21 5:16 PM) Oxygen Saturation [94-100 %] 96 % (10/29/21 11:35 AM) 98 % (10/29/21 7:26 AM) 96 % (10/29/21 4:18 AM) Pulse Rate [55-90 bpm] 70 bpm (10/29/21 11:35 AM) 65 bpm (10/29/21 7:26 AM) 79 bpm (10/29/21 4:18 AM) Body Mass Index [18.5-24.99] 42.63 *>HHI* (10/28/21 6:14 PM) Blood Pressure [90-138/55-84 mm Hg] 109/64mm Hg (10/29/21 11:35 AM) 116/68mm Hg (10/29/21 7:26 AM) 111/56mm Hg (10/29/21 4:18 AM) Respiratory Rate [16-30 br/min] 18 br/min (10/29/21 11:35 AM) 18 br/min (10/29/21 11:00 AM) 18 br/min (10/29/21 9:37 AM) Temperature [96.8-100.4 DegF] 97.8 DegF (10/29/21 11:35 AM) 97.7 DegF (10/29/21 7:26 AM) 97.9 DegF (10/29/21 4:18 AM) Mode of Delivery (Oxygen) Room air (10/29/21 11:35 AM) Room air (10/29/21 7:26 AM) Room air (10/29/21 4:18 AM) Blood pressure sites Arm, left (10/29/21 11:35 AM) Arm, right (10/29/21 7:26 AM) Arm, left (10/29/21 4:18 AM) Temperature Route Oral (10/29/21 11:35 AM) Oral (10/29/21 7:26 AM) Oral (10/29/21 4:18 AM) Dry Weight 110.5 kg (10/28/21 6:14 PM) 110.5 kg (10/28/21 5:16 PM) Social History Social History Type Response Smoking Status Never smoker entered on: 02/23/17 Sex
== END 2024-02-12 14:26 | disposition home or self-care (01) ==
LOC: HO.HOP 11:40
PROVIDERS: PCP Internal Medicine; Visit Provider Psychiatry & Neurology Psychiatry
DX: F33.9 Major depressive disorder, recurrent, unspecified (principal); G25.0 Essential tremor; F43.12 Post-traumatic stress disorder, chronic; F41.1 Generalized anxiety disorder
CPT/HCPCS: 99214

== ENCOUNTER → 2024-02-12 11:40 | Outpatient (BNVA) | payer OTHER, SELFPAY | PROVIDERS: PCP Internal Medicine; Visit Provider Psychiatry & Neurology Psychiatry | DX: F33.9 Major depressive disorder, recurrent, unspecified (principal); G25.0 Essential tremor; F43.12 Post-traumatic stress disorder, chronic; F41.1 Generalized anxiety disorder | CPT/HCPCS: 99212 ==

== ENCOUNTER 2024-03-06 06:44 | Day surgery (SDC) | payer OTHER, SELFPAY ==
--- NOTE | 2024-03-05 13:07 | HO.ANESPROP2 ---
Documented by User: Genny Brown NP 03/05/24 13:09 HPI - Anesthesia Eval Consult details Narrative: 63yo F for Upper Endoscopy PMFSH Active Problems Active Problems: All Active Problems Abdominal cramping (Acute) Diarrhea (Acute) Major depression, recurrent, chronic (Acute) Overweight (Acute) Major depressive disorder, recurrent severe without psychotic features (Acute) Rash (Acute) Steatosis, liver (Acute) Hypertension (Acute) Diaphragmatic hernia (Acute) Sleep apnea with use of continuous positive airway pressure (CPAP) (Acute) Obesity (BMI 30-39.9) (Acute) Morbid obesity (Acute) Essential tremor (Acute) Chronic post-traumatic stress disorder (PTSD) (Chronic) Vertigo (Acute) Generalized anxiety disorder (Acute) Hyperparathyroid bone disease (Acute) Status post repair of paraesophageal diaphragmatic hernia (Acute) S/P laparoscopic sleeve gastrectomy (Acute) Hx of migraines (Acute) Arthritis (Acute) Osteoporosis (Acute) Migraines (Acute) Past Medical History Medical History (Updated 03/06/24 @ 08:33 by Ingrid Benito MD) SHALONDA (obstructive sleep apnea) Tremor Chronic post-traumatic stress disorder (PTSD) Pre-diabetes Vertigo Essential tremor Generalized anxiety disorder Hyperparathyroid bone disease BMI 35.0-35.9,adult Slow to wake up after anesthesia Arthritis Hx of low back pain Hiatal hernia GERD (gastroesophageal reflux disease) Hx of migraines Anxiety and depression BMI 36.0-36.9,adult Obesity Left atrial enlargement Migraines Osteoporosis Hyperparathyroidism History of kidney stones Hx of endometriosis Depression, major, severe recurrence Family History Family History Mother Depression Anxiety Asthma Osteoporosis Father Osteoporosis Brother Osteoporosis Asthma Depression Sister Depression Anxiety Obesity Heart disease Sister IBS (irritable bowel syndrome) Anxiety Depression Family history of problems with anesthesia: No Surgical History Surgical History Status post repair of paraesophageal diaphragmatic hernia S/P laparoscopic sleeve gastrectomy Hx of lithotripsy Hx of arthroscopic knee surgery History of colon resection History of Erick fundoplication History of wisdom tooth extraction, class I edentulism Hx of bladder endoscopy Hx of colonoscopy Hx of arthroplasty Hx of knee surgery Hx of tonsillectomy Hx of appendectomy History of Problems with Anesthesia: Yes Social History Social History Household Members: None Are you a primary career and technology education teacher to a significant other at home: No Do you presently have visiting nurse or other home services: No Alcohol intake: never Patient Tobacco Use Status: Never used Tobacco Are you DNR?: No Advance Directives: No Advance Directives Information Provided: Yes Nutrition Risks: No Nutritional Risk service: No Current occupational status: disabled Meds Allergies Allergy/AdvReac Type Severity Reaction Status Date / Time metoclopramide [From REGLAN] Allergy Severe PANIC Verified 03/06/24 07:13 ATTACKS, agitation Penicillins [PENICILLINS] Allergy Severe SOB, Verified 03/06/24 07:13 couldn't breathe sulfamethoxazole Allergy Intermediate HIVES Verified 03/06/24 07:13 [From BACTRIM] trimethoprim [From BACTRIM] Allergy Intermediate HIVES Verified 03/06/24 07:13 surgical skin glue Allergy Severe Hives Uncoded 03/06/24 07:13 Home Medications ?Medication ?Instructions ?Recorded ?Confirmed ?Last Taken ?Type denosumab 60 mg/mL subcutaneous mg subcut [id number] 07/19/22 02/12/24 Unknown History syringe (Prolia) naratriptan 2.5 mg tablet 2.5 mg PO DAILY PRN Headache 10/31/22 03/06/24 Unknown History loperamide 2 mg tablet (Imodium 2 mg PO Q6H PRN Diarrhea 04/11/23 03/06/24 Unknown History A-D) Exam Narrative Narrative: ECHO 2021 Conclusions: - The left ventricular systolic function is normal. The calculated ejection fraction is 60% by biplane method. - No obvious valvular pathology seen on this study. Assessment and Plan Assessment Anesthesia Assessment: Chart Reviewed Final Anesthetic Review Family History of Problems with Anesthesia: No History of Problems with Anesthesia: Yes Documented by User: Ingrid Benito MD 03/06/24 08:35 PMFSH Active Problems Active Problems: All Active Problems Abdominal cramping (Acute) Diarrhea (Acute) Major depression, recurrent, chronic (Acute) Overweight (Acute) Major depressive disorder, recurrent severe without psychotic features (Acute) Rash (Acute) Steatosis, liver (Acute) Hypertension (Acute) Diaphragmatic hernia (Acute) Sleep apnea. Not using CPAP. Mask does not fit Obesity (BMI 30-39.9) (Acute) Morbid obesity (Acute) Essential tremor (Acute) Chronic post-traumatic stress disorder (PTSD) (Chronic) Vertigo (Acute) Generalized anxiety disorder (Acute) Hyperparathyroid bone disease (Acute) Status post repair of paraesophageal diaphragmatic hernia (Acute) S/P laparoscopic sleeve gastrectomy Hx of migraines (Acute) Arthritis (Acute) Osteoporosis (Acute) Migraines (Acute) Past Medical History Medical History (Updated 03/06/24 @ 08:33 by Ingrid Benito MD) SHALONDA (obstructive sleep apnea) Tremor Chronic post-traumatic stress disorder (PTSD) Pre-diabetes Vertigo Essential tremor Generalized anxiety disorder Hyperparathyroid bone disease BMI 35.0-35.9,adult Slow to wake up after anesthesia Arthritis Hx of low back pain Hiatal hernia GERD (gastroesophageal reflux disease) Hx of migraines Anxiety and depression BMI 36.0-36.9,adult Obesity Left atrial enlargement Migraines Osteoporosis Hyperparathyroidism History of kidney stones Hx of endometriosis Depression, major, severe recurrence Family History Family History Mother Depression Anxiety Asthma Osteoporosis Father Osteoporosis Brother Osteoporosis Asthma Depression Sister Depression Anxiety Obesity Heart disease Sister IBS (irritable bowel syndrome) Anxiety Depression Family history of problems with anesthesia: No Surgical History Surgical History Status post repair of paraesophageal diaphragmatic hernia S/P laparoscopic sleeve gastrectomy Hx of lithotripsy Hx of arthroscopic knee surgery History of colon resection History of Erick fundoplication History of wisdom tooth extraction, class I edentulism Hx of bladder endoscopy Hx of colonoscopy Hx of arthroplasty Hx of knee surgery Hx of tonsillectomy Hx of appendectomy History of Problems with Anesthesia: Yes (Slow awakening with GA) Social History Social History Household Members: None Are you a primary career and technology education teacher to a significant other at home: No Do you presently have visiting nurse or other home services: No Alcohol intake: never Patient Tobacco Use Status: Never used Tobacco Are you DNR?: No Advance Directives: No Advance Directives Information Provided: Yes Nutrition Risks: No Nutritional Risk service: No Current occupational status: disabled Meds Allergies Allergy/AdvReac Type Severity Reaction Status Date / Time metoclopramide [From REGLAN] Allergy Severe PANIC Verified 03/06/24 07:13 ATTACKS, agitation Penicillins [PENICILLINS] Allergy Severe SOB, Verified 03/06/24 07:13 couldn't breathe sulfamethoxazole Allergy Intermediate HIVES Verified 03/06/24 07:13 [From BACTRIM] trimethoprim [From BACTRIM] Allergy Intermediate HIVES Verified 03/06/24 07:13 surgical skin glue Allergy Severe Hives Uncoded 03/06/24 07:13 Home Medications ?Medication ?Instructions ?Recorded ?Confirmed ?Last Taken ?Type denosumab 60 mg/mL subcutaneous mg subcut [id number] 07/19/22 02/12/24 Unknown History syringe (Prolia) naratriptan 2.5 mg tablet 2.5 mg PO DAILY PRN Headache 10/31/22 03/06/24 Unknown History loperamide 2 mg tablet (Imodium 2 mg PO Q6H PRN Diarrhea 04/11/23 03/06/24 Unknown History A-D) Exam Height,Weight and Vital Signs: Height 5 ft 3 in Weight 86.636 kg Vital Signs Temp Pulse Resp BP Pulse Ox O2 Del Method 03/06/24 07:16 98.1 F 86 18 140/77 H 97 Room Air Airway Mallampati Class: III (Small mouth) TM Dist: >3cm Neck ROM: Full Loose/Missing/Broken Teeth: Yes (Molars extracted. Front tooth bottom slightly loose) Heart: RRR Lungs: CTAB Assessment and Plan Assessment Anesthesia Assessment: Anesthesia Plan Discussed and Chart Reviewed Final Anesthetic Review Family History of Problems with Anesthesia: No History of Problems with Anesthesia: Yes (Slow awakening with GA) NPO: Yes ASA Class: III Final Preanesthetic Review: No Changes in Pt Med Stat, Meds/Allgs Chart Reviewed, Consent Obtained/Reviewed and Anes Risks/Benef Reviewed Patient Risk: Intermediate Procedure Risk: Low Assessment/Block/Sedation in SS: Assess/Block/Sedation- Anesthetic Plan Anesthetic Plan: GA and TIVA Disposition: Standard PACU
[2024-03-06 06:53] VITALS: BMI 33.8
[2024-03-06] MEDS: Lactated Ringers 1,000 ML 100 ML IVCONT (06:59)
[2024-03-06 07:16] VITALS: BP 140/77; PULSE 86; RESP 18; TEMP 36.7; O2SAT 97
--- NOTE | 2024-03-06 08:12 | P.HPSUR_ITS ---
Pre-Procedural Eval Section A - 24 Hr Update-Section A only Date of Service: 03/06/24 Section B - Complete if H&P > 30 days Chief Complaint: Intestinal malabsorption, unspecified Details of Present Illness: egd for assessment of pso fecal fat in stool Relevant Family History (Specify if Yes): No Relevant Social History: None Present Medications: see Short Stay [facility] assessment Medical History: Significant History (Tremor Chronic post-traumatic stress disorder (PTSD) Pre-diabetes Vertigo Essential tremor Generalized anxiety disorder Hyperparathyroid bone disease BMI 35.0-35.9,adult Slow to wake up after anesthesia Arthritis Hx of low back pain Hiatal hernia GERD (gastroesophageal reflux disease) Hx of migraine) History of Previous Operations: Relevant previous surgery/procedure and date(s) ( Status post repair of paraesophageal diaphragmatic hernia S/P laparoscopic sleeve gastrectomy Hx of lithotripsy Hx of arthroscopic knee surgery History of colon resection History of Erick fundoplication History of wisdom tooth extraction, class I edentulism Hx of bladder endoscopy Hx of colonoscop) Allergies: Allergies Allergy/AdvReac Type Severity Reaction Status Date / Time metoclopramide [From REGLAN] Allergy Severe PANIC Verified 03/06/24 07:13 ATTACKS, agitation Penicillins [PENICILLINS] Allergy Severe SOB, Verified 03/06/24 07:13 couldn't breathe sulfamethoxazole Allergy Intermediate HIVES Verified 03/06/24 07:13 [From BACTRIM] trimethoprim [From BACTRIM] Allergy Intermediate HIVES Verified 03/06/24 07:13 surgical skin glue Allergy Severe Hives Uncoded 03/06/24 07:13 Review of Systems Sugical H&P ROS: Negative: Constitution, Cardiovascular, Respiratory, Neurological, Psychiatric, Hem-Onc, Allergic/Immunologic, Gastrointestinal, Genitourinary, Musculoskeletal, Integumentary, Endocrine and Eyes/Ears/Nose/Throat Exam Surgical H&P Exam: Normal: HEENT, Normal: Heart, Normal: Lungs, Normal: Extremities, Normal: Abdomen, Normal: Skin and Normal: Neurological Plan Diagnosis/Plan: Unchanged I have reviewed the history and physical and performed a pertinent physical examination on my patient. No changes have occurred unless specified. EGD for malabsorption Time Spent With Patient Time: Total time managing care of this patient today ____ minutes.
--- OUTSIDE RECORDS SUMMARY | 2024-03-06 08:42 | XMS_ITS | Continuity of Care Document ---
Author Organization [facility] Address [address] [place] [address]- Care Team Providers Care Missile Tracking Technician Name Role Phone Elizabeth Mensah MD Primary Care Physician [phone] Encounter [facility] Date(s): 03/17/22 - 04/16/22 [facility] [address] [place], [place] [address] Allergies, Adverse Reactions, Alerts Substance [...] Given 1Result Comment: second dose 2Result Comment: [facility]#[id number] 3Admin Note: done here per pt Medications [...] tablet, 11 Refills, Maintenance, 01/24/22 16:56:00 EDT,Tablet, [facility]/pharmacy #[id number], Partial fill upon patient request if [...]
--- OUTSIDE RECORDS SUMMARY | 2024-03-06 08:43 | XMS_ITS | Continuity of Care Document ---
Author Organization [facility] Address [address] [place] [address]- Care Team Providers Care Test Borer Helper Name Role Phone Amanda Hansen MD, V Primary Care Physician [phone] Encounter [facility] Date(s): 01/31/24 - 03/01/[address] [address]- Attending Physician: Veronika Ingram Admitting Physician: AdmtrVeronika Referring Physician: Admtr Ar8 Allergies, Adverse Reactions, Alerts Substance Reaction [...] virus vaccine, inactivated 07/26/10 Give n SARS-CoV-2(COVID-19)mRNA-LNP vac([id number]) 06/26/23 Recorded [id number] 12y+ bivalent booster vax 05/31/22 Recorded SARS-CoV-2 mRNA ([id number]) vax 01/17/22 Recorded SARS-CoV-2 (COVID-19) mRNA BNT-162b2 vac 08/01/21 Recorded SARS-CoV-2 (COVID-19) mRNA BNT-162b2 vac 3 4/24/21 Recorded SARS-CoV-2 (COVID-19) mRNA BNT-162b2 vac 12/11/20 Recorded zoster vaccine, inactivated 09/09/19 Recorded zoster vaccine, inactivated 07/02/19 Recorded tetanus-diphtheria toxoids (Td) 10/09/13 Recorded tetanus-diphtheria toxoids (Td) 09/18/03 Given FluLaval (oldterm) 06/01/09 Given Influenza Virus Vaccine (oldterm) 4 10/27/08 Given 1Result Comment: [facility]: [id number] 2Result Comment: [facility]#[id number] 3Result Comment: second dose 4Admin Note: done [...] 0 Refills, Maintenance, 06/15/23 11:07:00 EDT, Tablet, [facility]/pharmacy #[id number], Partial fill upon patient request [...] 1 Refills, Maintenance, 06/05/22 11:27:00 EDT, Solution, [facility], Partial fill upon patient [...] Personnel Name: Amanda Hansen MD, V Position: [facility] Physician - Primary Care Member Role: PCP Address: Address: [address] [place] [address]- Name: Neelam Romero RN Position: [facility] RN Member Role: Primary Care Nurse Care Team Related Persons Name: MASOUD THAPA Address: [address] [address] Name: MASOUD PAYNE Address: [address] [address]
--- NOTE | 2024-03-06 08:54 | W.PM.OPN ---
Operative Note Operative Note Date of Service: 03/06/24 Narrative: Procedure Description: EGD Indication: malabsorption Anesthesia: MAC FLEXIBLE TRANSORAL UPPER GASTROINTESTINAL ENDOSCOPY UPPER ENDOSCOPY Consent: Indications for the procedure and potential complications of bleeding, perforation, reaction to medications and missed diagnosis were discussed with the patient and informed consent was obtained. Instrument: Olympus GIF H 190 J mid size upper endoscope Monitoring: Vital signs and clinical assessment, continuous EKG monitoring, Pulse oximetry, Carbon Dioxide monitoring and blood pressure monitoring were done throughout the procedure. Procedure: The patient was placed in the left lateral decubitis position and pre-procedure medications were administered and a bite block was placed. The endoscope was inserted into the mouth and advanced under direct vision to the third part of duodenum. A careful inspection was made as the upper endoscope was withdrawn including a retroflexed examination of the proximal stomach; Findings and interventions are described below. Findings: Larynx:normal Esophagus: GE junction at 35 cm, diaphragm hiatus at 35 cm, normal mucosa Stomach: patchy erythema . Biopsies were obtained. Grade 2 flap valve on retroflexed examination of the cardia. lap sleeve changes seen with constriction mid stomach Duodenum: Normal bulb and descending duodenum, bx taken Intervention: Biopsies as noted above, Impression/Findings: gastritis PLAN: GERD precautions await bx
[2024-03-06 09:36] VITALS: BP 111/61; PULSE 76; RESP 14; TEMP 36.4; O2SAT 95
[2024-03-06 09:51] VITALS: BP 126/76; PULSE 68; RESP 16; O2SAT 98
[2024-03-06 10:06] VITALS: BP 134/77; PULSE 64; RESP 18; TEMP 36.6; O2SAT 98
[2024-03-21 21:09] LABS: Lactase 45.5 (15.0-45.5); Maltase 131.2 (100.0-224.4); Sucrase 31.1 (25.0-69.9)
== END 2024-03-06 10:35 | disposition home or self-care (01) ==
PROVIDERS: PCP Internal Medicine; Visit Provider Internal Medicine Gastroenterology
PROC: 0DJ08ZZ Inspection of Upper Intestinal Tract, Via Natural or Artificial Opening Endoscopic (ICD-10-PCS; CPT 43235; principal; 2024-03-06 08:50)
DX: K90.9 Intestinal malabsorption, unspecified (principal); K29.50 Unspecified chronic gastritis without bleeding; K51.50 Left sided colitis without complications; R19.7 Diarrhea, unspecified; K44.9 Diaphragmatic hernia without obstruction or gangrene; F43.12 Post-traumatic stress disorder, chronic; G25.0 Essential tremor; R73.03 Prediabetes; R42 Dizziness and giddiness; R21 Rash and other nonspecific skin eruption; E66.9 Obesity, unspecified; Z68.36 Body mass index [BMI] 36.0-36.9, adult; G47.33 Obstructive sleep apnea (adult) (pediatric); Z99.89 Dependence on other enabling machines and devices; Z88.0 Allergy status to penicillin; Z88.2 Allergy status to sulfonamides; Z90.3 Acquired absence of stomach [part of]; Z98.890 Other specified postprocedural states
CPT/HCPCS: 43239; 36415; 82657; 88305; 88313; 88342; J2704

== ENCOUNTER → 2024-03-06 06:44 | Outpatient (BNV) | payer OTHER, SELFPAY | PROVIDERS: PCP Internal Medicine; Visit Provider Internal Medicine Gastroenterology | DX: K90.9 Intestinal malabsorption, unspecified (principal); K29.70 Gastritis, unspecified, without bleeding | CPT/HCPCS: 43239 ==

== ENCOUNTER 2024-03-10 11:11 | Outpatient (AMB) | payer OTHER, SELFPAY ==
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
== END 2024-03-10 12:10 | disposition home or self-care (01) ==
LOC: HO.HOP 11:11
PROVIDERS: PCP Internal Medicine; Visit Provider Psychiatry & Neurology Psychiatry
DX: F33.9 Major depressive disorder, recurrent, unspecified (principal); F41.1 Generalized anxiety disorder; R19.7 Diarrhea, unspecified
CPT/HCPCS: 90833; 99213

== ENCOUNTER → 2024-03-10 11:11 | Outpatient (BNVA) | payer OTHER, SELFPAY | PROVIDERS: PCP Internal Medicine; Visit Provider Psychiatry & Neurology Psychiatry | DX: F33.9 Major depressive disorder, recurrent, unspecified (principal); F41.1 Generalized anxiety disorder; K52.9 Noninfective gastroenteritis and colitis, unspecified; Z71.89 Other specified counseling | CPT/HCPCS: 99212 ==

== ENCOUNTER 2024-04-14 11:34 | Outpatient (AMB) | payer OTHER, SELFPAY ==
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
== END 2024-04-14 12:06 | disposition home or self-care (01) ==
LOC: HO.HOP 11:34
PROVIDERS: PCP Internal Medicine; Visit Provider Psychiatry & Neurology Psychiatry
DX: F33.9 Major depressive disorder, recurrent, unspecified (principal); R79.89 Other specified abnormal findings of blood chemistry; F41.1 Generalized anxiety disorder; R19.7 Diarrhea, unspecified
CPT/HCPCS: 90833; 99213

== ENCOUNTER → 2024-04-14 11:34 | Outpatient (BNVA) | payer OTHER, SELFPAY | PROVIDERS: PCP Internal Medicine; Visit Provider Psychiatry & Neurology Psychiatry | DX: F33.9 Major depressive disorder, recurrent, unspecified (principal); F41.1 Generalized anxiety disorder | CPT/HCPCS: 99212 ==

== ENCOUNTER 2024-04-16 09:49 | Outpatient (REF) | payer OTHER, SELFPAY ==
[2024-04-16 10:31] LABS: Estimated Average Glucose 97 mg/dL
[2024-04-16 11:01] LABS: Alanine Aminotransferase 14 U/L (0-31); Albumin Level 4.2 g/dL (3.5-5.0); Alkaline Phosphatase 59 U/L (39-117); Anion Gap 12 (12-20); Aspartate Amino Transferase 14 U/L (5-31); Bilirubin Total 0.3 mg/dL (0.0-1.0); Blood Urea Nitrogen 22 mg/dL (9-16); Calcium 9.5 mg/dL (8.4-10.2); Carbon Dioxide 24 mmol/L (22-29); Chloride 107 mmol/L (96-108); Estimated Glomerular Filt Rate 55; Glucose Fasting 88 mg/dL (60-99); Potassium 4.4 mmol/L (3.3-5.1); Sodium 139 mmol/L (135-145); Total Protein 6.7 g/dL (6.5-8.0)
[2024-04-16 12:02] LABS: Appearance Urine Clear; Color Urine Yellow; Glucose Urine UA Negative (Negative); Leukocyte Esterase Urine Negative (Negative); Nitrite Urine Negative (Negative); Specific Gravity - Urine 1.015 (1.005-1.025); Urine Blood Negative (Negative); Urine Ketones Negative (Negative); Urine Protein Negative (Neg-Trace)
[2024-04-16 12:35] LABS: Creatinine Urine 80.68 mg/dL; Microalbumin Urine < 5.0 mg/L
[2024-04-26 17:38] LABS: Cortisol, Free 0.21 mcg/dL
== END 2024-04-16 09:50 | disposition home or self-care (01) ==
LOC: HO.LAB 09:49
PROVIDERS: PCP Internal Medicine; Visit Provider Psychiatry & Neurology Psychiatry
DX: R79.89 Other specified abnormal findings of blood chemistry (principal); R73.9 Hyperglycemia, unspecified; R19.7 Diarrhea, unspecified; F33.9 Major depressive disorder, recurrent, unspecified
CPT/HCPCS: 36415; 80053; 81003; 82043; 82530; 82570; 83036

== ENCOUNTER 2024-05-09 10:34 | Outpatient (AMB) | payer OTHER, SELFPAY ==
--- NOTE | 2024-05-09 10:35 | A.OFFVIS_ITS ---
Intake Visit Reasons: Questions regarding medications Intake Note: Dina presents via phone call today for a requested telehealth appt. CC; Pt is concerned about their medications and has multiple questions about their instructions for said medications. Pt also has questions about their diet and why this is all necessary. Pt is very concerned because they have not gotten any official diagnosis from their provider. Pt is very upset with the lack of effort and pathetic resources that were provided to her for the FODMAP diet. Pt is still having very abnormal bowel habits and is very discouraged. It Applications Developer Required: No Allergies metoclopramide [From REGLAN] Allergy (Severe, Verified 05/09/24 10:39) PANIC ATTACKS, agitation Penicillins [PENICILLINS] Allergy (Severe, Verified 05/09/24 10:39) SOB, couldn't breathe sulfamethoxazole [From BACTRIM] Allergy (Intermediate, Verified 05/09/24 10:39) HIVES trimethoprim [From BACTRIM] Allergy (Intermediate, Verified 05/09/24 10:39) HIVES surgical skin glue Allergy (Severe, Uncoded 03/06/24 07:13) Hives HPI HPI Questions regarding medications: Details: 63 yr old f being called to discuss care she had EGD 03/03- constriction noted where she had her sleeve, lactase level was normal she has explosive diarrhea not on a pariticular diet and cant connect to any particular food per se she feels some improvement with creon rast testing neg, sister with nickel allergy other studies: capsule - non specific erythema colo 09/01-- lymphoid aggregates, hyperplastic polyp, SSA not excluded EXAM: looks well, good color A/P: 1/ diarrhea, possible bile acid related due to prior colonic resection PLAN: 1/ trial of welchol discussed, if no better then FODMAP trial and can check histamine, tryptase--cont with creon as helping her [facility] Medical History SHALONDA (obstructive sleep apnea) Tremor Chronic post-traumatic stress disorder (PTSD) Pre-diabetes Vertigo Essential tremor Generalized anxiety disorder Hyperparathyroid bone disease BMI 35.0-35.9,adult Slow to wake up after anesthesia Arthritis Hx of low back pain Hiatal hernia GERD (gastroesophageal reflux disease) Hx of migraines Anxiety and depression BMI 36.0-36.9,adult Obesity Left atrial enlargement Migraines Osteoporosis Hyperparathyroidism History of kidney stones Hx of endometriosis Depression, major, severe recurrence Surgical History History of esophagogastroduodenoscopy (EGD) Status post repair of paraesophageal diaphragmatic hernia S/P laparoscopic sleeve gastrectomy Hx of lithotripsy Hx of arthroscopic knee surgery History of colon resection History of Erick fundoplication History of wisdom tooth extraction, class I edentulism Hx of bladder endoscopy Hx of colonoscopy Hx of arthroplasty Hx of knee surgery Hx of tonsillectomy Hx of appendectomy Family History Mother Depression Anxiety Asthma Osteoporosis Father Osteoporosis Brother Osteoporosis Asthma Depression Sister Depression Anxiety Obesity Heart disease Sister IBS (irritable bowel syndrome) Anxiety Depression Social History Household Members: None Are you a primary manager wound care to a significant other at home: No Do you presently have visiting nurse or other home services: No Alcohol intake: never Patient Tobacco Use Status: Never used Tobacco service: No Current occupational status: disabled Telehealth Telehealth Telehealth Platform: [employer] Location of provider rendering services: practice address Location of patient: address on file Patient Identification confirmed using: Name, : Yes Telehealth method: video Patient verbally consented to treatment: Yes Patient verbally consented to billing insurance company: Yes Patient informed of any privacy concerns related to visit: Yes Minutes spent on Phone/Video with Pt.: 16 Assessment & Plan Assessment & Plan (1) Diarrhea: Code(s): R19.7 - Diarrhea, unspecified Category: Surgical Plan: see above Coding Level of Care Code Tele Est Pt Level 3 (34374) Diagnoses Diarrhea R19.7
--- OUTSIDE RECORDS SUMMARY | 2024-05-09 10:36 | XMS_ITS | Continuity of Care Document ---
Author Organization [facility] Address [address] [place] [address]- Care Team Providers Care Intake Rn Name Role Phone Tyrone MOY, Amanda Shaw Primary Care Physician Encounter [facility] Date(s): 03/24/24 - 04/23/24 [facility] [address] [place] [id number] Allergies, Adverse Reactions, Alerts Substance [...] virus vaccine, inactivated 07/26/10 Give n SARS-CoV-2(COVID-19)mRNA-LNP vac([id number]) 06/26/23 Recorded [id number] 12y+ bivalent booster vax 05/31/22 Recorded SARS-CoV-2 mRNA (numerfh-whvt-yzkji) vax 01/17/22 Recorded SARS-CoV-2 (COVID-19) mRNA BNT-162b2 vac 08/01/21 Recorded SARS-CoV-2 (COVID-19) mRNA BNT-162b2 vac 3 01/01/21 Recorded SARS-CoV-2 (COVID-19) mRNA BNT-162b2 vac 12/11/20 Recorded zoster vaccine, inactivated 09/09/19 Recorded zoster vaccine, inactivated 07/02/19 Recorded tetanus-diphtheria toxoids (Td) 10/09/13 Recorded tetanus-diphtheria toxoids (Td) 09/18/03 Given FluLaval (oldterm) 06/01/09 Given Influenza Virus Vaccine (oldterm) 4 10/27/08 Given 1Result Comment: [facility]: [id number] 2Result Comment: [facility]#[phone] 3Result Comment: second dose 4Admin Note: done [...] 0 Refills, Maintenance, 06/15/23 11:07:00 EDT, Tablet, [facility]/pharmacy #1972, Partial fill upon [...] tablet, 3 Refills, Maintenance, 11/08/23 10:56:00 EST, [facility]/pharmacy #1972, 160.6, cm, 11/08/23 10:54:00 EST, Height Start Date: 11/08/23 Status: Ordered Prolia 60 mg/mL subcutaneous solution 1 mL = 60 mg, Subcutaneous Injection, Every 6 months, # 1 mL, 1 Refills, Maintenance, 06/05/22 11:27:00 EDT, Solution, [facility], Partial fill upon [...] Personnel Name: Amanda Hansen MD, V Position: [facility] Physician - Primary Care Member Role: PCP Address: Address: [address] [place] [phone]- Name: Neelam Romero RN Position: [facility] RN Member Role: Primary Care Nurse Care Team Related Persons Name: MASOUD THAPA Address: [address] [address] Name: MASOUD PAYNE Address: home [address] [place] [id number]
--- OUTSIDE RECORDS SUMMARY | 2024-05-09 10:37 | XMS_ITS | Continuity of Care Document ---
Author Organization [facility] Address [address] [place] [address]- Care Team Providers Care Grinder Hardboard Name Role Phone Tyrone MOY, Amanda Shaw Primary Care Physician [facility] Date[facility]): 03/22/24 - 04/21/24 [facility] [address] [place] [id number] Allergies, Adverse Reactions, Alerts Substance [...] Jerry rded influenza virus vaccine, inactivated 07/07/21 Jeryr rded influenza virus vaccine, inactivated 07/05/20 Jerry rded influenza virus vaccine, inactivated 2 06/30/19 Gi man influenza virus vaccine, inactivated 07/26/10 Give n SARS-CoV-2(COVID-19)mRNA-LNP vac([id number]) 06/26/23 Recorded [id number] 12y+ bivalent booster vax 05/31/22 Recorded SARS-CoV-2 mRNA (fpidnkl-berb-txzyj) vax 01/17/22 Recorded SARS-CoV-2 (COVID-19) mRNA BNT-162b2 vac 08/01/21 Recorded SARS-CoV-2 (COVID-19) mRNA BNT-162b2 vac 3 01/01/21 Recorded SARS-CoV-2 (COVID-19) mRNA BNT-162b2 vac 12/11/20 Recorded zoster vaccine, inactivated 09/09/19 Recorded zoster vaccine, inactivated 07/02/19 Recorded tetanus-diphtheria toxoids (Td) 10/09/13 Recorded tetanus-diphtheria toxoids (Td) 09/18/03 Given FluLaval (oldterm) 06/01/09 Given Influenza Virus Vaccine (oldterm) 4 10/27/08 Given 1Result Comment: [facility]: [id number] 2Result Comment: [facility]#[id number] 3Result Comment: second dose 4Admin Note: done [...] tablet, 3 Refills, Maintenance, 11/08/23 10:56:00 EST, [facility]/pharmacy #[id number], 160.6, cm, 11/08/23 10:54:00 EST, Height Start Date: 11/08/23 Status: Ordered Prolia 60 mg/mL subcutaneous solution 1 mL = 60 mg, Subcutaneous Injection, Every 6 months, # 1 mL, 1 Refills, Maintenance, 06/05/22 11:27:00 EDT, Solution, [facility], Partial fill upon patient [...] Personnel Name: Amanda Hansen MD, V Position: [facility] Physician - Primary Care Member Role: PCP Address: Address: [address] [place] [phone]- Name: Neelam Romero RN Position: [facility] RN Member Role: Primary Care Nurse Care Team Related Persons Name: MASOUD THAPA Address: home [address] [place] [phone] Name: MASOUD PAYNE Address: home [address] [place] [id number]
== END 2024-05-09 14:32 | disposition home or self-care (01) ==
LOC: HO.HGI 10:34
PROVIDERS: PCP Internal Medicine; Visit Provider Internal Medicine Gastroenterology
DX: R19.7 Diarrhea, unspecified (principal)
CPT/HCPCS: 99213

== ENCOUNTER → 2024-05-09 10:34 | Outpatient (BNVA) | payer OTHER, SELFPAY | PROVIDERS: PCP Internal Medicine; Visit Provider Internal Medicine Gastroenterology ==

== ENCOUNTER 2024-06-16 13:51 | Outpatient (AMB) | payer OTHER, SELFPAY ==
--- OUTSIDE RECORDS SUMMARY | 2024-06-16 13:54 | XMS_ITS | Continuity of Care Document ---
Author Organization [facility] Address [address] [place] [address]- Care Team Providers Care Sales Support Consultant Name Role Phone Amanda Hansen MD, V Primary Care Physician Encounter [facility] [place] Date(s): 04/25/24 - 05/25/24 [facility] [address] [place] [address]- Allergies, Adverse Reactions, Alerts Substance Reaction Severity [...] virus vaccine, inactivated 07/26/10 Give n SARS-CoV-2(COVID-19)mRNA-LNP vac([id number]) 06/26/23 Recorded [id number] 12y+ bivalent booster vax 05/31/22 Recorded SARS-CoV-2 mRNA (qqaluvr-shkm-euqmc) vax 01/17/22 Recorded SARS-CoV-2 (COVID-19) mRNA BNT-162b2 vac 08/01/21 Recorded SARS-CoV-2 (COVID-19) mRNA BNT-162b2 vac 3 01/01/21 Recorded SARS-CoV-2 (COVID-19) mRNA BNT-162b2 vac 4/3/21 Recorded zoster vaccine, inactivated 09/09/19 Recorded zoster vaccine, inactivated 07/02/19 Recorded tetanus-diphtheria toxoids (Td) 10/09/13 Recorded tetanus-diphtheria toxoids (Td) 09/18/03 Given FluLaval (oldterm) 06/01/09 Given Influenza Virus Vaccine (oldterm) 4 10/27/08 Given 1Result Comment: [facility]: [id number] 2Result Comment: [facility]#[phone] 3Result Comment: second dose 4Admin Note: done [...] 1 Refills, Maintenance, 06/05/22 11:27:00 EDT, Solution, [facility], Partial fill upon [...] Care team information Care Team Personnel Name: Amnada Hansen MD, V Position: [facility] Physician - Primary Care Member Role: PCP Address: Address: [address] [place] [phone]- Name: Neelam Romero RN Position: [facility] RN Member Role: Primary Care Nurse Care Team Related Persons Name: MASOUD THAPA Address: [address] [address] Name: MASOUD PAYNE Address: [address] [address]
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
== END 2024-06-16 14:55 | disposition home or self-care (01) ==
LOC: HO.HOP 13:51
PROVIDERS: PCP Internal Medicine; Visit Provider Psychiatry & Neurology Psychiatry
DX: F33.9 Major depressive disorder, recurrent, unspecified (principal); F43.12 Post-traumatic stress disorder, chronic; F41.1 Generalized anxiety disorder
CPT/HCPCS: 90833; 99213

== ENCOUNTER → 2024-06-16 13:51 | Outpatient (BNVA) | payer OTHER, SELFPAY | PROVIDERS: PCP Internal Medicine; Visit Provider Psychiatry & Neurology Psychiatry | DX: F33.9 Major depressive disorder, recurrent, unspecified (principal); F43.12 Post-traumatic stress disorder, chronic; F41.1 Generalized anxiety disorder; Z71.89 Other specified counseling | CPT/HCPCS: 99212 ==

== ENCOUNTER 2024-08-18 10:55 | Outpatient (AMB) | payer OTHER, SELFPAY ==
--- NOTE | 2024-08-18 10:56 | MHC.OFFVIS ---
Vital Signs 08/18/24 11:01 Height 5 ft 4 in Weight 200 lb 9.93 oz BMI 34.4 BP 114/59 L Blood Pressure Location Lt brachial Position Sitting Pulse 97 Intake Visit Reasons: 4 month follow up Intake Note: Dina presents in the office as a 4 month follow up. CC: She has stopped taking the colsevalem and the creon. She was told not to take it with any medications with the colesevalam. She states she is in the process of moving and she is taking ibuprofen from pain in her body and she wants to know what she should do as she has been getting twinges in her stomach. She states that she had a surgery due to twinges in 2016 and she never was given a reason as to why she had that surgery. Lately she is getting the feeling in the RLQ. [employer] Required: No Allergies metoclopramide [From REGLAN] Allergy (Severe, Verified 08/18/24 11:02) PANIC ATTACKS, agitation Penicillins [PENICILLINS] Allergy (Severe, Verified 08/18/24 11:02) SOB, couldn't breathe sulfamethoxazole [From BACTRIM] Allergy (Intermediate, Verified 08/18/24 11:02) HIVES trimethoprim [From BACTRIM] Allergy (Intermediate, Verified 08/18/24 11:02) HIVES surgical skin glue Allergy (Severe, Uncoded 08/18/24 11:02) Hives HPI HPI 4 month follow up: Details: 64 yr old f w/ hx of partial colon resection for ischemic hemorrhagic ulcer 2016 being seen for f/u RECAP: she had EGD 03/03- constriction noted where she had her sleeve, lactase level was normal she has explosive diarrhea not on a pariticular diet and cant connect to any particular food per se she feels some improvement with creon rast testing neg, sister with nickel allergy other studies: capsule - non specific erythema colo 09/01-- lymphoid aggregates, hyperplastic polyp, SSA not excluded INTERIM: she is taking colveselam she is happy with it stool is standard now she stopped her creon she has to be careful with fat intake using ibuprofen, moving and has sore knees and back EXAM: GENERAL: The patient is well developed and nontoxic. VITAL SIGNS:see workflow HEENT: Nonicteric sclerae, PERRLA, EOMI. Oropharynx clear. Moist mucous membranes. Conjunctivae appear well perfused. No thyroid mass. CHEST: Chest wall is nontender. HEART: Regular rate and rhythm without murmurs. LUNGS: Clear to auscultation bilaterally. ABDOMEN: Soft, positive bowel sounds, nontender, no organomegaly.no flank tenderness SKIN: No rash, no excessive bruising, petechiae, or purpura. NEUROLOGIC: Cranial nerves II-XII intact without motor/sensory deficit. Psych: normal affect A/P: 1/ diarrhea, possible bile acid related due to prior colonic resection, seems improved with bile acid binder PLAN: 1/ cont bile acid binder 2/ advised to avoid nsaids, but nothing else works, gave her a v short course of celebrex, and advised to f/u PCP for kidney eval [facility] Medical History SHALONDA (obstructive sleep apnea) Tremor Chronic post-traumatic stress disorder (PTSD) Pre-diabetes Vertigo Essential tremor Generalized anxiety disorder Hyperparathyroid bone disease BMI 35.0-35.9,adult Slow to wake up after anesthesia Arthritis Hx of low back pain Hiatal hernia GERD (gastroesophageal reflux disease) Hx of migraines Anxiety and depression BMI 36.0-36.9,adult Obesity Left atrial enlargement Migraines Osteoporosis Hyperparathyroidism History of kidney stones Hx of endometriosis Depression, major, severe recurrence Surgical History History of esophagogastroduodenoscopy (EGD) Status post repair of paraesophageal diaphragmatic hernia S/P laparoscopic sleeve gastrectomy Hx of lithotripsy Hx of arthroscopic knee surgery History of colon resection History of Erick fundoplication History of wisdom tooth extraction, class I edentulism Hx of bladder endoscopy Hx of colonoscopy Hx of arthroplasty Hx of knee surgery Hx of tonsillectomy Hx of appendectomy Family History Mother Depression Anxiety Asthma Osteoporosis Father Osteoporosis Brother Osteoporosis Asthma Depression Sister Depression Anxiety Obesity Heart disease Sister IBS (irritable bowel syndrome) Anxiety Depression Social History Household Members: None Are you a primary vehicle care specialist to a significant other at home: No Do you presently have visiting nurse or other home services: No Alcohol intake: never Patient Tobacco Use Status: Never used Tobacco service: No Current occupational status: disabled Physical Exam Vital Signs: Last Vital Signs Pulse 97 08/18/24 11:01 BP 114/59 L 08/18/24 11:01 BMI result Body Mass Index 34.4 Assessment & Plan Assessment & Plan (1) Diarrhea: Code(s): R19.7 - Diarrhea, unspecified Category: Surgical Plan: as above Medications: New celecoxib (Celebrex) 100 mg PO BID 30 caps 0RF Refilled colesevelam 1,250 mg (2 x 625 mg) PO BID 90 days 360 tabs 2RF Coding Level of Care Code Est Pt Level 3 (20467) Diagnoses Diarrhea R19.7
[2024-08-18 11:01] VITALS: BP 114/59; PULSE 97; BMI 34.4
== END 2024-08-18 11:21 | disposition home or self-care (01) ==
PROVIDERS: PCP Internal Medicine; Visit Provider Internal Medicine Gastroenterology
DX: R19.7 Diarrhea, unspecified (principal)
CPT/HCPCS: 99213

== ENCOUNTER → 2024-08-18 10:55 | Outpatient (BNVA) | payer OTHER, SELFPAY | PROVIDERS: PCP Internal Medicine; Visit Provider Internal Medicine Gastroenterology | DX: R19.7 Diarrhea, unspecified (principal) | CPT/HCPCS: 99212 ==

== ENCOUNTER → 2024-09-16 12:49 | Outpatient (BNVA) | payer OTHER, SELFPAY | PROVIDERS: PCP Internal Medicine; Visit Provider Psychiatry & Neurology Psychiatry | DX: F41.1 Generalized anxiety disorder (principal); F33.9 Major depressive disorder, recurrent, unspecified; F43.12 Post-traumatic stress disorder, chronic; Z71.3 Dietary counseling and surveillance ==

== ENCOUNTER 2024-11-19 10:49 | Outpatient (AMB) | payer MEDICARE, MEDICAID, SELFPAY ==
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
--- OUTSIDE RECORDS SUMMARY | 2024-11-19 12:30 | XMS_ITS | Clinical Summary ---
[facility] Address [address] [place] [address] Care Team Providers Care Pharmacist'S Aide Name Role Phone Nereyda Hogue MD Primary Care Provider [phone] Surgical History Surgery Date Site/Laterality Comments OTHER SURGICAL HISTORY PROCEDURE: [place] COLECTOMY PARTIAL W/ANASTOMOSIS OTHER SURGICAL HISTORY PROCEDURE: [place] LAPS FULG/EXC OVARY VISCERA/PERITONEAL SURFACE UPPER GASTROINTESTINAL ENDOSCOPY 01/10/2018 PROCEDURE: UPPER GI ENDOSCOPY/EXAM; COMMENT: Grade A reflux esophagitis APPENDECTOMY PROCEDURE: HISTORICAL APPENDECTOMY KNEE SURGERY PROCEDURE: HISTORICAL KNEE SURGERY; COMMENT: lateral mensicus tear TONSILLECTOMY PROCEDURE: HISTORICAL TONSILLECTOMY Medical History Medical History Date Comments Arthritis DX:Arthritis Essential tremor DX:Essential tr emor Lower back pain DX:Lower back pa in SHALONDA (obstructive sleep apnea) DX :SHALONDA (obstructive sleep apnea) Osteoporosis DX:Osteoporosis GERD with esophagitis 06/14/2018 DX:GERD wi th esophagitis; COMMENT: 01/2018 Upper endoscopy Hyperlipidemia 06/14/2018 DX:Hyperlipidemi a Hypothyroidism 10/25/2011 DX:Hypothyroidis m Internal hemorrhoids 10/25/2011 DX:Internal hemorrhoids Anxiety 06/14/2018 DX:Anxiety Rosacea 06/14/2018 DX:Rosacea Migraine 06/14/2018 DX:Migraine Hiatal hernia 06/14/2018 DX:Hiatal hernia Vitamin D deficiency 06/14/2018 DX:Vitamin D deficiency Lesion of colon 03/11/2015 DX:Lesion of col on Seasonal allergies 11/22/2016 DX:Seasonal a llergies Major depression, recurrent (CMS/HCC) 11/22/2016 DX:Major depression, recurrent (HCC) History of ischemic colitis 06/23/2015 DX:H istory of ischemic colitis Family History Medical History Relation Name Comments Lung cancer Brother Lung cancer Father SCC of skin COPD Mother CHF Other: Cancer, basal cell, skin Sister Relation Name Status Comments Brother Father Mother Sister Social History Tobacco Use Types Packs/Day Years Used Date Smoking Tobacco: Never Smokeless Tobacco: Never Alcohol Use Standard Drinks/Week Comments No 0 (1 standard drink = 0.6 oz pur e alcohol) Comments Unknown Sex and Gender Information Value Date Recorded Sex Assigned at Not on file Legal Sex Female 9:16 PM EST Gender Identity Not on file Sexual Orientation Not on file Obstetrics History Plan of Treatment Health Maintenance Due Date Last Done Comments Cervical Cancer Screening: P ap Smear 1980 Pneumococcal Vaccine: 50+ Years (1 of 1 - PCV) 2009 Zoster Vaccines (1 of 2) 2009 Cholesterol Screening (Lipid Panel) 08/23/2022 Colorectal Cancer Screening: Colonoscopy 08/23/2022 Depression Screening 08/23/2022 Hepatitis C Screening 08/23/2022 Social Influencers of Health Screening 08/23/2022 COVID-19 Vaccine (1 - 2023-2 5 season) 2024 Influenza Vaccine (#1) 2024 Falls Risk Assessment 2024 Breast Cancer Screening 10/02/2024 10/02/19, 04/23/2019, 04/16/2018 DTaP,Tdap,and Td Vaccines (2 - Td or Tdap) 11/22/2026 11/22/2016 Osteoporosis Screening (Bone Density Screening) 01/21/2031 01/21/2021, 12/06/2017 RSV Immunization Patients 60 + Years Old (1 - 1-dose 75+ series) 2034 HIB Vaccines Aged Out No longer eligi ble based on patient's age to complete this topic HPV Vaccines Aged Out No longer eligi ble based on patient's age to complete this topic Hepatitis A Vaccines Aged Out No long er eligible based on patient's age to complete this topic Hepatitis B Vaccines Aged Out No long er eligible based on patient's age to complete this topic IPV Vaccines Aged Out No longer eligi ble based on patient's age to complete this topic MMR Vaccines Aged Out No longer eligi ble based on patient's age to complete this topic Meningococcal ACWY Vaccine Aged Out N o longer eligible based on patient's age to complete this topic Meningococcal B Vacine Aged Out No lo nger eligible based on patient's age to complete this topic Pneumococcal Vaccine: Pediatrics (0 to 5 Years) and At-Risk Patients (6 to 64 Years) Aged Out No longer eligible b ased on patient's age to complete this topic RSV Immunization Patients Under 20 months Aged Out No longer eligible b ased on patient's age to complete this topic Varicella Vaccines Aged Out No longer eligible based on patient's age to complete this topic Procedures Procedure Name Priority Date/Time Associated Diagnosis Comments [facility] Routine 10/02/2022 3:10 PM EST Encounter for screening mammogram for malignant neoplasm of breast [facility] Routine 01/21/2021 2:45 PM EDT Other specified disorders of bone density and structure, multiple sites from Last 3 Months or Most Recently Relevant to Health Maintenance Results * [facility] (10/02/2022 3:10 PM EST) Anatomical Region Laterality Modality Mammography 10/02/2022 11:1 9 AM EST Narrative 10/02/2022 3:10 PM EST [facility] Diagnostic Imaging Department [address] [place] [address] Patient: ??MARINO ALVAREZ ?/Age/Sex: 1960 - 62 - F Unit#: ??[id number] ? Location/Status: ??SPDIMAM/REG CLI ? Mnemonic/Ordering Site: ??DIGSC/SPMAM Ordering Physician: ??ELIZABETH NGUYEN MD [facility] Screening Digital - 10/02/22 - 1132 EXAM: [facility] Screening Digital EXAM DATE AND TIME: 10/02/2022 11:33 AM HISTORY: ??Screening. Left breast biopsy in 1999, pathology benign. Maternal grandmother had breast carcinoma. COMPARISON: ??04/23/19, 04/16/18, 04/12/17, 04/10/16 TECHNIQUE: CC and MLO views of both breasts were obtained using full field digital mammography. Bilateral digital breast tomosynthesis was performed in the MLO projection. Computer aided detection with [employer] 7.2-H and [employer] 3D 3.1 was employed. TISSUE DENSITY: c. The breasts are heterogeneously dense, which may obscure small masses. FINDINGS: The nodular parenchymal pattern is unchanged. No suspicious masses, grouped microcalcifications, or areas of architectural distortion are seen. A biopsy m arker is again seen in the upper outer left breast. The skin and vascularity are unremarkable. IMPRESSION: Stable mammographic appearance of the breasts. ??No evidence of malignancy is seen. A negative mammogram in the presence of a clinically suspicious palpable abnormality does not preclude the possibility of malignancy or alter the indications for biopsy. BI-RADS: ??Category 2: Benign RECOMMENDATION(S): 1: Routine screening mammogram BILATERAL in 1 year. 36527, 30867 3342F, 7025F Dictating Physician: ??MELISSA HERMAN MD Electronically Signed by: ??MELISSA HERMAN MD Dic Date/Time: ??10/02/22 1509 Sign date/Time: ??10/02/22 1510 Procedure Note Melissa Herman MD - 10/12/2023 [facility] Diagnostic Imaging Department [address] [place], [place] [id number] Patient: MARINO ALVAREZ /Age/Sex: 1960 - 62 - F Unit#: [id number] Location/Status: [facility] Mnemonic/Ordering Site: [facility] Ordering Physician: ELIZABETH NGUYEN MD [facility] Screening Digital - 10/02/22 - 113 EXAM: [facility] Screening Digital EXAM DATE AND TIME: 10/02/2022 11:33 AM HISTORY: Screening. Left breast biopsy in 1999, pathology benign.Maternal grandmother had breast carcinoma. COMPARISON: 04/23/19, 04/16/18, 04/12/17, 04/10/16 TECHNIQUE: CC and MLO views of both breasts were obtained using fullfield digital mammography. Bilateral digital breast tomosynthesis was performedin the MLO projection. Computer aided detection with [employer] 7.2-H and[employer] 3D 3.1 was employed. TISSUE DENSITY: c. The breasts are heterogeneously dense, which mayobscure small masses. FINDINGS: The nodular parenchymal pattern is unchanged. No suspicious masses,grouped microcalcifications, or areas of architectural distortion are seen. Abiopsy m arker is again seen in the upper outer left breast. The skin andvascularity are unremarkable. IMPRESSION: Stable mammographic appearance of the breasts. No evidence of malignancyis seen. A negative mammogram in the presence of a clinically suspicious palpable abnormality does not preclude the possibility of malignancy or alter the indications for biopsy. BI-RADS: Category 2: Benign RECOMMENDATION(S): 1: Routine screening mammogram BILATERAL in 1 year. 06266, 81115 3342F, 7025F Dictating Physician: MELISSA HERMAN MD Electronically Signed by: MELISSA HERMAN MD Dic Date/Time: 10/02/22 1502 Sign date/Time: 10/02/22 1510 Elizabeth Nguyen MD IMG BI PROCEDURES Final Result * [facility] (01/21/2021 2:45 PM EDT) Anatomical Region Laterality Modality Mammography 01/21/2021 1:16 PM EDT Narrative 01/21/2021 2:45 PM EDT [facility] Diagnostic Imaging Department [address] [place] [address] Patient: ??MARINO ALVAREZ ?/Age/Sex: 1960 - 60 - F Unit#: ??[id number] ? Location/Status: ??SPDIMAM/REG CLI ? Mnemonic/Ordering Site: ??[facility]AMDEXAAX/SPMAM Ordering Physician: ??JASMYN LINARES MD [facility] Dexa Axial Skeleton - 01/21/21 500 HISTORY: ??The patient is a 60-year-old postmenopausal female with clinical concern for metabolic bone disease. FINDINGS: ??Dual energy x-ray absorptiometry of the lumbar spine and femurs is performed. The mean bone mineral density at L1-L4 is 0.965 gm/cm2 which is 82% of that of young normals and 83% of that of age matched controls. This yields a T-score of -1.8 and a Z-score of -1.7 which is diagnostic of osteopenia. The mean bone mineral density of the femurs bilaterally is 0.901 gm/cm2 which is 89% of that of young normals and 91% of that of age matched controls. ??This yields a T-score of -0.8 and a Z-score of -0.7 and there is therefore no evidence of osteoporosis or osteopenia here. ??However, the T-score of the right femoral neck is -1.2 and that of the left femoral neck is -1.8 which is diagnostic of osteopenia. IMPRESSION: 1. Osteopenia. ??There has been an increase of 7.3% in bone mineral density in the lumbar spine since the prior examination of 12/06/2017. ??There has been an increase of 3.6% in bone mineral density in the right femur and a decrease of 2.4% in bone mineral density in the left femur. 2. FRAX analysis yields a 10-year probability of major osteoporotic fracture of 11.7% and a 10-year probability of hip fracture of 0.8%. Code 85979 Dictating Physician: ??MASOUD MCFARLANE MD Electronically Signed by: ??MASOUD MCFARLANE MD Dic Date/Time: ??01/21/21 1444 Sign date/Time: ??01/21/21 1445 Procedure Note Masoud Mcfarlane MD - 08/29/2022 [facility] Diagnostic Imaging Department [address] [place], [place] [id number] Patient: MARINO ALVAREZ Ilan /Age/Sex: 1960 - 60 - F Unit#: [id number] [facility]ing Site: [facility] Ordering Physician: JASMYN LINARES MD [facility] Dexa Axial Skeleton - 01/21/21 - 1417 HISTORY: The patient is a 60-year-old postmenopausal female withclinical concern for metabolic bone disease. FINDINGS: Dual energy x-ray absorptiometry of the lumbar spine and femursis performed. The mean bone mineral density at L1-L4 is 0.965 gm/cm2 which is82% of that of young normals and 83% of that of age matched controls. Thisyields a T-score of -1.8 and a Z-score of -1.7 which is diagnostic of osteopenia. The mean bone mineral density of the femurs bilaterally is 0.901 gm/eh3uqjxn is 89% of that of young normals and 91% of that of age matched controls.This yields a T-score of -0.8 and a Z-score of -0.7 and there is therefore no evidence of osteoporosis or osteopenia here. However, the T-score of theright femoral neck is -1.2 and that of the left femoral neck is -1.8 which is diagnostic of osteopenia. IMPRESSION: 1. Osteopenia. There has been an increase of 7.3% in bone mineral densityin the lumbar spine since the prior examination of 12/06/2017. There has beenan increase of 3.6% in bone mineral density in the right femur and a decreaseof 2.4% in bone mineral density in the left femur. 2. FRAX analysis yields a 10-year probability of major osteoporoticfracture of 11.7% and a 10-year probability of hip fracture of 0.8%. Code 90126 Dictating Physician: MASOUD MCFARLANE MD Electronically Signed by: MASOUD MCFARLANE MD Dic Date/Time: 01/21/21 1444 Sign date/Time: 01/21/21 144 Jasmyn Linares MD IMG BI PROCEDURES Final Result from Last 3 Months or Most Recently Relevant to Health Maintenance Advance Directives Documents on File Type Date Recorded Patient Net Manager Expl anation Health Care Decision (hx) 08/06/2018 AD BARRAZA DIRECTIVE Health Care Decision (hx) 08/06/2018 AD BARRAZA DIRECTIVE Health Care Decision (hx) 08/06/2018 AD BARRAZA DIRECTIVE Health Care Decision (hx) 08/06/2018 AD BARRAZA DIRECTIVE Care Teams Pharmacist'S Aide Relationship Specialty Start Date End Date Nereyda Hogue MD PCP - General Internal Medicine 04/23/18
== END 2024-11-19 11:44 | disposition home or self-care (01) ==
LOC: HO.HOP 10:49
PROVIDERS: PCP Internal Medicine; Visit Provider Psychiatry & Neurology Psychiatry
DX: F33.9 Major depressive disorder, recurrent, unspecified (principal); F43.12 Post-traumatic stress disorder, chronic; F41.1 Generalized anxiety disorder
CPT/HCPCS: 90833; 99213

== ENCOUNTER → 2024-11-19 10:49 | Outpatient (BNVA) | payer MEDICARE, MEDICAID, SELFPAY | PROVIDERS: PCP Internal Medicine; Visit Provider Psychiatry & Neurology Psychiatry | DX: F33.9 Major depressive disorder, recurrent, unspecified (principal); F43.12 Post-traumatic stress disorder, chronic; F41.1 Generalized anxiety disorder | CPT/HCPCS: 99212 ==

== ENCOUNTER 2024-11-25 09:19 | Outpatient (AMB) | payer MEDICARE, MEDICAID, SELFPAY ==
--- NOTE | 2024-11-25 09:30 | MHC.OFFVISWM ---
VS Expanded 11/25/24 09:37 BP 121/70 Blood Pressure Location Rt brachial Blood Pressure Position Sitting Pulse 71 Pulse Source Pulse Oximeter Temp 98.1 F Temperature Source Temporal Artery Scan Pulse Oximetry 96 Oxygen Delivery Method Room Air Height 5 ft 4 in Weight 204 lb 3.2 oz BMI 35.0 Body Fat % 47.2 Body Fat Mass 96.4 Fat Free Mass 107.8 Visceral Fat Rating 14.0 Body Water % 37.3 Body Water Mass 76.0 Muscle Mass/Score 102.2 Basal Metabolic Rate/Score 2,490 Intake Visit Reasons: OV PO LSG 03/14/22 *GLP-1* Allergies metoclopramide [From REGLAN] Allergy (Severe, Verified 11/25/24 09:34) PANIC ATTACKS, agitation Penicillins [PENICILLINS] Allergy (Severe, Verified 11/25/24 09:34) SOB, couldn't breathe sulfamethoxazole [From BACTRIM] Allergy (Intermediate, Verified 11/25/24 09:34) HIVES trimethoprim [From BACTRIM] Allergy (Intermediate, Verified 11/25/24 09:34) HIVES surgical skin glue Allergy (Severe, Uncoded 08/18/24 11:02) Hives Medication List - Last Reconciled 11/25/24 by KRISTI Handley amitriptyline 10 - 20 mg (1 - 2 x 10 mg) PO BEDTIME 90 days colesevelam 1,250 mg (2 x 625 mg) PO BID 90 days denosumab (Prolia) mg subcut [id number] escitalopram oxalate 10 mg (2 x 5 mg) PO DAILY 90 days lorazepam 0.5 - 1 mg (0.5 - 1 x 1 mg) PO BEDTIME PRN naratriptan 2.5 mg PO DAILY PRN propranolol 10 mg PO DAILY PRN vilazodone 10 mg PO DAILY HPI Comments Details: This?is a?64?yo female who is s/p LSG 11/02/2021. Presents for 3 year post op visit. Has gained about 20lbs since last year. Pt notes symptoms of hoarse voice. Started having a dry cough last year, then sensation of having to clear her voice since the fall. Since last month, couldn't get enough air to get my voice to work right. I can't yell, I've been hoarse ever since. This has been consistently worse since last month, no change depending on what she eats. Is also burping a lot more recently and often has a pain right around sternum. States her PCP is concerned that it's due to GERD. She notes she had a capsule endoscopy last year which did show inflammation of her stomach- states she was not specifically treated for this at the time since she was not having symptoms of pain. Denies nausea/vomiting. Had been taking ibuprofen- this was discussed with GI who also advised against it if possible, or only take in short courses. Had taken a short course of Celebrex for knee pain when moving. Does not currently take NSAIDs every day. Does not taking any acid blocking meds currently. She had ongoing diarrhea, now takes colesevelam which has helped a lot. She is not currently interested in GLP1 agonists, feels she has too many other gut issues going on. Present meal plan includes: currently trying to adjust diet to avoid kidney stones- had one last week. She has concerns about taking too much protein as in the past feels they caused elevated BUN/Cr levels I have a problem with hydration , tries to get adequate fiber PFSH Medical History SHALONDA (obstructive sleep apnea) Tremor Chronic post-traumatic stress disorder (PTSD) Pre-diabetes Vertigo Essential tremor Generalized anxiety disorder Hyperparathyroid bone disease BMI 35.0-35.9,adult Slow to wake up after anesthesia Arthritis Hx of low back pain Hiatal hernia GERD (gastroesophageal reflux disease) Hx of migraines Anxiety and depression BMI 36.0-36.9,adult Obesity Left atrial enlargement Migraines Osteoporosis Hyperparathyroidism History of kidney stones Hx of endometriosis Depression, major, severe recurrence Surgical History History of esophagogastroduodenoscopy (EGD) Status post repair of paraesophageal diaphragmatic hernia S/P laparoscopic sleeve gastrectomy Hx of lithotripsy Hx of arthroscopic knee surgery History of colon resection History of Erick fundoplication History of wisdom tooth extraction, class I edentulism Hx of bladder endoscopy Hx of colonoscopy Hx of arthroplasty Hx of knee surgery Hx of tonsillectomy Hx of appendectomy Family History Mother Depression Anxiety Asthma Osteoporosis Father Osteoporosis Brother Osteoporosis Asthma Depression Sister Depression Anxiety Obesity Heart disease Sister IBS (irritable bowel syndrome) Anxiety Depression Social History (Updated 11/25/24 @ 09:36 by Gabriella Martini CMA) Household Members: None Are you a primary director of primary care to a significant other at home: No Do you presently have visiting nurse or other home services: No Alcohol intake: current Alcohol intake frequency: holidays/special occasions only Patient Tobacco Use Status: Never used Tobacco service: No Current occupational status: disabled Physical Exam Vital Signs: Last Vital Signs Temp 98.1 F 11/25/24 09:37 Pulse 71 11/25/24 09:37 BP 121/70 11/25/24 09:37 Pulse Ox 96 11/25/24 09:37 Oxygen Delivery Method Room Air 11/25/24 09:37 BMI result Body Mass Index 35.0 Assessment & Plan Assessment & Plan (1) Obesity (BMI 30-39.9): Code(s): E66.9 - Obesity, unspecified Category: Medical (2) S/P laparoscopic sleeve gastrectomy: Comment: 03/14/2022 Code(s): Z98.84 - Bariatric surgery status Category: Surgical (3) Hoarseness of voice: Code(s): R49.0 - Dysphonia Category: Medical Plan Pt having many symptoms of silent reflux. May benefit from EGD with Oliveira pH monitoring to confirm. Will request approval for procedure from insurance.
[2024-11-25 09:37] VITALS: BP 121/70; PULSE 71; TEMP 36.7; O2SAT 96; BMI 35.0
== END 2024-11-25 10:04 | disposition home or self-care (01) ==
LOC: HO.HBS 09:19
PROVIDERS: PCP Internal Medicine; Visit Provider Physician Assistant Surgical
DX: R49.0 Dysphonia (principal); E66.9 Obesity, unspecified; Z68.35 Body mass index [BMI] 35.0-35.9, adult; Z98.84 Bariatric surgery status
CPT/HCPCS: 99214; G2211

== ENCOUNTER → 2024-11-25 09:19 | Outpatient (BNVA) | payer MEDICARE, MEDICAID, SELFPAY | PROVIDERS: PCP Internal Medicine; Visit Provider Physician Assistant Surgical | DX: E66.9 Obesity, unspecified (principal); R49.0 Dysphonia; K21.9 Gastro-esophageal reflux disease without esophagitis; Z98.84 Bariatric surgery status; Z68.35 Body mass index [BMI] 35.0-35.9, adult | CPT/HCPCS: 99212 ==

== ENCOUNTER 2024-12-10 14:35 | Outpatient (AMB) | payer MEDICARE, MEDICAID, SELFPAY ==
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
--- OUTSIDE RECORDS SUMMARY | 2024-12-10 17:15 | XMS_ITS | Clinical Summary ---
Author Organization [facility] Address [address] [place] [address] Care Team Providers Care Manager Property Name Role Phone Nereyda Hogue MD Primary Care Provider Surgical History Surgery Date Site/Laterality Comments OTHER SURGICAL HISTORY PROCEDURE: [place] COLECTOMY PARTIAL W/ANASTOMOSIS OTHER SURGICAL HISTORY PROCEDURE: [place] LAPS FULG/EXC OVARY VISCERA/PERITONEAL SURFACE UPPER GASTROINTESTINAL [...] Procedure Name Priority Date/Time Associated Diagnosis Comments [facility] SCREENING DIGITAL Routine 10/02/2022 3:10 PM EST Encounter for screening mammogram for malignant neoplasm of breast [facility] DEXA AXIAL SKELETON Routine 01/21/2021 2:45 PM EDT Other specified disorders of bone density and structure, multiple sites from Last 3 Months or Most Recently Relevant to Health Maintenance Results * [facility] SCREENING DIGITAL (10/02/2022 3:10 PM EST) Anatomical Region Laterality Modality Mammography 10/02/2022 11:1 9 AM EST Narrative 10/02/2022 3:10 PM EST [facility] Diagnostic Imaging Department [address] [place] [address] Patient: ??MARINO ALVAREZ ?/Age/Sex: 1960 - 62 - F Unit#: ??[id number] ? Location/Status: ??SPDIMAM/REG CLI ? Mnemonic/Ordering Site: ??DIGSC/SPMAM Ordering Physician: ??ELIZABETH NGUYEN MD [facility] Screening Digital - 10/02/22 - 1132 EXAM: [facility] Screening Digital EXAM DATE AND TIME: 10/02/2022 11:33 AM HISTORY: ??Screening. Left breast biopsy in 1999, pathology benign. Maternal grandmother had breast carcinoma. COMPARISON: ??04/23/19, 04/16/18, 04/12/17, 04/10/16 TECHNIQUE: CC and MLO views of both breasts were obtained using full field digital mammography. Bilateral digital breast tomosynthesis was performed in the MLO projection. Computer aided detection with [employer] 7.2-H and [employer] 3D 3.1 was employed. TISSUE DENSITY: c. [...] Routine screening mammogram BILATERAL in 1 year. 80433, 29799 3342F, 7025F Dictating Physician: ??MELISSA HERMAN MD Electronically Signed by: ??MELISSA HERMAN MD Dic Date/Time: ??10/02/22 1509 Sign date/Time: ??10/02/22 1510 Procedure Note Melissa Herman MD - 10/12/2023 [facility] Diagnostic Imaging Department [address] [place] [address] Patient: MARION ALVAREZ /Age/Sex: 1960 - 62 - F Unit#: [id number] Location/Status: [facility] Mnemonic/Ordering Site: [facility] Ordering Physician: ELIZABETH NGUYEN MD [facility] Screening Digital - 10/02/22 - 113 EXAM: [facility] Screening Digital EXAM DATE AND TIME: 10/02/2022 11:33 AM HISTORY: Screening. Left breast biopsy in 1999, pathology benign.Maternal grandmother had breast carcinoma. COMPARISON: 04/23/19, 04/16/18, 04/12/17, 04/10/16 TECHNIQUE: CC and MLO views of both breasts were obtained using fullfield digital mammography. Bilateral digital breast tomosynthesis was performedin the MLO projection. Computer aided detection with [employer] 7.2-H andPorphyrio 3D 3.1 was employed. TISSUE DENSITY: c. [...] Routine screening mammogram BILATERAL in 1 year. 43482, 33161 3342F, 7025F Dictating Physician: MELISSA HERMAN MD Electronically Signed by: MELISSA HERMAN MD Dic Date/Time: 10/02/22 1502 Sign date/Time: 10/02/22 1510 Elizabeth Nguyen MD IMG BI PROCEDURES Final Result * [facility] DEXA AXIAL SKELETON (01/21/2021 2:45 PM EDT) Anatomical Region Laterality Modality Mammography 01/21/2021 1:16 PM EDT Narrative 01/21/2021 2:45 PM EDT [facility] Diagnostic Imaging Department [address] [place] [address] Patient: ??MARINO ALVAREZ ?/Age/Sex: 1960 - 60 - F Unit#: ??[id number] ? Location/Status: ??SPDIMAM/REG CLI ? Mnemonic/Ordering Site: ??MAMDEXAAX/SPMAM Ordering Physician: ??JASMYN LINARES MD [facility] Dexa Axial Skeleton - 01/21/21 7006 HISTORY: ??The patient is a 60-year-old postmenopausal [...] probability of hip fracture of 0.8%. Code 63686 Dictating Physician: ??MASOUD MCFARLANE MD Electronically Signed by: ??MASOUD MCFARLANE MD Dic Date/Time: ??01/21/21 1444 Sign date/Time: ??01/21/21 1445 Procedure Note Masoud Mcfarlane MD - 08/29/2022 [facility] Diagnostic Imaging Department [address] [place] [address] Patient: MARINO ALVAREZ Ilan /Age/Sex: 1960 - 60 - F Unit#: [id number] Location/Status: [facility]/REG I Mnemonic/Ordering Site: [facility] Ordering Physician: JASMYN LINARES MD [facility] Axial Skeleton - 01/21/21 - 1414 HISTORY: The patient is a 60-year-old postmenopausal [...] density of the femurs bilaterally is 0.901 gm/[id number] is 89% of that of young normals [...] probability of hip fracture of 0.8%. Code 01919 Dictating Physician: MASOUD MCFARLANE MD Electronically Signed by: MASOUD MCFARLANE MD Dic Date/Time: 01/21/21 1444 Sign date/Time: 01/21/21 1443 Jasmyn Linares MD IMG BI PROCEDURES Final Result from Last 3 Months or Most Recently Relevant to Health Maintenance Advance Directives Documents on File Type Date Recorded Patient Power Regulator Expl anation Health Care Decision (hx) 08/06/2018 AD BARRAZA DIRECTIVE Health Care Decision (hx) 08/06/2018 AD BARRAZA DIRECTIVE Health Care Decision (hx) 08/06/2018 AD BARRAZA DIRECTIVE Health Care Decision (hx) 08/06/2018 AD BARRAZA DIRECTIVE Care Teams Manager Property Relationship Specialty Start Date End Date Nereyda Hogue MD PCP - General Internal Medicine 04/23/18
== END 2024-12-10 14:36 | disposition home or self-care (01) ==
LOC: HO.HOP 14:35
PROVIDERS: PCP Internal Medicine; Visit Provider Psychiatry & Neurology Psychiatry
DX: F33.2 Major depressive disorder, recurrent severe without psychotic features (principal)
CPT/HCPCS: 99213

== ENCOUNTER → 2024-12-10 14:35 | Outpatient (BNVA) | payer MEDICARE, MEDICAID, SELFPAY | PROVIDERS: PCP Internal Medicine; Visit Provider Psychiatry & Neurology Psychiatry | DX: F33.2 Major depressive disorder, recurrent severe without psychotic features (principal) | CPT/HCPCS: 99212 ==

== ENCOUNTER 2025-01-22 09:58 | Day surgery (SDC) | payer MEDICARE, MEDICAID, SELFPAY ==
--- OUTSIDE RECORDS SUMMARY | 2024-12-10 16:03 | XMS_ITS | Clinical Summary ---
Author Organization [facility] Address [address] [place] [address] Care Team Providers Care Geographic Information Systems Manager Name Role Phone Nereyda Hogue MD Primary Care Provider Surgical History Surgery Date Site/Laterality Comments OTHER SURGICAL HISTORY PROCEDURE: [place] COLECTOMY PARTIAL W/ANASTOMOSIS OTHER SURGICAL HISTORY PROCEDURE: SD LAPS FULG/EXC OVARY VISCERA/PERITONEAL SURFACE UPPER GASTROINTESTINAL [...] Density Screening) 01/21/2031 01/21/2021, 12/06/2017 RSV Immunization Adult Patients (1 - 1-dose 75+ series) 2034 HIB [...] Procedure Name Priority Date/Time Associated Diagnosis Comments [facility] Routine 10/02/2022 3:10 PM EST Encounter for screening mammogram for malignant neoplasm of breast [facility] DEXA AXIAL SKELETON Routine 01/21/2021 2:45 PM EDT Other specified disorders of bone density and structure, multiple sites from Last 3 Months or Most Recently Relevant to Health Maintenance Results * [facility] (10/02/2022 3:10 PM EST) Anatomical Region Laterality Modality Mammography 10/02/2022 11:1 9 AM EST Narrative 10/02/2022 3:10 PM EST [facility] Diagnostic Imaging Department [address] [place] [address] Patient: ??MARINO ALVAREZ ?/Age/Sex: 1960 - 62 - F Unit#: ??[id number] ? Location/Status: ??SPDIMAM/REG CLI ? Mnemonic/Ordering Site: ??DIGSC/SPMAM Ordering Physician: ??ELIZABETH NGUYEN MD [facility] Screening Digital - 10/02/22 - 1132 EXAM: [facility] Screening Digital EXAM DATE AND TIME: 10/02/2022 11:33 AM HISTORY: ??Screening. Left breast biopsy in 1999, pathology benign. Maternal grandmother had breast carcinoma. COMPARISON: ??04/23/19, 04/16/18, 04/12/17, 04/10/16 TECHNIQUE: CC and MLO views of both breasts were obtained using full field digital mammography. Bilateral digital breast tomosynthesis was performed in the MLO projection. Computer aided detection with [employer] 7.2-H and [employer] 3D 3.1 was employed. TISSUE DENSITY: c. [...] Routine screening mammogram BILATERAL in 1 year. 35505, 51537 3342F, 7025F Dictating Physician: ??MELISSA HERMAN MD Electronically Signed by: ??MELISSA HERMAN MD Dic Date/Time: ??10/02/22 1509 Sign date/Time: ??10/02/22 1510 Procedure Note Melissa Herman MD - 10/12/2023 [facility] Diagnostic Imaging Department [address] [place] [address] Patient: MARINO ALVAREZ /Age/Sex: 1960 - 62 - F Unit#: [id number] Location/Status: [facility]I Mnemonic/Ordering Site: [facility] Ordering Physician: ELIZABETH NGUYEN MD [facility] Screening Digital - 10/02/22 - 113 EXAM: [facility] Screening Digital EXAM DATE AND TIME: 10/02/2022 11:33 AM HISTORY: Screening. Left breast biopsy in 1999, pathology benign.Maternal grandmother had breast carcinoma. COMPARISON: 04/23/19, 04/16/18, 04/12/17, 04/10/16 TECHNIQUE: CC and MLO views of both breasts were obtained using fullfield digital mammography. Bilateral digital breast tomosynthesis was performedin the MLO projection. Computer aided detection with [employer] 7.2-H andChoicePass 3D 3.1 was employed. TISSUE DENSITY: c. [...] Routine screening mammogram BILATERAL in 1 year. 84445, 23595 3342F, 7025F Dictating Physician: MELISSA HERMAN MD Electronically Signed by: MELISSA HERMAN MD Dic Date/Time: 10/02/22 150 Sign date/Time: 10/02/22 1510 Elizabeth Nguyen MD IMG BI PROCEDURES Final Result * [facility] (01/21/2021 2:45 PM EDT) Anatomical Region Laterality Modality Mammography 01/21/2021 1:16 PM EDT Narrative 01/21/2021 2:45 PM EDT [facility] Diagnostic Imaging Department [address] [place] [address] Patient: ??MARINO ALVAREZ ?/Age/Sex: 1960 - 60 - F Unit#: ??[id number] ? Location/Status: ??SPDIMAM/REG CLI ? Mnemonic/Ordering Site: ??MAMDEXAAX/SPMAM Ordering Physician: ??JASMYN LINARES MD [facility] Dexa Axial Skeleton - 01/21/21 6547 HISTORY: ??The patient is a 60-year-old postmenopausal [...] probability of hip fracture of 0.8%. Code 33572 Dictating Physician: ??MASOUD MCFARLANE MD Electronically Signed by: ??MASOUD MCFARLANE MD Dic Date/Time: ??01/21/21 1444 Sign date/Time: ??01/21/21 1445 Procedure Note Masoud Mcfarlane MD - 08/29/2022 [facility] Diagnostic Imaging Department [address] [place] [address] Patient: MARINO ALVAREZ Ilan /Age/Sex: 1960 - 60 - F Unit#: [id number] Location/Status: [facility]/REG I Mnemonic/Ordering Site: [facility] Ordering Physician: JASMYN LINARES MD [facility] Axial Skeleton - 01/21/21 - 1412 HISTORY: The patient is a 60-year-old postmenopausal [...] density of the femurs bilaterally is 0.901 gm/vf0bdzip is 89% of that of young normals [...] probability of hip fracture of 0.8%. Code 09996 Dictating Physician: MASOUD MCFARLANE MD Electronically Signed by: MASOUD MCFARLANE MD Dic Date/Time: 01/21/21 1444 Sign date/Time: 01/21/21 1448 Jasmyn Linares MD IMG BI PROCEDURES Final Result from Last 3 Months or Most Recently Relevant to Health Maintenance Advance Directives Documents on File Type Date Recorded Patient Forensic Psychologist Expl anation Health Care Decision (hx) 08/06/2018 AD BARRAZA DIRECTIVE Health Care Decision (hx) 08/06/2018 AD BARRAZA DIRECTIVE Health Care Decision (hx) 08/06/2018 AD BARRAZA DIRECTIVE Health Care Decision (hx) 08/06/2018 AD BARRAZA DIRECTIVE Care Teams Geographic Information Systems Manager Relationship Specialty Start Date End Date Nereyda Hogue MD PCP - General Internal Medicine 04/23/18
[2024-12-25 12:27] VITALS: BMI 35.0
--- NOTE | 2024-12-25 13:46 | P.CONAN_ITS ---
Documented by User: Genny Brown NP 01/16/25 12:22 HPI - Anesthesia Eval Consult details Narrative: 64yo F for ?Upper Endo Oliveira, 01/22/25 PMFSH Active Problems Active Problems: All Active Problems Hoarseness of voice (Acute) Elevated serum creatinine (Acute) Hyperglycemia (Acute) Abdominal cramping (Acute) Diarrhea (Acute) Major depression, recurrent, chronic (Acute) Overweight (Acute) Major depressive disorder, recurrent severe without psychotic features (Acute) Rash (Acute) Steatosis, liver (Acute) Hypertension (Acute) Diaphragmatic hernia (Acute) Sleep apnea with use of continuous positive airway pressure (CPAP) (Acute) Obesity (BMI 30-39.9) (Acute) Morbid obesity (Acute) Essential tremor (Acute) Chronic post-traumatic stress disorder (PTSD) (Chronic) Vertigo (Acute) Generalized anxiety disorder (Acute) Hyperparathyroid bone disease (Acute) Status post repair of paraesophageal diaphragmatic hernia (Acute) S/P laparoscopic sleeve gastrectomy (Acute) Hx of migraines (Acute) Arthritis (Acute) Osteoporosis (Acute) Migraines (Acute) Past Medical History Medical History SHALONDA (obstructive sleep apnea) Tremor Chronic post-traumatic stress disorder (PTSD) Pre-diabetes Vertigo Essential tremor Generalized anxiety disorder Hyperparathyroid bone disease BMI 35.0-35.9,adult Slow to wake up after anesthesia Arthritis Hx of low back pain Hiatal hernia GERD (gastroesophageal reflux disease) Hx of migraines Anxiety and depression BMI 36.0-36.9,adult Obesity Left atrial enlargement Migraines Osteoporosis Hyperparathyroidism History of kidney stones Hx of endometriosis Depression, major, severe recurrence Family History Family History Mother Depression Anxiety Asthma Osteoporosis Father Osteoporosis Brother Osteoporosis Asthma Depression Sister Depression Anxiety Obesity Heart disease Sister IBS (irritable bowel syndrome) Anxiety Depression Family history of problems with anesthesia: No Surgical History Surgical History History of esophagogastroduodenoscopy (EGD) Status post repair of paraesophageal diaphragmatic hernia S/P laparoscopic sleeve gastrectomy Hx of lithotripsy Hx of arthroscopic knee surgery History of colon resection History of Erick fundoplication History of wisdom tooth extraction, class I edentulism Hx of bladder endoscopy Hx of colonoscopy Hx of arthroplasty Hx of knee surgery Hx of tonsillectomy Hx of appendectomy History of Problems with Anesthesia: Yes (Slow awakening with GA) Social History Social History Household Members: None Are you a primary dialysis patient care technician to a significant other at home: No Do you presently have visiting nurse or other home services: No Alcohol intake: current Alcohol intake frequency: holidays/special occasions only Patient Tobacco Use Status: Never used Tobacco Second Hand Smoke Exposure: No Use of substances other than those prescribed or required for medical reasons: No Have you been hit, kicked, punched, or otherwise hurt by someone within the past year? If so, by whom?: No Are you DNR?: No Advance Directives: No Advance Directives Information Provided: Yes Advance Directives on File: No Patient : No : No Poor oral hygiene: No service: No Current occupational status: disabled Meds Allergies Allergy/AdvReac Type Severity Reaction Status Date / Time metoclopramide [From REGLAN] Allergy Severe PANIC Verified 11/25/24 09:34 ATTACKS, agitation Penicillins [PENICILLINS] Allergy Severe SOB, Verified 11/25/24 09:34 couldn't breathe sulfamethoxazole Allergy Intermediate HIVES Verified 11/25/24 09:34 [From BACTRIM] trimethoprim [From BACTRIM] Allergy Intermediate HIVES Verified 11/25/24 09:34 surgical skin glue Allergy Severe Hives Uncoded 08/18/24 11:02 Home Medications ?Medication ?Instructions ?Recorded ?Confirmed ?Last Taken ?Type denosumab 60 mg/mL subcutaneous 60 mg subcut [id number] 07/19/22 12/10/24 Unknown History syringe (Prolia) naratriptan 2.5 mg tablet 2.5 mg PO DAILY PRN Headache 10/31/22 01/22/25 Unknown History Exam Height,Weight and Vital Signs: Height 5 ft 4 in Weight 92.533 kg Assessment and Plan Assessment Anesthesia Assessment: Chart Reviewed Final Anesthetic Review Family History of Problems with Anesthesia: No History of Problems with Anesthesia: Yes (Slow awakening with GA) Documented by User: Carline Akhtar MD 01/22/25 11:39 [facility] Past Medical History Medical History SHALONDA (obstructive sleep apnea) Tremor Chronic post-traumatic stress disorder (PTSD) Pre-diabetes Vertigo Essential tremor Generalized anxiety disorder Hyperparathyroid bone disease BMI 35.0-35.9,adult Slow to wake up after anesthesia Arthritis Hx of low back pain Hiatal hernia GERD (gastroesophageal reflux disease) Hx of migraines Anxiety and depression BMI 36.0-36.9,adult Obesity Left atrial enlargement Migraines Osteoporosis Hyperparathyroidism History of kidney stones Hx of endometriosis Depression, major, severe recurrence Family History Family History Mother Depression Anxiety Asthma Osteoporosis Father Osteoporosis Brother Osteoporosis Asthma Depression Sister Depression Anxiety Obesity Heart disease Sister IBS (irritable bowel syndrome) Anxiety Depression Surgical History Surgical History History of esophagogastroduodenoscopy (EGD) Status post repair of paraesophageal diaphragmatic hernia S/P laparoscopic sleeve gastrectomy Hx of lithotripsy Hx of arthroscopic knee surgery History of colon resection History of Erick fundoplication History of wisdom tooth extraction, class I edentulism Hx of bladder endoscopy Hx of colonoscopy Hx of arthroplasty Hx of knee surgery Hx of tonsillectomy Hx of appendectomy Social History Social History Household Members: None Are you a primary dialysis patient care technician to a significant other at home: No Do you presently have visiting nurse or other home services: No Alcohol intake: current Alcohol intake frequency: holidays/special occasions only Patient Tobacco Use Status: Never used Tobacco Second Hand Smoke Exposure: No Use of substances other than those prescribed or required for medical reasons: No Have you been hit, kicked, punched, or otherwise hurt by someone within the past year? If so, by whom?: No Are you DNR?: No Advance Directives: No Advance Directives Information Provided: Yes Advance Directives on File: No Patient : No : No Poor oral hygiene: No service: No Current occupational status: disabled Meds Allergies Allergy/AdvReac Type Severity Reaction Status Date / Time metoclopramide [From REGLAN] Allergy Severe PANIC Verified 11/25/24 09:34 ATTACKS, agitation Penicillins [PENICILLINS] Allergy Severe SOB, Verified 11/25/24 09:34 couldn't breathe sulfamethoxazole Allergy Intermediate HIVES Verified 11/25/24 09:34 [From BACTRIM] trimethoprim [From BACTRIM] Allergy Intermediate HIVES Verified 11/25/24 09:34 surgical skin glue Allergy Severe Hives Uncoded 08/18/24 11:02 Home Medications ?Medication ?Instructions ?Recorded ?Confirmed ?Last Taken ?Type denosumab 60 mg/mL subcutaneous 60 mg subcut [id number] 07/19/22 12/10/24 Unknown History syringe (Prolia) naratriptan 2.5 mg tablet 2.5 mg PO DAILY PRN Headache 10/31/22 01/22/25 Unknown History Exam Airway Mallampati Class: II TM Dist: >3cm Neck ROM: Full Loose/Missing/Broken Teeth: No Heart: RRR Lungs: CTA Assessment and Plan Assessment Anesthesia Assessment: Anesthesia Plan Discussed Final Anesthetic Review NPO: Yes ASA Class: III Final Preanesthetic Review: Meds/Allgs Chart Reviewed, Consent Obtained/Reviewed and Anes Risks/Benef Reviewed Patient Risk: Intermediate Procedure Risk: Intermediate Anesthetic Plan Anesthetic Plan: MAC: Disposition: Standard PACU
[2025-01-22 10:07] VITALS: BMI 35.3
[2025-01-22 10:14] VITALS: BP 118/54; PULSE 87; RESP 16; TEMP 36.1; O2SAT 97
[2025-01-22] MEDS: Lactated Ringers 1,000 ML 80 ML IVCONT (10:26)
--- NOTE | 2025-01-22 11:27 | P.BOP_ITS ---
Brief Operative Note Date of Service: 01/22/25 Pre-op diagnosis: Voice hoarseness Post-op diagnosis: same Procedure: PROCEDURE DATE: 01/22/2025 PREOPERATIVE DIAGNOSIS: Voice hoarseness POSTOPERATIVE DIAGNOSIS: ?Same as above. Mild proximal sleeve redundancy PROCEDURE: [id number] with biopsies and Oliveira procedure Surgeon: ?Prashanth Cardenas M.D.. Ph.D. Signal Intelligence Analyst: None ? Anesthesia: IV sedation Estimated blood loss: ?Minimal FINDINGS AND PROCEDURE: ? OPERATIVE INDICATIONS: ?The patient is a 64 year old female who had a laparoscopic Erick takedown and sleeve gastrectomy. The patient does not report any GERD but has a persistent voice hoarseness and cough for a few months that has not resolved. Based on this information I recommended an upper endoscopy with the Oliveira procedure to evaluate the patient's symptoms and assess if she has GERD. Risks and complications of the surgery were discussed with the patient in advance particularly the possibility of perforation or bleeding that may require surgical intervention. The patient understood the risks and was in agreement with the plan. ? PROCEDURE: After informed consent was obtained by the patient, the patient was ?transferred to the Operating Room and was placed in the supine position.? After successful induction of IV sedation, a mouth block was inserted and the patient was placed in the left lateral decubitus position. An upper endoscopy was performed next, the oropharynx and esophagus appeared within the normal limits. There was no hiatal hernia. The z-line was smooth. Two biopsies were obtained from the distal esophagus 2-3 cm proximal to the GE junction and two additional biopsies from the GE junction. The sleeve was entered and it appeared to be of normal size. There was mild redundancy of the proximal sleeve. There was no gastritis. There was no stricture or ulcer. A biopsy was obtained from the proximal sleeve and the antrum. No significant bleeding was noted from any of the biopsy sites. The scope was then advanced into the duodenum which appeared to be normal as well. At that point the duodenum ?and the stomach were decompressed and the scope was withdrawn to the GE junction. We measured 6 cm proximal from the GEJ and that was about 29cm from incisors. The scope was withdrawn from the mouth and the Oliveira device was introduced to 29cm from incisors. The scope was re-introduced to confirm that the probe was in the esophagus and it was. The scope was withdrawn from the patient's mouth. Suction was connected to the device and was kept on for 45sec. At that point the device was deployed without difficulty and the remaining of the device was withdrawn from the patient's mouth without difficulty. The endoscope was re-introduced and I confirmed that the device was properly deployed in the esophagus at the intended location. At that point the scope was withdrawn from the patient's mouth and the procedure was ended. The patient extubated and was transferred in stable condition to the Recovery Room for further care. I was present and performed all steps of the procedure. There were no residents to assist with this case. Prashanth Cardenas M.D., Ph.D. Surgeon: Romario Cardenas MD Anesthesia: MAC Was an Signal Intelligence Analyst used for this Procedure?: No Estimated blood loss (mL): 0 IV fluids (mL): 400 Urine output (mL): 0 (No [employer] to record output) Pathology: other (1) antrum x1, 2) fundus x1, 3) GE junction x2, 4) distal esophagus x2) Condition: stable Disposition: PACU
--- NOTE | 2025-01-22 11:28 | MHC.SHP ---
Pre-Procedural Eval Section A - 24 Hr Update-Section A only Date of Service: 01/22/25 The patient is an INPATIENT: No The patient has been examined within 24 hours of the surgical procedure. The History & Physical has been completed within 30 days and I have reviewed it.: No Section B - Complete if H&P > 30 days Chief Complaint: Gastro-esophageal reflux disease without esophagit Details of Present Illness: Hoarseness Relevant Family History (Specify if Yes): No Relevant Social History: None Present Medications: None Medical History: No relevant PMH History of Previous Operations: Relevant previous surgery/procedure and date(s) (Laparoscopic sleeve gastrectomy) Allergies: Allergies Allergy/AdvReac Type Severity Reaction Status Date / Time metoclopramide [From REGLAN] Allergy Severe PANIC Verified 11/25/24 09:34 ATTACKS, agitation Penicillins [PENICILLINS] Allergy Severe SOB, Verified 11/25/24 09:34 couldn't breathe sulfamethoxazole Allergy Intermediate HIVES Verified 11/25/24 09:34 [From BACTRIM] trimethoprim [From BACTRIM] Allergy Intermediate HIVES Verified 11/25/24 09:34 surgical skin glue Allergy Severe Hives Uncoded 08/18/24 11:02 Review of Systems Sugical H&P ROS: Negative: Constitution, Cardiovascular, Respiratory, Neurological, Psychiatric, Hem-Onc, Allergic/Immunologic, Gastrointestinal, Genitourinary, Musculoskeletal, Integumentary, Endocrine and Eyes/Ears/Nose/Throat Exam Surgical H&P Exam: Normal: HEENT, Normal: Heart, Normal: Lungs, Normal: Extremities, Normal: Abdomen, Normal: Skin and Normal: Neurological Plan Diagnosis/Plan: Unchanged (EGD to assess etiology of hoarseness. Risks of bleeding and perforation were discussed with the patient and she is in agreement with the plan.) I have reviewed the history and physical and performed a pertinent physical examination on my patient. No changes have occurred unless specified. Time Spent With Patient Time: Total time managing care of this patient today ____ minutes.
[2025-01-22 12:20] VITALS: BP 93/53; PULSE 79; RESP 16; TEMP 36.2; O2SAT 96
[2025-01-22 12:25] VITALS: BP 110/63; PULSE 73; RESP 16; O2SAT 95
[2025-01-22 12:30] VITALS: BP 117/68; PULSE 68; RESP 18; O2SAT 97
[2025-01-22 12:35] VITALS: BP 113/58; PULSE 64; RESP 16; O2SAT 97
[2025-01-22 12:49] VITALS: BP 114/63; PULSE 66; RESP 16; TEMP 36.6; O2SAT 98
== END 2025-01-22 13:05 | disposition home or self-care (01) ==
PROVIDERS: PCP Internal Medicine; Visit Provider Surgery
PROC: (CPT 43239; principal; 2025-01-22 12:50)
DX: K95.89 Other complications of other bariatric procedure (principal); R49.0 Dysphonia; R05.9 Cough, unspecified; L98.7 Excessive and redundant skin and subcutaneous tissue; K21.9 Gastro-esophageal reflux disease without esophagitis; Z98.84 Bariatric surgery status; Z90.3 Acquired absence of stomach [part of]; G47.33 Obstructive sleep apnea (adult) (pediatric)
CPT/HCPCS: 43239; 88305; 88313; 88342; J2003; J2250; J2704

== ENCOUNTER → 2025-01-22 09:58 | Outpatient (BNV) | payer MEDICARE, MEDICAID, SELFPAY | PROVIDERS: PCP Internal Medicine; Visit Provider Surgery | DX: K95.89 Other complications of other bariatric procedure (principal) | CPT/HCPCS: 43239 ==

== ENCOUNTER 2025-01-28 10:53 | Outpatient (AMB) | payer MEDICARE, MEDICAID, SELFPAY ==
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
--- OUTSIDE RECORDS SUMMARY | 2025-01-28 12:20 | XMS_ITS | Clinical Summary ---
Author Organization [facility] Address [address] [place] [address] Care Team Providers Care Environmental Protection Forester Name Role Phone Nereyda Hogue MD Primary Care Provider Surgical History Surgery Date Site/Laterality Comments OTHER SURGICAL HISTORY PROCEDURE: ND COLECTOMY PARTIAL W/ANASTOMOSIS OTHER SURGICAL HISTORY PROCEDURE: ND LAPS FULG/EXC OVARY VISCERA/PERITONEAL SURFACE UPPER GASTROINTESTINAL [...] 11/22/2016 DX:Seasonal a llergies Major depression, recurrent (CMS/HCC V24) 11/22/2016 DX:Major depression, recurre nt (HCC) History of ischemic colitis 06/23/2015 DX:H [...] Vaccine (1 - 2023-2 5 season) 2024 Falls Risk Assessment 2024 Breast Cancer Screening 10/02/2024 10/02/19 23, 04/23/2019, 04/16/2018 Influenza Vaccine (Season Ended) 2025 DTaP,Tdap,and Td Vaccines (2 - Td or [...] age to complete this topic Meningococcal B Vaccine Aged Out No l onger eligible based on patient's age to complete [...] Procedure Name Priority Date/Time Associated Diagnosis Comments [facility] SCREENING DIGITAL Routine 10/02/2022 3:10 PM EST Encounter for screening mammogram for malignant neoplasm of breast [facility] DEXA AXIAL SKELETON Routine 01/21/2021 2:45 PM EDT Other specified disorders of bone density and structure, multiple sites from Last 3 Months or Most Recently Relevant to Health Maintenance Results * [facility] SCREENING DIGITAL (10/02/2022 3:10 PM EST) Anatomical Region Laterality Modality Mammography 10/02/2022 11:1 9 AM EST Narrative 10/02/2022 3:10 PM EST [facility] Diagnostic Imaging Department [address] [place] [address] Patient: ??MARINO ALVAREZ ?/Age/Sex: 1960 - 62 - F Unit#: ??[id number] ? Location/Status: ??SPDIMAM/REG CLI ? Mnemonic/Ordering Site: ??DIGSC/SPMAM Ordering Physician: ??ELIZABETH NGUYEN MD [facility] Screening Digital - 10/02/22 - 1132 EXAM: [facility] Screening Digital EXAM DATE AND TIME: 10/02/2022 11:33 AM HISTORY: ??Screening. Left breast biopsy in 1999, pathology benign. Maternal grandmother had breast carcinoma. COMPARISON: ??04/23/19, 04/16/18, 04/12/17, 04/10/16 TECHNIQUE: CC and MLO views of both breasts were obtained using full field digital mammography. Bilateral digital breast tomosynthesis was performed in the MLO projection. Computer aided detection with Univision 7.2-H and EvoApp 3D 3.1 was employed. TISSUE DENSITY: c. [...] Routine screening mammogram BILATERAL in 1 year. 72563, 45232 3342F, 7025F Dictating Physician: ??MELISSA HERMAN MD Electronically Signed by: ??MELISSA HERMAN MD Dic Date/Time: ??10/02/22 1509 Sign date/Time: ??10/02/22 1510 Procedure Note Melissa Herman MD - 10/12/2023 [facility] Diagnostic Imaging Department [address] [place], [place] [id number] Patient: MARINO ALVAREZ /Age/Sex: 1960 - 62 - F Unit#: [id number] Location/Status: [facility] Mnemonic/Ordering Site: [facility] Ordering Physician: ELIZABETH NGUYEN MD [facility] Screening Digital - 10/02/22 - 113 EXAM: [facility] Screening Digital EXAM DATE AND TIME: 10/02/2022 11:33 AM HISTORY: Screening. Left breast biopsy in 1999, pathology benign.Maternal grandmother had breast carcinoma. COMPARISON: 04/23/19, 04/16/18, 04/12/17, 04/10/16 TECHNIQUE: CC and MLO views of both breasts were obtained using fullfield digital mammography. Bilateral digital breast tomosynthesis was performedin the MLO projection. Computer aided detection with Univision 7.2-H andEvoApp 3D 3.1 was employed. TISSUE DENSITY: c. [...] Routine screening mammogram BILATERAL in 1 year. 98861, 07289 3342F, 7025F Dictating Physician: MELISSA HERMAN MD Electronically Signed by: MELISSA HERMAN MD Dic Date/Time: 10/02/22 1503 Sign date/Time: 10/02/22 1510 Elizabeth Nguyen MD IMG BI PROCEDURES Final Result * [facility] DEXA AXIAL SKELETON (01/21/2021 2:45 PM EDT) Anatomical Region Laterality Modality Mammography 01/21/2021 1:16 PM EDT Narrative 01/21/2021 2:45 PM EDT [facility] Diagnostic Imaging Department [address] [place] [address] Patient: ??MARINO ALVAREZ ?/Age/Sex: 1960 - 60 - F Unit#: ??[id number] ? Location/Status: ??SPDIMAM/REG CLI ? Mnemonic/Ordering Site: ??MAMDEXAAX/SPMAM Ordering Physician: ??JASMYN LINARES MD [facility] Dexa Axial Skeleton - 01/21/21 538 HISTORY: ??The patient is a 60-year-old postmenopausal [...] probability of hip fracture of 0.8%. Code 89103 Dictating Physician: ??MASOUD MCFARLANE MD Electronically Signed by: ??MASOUD MCFARLANE MD Dic Date/Time: ??01/21/21 1444 Sign date/Time: ??01/21/21 1445 Procedure Note Masoud Mcfarlane MD - 08/29/2022 [facility] Diagnostic Imaging Department [address] [place], [place] [id number] Patient: MARINO ALVAREZ Ilan /Age/Sex: 1960 - 60 - F Unit#: [id number] Location/Status: [facility] Mnemonic/Ordering Site: [facility] Ordering Physician: JASMYN LINARES MD [...] density of the femurs bilaterally is 0.901 gm/[id number] is 89% of that of young normals [...] probability of hip fracture of 0.8%. Code 48222 Dictating Physician: MASOUD MCFARLANE MD Electronically Signed by: MASOUD MCFARLANE MD Dic Date/Time: 01/21/21 1444 Sign date/Time: 01/21/21 144 Jasmyn Linares MD IMG BI PROCEDURES Final Result from Last 3 Months or Most Recently Relevant to Health Maintenance Advance Directives Documents on File Type Date Recorded Patient Lodging Facilities Attendant Expl anation Health Care Decision (hx) 08/06/2018 AD BARRAZA DIRECTIVE Health Care Decision (hx) 08/06/2018 AD BARRAZA DIRECTIVE Health Care Decision (hx) 08/06/2018 AD BARRAZA DIRECTIVE Health Care Decision (hx) 08/06/2018 AD BARRAZA DIRECTIVE Care Teams Environmental Protection Forester Relationship Specialty Start Date End Date Nereyda Hogue MD PCP - General Internal Medicine 04/23/18
== END 2025-01-28 11:46 | disposition home or self-care (01) ==
LOC: HO.HOP 10:53
PROVIDERS: PCP Internal Medicine; Visit Provider Psychiatry & Neurology Psychiatry
DX: F41.1 Generalized anxiety disorder (principal); F43.12 Post-traumatic stress disorder, chronic; F33.41 Major depressive disorder, recurrent, in partial remission
CPT/HCPCS: 99214

== ENCOUNTER → 2025-01-28 10:53 | Outpatient (BNVA) | payer MEDICARE, MEDICAID, SELFPAY | PROVIDERS: PCP Internal Medicine; Visit Provider Psychiatry & Neurology Psychiatry | DX: F41.1 Generalized anxiety disorder (principal); F43.12 Post-traumatic stress disorder, chronic; F33.41 Major depressive disorder, recurrent, in partial remission | CPT/HCPCS: 99212 ==

== ENCOUNTER 2025-01-30 09:07 | Outpatient (AMB) | payer MEDICARE, MEDICAID, SELFPAY ==
--- OUTSIDE RECORDS SUMMARY | 2025-01-30 09:25 | XMS_ITS | Clinical Summary ---
[facility] Organization [facility] Address [address] [place] [address] Care Team Providers Care Maintenance Team Member Name Role Phone Nereyda Hogue MD Primary Care Provider Surgical History Surgery Date Site/Laterality Comments OTHER SURGICAL HISTORY PROCEDURE: [place] COLECTOMY PARTIAL W/ANASTOMOSIS OTHER SURGICAL HISTORY PROCEDURE: [place] LAPS FULG/EXC OVARY VISCERA/PERITONEAL SURFACE UPPER GASTROINTESTINAL [...] Procedure Name Priority Date/Time Associated Diagnosis Comments [facility] SCREENING DIGITAL Routine 10/02/2022 3:10 PM EST Encounter for screening mammogram for malignant neoplasm of breast [facility] DEXA AXIAL SKELETON Routine 01/21/2021 2:45 PM EDT Other specified disorders of bone density and structure, multiple sites from Last 3 Months or Most Recently Relevant to Health Maintenance Results * [facility] SCREENING DIGITAL (10/02/2022 3:10 PM EST) Anatomical Region Laterality Modality Mammography 10/02/2022 11:1 9 AM EST Narrative 10/02/2022 3:[address] [facility] Diagnostic Imaging Department [address] [place] [address] Patient: ??MARINO ALVAREZ ?/Age/Sex: 1960 - 62 - F Unit#: ??[id number] ? Location/Status: ??SPDIMAM/REG CLI ? Mnemonic/Ordering Site: ??DIGSC/SPMAM Ordering Physician: ??ELIZABETH NGUYEN MD [facility] Screening Digital - 10/02/22 - 1132 EXAM: [facility] Screening Digital EXAM DATE AND TIME: 10/02/2022 11:33 AM HISTORY: ??Screening. Left breast biopsy in 1999, pathology benign. Maternal grandmother had breast carcinoma. COMPARISON: ??04/23/19, 04/16/18, 04/12/17, 04/10/16 TECHNIQUE: CC and MLO views of both breasts were obtained using full field digital mammography. Bilateral digital breast tomosynthesis was performed in the MLO projection. Computer aided detection with Care Thread 7.2-H and HCDC 3D 3.1 was employed. TISSUE DENSITY: c. [...] Routine screening mammogram BILATERAL in 1 year. 95457, 56462 3342F, 7025F Dictating Physician: ??MELISSA HERMAN MD Electronically Signed by: ??MELISSA HERMAN MD Dic Date/Time: ??10/02/22 1509 Sign date/Time: ??10/02/22 1510 Procedure Note Melissa Herman MD - 10/12/2023 [facility] Diagnostic Imaging Department [address] [place], [place] [id number] Patient: MARINO ALVAREZ /Age/Sex: 1960 - 62 - F Unit#: [id number] Location/Status: [facility] Mnemonic/Ordering Site: [facility] Ordering Physician: ELIZABETH NGUYEN MD [facility] Screening Digital - 10/02/22 - 113 EXAM: [facility] Screening Digital EXAM DATE AND TIME: 10/02/2022 11:33 AM HISTORY: Screening. Left breast biopsy in 1999, pathology benign.Maternal grandmother had breast carcinoma. COMPARISON: 04/23/19, 04/16/18, 04/12/17, 04/10/16 TECHNIQUE: CC and MLO views of both breasts were obtained using fullfield digital mammography. Bilateral digital breast tomosynthesis was performedin the MLO projection. Computer aided detection with Care Thread 7.2-H andHCDC 3D 3.1 was employed. TISSUE DENSITY: c. [...] Routine screening mammogram BILATERAL in 1 year. 32556, 38317 3342F, 7025F Dictating Physician: MELISSA HERMAN MD Electronically Signed by: MELISSA HERMAN MD Dic Date/Time: 10/02/22 1508 Sign date/Time: 10/02/22 1510 Elizabeth Nguyen MD IMG BI PROCEDURES Final Result * [facility] DEXA AXIAL SKELETON (01/21/2021 2:45 PM EDT) Anatomical Region Laterality Modality Mammography 01/21/2021 1:16 PM EDT Narrative 01/21/2021 2:[address] [facility] Diagnostic Imaging Department [address] [place] [address] Patient: ??MARINO ALVAREZ ?/Age/Sex: 1960 - 60 - F Unit#: ??[id number] ? Location/Status: ??SPDIMAM/REG CLI ? Mnemonic/Ordering Site: ??MAMDEXAAX/SPMAM Ordering Physician: ??JASMYN LINARES MD [facility] Dexa Axial Skeleton - 01/21/21 288 HISTORY: ??The patient is a 60-year-old postmenopausal [...] probability of hip fracture of 0.8%. Code 49221 Dictating Physician: ??MASOUD MCFARLANE MD Electronically Signed by: ??MASOUD MCFARLANE MD Dic Date/Time: ??01/21/21 1444 Sign date/Time: ??01/21/21 1445 Procedure Note Masoud Mcfarlane MD - 08/29/2022 [facility] Diagnostic Imaging Department [address] [place], [place] [id number] Patient: MARINO ALVAREZ Ilan /Age/Sex: 1960 - 60 - F Unit#: [id number] [facility]ing Site: [facility] Ordering Physician: JASMYN LINARES MD [facility] Dexa [...] density of the femurs bilaterally is 0.901 gm/bm3gfqtt is 89% of that of young normals [...] probability of hip fracture of 0.8%. Code 82839 Dictating Physician: MASOUD MCFARLANE MD Electronically Signed by: MASOUD MCFARLANE MD Dic Date/Time: 01/21/21 1444 Sign date/Time: 01/21/21 144 Jasmyn Linares MD IMG BI PROCEDURES Final Result from Last 3 Months or Most Recently Relevant to Health Maintenance Advance Directives Documents on File Type Date Recorded Patient Can Solderer Expl anation Health Care Decision (hx) 08/06/2018 AD BARRAZA DIRECTIVE Health Care Decision (hx) 08/06/2018 AD BARRAZA DIRECTIVE Health Care Decision (hx) 08/06/2018 AD BARRAZA DIRECTIVE Health Care Decision (hx) 08/06/2018 AD BARRAZA DIRECTIVE Care Teams Maintenance Team Member Relationship Specialty Start Date End Date Nereyda Hogue MD PCP - General Internal Medicine 04/23/18
--- NOTE | 2025-01-30 09:42 | MHC.OFFVISWM ---
VS Expanded 01/30/25 09:53 BP 133/64 Blood Pressure Location Rt brachial Blood Pressure Position Sitting Pulse 88 Pulse Source Pulse Oximeter Temp 97.8 F Temperature Source Temporal Artery Scan Pulse Oximetry 97 Oxygen Delivery Method Room Air Height 5 ft 4 in Weight 205 lb BMI 35.2 Body Fat % 46.7 Body Fat Mass 95.6 Fat Free Mass 109.2 Visceral Fat Rating 14.0 Body Water % 37.7 Body Water Mass 77.2 Muscle Mass/Score 103.6 Basal Metabolic Rate/Score 1,533 Intake Visit Reasons: (OV) s/p EGD Oliveira 01/22/25 *ARRIVE AT 9:30 AM* Allergies metoclopramide [From REGLAN] Allergy (Severe, Verified 01/30/25 09:50) PANIC ATTACKS, agitation Penicillins [PENICILLINS] Allergy (Severe, Verified 01/30/25 09:50) SOB, couldn't breathe sulfamethoxazole [From BACTRIM] Allergy (Intermediate, Verified 01/30/25 09:50) HIVES trimethoprim [From BACTRIM] Allergy (Intermediate, Verified 01/30/25 09:50) HIVES surgical skin glue Allergy (Severe, Uncoded 08/18/24 11:02) Hives HPI Comments Details: Here to discuss the results of the Oliveira procedure. DeMeester score was 6.2. There was no correlation with GERD symptoms or chest pain. There was a correlation with symptoms of regurgitations and true reflux episodes and all were related with food ingestion. EGD showed no HH and biopsies did not show esophagitis. H pylori was negative [facility] Medical History SHALONDA (obstructive sleep apnea) Tremor Chronic post-traumatic stress disorder (PTSD) Pre-diabetes Vertigo Essential tremor Generalized anxiety disorder Hyperparathyroid bone disease BMI 35.0-35.9,adult Slow to wake up after anesthesia Arthritis Hx of low back pain Hiatal hernia GERD (gastroesophageal reflux disease) Hx of migraines Anxiety and depression BMI 36.0-36.9,adult Obesity Left atrial enlargement Migraines Osteoporosis Hyperparathyroidism History of kidney stones Hx of endometriosis Depression, major, severe recurrence Surgical History History of esophagogastroduodenoscopy (EGD) Status post repair of paraesophageal diaphragmatic hernia S/P laparoscopic sleeve gastrectomy Hx of lithotripsy Hx of arthroscopic knee surgery History of colon resection History of Erick fundoplication History of wisdom tooth extraction, class I edentulism Hx of bladder endoscopy Hx of colonoscopy Hx of arthroplasty Hx of knee surgery Hx of tonsillectomy Hx of appendectomy Family History Mother Depression Anxiety Asthma Osteoporosis Father Osteoporosis Brother Osteoporosis Asthma Depression Sister Depression Anxiety Obesity Heart disease Sister IBS (irritable bowel syndrome) Anxiety Depression Social History (Updated 01/30/25 @ 09:51 by Gabriella Martini CMA) Household Members: None Are you a primary day care center director to a significant other at home: No Do you presently have visiting nurse or other home services: No Alcohol intake: former Patient Tobacco Use Status: Never used Tobacco Second Hand Smoke Exposure: No service: No Current occupational status: disabled Physical Exam Vital Signs: Last Vital Signs Temp 97.8 F 01/30/25 09:53 Pulse 88 01/30/25 09:53 BP 133/64 01/30/25 09:53 Pulse Ox 97 01/30/25 09:53 Oxygen Delivery Method Room Air 01/30/25 09:53 BMI result Body Mass Index 35.2 Assessment & Plan Assessment & Plan (1) Hoarseness of voice: Code(s): R49.0 - Dysphonia Category: Medical Plan: 1. I asked her to measure the food portions in forkfuls and eat 4 forks of protein and 4 forks of salad or vegetables. I sent her an plate example of the right portion and I asked her to send me pictures of her meal plate for the next few days. I have also asked her to see if by measuring more accurately the food portions, the symptoms of regurgitation and voice hoarseness improve or not. She is in agreement with this plan.
[2025-01-30 09:53] VITALS: BP 133/64; PULSE 88; TEMP 36.6; O2SAT 97; BMI 35.2
== END 2025-01-30 11:22 | disposition home or self-care (01) ==
LOC: HO.HBS 09:08
PROVIDERS: PCP Internal Medicine; Visit Provider Surgery
DX: R49.0 Dysphonia (principal)
CPT/HCPCS: 99214

== ENCOUNTER → 2025-01-30 09:07 | Outpatient (BNVA) | payer MEDICARE, MEDICAID, SELFPAY | PROVIDERS: PCP Internal Medicine; Visit Provider Surgery | DX: R49.0 Dysphonia (principal); E66.9 Obesity, unspecified; K21.9 Gastro-esophageal reflux disease without esophagitis; Z68.35 Body mass index [BMI] 35.0-35.9, adult | CPT/HCPCS: 99212 ==

== ENCOUNTER 2025-07-20 10:07 | Outpatient (AMB) | payer MEDICARE, MEDICAID, SELFPAY ==
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
--- OUTSIDE RECORDS SUMMARY | 2025-07-20 11:48 | XMS_ITS | Clinical Summary ---
[facility] Address [address] [place] [address] Care Team Providers Care Fire Sprinkler Installer Name Role Phone Nereyda Hogue MD Primary Care Provider [phone] Surgical History Surgery Date Site/Laterality Comments OTHER SURGICAL HISTORY PROCEDURE: [place] COLECTOMY PARTIAL W/ANASTOMOSIS OTHER SURGICAL HISTORY PROCEDURE: NV LAPS FULG/EXC OVARY VISCERA/PERITONEAL SURFACE UPPER GASTROINTESTINAL [...] Health Maintenance Due Date Last Done Comments Colorectal Cancer Screening: Colonoscopy 1959 Cervical Cancer Screening: P ap Smear 1980 Pneumococcal Vaccine: 50+ Years (1 of 1 - PCV) 2009 Zoster Vaccines (1 of 2) 2009 Cholesterol Screening (Lipid Panel) 08/23/2022 Hepatitis C Screening 08/23/2022 Social Influencers of Health Screening 08/23/2022 Falls Risk Assessment 2024 Depression Screening 09/10/2024 Breast Cancer Screening 10/02/2024 10/02/19, 04/23/2019, 04/16/2018 COVID-19 Vaccine (1 - 2023-2 5 season) 2025 Influenza Vaccine (#1) 2025 DTaP,Tdap,and Td Vaccines (2 - Td [...] Procedure Name Priority Date/Time Associated Diagnosis Comments [facility] SCRE[facility] DIG[facility] Routine 10/02/2022 3:10 PM EST Encounter for screening mammogram for malignant neoplasm of breast [facility] DEXA AXIAL SKELETON Routine 01/21/2021 2:45 PM EDT Other specified disorders of bone density and structure, multiple sites from Last 3 Months or Most Recently Relevant to Health Maintenance Results * [facility] (10/02/2022 3:10 PM EST) Anatomical Region Laterality Modality Mammography 10/02/2022 11:1 9 AM EST Narrative 10/02/2022 3:10 PM EST [facility] Diagnostic Imaging Department [address] [place] [address] Patient: MARINO ALVAREZ Ilan HowardB./Age/Sex: 1960 - 62 - F Unit#: [id number] [facility]emonic[facility]Ordering [facility] Order[facility] Physician: BAUDILIO NGUYEN MD [facility] Screening Digital - 10/02/221131 EXAM: [facility] Screening Digital EXAM DATE AND TIME: 10/02/2022 11:33 AM HISTORY: Screening. Left breast biopsy in 1999, pathology benign. Maternal grandmother had breast carcinoma. COMPARISON: 04/23/19, 04/16/18, 04/12/17, 04/10/16 TECHNIQUE: CC and MLO views of both breasts were obtained using full field digital mammography. Bilateral digital breast tomosynthesis was performed in the MLO projection. Computer aided detection with [employer] 7.2-H and [employer] 3D 3.1 was employed. TISSUE DENSITY: c. [...] appearance of the breasts. No evidence of malignancy is seen. A negative mammogram in the presence of a clinically suspicious palpable abnormality does not preclude the possibility of malignancy or alter the indications for biopsy. BI-RADS: Category 2: Benign RECOMMENDATION(S): 1: Routine screening mammogram BILATERAL in 1 year. 48003, 87708 3342F, 7025F Dictating Physician: MELISSA HERMAN MD Electronically Signed by: MELISSA HERMAN MD Dic Date/Time: 10/02/22 1509 Sign date/Time: 10/02/22 1510 Procedure Note Melissa Herman MD - 10/12/2023 [facility] Diagnostic Imaging Department [address] [place] [address] Patient: CRISTIAN ALVAREZELVIRA Talavera /Age/Sex: 1960 - 62 - F Unit#: [id number] Location/Status: [facility] Mnemonic/Ordering Site: [facility] Ordering Physician: BAUDILIO NGUYEN MD [facility] Screening Digital - 10/02/22 - 1132 EXAM: [facility] Screening Digital EXAM DATE AND TIME: 10/02/2022 11:33 AM HISTORY: Screening. Left breast biopsy in 1999, pathology benign.Maternal grandmother had breast carcinoma. COMPARISON: 04/23/19, 04/16/18, 04/12/17, 04/10/16 TECHNIQUE: CC and MLO views of both breasts were obtained using fullfield digital mammography. Bilateral digital breast tomosynthesis was performedin the MLO projection. Computer aided detection with [employer]H [employer] 3D 3.1 was employed. TISSUE DENSITY: c. [...] Routine screening mammogram BILATERAL in 1 year. 25119, 62338 3342F, 7025F Dictating Physician: MELISSA HERMAN MD Electronically Signed by: MELISSA HERMAN MD Dic Date/Time: 10/02/22 1509 Sign date/Time: 10/02/22 1510 Baudilio Nguyen MD IMG BI PROCEDURES Final Result * [facility] (01/21/2021 2:45 PM EDT) Anatomical Region Laterality Modality Mammography 01/21/2021 1:16 PM EDT Narrative 01/21/2021 2:45 PM EDT [facility] Diagnostic Imaging Department [address] [place] [id number] Patient: MARINO ALVAREZ Ilan /Age/Sex: 1960 - 60 - F Unit#: [id number] Location/Status: [facility] Ordering Physician: MARTIN LINARES MD [facility] Axial Skeleton - 01/21/211416 HISTORY: The patient is a 60-year-old postmenopausal female with clinical concern for metabolic bone disease. FINDINGS: Dual [...] 91% of that of age matched controls. This yields a T-score of -0.8 and a Z-score of -0.7 and there is therefore no evidence of osteoporosis or osteopenia here. However, the T-score of the right femoral neck is -1.2 and that of the left femoral neck is -1.8 which is diagnostic of osteopenia. IMPRESSION: 1. Osteopenia. There has been an increase of 7.3% in bone mineral density in the lumbar spine since the prior examination of 12/06/2017. There has been an increase of 3.6% in bone mineral density in the right femur and a decrease of 2.4% in bone mineral density in the left femur. 2. FRAX analysis yields a 10-year probability of major osteoporotic fracture of 11.7% and a 10-year probability of hip fracture of 0.8%. Code 72460 Dictating Physician: MASOUD MCFARLANE MD Electronically Signed by: MASOUD MCFARLANE MD Dic Date/Time: 01/21/21 144 Sign date/Time: 01/21/211444 Procedure Note Masoud Mcfarlane MD - 08/29/2022 [facility] Diagnostic Imaging Department [address] [place] [address] Patient: DIANAIlanMARINO Galindo./Age/Sex: 1960 - 60 - F Unit#: [id number] Location/Status: [facility] Mnemonic/Ordering Site: [facility] Ordering Physician: MARTIN LINARES MD [facility] Dexa Axial Skeleton - 01/21/211416 HISTORY: The patient is a 60-year-old postmenopausal [...] density of the femurs bilaterally is 0.901 gm/rf9glnba is 89% of that of young normals [...] probability of hip fracture of 0.8%. Code 47007 Dictating Physician: MASOUD MCFARLANE MD Electronically Signed by: MASOUD MCFARLANE MD Dic Date/Time: 01/21/21 1444 Sign date/Time: 01/21/21 1445 Martin Linares MD IMG BI PROCEDURES Final Result from Last 3 Months or Most Recently Relevant to Health Maintenance Advance Directives Documents on File Type Date Recorded Patient Metal Sprayer Production Expl anation Health Care Decision (hx) 08/06/2018 AD BARRAZA DIRECTIVE Health Care Decision (hx) 08/06/2018 AD BARRAZA DIRECTIVE Health Care Decision (hx) 08/06/2018 AD BARRAZA DIRECTIVE Health Care Decision (hx) 08/06/2018 AD BARRAZA DIRECTIVE Care Teams Fire Sprinkler Installer Relationship Specialty Start Date End Date Nereyda Hogue MD PCP - General Internal Medicine 04/23/18
== END 2025-07-20 12:04 | disposition home or self-care (01) ==
LOC: HO.HOP 10:07
PROVIDERS: PCP Internal Medicine; Visit Provider Psychiatry & Neurology Psychiatry
DX: F41.1 Generalized anxiety disorder (principal); F33.41 Major depressive disorder, recurrent, in partial remission
CPT/HCPCS: 99214

== ENCOUNTER → 2025-07-20 10:07 | Outpatient (BNVA) | payer MEDICARE, MEDICAID, SELFPAY | PROVIDERS: PCP Internal Medicine; Visit Provider Psychiatry & Neurology Psychiatry | DX: F33.41 Major depressive disorder, recurrent, in partial remission (principal); F41.3 Other mixed anxiety disorders; F43.10 Post-traumatic stress disorder, unspecified | CPT/HCPCS: 99212 ==

== ENCOUNTER 2025-08-17 09:42 | Outpatient (AMB) | payer MEDICARE, MEDICAID, SELFPAY ==
[2025-08-17 09:44] VITALS: BP 144/70; PULSE 107; BMI 36.3
--- NOTE | 2025-08-17 09:44 | A.OFFVIS_ITS ---
Vital Signs 08/17/25 09:44 Height 5 ft 4 in Weight 211 lb 10.3 oz BMI 36.3 BP 144/70 H Blood Pressure Location Lt brachial Position Sitting Pulse 107 H Intake Visit Reasons: 1 yr follow up Intake Note: Dina presents in the office as a 1 year follow up. CC: States that she has no concerns other than stopping colsevalem Malt Specifications Control Assistant Required: No Allergies metoclopramide (From REGLAN) Allergy (Severe, Verified 08/17/25 09:49) PANIC ATTACKS, agitation Penicillins (PENICILLINS) Allergy (Severe, Verified 08/17/25 09:49) SOB, couldn't breathe sulfamethoxazole (From BACTRIM) Allergy (Intermediate, Verified 08/17/25 09:49) HIVES trimethoprim (From BACTRIM) Allergy (Intermediate, Verified 08/17/25 09:49) HIVES surgical skin glue Allergy (Severe, Uncoded 08/17/25 09:49) Hives HPI HPI 1 yr follow up: Details: 65 yr old f w/ hx of partial colon resection for ischemic hemorrhagic ulcer 2016 being seen for f/u RECAP: she had EGD 03/03- constriction noted where she had her sleeve, lactase level was normal she has explosive diarrhea not on a pariticular diet and cant connect to any particular food per se she feels some improvement with creon rast testing neg, sister with nickel allergy other studies: capsule - non specific erythema colo 09/01-- lymphoid aggregates, hyperplastic polyp, SSA not excluded INTERIM: she stopped colveselam a month ago due to constipation no diarrhea she has not tried any laxatives she is trying fiber, she drinks maybe 6 glasses of water a day she has no abdominal pain no n/v appetite is good she had TSH checked and was nml recently with PCP at [facility] EXAM: GENERAL: The patient is well developed and nontoxic. VITAL SIGNS:see workflow HEENT: Nonicteric sclerae, PERRLA, EOMI. Oropharynx clear. Moist mucous membranes. Conjunctivae appear well perfused. No thyroid mass. CHEST: Chest wall is nontender. HEART: Regular rate and rhythm without murmurs. LUNGS: Clear to auscultation bilaterally. ABDOMEN: Soft, positive bowel sounds, nontender, no organomegaly.no flank tenderness SKIN: No rash, no excessive bruising, petechiae, or purpura. NEUROLOGIC: Cranial nerves II-XII intact without motor/sensory deficit. Psych: normal affect benign essential tremor noted A/P: 1/ diarrhea, possible bile acid related due to prior colonic resection, seems improved with bile acid binder but now stopped due to constipation PLAN: 1/ can try miralax --if no better to let me know in case need to escalate treatment and maybe repeat colonoscopy PFSH Medical History SHALONDA (obstructive sleep apnea) Tremor Chronic post-traumatic stress disorder (PTSD) Pre-diabetes Vertigo Essential tremor Generalized anxiety disorder Hyperparathyroid bone disease BMI 35.0-35.9,adult Slow to wake up after anesthesia Arthritis Hx of low back pain Hiatal hernia GERD (gastroesophageal reflux disease) Hx of migraines Anxiety and depression BMI 36.0-36.9,adult Obesity Left atrial enlargement Migraines Osteoporosis Hyperparathyroidism History of kidney stones Hx of endometriosis Depression, major, severe recurrence Surgical History History of esophagogastroduodenoscopy (EGD) Status post repair of paraesophageal diaphragmatic hernia S/P laparoscopic sleeve gastrectomy Hx of lithotripsy Hx of arthroscopic knee surgery History of colon resection History of Erick fundoplication History of wisdom tooth extraction, class I edentulism Hx of bladder endoscopy Hx of colonoscopy Hx of arthroplasty Hx of knee surgery Hx of tonsillectomy Hx of appendectomy Family History Mother Depression Anxiety Asthma Osteoporosis Father Osteoporosis Brother Osteoporosis Asthma Depression Sister Depression Anxiety Obesity Heart disease Sister IBS (irritable bowel syndrome) Anxiety Depression Social History Household Members: None Are you a primary point of care specialist to a significant other at home: No Do you presently have visiting nurse or other home services: No Alcohol intake: former Patient Tobacco Use Status: Never used Tobacco Second Hand Smoke Exposure: No service: No Current occupational status: disabled Physical Exam Vital Signs: Last Vital Signs Pulse 107 H 08/17/25 09:44 BP 144/70 H 08/17/25 09:44 BMI result Body Mass Index 36.3 Assessment & Plan Assessment & Plan (1) Diarrhea: Code(s): R19.7 - Diarrhea, unspecified Category: Surgical Plan: as above Coding Level of Care Code Est Pt Level 3 (29718) Diagnoses Diarrhea R19.7
== END 2025-08-17 10:09 | disposition home or self-care (01) ==
LOC: HO.HGI 09:43
PROVIDERS: PCP Internal Medicine; Visit Provider Internal Medicine Gastroenterology
DX: R19.7 Diarrhea, unspecified (principal)
CPT/HCPCS: 99213

== ENCOUNTER → 2025-08-17 09:42 | Outpatient (BNVA) | payer MEDICARE, MEDICAID, SELFPAY | PROVIDERS: PCP Internal Medicine; Visit Provider Internal Medicine Gastroenterology | DX: R19.7 Diarrhea, unspecified (principal) | CPT/HCPCS: 99212 ==